=== PATIENT | female | born 1955 | race Caucasian/White ===

== ENCOUNTER 2022-05-24 10:05 | Inpatient (IN) | payer MEDICARE ==
[2022-05-24] MEDS ORDERED: IBUPROFEN IV 600 MG in SODIUM CHLORIDE 0.9% 250 ML IV STA (10:13)
[2022-05-24] MEDS ORDERED: ACETAMINOPHEN TAB 500 MG TAB PO STA (10:13)
[2022-05-24] MEDS ORDERED: cefTRIAXone IN SWFI 1,000 MG/10 ML SYRINGE IVP STA (10:16)
--- NOTE | 2022-05-24 10:22 | ED ---
General Adult HPI - General Stated complaint: SOB Time Seen by Provider: 05/24/22 10:05 Source: patient, RN notes reviewed, old records reviewed - History of Present Illness Initial comments: This is a 66-year-old female presents emergency Department complaining that she was diagnosed with the mornings been on 2 courses of antibiotics. She continues to have difficulty breathing or coughing and a fever. Patient states she was tested for Coban was negative. Patient denies any chest pain or palpitations. Patient denies any abdominal pain patient denies nausea vomiting or diarrhea. Patient denies any swelling to the legs or calf tenderness. Patient denies any lightheadedness or dizziness. - Related Data Allergies Allergy/AdvReac Type Severity Reaction Status Date / Time No Known Allergies Allergy Verified 05/24/22 10:23 Review of Systems ROS Statement: Those systems with pertinent positive or pertinent negative responses have been documented in the HPI. ROS Other: All systems not noted in ROS Statement are negative. General Exam - General Exam Comments Initial Comments: GENERAL: Patient is well-developed and well-nourished. Patient is nontoxic and well- hydrated and is in mild distress. ENT: Neck is soft and supple. No significant lymphadenopathy is noted. Oropharynx is clear. Moist mucous membranes. Neck has full range of motion without eliciting any pain. EYES: The sclera were anicteric and conjunctiva were pink and moist. Extraocular movements were intact and pupils were equal round and reactive to light. Eyelids were unremarkable. PULMONARY: Patient has crackles in the right base. CARDIOVASCULAR: There is a regular rate and rhythm without any murmurs gallops or rubs. ABDOMEN: Soft and nontender with normal bowel sounds. SKIN: Skin is clear with no lesions or rashes and otherwise unremarkable. NEUROLOGIC: Patient is alert and oriented x3. Cranial nerves II through XII are grossly intact. Motor and sensory are also intact. Normal speech, volume and content. Symmetrical smile. MUSCULOSKELETAL: Normal extremities with adequate strength and full range of motion. No lower extremity swelling or edema. No calf tenderness. LYMPHATICS: No significant lymphadenopathy is noted PSYCHIATRIC: Normal psychiatric evaluation. Course Vital Signs 05/24/22 10:21 Temperature 101.8 F H Pulse Rate 118 H Respiratory 22 Rate Blood Pressure 107/70 O2 Sat by Pulse 96 Oximetry Medical Decision Making - Medical Decision Making EKG shows sinus tachycardia at 118 bpm TN interval is 170 QRS is 76 QT interval 306 QTC is 376. Patient's EKG shows patient PAC X-ray shows left upper lobe opacification consistent with pneumonia. Patient was started on antibiotics in the emergency department I spoke with [facility] agreed to admit the patient and the patient wrote admitting orders I consult pulmonary. - Lab Data Result diagrams: 05/24/22 10:33 05/24/22 10:33 Lab Results 05/24/22 05/24/22 Range/Units 10:33 10:33 WBC 29.1 H (3.8-10.6) k/uL RBC 2.80 L (3.80-5.40) m/uL Hgb 8.2 L (11.4-16.0) gm/dL Hct 25.4 L (34.0-46.0) % MCV 90.6 (80.0-100.0) fL MCH 29.1 (25.0-35.0) pg MCHC 32.2 (31.0-37.0) g/dL RDW 14.0 (11.5-15.5) % Plt Count 512 H (150-450) k/uL MPV 7.2 Hypochromasia Slight Sodium 132 L (137-145) mmol/L Potassium 3.9 (3.5-5.1) mmol/L Chloride 105 (98-107) mmol/L Carbon Dioxide 20 L (22-30) mmol/L Anion Gap 7 mmol/L BUN 13 (7-17) mg/dL Creatinine 0.43 L (0.52-1.04) mg/dL Est GFR (CKD-EPI)AfAm >90 (>60 ml/min/1.73 sqM) Est GFR (CKD-EPI)NonAf >90 (>60 ml/min/1.73 sqM) Glucose 107 H (74-99) mg/dL Calcium 7.5 L (8.4-10.2) mg/dL Total Bilirubin 0.2 (0.2-1.3) mg/dL AST 28 (14-36) U/L ALT 35 H (4-34) U/L Alkaline Phosphatase 135 H (38-126) U/L Total Protein 4.9 L (6.3-8.2) g/dL Albumin 2.1 L (3.5-5.0) g/dL Disposition Clinical Impression: Pneumonia, Anemia Disposition: ADMITTED IP TO THIS HOSP Referrals: Nonstaff,Physician [Primary Care Provider] - 1-2 days Time of Disposition: 11:13
[2022-05-24] MEDS: SODIUM CHLORIDE 0.9% 500 ML 500 ML IV SCH ×2 (10:34→10:50)
[2022-05-24 10:51] LABS: Basophils % (A) 0 %; Eosinophils % (A) 0 %; HCT 25.4 % (34.0-46.0); HGB 8.2 gm/dL (11.4-16.0); Hypochromasia Slight; Lymphocytes # (A) 0.6 k/uL (1.0-4.8); Lymphocytes % (A) 2 %; MCH 29.1 pg (25.0-35.0); MCHC 32.2 g/dL (31.0-37.0); MCV 90.6 fL (80.0-100.0); Mean Platelet Volume 7.2; Monocytes # (A) 0.9 k/uL (0-1.0); Monocytes % (A) 3 %; Neutrophils # (A) 27.6 k/uL (1.3-7.7); Neutrophils % (A) 95 %; Platelet Count 512 k/uL (150-450); WBC 29.1 k/uL (3.8-10.6)
[2022-05-24 11:02] LABS: ALT 35 U/L (4-34); AST 28 U/L (14-36); African American GFR (CKD) >90 (>60 ml/min/1.73 sqM); Albumin 2.1 g/dL (3.5-5.0); Alkaline Phosphatase 135 U/L (38-126); Anion Gap 7 mmol/L; Blood Urea Nitrogen 13 mg/dL (7-17); Calcium 7.5 mg/dL (8.4-10.2); Carbon Dioxide 20 mmol/L (22-30); Chloride 105 mmol/L (98-107); Glucose 107 mg/dL (74-99); Non-African American GFR(CKD) >90 (>60 ml/min/1.73 sqM); Potassium 3.9 mmol/L (3.5-5.1); Sodium 132 mmol/L (137-145); Total Bilirubin 0.2 mg/dL (0.2-1.3); Total Protein 4.9 g/dL (6.3-8.2)
--- NOTE | 2022-05-24 11:05 | XR ---
EXAMINATION TYPE: XR chest 2V DATE OF EXAM: 05/24/2022 11:00 AM COMPARISON: None TECHNIQUE: XR chest 2V Frontal and lateral views of the chest. CLINICAL INDICATION:Female, 66 years old with history of Fever; FINDINGS: Lungs/Pleura: Opacity projecting over the left upper lobe. Mild COPD changes with finding the diaphra gm and increased lucency in the right lung. Pulmonary vascularity: Unremarkable. Heart/mediastinum: Cardiomediastinal silhouette is unremarkable. Musculoskeletal: No acute osseous pathology. IMPRESSION: Left upper lobe opacity could represent pneumonia given patient's history of fever. There is concern for underlying mass consider dedicated CT chest.
[2022-05-24] MEDS ORDERED: AZITHROMYCIN 500 MG in SODIUM CHLORIDE 0.9% 250 ML IVPB STA (11:14)
[2022-05-24] MEDS ORDERED: PNEUMONIA PROTOCOL UTILIZED 1 EACH MISC PO PRN (11:14)
[2022-05-24 11:20] LABS: Prothrombin Time 11.1 sec (9.0-12.0)
[2022-05-24] MEDS ORDERED: SODIUM CHLORIDE 0.9% 500 ML 500 ML IV ONE (11:22)
[2022-05-24 12:20] LABS: Toxic Granulation Present
[2022-05-24] MEDS ORDERED: RX INFO: IV CONTRAST WAS GIVEN 1 EACH MISC MISCELLANE PRN (13:22)
--- NOTE | 2022-05-24 15:07 | P.CNPUL ---
History of Present Illness Consult date: 05/24/22 Requesting physician: Suresh Mejia Reason for consult: dyspnea, cough Chief complaint: Shortness of breath, cough, fever History of present illness: 66-year-old female patient, former smoker, but does carry [id number] smoking history, who came into the emergency department on May 26, 2022, with symptoms of shortness of breath, cough, fever. Patient states she has had the symptoms since early April 2022. On 05/02/2022 she went to the urgent care where she was treated with antibiotics and steroids. She then saw her PCP in follow-up, chest x-ray was taken and she was told that she has a pneumonia, and was given another round of a biotics and steroids. However she still having difficulty breathing, and coughing. She does admit to some weight loss, denies any hemoptysis no chest pain. Chest x-ray in the ED showed left upper lobe opacification consistent with pneumonia, EKG showed sinus tachycardia. Patient tested negative for COVID-19. The rest of her lab work showed leukocytosis with white blood cell, 29.1, hemoglobin of 8.1, platelet count of 512, coagulation profile was within normal limits, sodium is 132, potassium is 3.9, chloride is 105, CO2 is 20, BUN of 13 creatinine 0.43, plasma lactic acid was 2.3. Patient was started on azithromycin and Rocephin, was given gentle IV hydration. Chest x- ray findings are concerning for underlying pulmonary mass, and dedicated CT of the chest was recommended. And we're consulted for the same. Review of Systems All systems: negative Constitutional: Reports fatigue, Reports fever, Reports malaise, Reports weakness, Denies chills Eyes: denies blurred vision, denies pain Ears, nose, mouth and throat: Denies headache, Denies sore throat Cardiovascular: Denies chest pain, Denies shortness of breath Respiratory: Reports cough with sputum, Reports dyspnea, Denies cough Gastrointestinal: Denies abdominal pain, Denies diarrhea, Denies nausea, Denies vomiting Genitourinary: Denies dysuria, Denies hematuria Musculoskeletal: Denies myalgias Integumentary: Denies pruritus, Denies rash Neurological: Denies numbness, Denies weakness Psychiatric: Denies anxiety, Denies depression Endocrine: Denies fatigue, Denies weight change Past Medical History Past Medical History: Pneumonia History of Any Multi-Drug Resistant Organisms: None Reported Past Surgical History: No Surgical Hx Reported Past Anesthesia/Blood Transfusion Reactions: No Reported Reaction Past Psychological History: No Psychological Hx Reported Smoking Status: Former smoker, Vaper Past Alcohol Use History: None Reported Past Drug Use History: None Reported - Past Family History Mother Family Medical History: Cancer Medications and Allergies Home Medications Medication Instructions Recorded Confirmed Type Albuterol Inhaler [Ventolin Hfa 2 puff INHALATION RT-Q4H PRN 05/24/22 05/24/22 History Inhaler] Docusate [Colace] 100 mg PO DAILY 05/24/22 05/24/22 History Ferrous Sulfate [Feosol] 325 mg PO DAILY 05/24/22 05/24/22 History Allergies Allergy/AdvReac Type Severity Reaction Status Date / Time No Known Allergies Allergy Verified 05/24/22 11:34 Physical Exam Vitals: Vital Signs Temp Pulse Pulse Resp BP BP Pulse Ox 05/24/22 12:38 98.3 F 99 18 94/56 98 05/24/22 11:24 100.4 F H 110 H 18 113/66 98 05/24/22 10:21 101.8 F H 118 H 22 107/70 96 Intake and Output 05/23/22 05/24/22 05/24/22 22:59 06:59 14:59 Other: Weight 49.895 kg GENERAL EXAM: Alert, very pleasant, 66-year-old thin white female, resting in bed on 2 L of oxygen pulse ox is 98% comfortable in no apparent distress. HEAD: Normocephalic/atraumatic. EYES: Normal reaction of pupils, equal size. Conjunctiva pink, sclera white. NOSE: Clear with pink turbinates. THROAT: No erythema or exudates. NECK: No masses, no JVD, no thyroid enlargement, no adenopathy. CHEST: No chest wall deformity. Symmetrical expansion. LUNGS: Equal air entry with no crackles, wheeze, rhonchi or dullness. CVS: Regular rate and rhythm, normal S1 and S2, no gallops, no murmurs, no rubs ABDOMEN: Soft, nontender. No hepatosplenomegaly, normal bowel sounds, no guarding or rigidity. EXTREMITIES: No clubbing, no edema, no cyanosis, 2+ pulses and upper and lower extremities. MUSCULOSKELETAL: Muscle strength and tone normal. SPINE: No scoliosis or deformity SKIN: No rashes CENTRAL NERVOUS SYSTEM: Alert and oriented -3. No focal deficits, tone is normal in all 4 extremities. PSYCHIATRIC: Alert and oriented -3. Appropriate affect. Intact judgment and insight. Results - Laboratory Findings CBC and BMP: 05/24/22 10:33 05/24/22 10:33 PT/INR, D-dimer PT 11.1 sec (9.0-12.0) 05/24/22 10:33 INR 1.0 (<1.2) 05/24/22 10:33 Abnormal lab findings: Abnormal Labs 05/24/22 05/24/22 05/24/22 10:33 10:33 10:33 WBC 29.1 H RBC 2.80 L Hgb 8.2 L Hct 25.4 L Plt Count 512 H Neutrophils # 27.6 H Lymphocytes # 0.6 L Sodium 132 L Carbon Dioxide 20 L Creatinine 0.43 L Glucose 107 H Plasma Lactic Acid Vamsi 2.3 H* Calcium 7.5 L ALT 35 H Alkaline Phosphatase 135 H Total Protein 4.9 L Albumin 2.1 L - Diagnostic Findings Chest x-ray: report reviewed, image reviewed Assessment and Plan Plan: Assessment: #1. Acute left upper lobe pneumonia, with failure of outpatient treatment with 2 rounds of antibiotics and steroids, possibility of underlying lung mass con sidered, CT chest with contrast is pending. #2. Leukocytosis, fever, cough shortness of breath related to the above. COVID-19 PCR was negative #3. Lactic acidosis, mild, improved with IV hydration #4. Former smoker, currently in remission, carries [id number] smoking history Plan: We'll obtain CT scan of the chest with IV contrast Continue with antibiotics Continue IV hydration, breathing treatments Possibility of left upper lobe lung mass is being considered especially knowing the patient is an ex-smoker We'll continue patient's clinical course Sputum for culture, GI DVT prophylaxis I have personally seen and examined the patient, performed the documentation and the assessment and plan as written. Number of minutes spent on the visit: [15] Time with Patient: Greater than 30
[2022-05-24] MEDS: IPRATROPIUM-ALBUTEROL 3 ML NEB INHALATION SCH ×2 (15:28→19:07)
[2022-05-24] MEDS ORDERED: ONDANSETRON 4 MG/2 ML VIAL IVP PRN (15:58)
--- NOTE | 2022-05-24 16:09 | CT ---
EXAMINATION TYPE: CT chest w con DATE OF EXAM: 05/24/2022 COMPARISON: None HISTORY: SOB, pneumonia, chest mass CT DLP: 187.8 mGycm Automated exposure control for dose reduction was used. CONTRAST: Performed with IV Contrast, patient injected with 100 mL of Isovue 300. Images obtained from the thoracic inlet to the diaphragm with the IV contrast. There is large left upper lung field mass like consolidation. This measures 12 cm in length. There is extension into the mediastinum. There is central cavitation. There are some adjacent airspace pulmon jalil infiltrates. There is some pulmonary emphysema in the lateral aspect of the right lung. The pulmonary arteries appear intact. Thoracic aorta is intact. No aneurysm. There is mild left pleur al effusion. Heart size is normal. No pericardial effusion. There is 2.2 cm left adrenal mass which h as relatively low attenuation. The thoracic spine is intact. No compression fracture. No focal bone destruction. The ribs appear int act. IMPRESSION: Large left upper lobe mass with cavitation. There is invasion into the left side of the mediastinum a nd this is suggestive of malignancy. Left pleural effusion. Pulmonary emphysema. Nonspecific left adrenal mass. Density is relatively low and more likely benign.
--- NOTE | 2022-05-24 18:37 | P.HPIM ---
History of Present Illness H&P Date: 05/24/22 Chief Complaint: Shortness of breath 66-year-old female presents emergency Department complaining that she was diagnosed with the mornings been on 2 courses of antibiotics. She continues to have difficulty breathing or coughing and a fever. Patient states she was tested for Coban was negative. Patient denies any chest pain or palpitations. Patient denies any abdominal pain patient denies nausea vomiting or diarrhea. Patient denies any swelling to the legs or calf tenderness. Patient denies any lightheadedness or dizziness. Chest x-ray in the ED showed left upper lobe opacification consistent with pneumonia, EKG showed sinus tachycardia. Patient tested negative for COVID-19. The rest of her lab work showed leukocytosis with white blood cell, 29.1, hemoglobin of 8.1, platelet count of 512, coagulation profile was within normal limits, sodium is 132, potassium is 3.9, chloride is 105, CO2 is 20, BUN of 13 creatinine 0.43, plasma lactic acid was 2.3. Patient was started on azithromycin and Rocephin, was given gentle IV hydration. Chest x-ray findings are concerning for underlying pulmonary mass, and dedicated CT of the chest was recommended. Review of Systems REVIEW OF SYSTEMS: CONSTITUTIONAL: No fever, no malaise, no fatigue. HEENT: No recent visual problems or hearing problems. Denied any sore throat. CARDIOVASCULAR: No chest pain, orthopnea, PND, no palpitations, no syncope. PULMONARY: No shortness of breath, no cough, no hemoptysis. GASTROINTESTINAL: No diarrhea, no nausea, no vomiting, no abdominal pain. NEUROLOGICAL: No headaches, no weakness, no numbness. HEMATOLOGICAL: Denies any bleeding or petechiae. GENITOURINARY: Denies any burning micturition, frequency, or urgency. MUSCULOSKELETAL/RHEUMATOLOGICAL: Denies any joint pain, swelling, or any muscle pain. ENDOCRINE: Denies any polyuria or polydipsia. The rest of the 14-point review of systems is negative. Past Medical History Past Medical History: Pneumonia History of Any Multi-Drug Resistant Organisms: None Reported Past Surgical History: No Surgical Hx Reported Past Psychological History: No Psychological Hx Reported Smoking Status: Former smoker Past Alcohol Use History: None Reported Past Drug Use History: None Reported - Past Family History Mother Family Medical History: Cancer Medications and Allergies Home Medications Medication Instructions Recorded Confirmed Type Albuterol Inhaler [Ventolin Hfa 2 puff INHALATION RT-Q4H PRN 05/24/22 05/24/22 History Inhaler] Docusate [Colace] 100 mg PO DAILY 05/24/22 05/24/22 History Ferrous Sulfate [Feosol] 325 mg PO DAILY 05/24/22 05/24/22 History Allergies Allergy/AdvReac Type Severity Reaction Status Date / Time No Known Allergies Allergy Verified 05/24/22 11:34 Physical Exam Vitals: Vital Signs Temp Pulse Resp BP Pulse Ox 05/24/22 11:24 100.4 F H 110 H 18 113/66 98 05/24/22 10:21 101.8 F H 118 H 22 107/70 96 Intake and Output 05/23/22 05/24/22 05/24/22 22:59 06:59 14:59 Other: Weight 49.895 kg PHYSICAL EXAMINATION: GENERAL: The patient is alert and oriented x3, not in any acute distress. Well developed, well nourished. HEENT: Pupils are round and equally reacting to light. EOMI. No scleral icterus. No conjunctival pallor. Normocephalic, atraumatic. No pharyngeal erythema. No thyromegaly. CARDIOVASCULAR: S1 and S2 present. No murmurs, rubs, or gallops. PULMONARY: Chest is clear to auscultation, no wheezing or crackles. ABDOMEN: Soft, nontender, nondistended, normoactive bowel sounds. No palpable organomegaly. MUSCULOSKELETAL: No joint swelling or deformity. EXTREMITIES: No cyanosis, clubbing, or pedal edema. NEUROLOGICAL: Gross neurological examination did not reveal any focal deficits. SKIN: No rashes. Results CBC & Chem 7: 05/24/22 10:33 05/24/22 10:33 Labs: Abnormal Lab Results - Last 24 Hours (Table) 05/24/22 05/24/22 05/24/22 Range/Units 10:33 10:33 10:33 WBC 29.1 H (3.8-10.6) k/uL RBC 2.80 L (3.80-5.40) m/uL Hgb 8.2 L (11.4-16.0) gm/dL Hct 25.4 L (34.0-46.0) % Plt Count 512 H (150-450) k/uL Neutrophils # 27.6 H (1.3-7.7) k/uL Lymphocytes # 0.6 L (1.0-4.8) k/uL Sodium 132 L (137-145) mmol/L Carbon Dioxide 20 L (22-30) mmol/L Creatinine 0.43 L (0.52-1.04) mg/dL Glucose 107 H (74-99) mg/dL Plasma Lactic Acid Vamsi 2.3 H* (0.7-2.0) mmol/L Calcium 7.5 L (8.4-10.2) mg/dL ALT 35 H (4-34) U/L Alkaline Phosphatase 135 H (38-126) U/L Total Protein 4.9 L (6.3-8.2) g/dL Albumin 2.1 L (3.5-5.0) g/dL Assessment and Plan Assessment: 1. Left upper lobe pneumonia; failing outpatient treatment; patient was treated with antibiotics and steroids as outpatient but continued to remain symptomatic - Patient has been placed on IV Rocephin and azithromycin; we will order blood cultures and sputum culture - Bronchodilator nebulizer treatments; symptomatic treatment of pneumonia 2. Possible left upper lobe mass; pulmonary is consulted and patient is recommended CT of the chest with contrast 3. Leukocytosis; related to acute pneumonia; we will monitor CBC, CRP and pro-c alcitonin 4. Lactic acidosis; improving with IV fluid hydration 5. Constipation; continue with Colace 100 mg daily 6. Iron deficiency anemia; iron sulfate 325 mg daily DVT prophylaxis; SCDs/subcu heparin CODE STATUS; full code
--- NOTE | 2022-05-25 08:09 | XR ---
EXAMINATION TYPE: XR chest 2V DATE OF EXAM: 05/25/2022 7:49 AM COMPARISON: CT chest and radiograph from one day prior. TECHNIQUE: XR chest 2V Frontal and lateral views of the chest. CLINICAL INDICATION:Female, 66 years old with history of pneumonia; FINDINGS: Lungs/Pleura: Left upper lobe masslike consolidation obscures the mediastinum is apparently. There is no evidence of pleural effusion, focal consolidation, or pneumothorax. Pulmonary vascularity: Unremarkable. Heart/mediastinum: Cardiomediastinal silhouette is unremarkable. Musculoskeletal: No acute osseous pathology. IMPRESSION: Unchanged exam left upper lobe mass which extends into the mediastinum, this is better appreciated on CT.
[2022-05-25] MEDS: ACETAMINOPHEN TAB 325 MG TAB PO PRN ×2 (08:40→18:11)
[2022-05-25] MEDS: AZITHROMYCIN 500 MG TAB PO SCH (08:41)
[2022-05-25] MEDS: FERROUS SULFATE 325 MG TAB PO SCH (08:41)
[2022-05-25] MEDS: DOCUSATE 100 MG CAP PO SCH (08:41)
[2022-05-25] MEDS: IPRATROPIUM-ALBUTEROL 3 ML NEB INHALATION SCH ×4 (09:12→19:51)
[2022-05-25] MEDS ORDERED: SODIUM CHLORIDE 0.9% 500 ML 500 ML IV ONE ×2 (10:23→19:28)
--- NOTE | 2022-05-25 10:25 | P.PN ---
Subjective Progress Note Date: 05/25/22 Principal diagnosis: Lung mass 66-year-old female patient, former smoker, but does carry [id number] smoking history, who came into the emergency department on May 26, 2022, with symptoms of shortness of breath, cough, fever. Patient states she has had the symptoms since early April 2022. On 05/02/2022 she went to the urgent care where she was treated with antibiotics and steroids. She then saw her PCP in follow-up, chest x-ray was taken and she was told that she has a pneumonia, and was given another round of a biotics and steroids. However she still having difficulty breathing, and coughing. She does admit to some weight loss, denies any hemoptysis no chest pain. Chest x-ray in the ED showed left upper lobe opacification consistent with pneumonia, EKG showed sinus tachycardia. Patient tested negative for COVID-19. The rest of her lab work showed leukocytosis with white blood cell, 29.1, hemoglobin of 8.1, platelet count of 512, coagulation profile was within normal limits, sodium is 132, potassium is 3.9, chloride is 105, CO2 is 20, BUN of 13 creatinine 0.43, plasma lactic acid was 2.3. Patient was started on azithromycin and Rocephin, was given gentle IV hydration. Chest x- ray findings are concerning for underlying pulmonary mass, and dedicated CT of the chest was recommended. And we're consulted for the same. On 05/25/2022 patient seen in follow-up. Computed tomography scan of the chest without contrast was completed showing large left upper lobe mass with cavitation, and there is invasion into the left side of the mediastinum suggest darline of malignancy area and left pleural effusion and pulmonary emphysema. Nonspecific left adrenal mass. Patient remains on antibiotics, breathing treatments, vital signs are stable, patient is afebrile, currently on 2 L of oxygen satting 96%. She is short of breath with exertion, and does have a dry nonproductive cough. Denies any hemoptysis. Objective - Vital Signs Vital signs: Vital Signs Temp 98.5 F 05/25/22 05:00 Pulse 102 H 05/25/22 09:23 Resp 16 05/25/22 05:00 BP 99/62 05/25/22 05:00 Pulse Ox 96 05/25/22 05:00 FiO2 Intake & Output 05/24/22 05/25/22 05/25/22 18:59 06:59 18:59 Intake Total 2920 Balance 2920 Weight 49.895 kg Intake: Intake, IV Titration 1800 Amount Azithromycin 500 mg In 500 Sodium Chloride 0.9% 250 ml @ 250 mls/hr IVPB ONCE STA Rx#:[id number] Ibuprofen IV 600 mg In 250 Sodium Chloride 0.9% 250 ml @ 500 mls/hr IV ONCE STA Rx#:[id number] Sodium Chloride 0.9% 500 500 ml 500 ml @ 1000 mls/hr IV Q35M [facility] Rx#:[id number] Sodium Chloride 0.9% 500 500 ml 500 ml @ 999 mls/hr IV .Q31M ONE Rx#:[id number] cefTRIAXone 2 gm In 50 Sodium Chloride 0.9% 50 ml @ 100 mls/hr IVPB Q24HR [facility] Rx#:[id number] Oral 1120 Other: # Voids 2 2 # Bowel Movements 2 - Exam GENERAL EXAM: Alert, very pleasant, 66-year-old thin white female, resting in bed on 2 L of oxygen pulse ox is 98% comfortable in no apparent distress. HEAD: Normocephalic/atraumatic. EYES: Normal reaction of pupils, equal size. Conjunctiva pink, sclera white. NOSE: Clear with pink turbinates. THROAT: No erythema or exudates. NECK: No masses, no JVD, no thyroid enlargement, no adenopathy. CHEST: No chest wall deformity. Symmetrical expansion. LUNGS: Equal air entry with no crackles, wheeze, rhonchi or dullness. CVS: Regular rate and rhythm, normal S1 and S2, no gallops, no murmurs, no rubs ABDOMEN: Soft, nontender. No hepatosplenomegaly, normal bowel sounds, no guarding or rigidity. EXTREMITIES: No clubbing, no edema, no cyanosis, 2+ pulses and upper and lower extremities. MUSCULOSKELETAL: Muscle strength and tone normal. SPINE: No scoliosis or deformity SKIN: No rashes CENTRAL NERVOUS SYSTEM: Alert and oriented -3. No focal deficits, tone is normal in all 4 extremities. PSYCHIATRIC: Alert and oriented -3. Appropriate affect. Intact judgment and insight. - Labs CBC & Chem 7: 05/24/22 10:33 05/24/22 10:33 Labs: Abnormal Lab Results - Last 24 Hours (Table) 08/06/22 08/06/22 08/06/22 Range/Units 10:33 10:33 10:33 WBC 29.1 H (3.8-10.6) k/uL RBC 2.80 L (3.80-5.40) m/uL Hgb 8.2 L (11.4-16.0) gm/dL Hct 25.4 L (34.0-46.0) % Plt Count 512 H (150-450) k/uL Neutrophils # 27.6 H (1.3-7.7) k/uL Lymphocytes # 0.6 L (1.0-4.8) k/uL Sodium 132 L (137-145) mmol/L Carbon Dioxide 20 L (22-30) mmol/L Creatinine 0.43 L (0.52-1.04) mg/dL Glucose 107 H (74-99) mg/dL Plasma Lactic Acid Vamsi 2.3 H* (0.7-2.0) mmol/L Calcium 7.5 L (8.4-10.2) mg/dL ALT 35 H (4-34) U/L Alkaline Phosphatase 135 H (38-126) U/L Total Protein 4.9 L (6.3-8.2) g/dL Albumin 2.1 L (3.5-5.0) g/dL 05/25/22 Range/Units 09:45 WBC (3.8-10.6) k/uL RBC (3.80-5.40) m/uL Hgb (11.4-16.0) gm/dL Hct (34.0-46.0) % Plt Count (150-450) k/uL Neutrophils # (1.3-7.7) k/uL Lymphocytes # (1.0-4.8) k/uL Sodium (137-145) mmol/L Carbon Dioxide (22-30) mmol/L Creatinine (0.52-1.04) mg/dL Glucose (74-99) mg/dL Plasma Lactic Acid Vamsi 2.6 H* (0.7-2.0) mmol/L Calcium (8.4-10.2) mg/dL ALT (4-34) U/L Alkaline Phosphatase (38-126) U/L Total Protein (6.3-8.2) g/dL Albumin (3.5-5.0) g/dL Assessment and Plan Plan: Assessment: #1. Left upper lobe lung mass with cavitation and invasion into the left side of the mediastinum suggestive of malignancy. Patient had symptoms of cough, vivian rtness of breath and fever with failure of outpatient treatment with 2 rounds of antibiotics and steroids. #2. Leukocytosis, fever, cough shortness of breath related to the above. COVID-19 PCR was negative #3. Lactic acidosis, mild, improved with IV hydration #4. Former smoker, currently in remission, carries [id number] smoking history Plan: Computed tomography scan of the chest has been reviewed with the patient Left upper lobe lung mass showing invasion into the left mediastinum We'll schedule the patient for bronchoscopy with biopsies early next week We discussed this with the patient was agreeable to proceed For now continue current medical treatment I have personally seen and examined the patient, performed the documentation and the assessment and plan as written. Number of minutes spent on the visit: [15] Time with Patient: Less than 30
[2022-05-25] MEDS: SODIUM CHLORIDE 0.9% 1,000 ML IV SCH ×2 (11:19→18:12)
[2022-05-25 13:01] LABS: Basophils % (A) 0 %; Eosinophils % (A) 0 %; HGB 8.2 gm/dL (11.4-16.0); Hypochromasia Slight; Lymphocytes % (A) 3 %; MCH 29.3 pg (25.0-35.0); MCHC 31.7 g/dL (31.0-37.0); MCV 92.5 fL (80.0-100.0); Mean Platelet Volume 7.4; Monocytes # (A) 0.5 k/uL (0-1.0); Monocytes % (A) 2 %; Neutrophils # (A) 28.3 k/uL (1.3-7.7); Neutrophils % (A) 94 %; Platelet Count 508 k/uL (150-450); RBC 2.81 m/uL (3.80-5.40); RDW 14.3 % (11.5-15.5)
[2022-05-25 13:27] LABS: C Reactive Protein 33.2 mg/dL (<1.0)
[2022-05-25 14:13] LABS: Toxic Granulation Present
[2022-05-25] MEDS: PIPERACILLIN-TAZOBACTAM 3.375 GM in SODIUM CHLORIDE 0.9% 100 ML IVPB SCH (20:08)
[2022-05-25] MEDS ORDERED: IBUPROFEN 600 MG TAB PO PRN (21:51)
[2022-05-25] MEDS: MELATONIN 3 MG TABLET PO PRN (22:12)
--- NOTE | 2022-05-25 23:44 | P.CONS ---
History of Present Illness - Reason for Consult Consult date: 05/25/22 Lung mass - History of Present Illness This is a 66-year-old female, who came into the emergency room with complains of persistent cough, shortness of breath and intermittent fevers. Symptoms had started approximately a month ago. She had had 2 courses of antibiotics as an outpatient with only transient relief, followed by recurrence and progression of symptoms leading to come to the ER. Cough was mostly dry. She had very occasional whitish to radiation expectoration, and couple of episodes of coughing up small amounts of blood. In the emergency room chest x-ray showed a large area of consolidation in the left upper lobe. There was concern for an underlying mass. Therefore chest CT was performed, showing mass with cavitation measuring up to 12 cm with possible invasion into the mediastinum. There was a lso concern pleural effusion. Consult was therefore placed further evaluation and recommendations. Patient is a former smoker. She quit in 2018, but had been using E cigarettes since. She has a [id number] smoking history. Review of Systems Constitutional: Reports fatigue, Reports weight loss (About 15 pounds since onset of symptoms) Eyes: denies blurred vision, denies pain Ears: deny: decreased hearing, ear discharge, earache, tinnitus Ears, nose, mouth and throat: Denies headache, Denies sore throat Cardiovascular: Reports dyspnea on exertion Respiratory: Reports cough, Reports dyspnea, Reports hemoptysis Gastrointestinal: Denies abdominal pain, Denies diarrhea, Denies nausea, Denies vomiting Genitourinary: Denies dysuria, Denies hematuria Menstruation: Reports postmenopausal Musculoskeletal: Denies myalgias Integumentary: Denies pruritus, Denies rash Neurological: Reports weakness Psychiatric: Denies anxiety, Denies depression Endocrine: Reports fatigue, Reports weight change Hematologic/Lymphatic: Reports as per HPI Past Medical History Past Medical History: Pneumonia History of Any Multi-Drug Resistant Organisms: None Reported Past Surgical History: No Surgical Hx Reported Past Anesthesia/Blood Transfusion Reactions: No Reported Reaction Past Psychological History: No Psychological Hx Reported Smoking Status: Former smoker Past Alcohol Use History: None Reported Past Drug Use History: None Reported - Past Family History Mother Family Medical History: Cancer Medications and Allergies Home Medications Medication Instructions Recorded Confirmed Type Albuterol Inhaler [Ventolin Hfa 2 puff INHALATION RT-Q4H PRN 05/24/22 05/24/22 History Inhaler] Docusate [Colace] 100 mg PO DAILY 05/24/22 05/24/22 History Ferrous Sulfate [Feosol] 325 mg PO DAILY 05/24/22 05/24/22 History Allergies Allergy/AdvReac Type Severity Reaction Status Date / Time No Known Allergies Allergy Verified 05/24/22 11:34 Physical Exam Vitals: Vital Signs Temp Pulse Pulse Resp BP BP Pulse Ox 05/25/22 09:23 102 H 05/25/22 09:12 102 H 05/25/22 08:00 124 H 05/25/22 05:00 98.5 F 111 H 16 99/62 96 05/24/22 20:52 97.4 F L 94 16 96/63 97 05/24/22 19:19 89 16 05/24/22 19:07 88 16 98 05/24/22 12:38 98.3 F 99 18 94/56 98 05/24/22 11:24 100.4 F H 110 H 18 113/66 98 05/24/22 10:21 101.8 F H 118 H 22 107/70 96 Intake and Output 05/24/22 05/25/22 05/25/22 22:59 06:59 14:59 Intake Total 2920 Balance 2920 Intake: Intake, IV Titration 1800 Amount Azithromycin 500 mg In 500 Sodium Chloride 0.9% 250 ml @ 250 mls/hr IVPB ONCE STA Rx#:[id number] Ibuprofen IV 600 mg In 250 Sodium Chloride 0.9% 250 ml @ 500 mls/hr IV ONCE STA Rx#:[id number] Sodium Chloride 0.9% 500 500 ml 500 ml @ 1000 mls/hr IV Q35M [facility] Rx#:[id number] Sodium Chloride 0.9% 500 500 ml 500 ml @ 999 mls/hr IV .Q31M ONE Rx#:[id number] cefTRIAXone 2 gm In 50 Sodium Chloride 0.9% 50 ml @ 100 mls/hr IVPB Q24HR [facility] Rx#:[id number] Oral 1120 Other: # Voids 2 2 # Bowel Movements 2 - Constitutional General appearance: no acute distress - EENT Eyes: EOMI, PERRLA ENT: hearing grossly normal, normal oropharynx - Neck Neck: no lymphadenopathy Thyroid: bilateral: normal size - Respiratory Respiratory: bilateral: CTA - Cardiovascular Rhythm: regular Heart sounds: normal: S1, S2 - Gastrointestinal General gastrointestinal: normal bowel sounds, soft - Integumentary Integumentary: normal - Neurologic Neurologic: CNII-XII intact - Musculoskeletal Musculoskeletal: generalized weakness, strength equal bilaterally - Psychiatric Psychiatric: A&O x's 3, appropriate affect Results CBC & Chem 7: 05/25/22 12:30 05/24/22 10:33 Labs: Abnormal Lab Results - Last 24 Hours (Table) 05/24/22 05/24/22 05/24/22 Range/Units 10:33 10:33 10:33 WBC 29.1 H (3.8-10.6) k/uL RBC 2.80 L (3.80-5.40) m/uL Hgb 8.2 L (11.4-16.0) gm/dL Hct 25.4 L (34.0-46.0) % Plt Count 512 H (150-450) k/uL Neutrophils # 27.6 H (1.3-7.7) k/uL Lymphocytes # 0.6 L (1.0-4.8) k/uL Sodium 132 L (137-145) mmol/L Carbon Dioxide 20 L (22-30) mmol/L Creatinine 0.43 L (0.52-1.04) mg/dL Glucose 107 H (74-99) mg/dL Plasma Lactic Acid Vamsi 2.3 H* (0.7-2.0) mmol/L Calcium 7.5 L (8.4-10.2) mg/dL ALT 35 H (4-34) U/L Alkaline Phosphatase 135 H (38-126) U/L Total Protein 4.9 L (6.3-8.2) g/dL Albumin 2.1 L (3.5-5.0) g/dL Comments: EKG image reviewed Chest x-ray: report reviewed CT scan - chest: report reviewed Assessment and Plan (1) Lung mass Narrative/Plan: the patient has been found to have a large left lung mass, which appears to be invading into the mediastinum possibly. Results of the imaging and implications were discussed in detail with her. She was advised that this is highly suspicious for primary lung malignancy. The patient will need a tissue d iagnosis. Pulmonary is following, and we will defer to them as to the optimal modality, whether IR guided lung biopsy, on bronchoscopy. - CT scan also mentioned possibility of left lower effusion on physical exam there doesn't appear to be significant fluid. Repeat imaging in one to 2 days. If it is increase in fluid, then she may need thoracentesis for staging purposes - Otherwise, the plan would be to do a PET scan as an outpatient. Check MRI of the brain inpatient. Current Visit: Yes Status: Acute Code(s): R91.8 - OTHER NONSPECIFIC ABNORMAL FINDING OF LUNG FIELD SNOMED Code(s): 137574576 (2) Anemia Narrative/Plan: the patient has had some minor hemoptysis, but no other evidence of bleeding. Therefore anemia of inflammation from malignancy is more likely. Check labs, including iron studies. Continue to monitor, and transfuse to keep hemoglobin greater than 7. Current Visit: Yes Status: Acute Code(s): D64.9 - ANEMIA, UNSPECIFIED SN ED Code(s): 938689826
[2022-05-26] MEDS: SODIUM CHLORIDE 0.9% 1,000 ML IV SCH ×3 (03:06→20:14)
[2022-05-26] MEDS: PIPERACILLIN-TAZOBACTAM 3.375 GM in SODIUM CHLORIDE 0.9% 100 ML IVPB SCH ×3 (03:41→20:15)
[2022-05-26] MEDS: ACETAMINOPHEN TAB 325 MG TAB PO PRN ×2 (05:51→17:46)
[2022-05-26] MEDS: AZITHROMYCIN 500 MG TAB PO SCH (07:59)
[2022-05-26] MEDS: DOCUSATE 100 MG CAP PO SCH (07:59)
[2022-05-26] MEDS: FERROUS SULFATE 325 MG TAB PO SCH (07:59)
[2022-05-26] MEDS: IPRATROPIUM-ALBUTEROL 3 ML NEB INHALATION SCH ×4 (08:23→20:42)
--- NOTE | 2022-05-26 08:47 | P.PN ---
Subjective Progress Note Date: 05/25/22 Principal diagnosis: Left upper lobe lung mass with cavitation and invasion into the left side of the mediastinum suggestive of malignancy Leukocytosis/lactic acidosis/sepsis 66-year-old female presents emergency Department complaining that she was diagn osed with the mornings been on 2 courses of antibiotics. She continues to have difficulty breathing or coughing and a fever. Patient states she was tested for Coban was negative. Patient denies any chest pain or palpitations. Patient denies any abdominal pain patient denies nausea vomiting or diarrhea. Patient denies any swelling to the legs or calf tenderness. Patient denies any lightheadedness or dizziness. Chest x-ray in the ED showed left upper lobe opacification consistent with pneumonia, EKG showed sinus tachycardia. Patient tested negative for COVID-19. The rest of her lab work showed leukocytosis with white blood cell, 29.1, hemoglobin of 8.1, platelet count of 512, coagulation profile was within normal limits, sodium is 132, potassium is 3.9, chloride is 105, CO2 is 20, BUN of 13 creatinine 0.43, plasma lactic acid was 2.3. Patient was started on azithromycin and Rocephin, was given gentle IV hydration. Chest x-ray findings are concerning for underlying pulmonary mass, and dedicated CT of the chest was recommended. CT of chest is completed and reveals left upper lobe lung mass with invasion of left mediastinum; pulmonary on board and recommending bronchoscopy with biopsy early next week Objective - Vital Signs Vital signs: Vital Signs Temp 98.5 F 05/25/22 05:00 Pulse 102 H 05/25/22 09:23 Resp 16 05/25/22 05:00 BP 99/62 05/25/22 05:00 Pulse Ox 96 05/25/22 05:00 FiO2 Intake & Output 05/24/22 05/25/22 05/25/22 18:59 06:59 18:59 Intake Total 2920 Balance 2920 Weight 49.895 kg Intake: Intake, IV Titration 1800 Amount Azithromycin 500 mg In 500 Sodium Chloride 0.9% 250 ml @ 250 mls/hr IVPB ONCE STA Rx#:[id number] Ibuprofen IV 600 mg In 250 Sodium Chloride 0.9% 250 ml @ 500 mls/hr IV ONCE STA Rx#:[id number] Sodium Chloride 0.9% 500 500 ml 500 ml @ 1000 mls/hr IV Q35M [facility] Rx#:[id number] Sodium Chloride 0.9% 500 500 ml 500 ml @ 999 mls/hr IV .Q31M ONE Rx#:[id number] cefTRIAXone 2 gm In 50 Sodium Chloride 0.9% 50 ml @ 100 mls/hr IVPB Q24HR [facility] Rx#:[id number] Oral 1120 Other: # Voids 2 2 # Bowel Movements 2 - Exam PHYSICAL EXAMINATION: GENERAL: The patient is alert and oriented x3, not in any acute distress. Well developed, well nourished. HEENT: Pupils are round and equally reacting to light. EOMI. No scleral icterus. No conjunctival pallor. Normocephalic, atraumatic. No pharyngeal erythema. No thyromegaly. CARDIOVASCULAR: S1 and S2 present. No murmurs, rubs, or gallops. PULMONARY: Chest is clear to auscultation, no wheezing or crackles. ABDOMEN: Soft, nontender, nondistended, normoactive bowel sounds. No palpable organomegaly. MUSCULOSKELETAL: No joint swelling or deformity. EXTREMITIES: No cyanosis, clubbing, or pedal edema. NEUROLOGICAL: Gross neurological examination did not reveal any focal deficits. SKIN: No rashes. - Labs CBC & Chem 7: 05/25/22 12:30 05/24/22 10:33 Labs: Abnormal Lab Results - Last 24 Hours (Table) 05/24/22 05/24/22 05/24/22 Range/Units 10:33 10:33 10:33 WBC 29.1 H (3.8-10.6) k/uL RBC 2.80 L (3.80-5.40) m/uL Hgb 8.2 L (11.4-16.0) gm/dL Hct 25.4 L (34.0-46.0) % Plt Count 512 H (150-450) k/uL Neutrophils # 27.6 H (1.3-7.7) k/uL Lymphocytes # 0.6 L (1.0-4.8) k/uL Sodium 132 L (137-145) mmol/L Carbon Dioxide 20 L (22-30) mmol/L Creatinine 0.43 L (0.52-1.04) mg/dL Glucose 107 H (74-99) mg/dL Plasma Lactic Acid Vamsi 2.3 H* (0.7-2.0) mmol/L Calcium 7.5 L (8.4-10.2) mg/dL ALT 35 H (4-34) U/L Alkaline Phosphatase 135 H (38-126) U/L Total Protein 4.9 L (6.3-8.2) g/dL Albumin 2.1 L (3.5-5.0) g/dL 05/25/22 Range/Units 09:45 WBC (3.8-10.6) k/uL RBC (3.80-5.40) m/uL Hgb (11.4-16.0) gm/dL Hct (34.0-46.0) % Plt Count (150-450) k/uL Neutrophils # (1.3-7.7) k/uL Lymphocytes # (1.0-4.8) k/uL Sodium (137-145) mmol/L Carbon Dioxide (22-30) mmol/L Creatinine (0.52-1.04) mg/dL Glucose (74-99) mg/dL Plasma Lactic Acid Vamsi 2.6 H* (0.7-2.0) mmol/L Calcium (8.4-10.2) mg/dL ALT (4-34) U/L Alkaline Phosphatase (38-126) U/L Total Protein (6.3-8.2) g/dL Albumin (3.5-5.0) g/dL Assessment and Plan Assessment: 1. Left upper lobe pneumonia; failing outpatient treatment; patient was treated with antibiotics and steroids as outpatient but continued to remain symptomatic - Patient has been placed on IV Rocephin and azithromycin; we will order blood cultures and sputum culture - Bronchodilator nebulizer treatments; symptomatic treatment of pneumonia 2. Possible left upper lobe mass; pulmonary is consulted and patient is recommended CT of the chest with contrast 3. Leukocytosis; related to acute pneumonia; we will monitor CBC, CRP and pro- calcitonin 4. Lactic acidosis; improving with IV fluid hydration 5. Constipation; continue with Colace 100 mg daily 6. Iron deficiency anemia; iron sulfate 325 mg daily DVT prophylaxis; SCDs/subcu heparin CODE STATUS; full code
[2022-05-26 08:48] LABS: HGB 7.2 g/dL (12.0-15.0); MCH 27.7 pg (27.0-32.0); MCV 92.3 fL (80.0-97.0); Mean Platelet Volume 8.8 fL (9.5-12.2); NRBC Per 100 WBC 0 /100 WBCS (0.0-0.0); Platelet Count 397 X 10*3/uL (140-440); RDW 14.5 % (11.5-14.5); WBC 30.81 X 10*3/uL (4.50-10.00)
[2022-05-26 09:24] LABS: % Iron Saturation 7.29 (12.00-45.00); C Reactive Protein 27.6 mg/dL (0.00-0.80)
[2022-05-26 09:28] LABS: Basophils # (A) 0.05 X 10*3/uL (0.00-0.10); Basophils % (A) 0.2 %; Eosinophils # (A) 0.01 X 10*3/uL (0.04-0.35); Eosinophils % (A) 0 %; Immature Grans, Automated 2.1 %; Lymphocytes # (A) 0.89 X 10*3/uL (0.90-5.00); Lymphocytes % (A) 2.9 %; Monocytes # (A) 0.92 X 10*3/uL (0.20-1.00); Neutrophils % (A) 91.8 %
--- NOTE | 2022-05-26 12:25 | XR ---
EXAMINATION TYPE: XR chest 1V portable DATE OF EXAM: 05/26/2022 COMPARISON: 05/25/2022 INDICATION: Postbiopsy TECHNIQUE: Single frontal view of the chest is obtained. FINDINGS: The heart size is normal. The pulmonary vasculature is normal. There is a large left upper lung field opacification. No pneumothorax. Follow-up can be performed. IMPRESSION: 1. Thorax post biopsy radiographically evident. Follow-up as clinically indicated.
--- NOTE | 2022-05-26 12:28 | CT ---
EXAMINATION TYPE: CT biopsy lung LT DATE OF EXAM: 05/26/2022 COMPARISON: 05/24/2022 HISTORY: Left upper lobe lung mass request for biopsy CT DLP: 679 mGycm The procedure is discussed with the patient, the risks, complications, benefits and alternatives, wer e discussed and any questions were answered. Informed consent was obtained. The patient is placed p jai on the CT table, prepped and draped in the usual sterile fashion. Utilizing a 20-gauge core biopsy needle access into the left upper lobe mass was achieved with a sing le pass obtained. Small amount of aspirate was also obtained. Pathology pending. All elements of max imal barrier and sterile technique were utilized. The patient remained stable throughout the procedu re with no immediate postprocedural complication. IMPRESSION: 1. Successful CT guided core biopsy and fine needle aspiration of a left upper lobe lung mass
--- NOTE | 2022-05-26 14:15 | P.PN ---
Subjective Progress Note Date: 05/26/22 No need for iron supplementation with storage over 1500, patient is waiting on MRI. Objective - Vital Signs Vital signs: Vital Signs Temp 98.4 F 05/26/22 12:31 Pulse 119 H 05/26/22 12:31 Resp 18 05/26/22 12:31 BP 113/81 05/26/22 12:31 Pulse Ox 97 05/26/22 12:31 FiO2 Intake & Output 05/25/22 05/26/22 05/26/22 18:59 06:59 18:59 Intake Total 1300 Balance 1300 Intake: Intake, IV Titration 1300 Amount Sodium Chloride 0.9% 1, 1300 000 ml @ 130 mls/hr IV . Q7H42M [facility] Rx#:[id number] Sodium Chloride 0.9% 500 0 ml 500 ml @ 999 mls/hr IV .Q31M [facility] Rx#:[id number] Other: Voiding Method Toilet # Voids 2 # Bowel Movements 0 - Exam - Constitutional General appearance: no acute distress - EENT Eyes: EOMI, PERRLA ENT: hearing grossly normal, normal oropharynx - Neck Neck: no lymphadenopathy Thyroid: bilateral: normal size - Respiratory Respiratory: bilateral: CTA - Cardiovascular Rhythm: regular Heart sounds: normal: S1, S2 - Gastrointestinal General gastrointestinal: normal bowel sounds, soft - Integumentary Integumentary: normal - Neurologic Neurologic: CNII-XII intact - Musculoskeletal Musculoskeletal: generalized weakness, strength equal bilaterally - Psychiatric Psychiatric: A&O x's 3, appropriate affect - Labs CBC & Chem 7: 05/26/22 05:06 05/24/22 10:33 Labs: Abnormal Lab Results - Last 24 Hours (Table) 05/25/22 05/25/22 05/25/22 Range/Units 12:30 12:30 15:12 WBC (4.50-10.00) X 10*3/uL RBC (4.10-5.20) X 10*6/uL Hgb (12.0-15.0) g/dL Hct (37.2-46.3) % MCHC (32.0-37.0) g/dL MPV (9.5-12.2) fL Immature Gran # (0.00-0.04) X 10*3/uL Neutrophils # 28.3 H (1.3-7.7) k/uL Lymphocytes # (0.90-5.00) X 10*3/uL Eosinophils # (0.04-0.35) X 10*3/uL Plasma Lactic Acid Vamsi 3.9 H* (0.7-2.0) mmol/L Iron (50-170) ug/dL TIBC (228-460) ug/dL % Saturation (12.00-45.00) Transferrin (204.0-354.0) mg/dL Ferritin (10.0-291.0) ng/mL C-Reactive Protein (0.00-0.80) mg/dL Vitamin B12 (200.0-944.0) pg/mL Procalcitonin 1.43 H (0.02-0.09) ng/mL 05/25/22 05/26/22 05/26/22 Range/Units 19:43 05:06 05:06 WBC 30.81 H (4.50-10.00) X 10*3/uL RBC 2.60 L (4.10-5.20) X 10*6/uL Hgb 7.2 L (12.0-15.0) g/dL Hct 24.0 L (37.2-46.3) % MCHC 30.0 L (32.0-37.0) g/dL MPV 8.8 L (9.5-12.2) fL Immature Gran # 0.64 H (0.00-0.04) X 10*3/uL Neutrophils # 28.30 H (1.3-7.7) k/uL Lymphocytes # 0.89 L (0.90-5.00) X 10*3/uL Eosinophils # 0.01 L (0.04-0.35) X 10*3/uL Plasma Lactic Acid Vamsi 2.7 H* (0.7-2.0) mmol/L Iron (50-170) ug/dL TIBC (228-460) ug/dL % Saturation (12.00-45.00) Transferrin (204.0-354.0) mg/dL Ferritin (10.0-291.0) ng/mL C-Reactive Protein (0.00-0.80) mg/dL Vitamin B12 (200.0-944.0) pg/mL Procalcitonin 1.41 H (0.02-0.09) ng/mL 05/26/22 Range/Units 05:06 WBC (4.50-10.00) X 10*3/uL RBC (4.10-5.20) X 10*6/uL Hgb (12.0-15.0) g/dL Hct (37.2-46.3) % MCHC (32.0-37.0) g/dL MPV (9.5-12.2) fL Immature Gran # (0.00-0.04) X 10*3/uL Neutrophils # (1.3-7.7) k/uL Lymphocytes # (0.90-5.00) X 10*3/uL Eosinophils # (0.04-0.35) X 10*3/uL Plasma Lactic Acid Vamsi (0.7-2.0) mmol/L Iron 8 L (50-170) ug/dL TIBC 108 L (228-460) ug/dL % Saturation 7.29 L (12.00-45.00) Transferrin 76.9 L (204.0-354.0) mg/dL Ferritin 1561.0 H (10.0-291.0) ng/mL C-Reactive Protein 27.60 H (0.00-0.80) mg/dL Vitamin B12 976.0 H (200.0-944.0) pg/mL Procalcitonin (0.02-0.09) ng/mL Microbiology - Last 24 Hours (Table) 05/24/22 10:30 Blood Culture - Preliminary Blood No Growth after 48 hours 05/24/22 10:33 Blood Culture - Preliminary Blood No Growth after 48 hours 05/25/22 09:45 Blood Culture - Preliminary Blood No Growth after 24 hours 05/24/22 19:40 Gram Stain - Preliminary Sputum Sputum Culture - Preliminary Assessment and Plan Plan: Comments: EKG image reviewed Chest x-ray: report reviewed CT scan - chest: report reviewed Assessment and Plan (1) Lung mass Narrative/Plan: the patient has been found to have a large left lung mass, which appears to be invading into the mediastinum possibly. Results of the imaging and implications were discussed in detail with her. She was advised that this is highly suspicious for primary lung malignancy. The patient will need a tissue diagnosis. Pulmonary is following, and we will defer to them as to the optimal modality, whether IR guided lung biopsy, on bronchoscopy. - CT scan also mentioned possibility of left lower effusion on physical exam there doesn't appear to be significant fluid. Repeat imaging in one to 2 days. If it is increase in fluid, then she may need thoracentesis for staging purposes - Otherwise, the plan would be to do a PET scan as an outpatient. Check MRI of the brain inpatient. Current Visit: Yes Status: Acute Code(s): R91.8 - OTHER NONSPECIFIC ABNORMAL FINDING OF LUNG FIELD SNOMED Code(s): 856839693 (2) Anemia Narrative/Plan: tLikely from anemia of malignancy and inflammation No iron needed Check labs, Continue to monitor, and transfuse to keep hemoglobin greater than 7. Current Visit: Yes Status: Acute Code(s): D64.9 - ANEMIA, UNSPECIFIED SNOMED Code(s): 301766713 Await MRI brain for further recs
[2022-05-26 14:39] VITALS: BMI 17.2
--- NOTE | 2022-05-26 15:14 | P.PN ---
Subjective Progress Note Date: 05/26/22 Principal diagnosis: Left upper lobe lung mass with cavitation and invasion into the left side of the mediastinum suggestive of malignancy Leukocytosis/lactic acidosis/sepsis 66-year-old female presents emergency Department complaining that she was diagn osed with the mornings been on 2 courses of antibiotics. She continues to have difficulty breathing or coughing and a fever. Patient states she was tested for Coban was negative. Patient denies any chest pain or palpitations. Patient denies any abdominal pain patient denies nausea vomiting or diarrhea. Patient denies any swelling to the legs or calf tenderness. Patient denies any lightheadedness or dizziness. Chest x-ray in the ED showed left upper lobe opacification consistent with pneumonia, EKG showed sinus tachycardia. Patient tested negative for COVID-19. The rest of her lab work showed leukocytosis with white blood cell, 29.1, hemoglobin of 8.1, platelet count of 512, coagulation profile was within normal limits, sodium is 132, potassium is 3.9, chloride is 105, CO2 is 20, BUN of 13 creatinine 0.43, plasma lactic acid was 2.3. Patient was started on azithromycin and Rocephin, was given gentle IV hydration. Chest x-ray findings are concerning for underlying pulmonary mass, and dedicated CT of the chest was recommended. CT of chest is completed and reveals left upper lobe lung mass with invasion of left mediastinum; pulmonary on board and recommending bronchoscopy with biopsy early next week 05/26/2022 Patient is seen and evaluated and discussed with nursing staff; no specific complaints are reported Patient has been found to have a large left lung mass invading into mediastinum; pulmonary service on board and recommending bronchoscopy versus IR guided lung biopsy CT of the chest completed reveals left sided pleural effusion which doesn't seem to be significant if no further thoracentesis; plan is to repeat CT in 1-2 days with plans for thoracentesis for staging purposes if fluid has increased in size MRI of the brain is ordered and pending; patient will need PET scan as an outpatient for further workup and treatment plan Objective - Vital Signs Vital signs: Vital Signs Temp 97.7 F 05/26/22 04:04 Pulse 100 05/26/22 08:32 Resp 14 05/26/22 04:04 BP 100/63 05/26/22 04:04 Pulse Ox 100 05/26/22 04:04 FiO2 Intake & Output 05/25/22 05/26/22 05/26/22 18:59 06:59 18:59 Intake Total 1300 Balance 1300 Intake: Intake, IV Titration 1300 Amount Sodium Chloride 0.9% 1, 1300 000 ml @ 130 mls/hr IV . Q7H42M [facility] Rx#:[id number] Sodium Chloride 0.9% 500 0 ml 500 ml @ 999 mls/hr IV .Q31M [facility] Rx#:[id number] Other: # Voids 2 # Bowel Movements 0 - Exam PHYSICAL EXAMINATION: GENERAL: The patient is alert and oriented x3, not in any acute distress. Well developed, well nourished. HEENT: Pupils are round and equally reacting to light. EOMI. No scleral icterus. No conjunctival pallor. Normocephalic, atraumatic. No pharyngeal erythema. No thyromegaly. CARDIOVASCULAR: S1 and S2 present. No murmurs, rubs, or gallops. PULMONARY: Chest is clear to auscultation, no wheezing or crackles. ABDOMEN: Soft, nontender, nondistended, normoactive bowel sounds. No palpable organomegaly. MUSCULOSKELETAL: No joint swelling or deformity. EXTREMITIES: No cyanosis, clubbing, or pedal edema. NEUROLOGICAL: Gross neurological examination did not reveal any focal deficits. SKIN: No rashes. - Labs CBC & Chem 7: 05/26/22 05:06 05/24/22 10:33 Labs: Abnormal Lab Results - Last 24 Hours (Table) 05/25/22 05/25/22 05/25/22 Range/Units 09:45 12:30 12:30 WBC 30.0 H (3.8-10.6) k/uL RBC 2.81 L (3.80-5.40) m/uL Hgb 8.2 L (11.4-16.0) gm/dL Hct 26.0 L (34.0-46.0) % MCHC (32.0-37.0) g/dL Plt Count 508 H (150-450) k/uL MPV (9.5-12.2) fL Neutrophils # 28.3 H (1.3-7.7) k/uL Plasma Lactic Acid Vamsi 2.6 H* (0.7-2.0) mmol/L C-Reactive Protein 33.2 H (<1.0) mg/dL Procalcitonin (0.02-0.09) ng/mL 05/25/22 05/25/22 05/25/22 Range/Units 12:30 12:30 15:12 WBC (3.8-10.6) k/uL RBC (3.80-5.40) m/uL Hgb (11.4-16.0) gm/dL Hct (34.0-46.0) % MCHC (32.0-37.0) g/dL Plt Count (150-450) k/uL MPV (9.5-12.2) fL Neutrophils # (1.3-7.7) k/uL Plasma Lactic Acid Vamsi 2.5 H* 3.9 H* (0.7-2.0) mmol/L C-Reactive Protein (<1.0) mg/dL Procalcitonin 1.43 H (0.02-0.09) ng/mL 05/25/22 05/26/22 Range/Units 19:43 05:06 WBC 30.81 H (3.8-10.6) k/uL RBC 2.60 L (3.80-5.40) m/uL Hgb 7.2 L (11.4-16.0) gm/dL Hct 24.0 L (34.0-46.0) % MCHC 30.0 L (32.0-37.0) g/dL Plt Count (150-450) k/uL MPV 8.8 L (9.5-12.2) fL Neutrophils # (1.3-7.7) k/uL Plasma Lactic Acid Vamsi 2.7 H* (0.7-2.0) mmol/L C-Reactive Protein (<1.0) mg/dL Procalcitonin (0.02-0.09) ng/mL Microbiology - Last 24 Hours (Table) 05/24/22 19:40 Gram Stain - Preliminary Sputum Sputum Culture - Preliminary 05/24/22 10:33 Blood Culture - Preliminary Blood No Growth after 24 hours 05/24/22 10:30 Blood Culture - Preliminary Blood No Growth after 24 hours Assessment and Plan Assessment: 1. Left upper lobe pneumonia; failing outpatient treatment; patient was treated with antibiotics and steroids as outpatient but continued to remain symptomatic - Patient has been placed on IV Rocephin and azithromycin; we will order blood cultures and sputum culture - Bronchodilator nebulizer treatments; symptomatic treatment of pneumonia 2. Possible left upper lobe mass; pulmonary is consulted and patient is recommended CT of the chest with contrast 3. Leukocytosis; related to acute pneumonia; we will monitor CBC, CRP and pro- calcitonin 4. Lactic acidosis; improving with IV fluid hydration 5. Constipation; continue with Colace 100 mg daily 6. Iron deficiency anemia; iron sulfate 325 mg daily DVT prophylaxis; SCDs/subcu heparin CODE STATUS; full code
--- NOTE | 2022-05-26 15:51 | P.PN ---
Subjective Progress Note Date: 05/26/22 This is a 66-year-old female, who came into the emergency room with complains of persistent cough, shortness of breath and intermittent fevers. Symptoms had started approximately a month ago. She had had 2 courses of antibiotics as an outpatient with only transient relief, followed by recurrence and progression of symptoms leading to come to the ER. Cough was mostly dry. She had very occasional whitish to radiation expectoration, and couple of episodes of coughing up small amounts of blood. In the emergency room chest x-ray showed a large area of consolidation in the left upper lobe. There was concern for an underlying mass. Therefore chest CT was performed, showing mass with cavitation measuring up to 12 cm with possible invasion into the mediastinum. There was also concern pleural effusion. Consult was therefore placed further evaluation and recommendations. Patient is a former smoker. She quit in 2018, but had been using E cigarettes since. She has a [id number] smoking history. On 05/26/2022, I met this patient and I discussed with her the CAT scan findings. I think there is a very high suspicion that the patient has underlying lung cancer. I discussed the case with interventional radiology and a set up this patient for a fine-needle aspirate. She may potentially have a postobstructive pneumonia as the patient's white cell count is elevated at 30.8. Hemoglobin is at 7.2. She does have a component of iron deficiency anemia. Her lactic acid level is also improvement started on 1.5 Objective - Vital Signs Vital signs: Vital Signs Temp 97.7 F 05/26/22 04:04 Pulse 100 05/26/22 08:32 Resp 14 05/26/22 04:04 BP 100/63 05/26/22 04:04 Pulse Ox 100 05/26/22 04:04 FiO2 Intake & Output 05/25/22 05/26/22 05/26/22 18:59 06:59 18:59 Intake Total 1300 Balance 1300 Intake: Intake, IV Titration 1300 Amount Sodium Chloride 0.9% 1, 1300 000 ml @ 130 mls/hr IV . Q7H42M [facility] Rx#:[id number] Sodium Chloride 0.9% 500 0 ml 500 ml @ 999 mls/hr IV .Q31M [facility] Rx#:[id number] Other: # Voids 2 # Bowel Movements 0 - Exam GENERAL EXAM: Alert, very pleasant, 66-year-old thin white female, resting in bed on 2 L of oxygen pulse ox is 98% comfortable in no apparent distress. HEAD: Normocephalic/atraumatic. EYES: Normal reaction of pupils, equal size. Conjunctiva pink, sclera white. NOSE: Clear with pink turbinates. THROAT: No erythema or exudates. NECK: No masses, no JVD, no thyroid enlargement, no adenopathy. CHEST: No chest wall deformity. Symmetrical expansion. LUNGS: Equal air entry with no crackles, wheeze, rhonchi or dullness. CVS: Regular rate and rhythm, normal S1 and S2, no gallops, no murmurs, no rubs ABDOMEN: Soft, nontender. No hepatosplenomegaly, normal bowel sounds, no guarding or rigidity. EXTREMITIES: No clubbing, no edema, no cyanosis, 2+ pulses and upper and lower extremities. MUSCULOSKELETAL: Muscle strength and tone normal. SPINE: No scoliosis or deformity SKIN: No rashes CENTRAL NERVOUS SYSTEM: Alert and oriented -3. No focal deficits, tone is normal in all 4 extremities. PSYCHIATRIC: Alert and oriented -3. Appropriate affect. Intact judgment and insight. - Labs CBC & Chem 7: 05/26/22 05:06 05/24/22 10:33 Labs: Abnormal Lab Results - Last 24 Hours (Table) 05/25/22 05/25/22 05/25/22 Range/Units 09:45 12:30 12:30 WBC 30.0 H (3.8-10.6) k/uL RBC 2.81 L (3.80-5.40) m/uL Hgb 8.2 L (11.4-16.0) gm/dL Hct 26.0 L (34.0-46.0) % MCHC (32.0-37.0) g/dL Plt Count 508 H (150-450) k/uL MPV (9.5-12.2) fL Immature Gran # (0.00-0.04) X 10*3/uL Neutrophils # 28.3 H (1.3-7.7) k/uL Lymphocytes # (0.90-5.00) X 10*3/uL Eosinophils # (0.04-0.35) X 10*3/uL Plasma Lactic Acid Vamsi 2.6 H* (0.7-2.0) mmol/L Iron (50-170) ug/dL TIBC (228-460) ug/dL % Saturation (12.00-45.00) Transferrin (204.0-354.0) mg/dL Ferritin (10.0-291.0) ng/mL C-Reactive Protein 33.2 H (<1.0) mg/dL Vitamin B12 (200.0-944.0) pg/mL Procalcitonin (0.02-0.09) ng/mL 05/25/22 05/25/22 05/25/22 Range/Units 12:30 12:30 15:12 WBC (3.8-10.6) k/uL RBC (3.80-5.40) m/uL Hgb (11.4-16.0) gm/dL Hct (34.0-46.0) % MCHC (32.0-37.0) g/dL Plt Count (150-450) k/uL MPV (9.5-12.2) fL Immature Gran # (0.00-0.04) X 10*3/uL Neutrophils # (1.3-7.7) k/uL Lymphocytes # (0.90-5.00) X 10*3/uL Eosinophils # (0.04-0.35) X 10*3/uL Plasma Lactic Acid Vamsi 2.5 H* 3.9 H* (0.7-2.0) mmol/L Iron (50-170) ug/dL TIBC (228-460) ug/dL % Saturation (12.00-45.00) Transferrin (204.0-354.0) mg/dL Ferritin (10.0-291.0) ng/mL C-Reactive Protein (<1.0) mg/dL Vitamin B12 (200.0-944.0) pg/mL Procalcitonin 1.43 H (0.02-0.09) ng/mL 05/25/22 05/26/22 05/26/22 Range/Units 19:43 05:06 05:06 WBC 30.81 H (3.8-10.6) k/uL RBC 2.60 L (3.80-5.40) m/uL Hgb 7.2 L (11.4-16.0) gm/dL Hct 24.0 L (34.0-46.0) % MCHC 30.0 L (32.0-37.0) g/dL Plt Count (150-450) k/uL MPV 8.8 L (9.5-12.2) fL Immature Gran # 0.64 H (0.00-0.04) X 10*3/uL Neutrophils # 28.30 H (1.3-7.7) k/uL Lymphocytes # 0.89 L (0.90-5.00) X 10*3/uL Eosinophils # 0.01 L (0.04-0.35) X 10*3/uL Plasma Lactic Acid Vamsi 2.7 H* (0.7-2.0) mmol/L Iron (50-170) ug/dL TIBC (228-460) ug/dL % Saturation (12.00-45.00) Transferrin (204.0-354.0) mg/dL Ferritin (10.0-291.0) ng/mL C-Reactive Protein (<1.0) mg/dL Vitamin B12 (200.0-944.0) pg/mL Procalcitonin 1.41 H (0.02-0.09) ng/mL 05/26/22 Range/Units 05:06 WBC (3.8-10.6) k/uL RBC (3.80-5.40) m/uL Hgb (11.4-16.0) gm/dL Hct (34.0-46.0) % MCHC (32.0-37.0) g/dL Plt Count (150-450) k/uL MPV (9.5-12.2) fL Immature Gran # (0.00-0.04) X 10*3/uL Neutrophils # (1.3-7.7) k/uL Lymphocytes # (0.90-5.00) X 10*3/uL Eosinophils # (0.04-0.35) X 10*3/uL Plasma Lactic Acid Vamsi (0.7-2.0) mmol/L Iron 8 L (50-170) ug/dL TIBC 108 L (228-460) ug/dL % Saturation 7.29 L (12.00-45.00) Transferrin 76.9 L (204.0-354.0) mg/dL Ferritin 1561.0 H (10.0-291.0) ng/mL C-Reactive Protein 27.60 H (<1.0) mg/dL Vitamin B12 976.0 H (200.0-944.0) pg/mL Procalcitonin (0.02-0.09) ng/mL Microbiology - Last 24 Hours (Table) 05/24/22 19:40 Gram Stain - Preliminary Sputum Sputum Culture - Preliminary 05/24/22 10:33 Blood Culture - Preliminary Blood No Growth after 24 hours 05/24/22 10:30 Blood Culture - Preliminary Blood No Growth after 24 hours Assessment and Plan Plan: Left upper lobe mass/consolidation. The area measures approximately 12 cm in size. It is extending into the mediastinum on the left and includes some central cavitation. There is also some adjacent airspace disease. The findings are highly suspicious for malignancy. COPD Small left-sided pleural effusion Nonspecific left adrenal mass, likely benign. Suspect // left upper lobe pneumonia, with failure of outpatient treatment with 2 rounds of antibiotics and steroids, possibility of underlying lung mass considered, CT chest with contrast is pending. Leukocytosis, fever, cough shortness of breath related to the above. COVID-19 PCR was negative Lactic acidosis, mild, improved with IV hydration Former smoker, currently in remission, carries [id number] smoking history+ Iron deficiency anemia Plan IR to proceed with a fine-needle aspirate of the left upper lobe mass, the mass is very accessible for biopsy/percutaneous biopsy Continue IV Zosyn High likelihood for malignancy. We'll continue to follow up this patient on the medical/oncology floor MRI of the brain is also in progress
[2022-05-26] MEDS: METOPROLOL TARTRATE 25 MG TAB PO SCH (20:15)
[2022-05-26] MEDS: MELATONIN 3 MG TABLET PO PRN (20:15)
--- NOTE | 2022-05-26 23:31 | P.CONS ---
History of Present Illness - Reason for Consult Consult date: 05/26/22 Fever and elevated lactic acid Requesting physician: Dinorah Rome - Chief Complaint Fever and shortness of breath x few days - History of Present Illness Patient is a 66-year-old female presenting to the hospital 2 days ago for evaluation of increasing shortness of breath and cough and fever in this patient symptom has been going on for few days before presentation to the hospital patient apparently did have a negative COVID test in the outpatient setting patient has been complaining of cough which has been moderate intensity with occasional sputum production also complaining of right-sided chest pain more of a sharp worse with taking deep breath intensity 6-7 out of 10 on presentation to the hospital patient did have a fever of 101.8 F patient was ta chycardic and did have a white count of 29-30,000 patient did have elevated lactic acid kidney function has been normal Pro-Jalil's was elevated patient did have a chest x-ray left upper lobe opacity could represent pneumonia subsequently did have a CT of the chest large left upper lobe mass with cavi tation with invasion into the left side of the mediastinum suggestive of malignancy patient is scheduled for a IR biopsy of this lesion and cultures patient is empirically being treated with Zosyn which was started last night infectious he was consulted for further management of antibiotic therapy Review of Systems Positive point has been mentioned in the HPI rest of the systems are negative Past Medical History Past Medical History: Pneumonia History of Any Multi-Drug Resistant Organisms: None Reported Past Surgical History: No Surgical Hx Reported Past Anesthesia/Blood Transfusion Reactions: No Reported Reaction Past Psychological History: No Psychological Hx Reported Smoking Status: Former smoker Past Alcohol Use History: None Reported Past Drug Use History: None Reported - Past Family History Mother Family Medical History: Cancer Medications and Allergies Home Medications Medication Instructions Recorded Confirmed Type Albuterol Inhaler [Ventolin Hfa 2 puff INHALATION RT-Q4H PRN 05/24/22 05/24/22 History Inhaler] Docusate [Colace] 100 mg PO DAILY 05/24/22 05/24/22 History Ferrous Sulfate [Feosol] 325 mg PO DAILY 05/24/22 05/24/22 History Allergies Allergy/AdvReac Type Severity Reaction Status Date / Time No Known Allergies Allergy Verified 05/24/22 11:34 Physical Exam Vitals: Vital Signs Temp Pulse Pulse Resp BP BP Pulse Ox 05/26/22 08:32 100 05/26/22 08:25 99 05/26/22 04:04 97.7 F 91 14 100/63 100 05/25/22 20:09 119 H 05/25/22 20:00 16 05/25/22 19:51 115 H 95 05/25/22 19:28 99.0 F 116 H 16 96/56 96 05/25/22 17:03 100.2 F H 125 H 16 96/57 94 L 05/25/22 15:47 100 05/25/22 15:32 98 05/25/22 12:08 104 H 05/25/22 11:58 104 H 05/25/22 11:40 97.9 F 103 H 16 87/51 92 L 05/25/22 11:22 98.5 F 105 H 18 94/55 96 05/25/22 11:14 96 05/25/22 10:44 98.5 F Intake and Output 05/25/22 05/26/22 05/26/22 22:59 06:59 14:59 Intake Total 1300 Balance 1300 Intake: Intake, IV Titration 1300 Amount Sodium Chloride 0.9% 1, 1300 000 ml @ 130 mls/hr IV . Q7H42M [facility] Rx#:[id number] Sodium Chloride 0.9% 500 0 ml 500 ml @ 999 mls/hr IV .Q31M [facility] Rx#:[id number] Other: # Voids 1 2 # Bowel Movements 0 GENERAL DESCRIPTION: Elderly female lying in bed, no distress. No tachypnea or accessory muscle of respiration use. HEENT: Shows Pallor , no scleral icterus. Oral mucous membrane is dry. No pharyngeal erythema or thrush NECK: Trachea central, no thyromegaly. LUNGS: Unlabored breathing. Decreased intensity of breath sounds. No wheeze or crackle. HEART: S1, S2, regular rate and rhythm. No loud murmur ABDOMEN: Soft, no tenderness , guarding or rigidity, no organomegaly EXTREMITIES: No edema of feet. SKIN: No rash, no masses palpable. NEUROLOGICAL: The patient is awake, alert, oriented x3, mood and affect normal. Results CBC & Chem 7: 05/27/22 06:45 05/27/22 06:45 Labs: Abnormal Lab Results - Last 24 Hours (Table) 08/05/0905/25/22 05/25/22 Range/Units 12:30 12:30 12:30 WBC 30.0 H (3.8-10.6) k/uL RBC 2.81 L (3.80-5.40) m/uL Hgb 8.2 L (11.4-16.0) gm/dL Hct 26.0 L (34.0-46.0) % MCHC (32.0-37.0) g/dL Plt Count 508 H (150-450) k/uL MPV (9.5-12.2) fL Immature Gran # (0.00-0.04) X 10*3/uL Neutrophils # 28.3 H (1.3-7.7) k/uL Lymphocytes # (0.90-5.00) X 10*3/uL Eosinophils # (0.04-0.35) X 10*3/uL Plasma Lactic Acid Vamsi (0.7-2.0) mmol/L Iron (50-170) ug/dL TIBC (228-460) ug/dL % Saturation (12.00-45.00) Transferrin (204.0-354.0) mg/dL Ferritin (10.0-291.0) ng/mL C-Reactive Protein 33.2 H (<1.0) mg/dL Vitamin B12 (200.0-944.0) pg/mL Procalcitonin 1.43 H (0.02-0.09) ng/mL 05/25/22 05/25/22 05/25/22 Range/Units 12:30 15:12 19:43 WBC (3.8-10.6) k/uL RBC (3.80-5.40) m/uL Hgb (11.4-16.0) gm/dL Hct (34.0-46.0) % MCHC (32.0-37.0) g/dL Plt Count (150-450) k/uL MPV (9.5-12.2) fL Immature Gran # (0.00-0.04) X 10*3/uL Neutrophils # (1.3-7.7) k/uL Lymphocytes # (0.90-5.00) X 10*3/uL Eosinophils # (0.04-0.35) X 10*3/uL Plasma Lactic Acid Vamsi 2.5 H* 3.9 H* 2.7 H* (0.7-2.0) mmol/L Iron (50-170) ug/dL TIBC (228-460) ug/dL % Saturation (12.00-45.00) Transferrin (204.0-354.0) mg/dL Ferritin (10.0-291.0) ng/mL C-Reactive Protein (<1.0) mg/dL Vitamin B12 (200.0-944.0) pg/mL Procalcitonin (0.02-0.09) ng/mL 05/26/22 05/26/22 05/26/22 Range/Units 05:06 05:06 05:06 WBC 30.81 H (3.8-10.6) k/uL RBC 2.60 L (3.80-5.40) m/uL Hgb 7.2 L (11.4-16.0) gm/dL Hct 24.0 L (34.0-46.0) % MCHC 30.0 L (32.0-37.0) g/dL Plt Count (150-450) k/uL MPV 8.8 L (9.5-12.2) fL Immature Gran # 0.64 H (0.00-0.04) X 10*3/uL Neutrophils # 28.30 H (1.3-7.7) k/uL Lymphocytes # 0.89 L (0.90-5.00) X 10*3/uL Eosinophils # 0.01 L (0.04-0.35) X 10*3/uL Plasma Lactic Acid Vamsi (0.7-2.0) mmol/L Iron 8 L (50-170) ug/dL TIBC 108 L (228-460) ug/dL % Saturation 7.29 L (12.00-45.00) Transferrin 76.9 L (204.0-354.0) mg/dL Ferritin 1561.0 H (10.0-291.0) ng/mL C-Reactive Protein 27.60 H (<1.0) mg/dL Vitamin B12 976.0 H (200.0-944.0) pg/mL Procalcitonin 1.41 H (0.02-0.09) ng/mL Microbiology - Last 24 Hours (Table) 05/24/22 19:40 Gram Stain - Preliminary Sputum Sputum Culture - Preliminary 05/24/22 10:33 Blood Culture - Preliminary Blood No Growth after 24 hours 05/24/22 10:30 Blood Culture - Preliminary Blood No Growth after 24 hours Assessment and Plan Plan: 1patient presented to hospital with sepsis and respiratory fever elevated white count elevated lactic acid with evidence of left sided lung mass and cavitation with a question of possible malignancy versus pneumonia with cavitation and possible related to community-acquired versus gram-negative pathogen. 2patient to continue with the Zosyn 3.375 g every 8 hours. 3await IR biopsy of the area fluid should also be sent for culture both bacterial fungal and AFB. We will follow on clinical condition and cultures to further adjust medication if needed Thank you for this consultation will follow this patient along with you Time with Patient: Greater than 30
[2022-05-27] MEDS: SODIUM CHLORIDE 0.9% 1,000 ML IV SCH ×3 (03:37→17:06)
[2022-05-27] MEDS: PIPERACILLIN-TAZOBACTAM 3.375 GM in SODIUM CHLORIDE 0.9% 100 ML IVPB SCH ×3 (03:37→19:29)
[2022-05-27] MEDS: IPRATROPIUM-ALBUTEROL 3 ML NEB INHALATION PRN ×2 (05:03→21:25)
--- NOTE | 2022-05-27 05:21 | MR ---
EXAMINATION TYPE: MR brain wo/w con DATE OF EXAM: 05/26/2022 COMPARISON: None HISTORY: Lung cancer. CONTRAST: Standard multiplanar, multisequence MRI departmental protocol images were obtained without contrast a nd with 5 mL intravenous Gadavist gadolinium contrast. There is cerebral cortical atrophy. There is some enlargement of the ventricles. Diffusion images vivian w no sign of an acute infarct. There is no mass effect or midline shift. No evidence of intracranial hemorrhage. There is diffuse coalescent abnormal increased signal in the periventricular white matter . This measures up to 1 cm in thickness. There are also multiple foci up to almost 1 cm of increased signal at the rg-white matter junction posterior parietal hemispheres. The cerebellum is intact. Br ainstem is intact. There is thinning of the corpus callosum. Sella turcica is intact. No evidence of orbital mass. There is a 15 mm rounded midline mixed signal mass at the anterior third ventricle. Thi s shows a central 8mm rounded area of increased signal on the T1 images without definite enhancement. This is probably proteinaceous fluid. Contrast images show no pathologic enhancement. There is normal enhancement of the venous sinuses. 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 Extensive white matter signal changes consistent with microvascular ischemia or demyelinating disease . Hydrocephalus. No evidence of metastatic disease.
[2022-05-27] MEDS: IPRATROPIUM-ALBUTEROL 3 ML NEB INHALATION SCH ×4 (07:49→20:56)
[2022-05-27] MEDS: METOPROLOL TARTRATE 25 MG TAB PO SCH ×2 (08:28→20:51)
[2022-05-27] MEDS: FERROUS SULFATE 325 MG TAB PO SCH (08:28)
[2022-05-27] MEDS: DOCUSATE 100 MG CAP PO SCH (08:28)
[2022-05-27 09:25] LABS: African American GFR (CKD) >90 (>60 ml/min/1.73 sqM); Anion Gap 10 mmol/L; Blood Urea Nitrogen 6 mg/dL (7-17); Carbon Dioxide 19 mmol/L (22-30); Chloride 105 mmol/L (98-107); Glucose 67 mg/dL (74-99); Non-African American GFR(CKD) >90 (>60 ml/min/1.73 sqM); Potassium 2.9 mmol/L (3.5-5.1); Sodium 134 mmol/L (137-145)
[2022-05-27] MEDS ORDERED: POTASSIUM CHLORIDE ER 20 MEQ TAB.ER PO STA ×3 (09:56→16:45)
[2022-05-27 10:42] LABS: Basophils # (A) 0.06 X 10*3/uL (0.00-0.10); Basophils % (A) 0.2 %; Eosinophils # (A) 0.01 X 10*3/uL (0.04-0.35); Eosinophils % (A) 0 %; HCT 23.3 % (37.2-46.3); HGB 7.4 g/dL (12.0-15.0); Immature Grans, Automated 2.3 %; Lymphocytes # (A) 0.72 X 10*3/uL (0.90-5.00); Lymphocytes % (A) 2.1 %; MCH 28.9 pg (27.0-32.0); MCHC 31.8 g/dL (32.0-37.0); Mean Platelet Volume 9.1 fL (9.5-12.2); Monocytes # (A) 0.89 X 10*3/uL (0.20-1.00); Monocytes % (A) 2.6 %; NRBC Per 100 WBC 0 /100 WBCS (0.0-0.0); Neutrophils # (A) 32.12 X 10*3/uL (1.80-7.70); Neutrophils % (A) 92.8 %; Platelet Count 425 X 10*3/uL (140-440); RBC 2.56 X 10*6/uL (4.10-5.20); RDW 14.7 % (11.5-14.5); WBC 34.58 X 10*3/uL (4.50-10.00)
--- NOTE | 2022-05-27 12:06 | P.PN ---
Subjective Progress Note Date: 05/27/22 Principal diagnosis: Fever/pneumonia Patient is a 66-year-old female presenting to the hospital with increasing shortness of breath and cough and fever, patient did have a CT of the chest today shows large left upper lobe mass with cavitation in this patient who is status post IR biopsy as well as cultures completed on 05/26/2022. On today's evaluation of his 05/27/2022, the patient is afebrile, the patient is breathing slightly comfortably, the patient had left-sided chest pain has slightly decreased intensity, the patient continue to have a cough not bringing up any sputum. Denies any nausea no vomiting no abdominal pain no diarrhea Objective - Vital Signs Vital signs: Vital Signs Temp 99.3 F 05/27/22 04:38 Pulse 113 H 05/27/22 11:43 Resp 18 05/27/22 04:38 BP 112/67 05/27/22 04:38 Pulse Ox 96 05/27/22 07:50 FiO2 Intake & Output 05/26/22 05/27/22 05/27/22 18:59 06:59 18:59 Intake Total 1560 540 Balance 1560 540 Weight 49.895 kg Intake: Intake, IV Titration 1560 Amount Sodium Chloride 0.9% 1, 1560 000 ml @ 130 mls/hr IV . Q7H42M [facility] Rx#:[id number] Oral 540 Other: Voiding Method Toilet Bedside Commode Bedside Commode # Voids 1 1 # Bowel Movements 1 - Exam GENERAL DESCRIPTION: An elderly female lying in bed in no distress RESPIRATORY SYSTEM: Unlabored breathing , decreased breath sounds at bases HEART: S1 S2 regular rate and rhythm , ABDOMEN: Soft , no tenderness EXTREMITIES: No edema feet - Labs CBC & Chem 7: 05/27/22 06:45 05/27/22 06:45 Labs: Abnormal Lab Results - Last 24 Hours (Table) 05/27/22 05/27/22 Range/Units 06:45 06:45 WBC 34.58 H (4.50-10.00) X 10*3/uL RBC 2.56 L (4.10-5.20) X 10*6/uL Hgb 7.4 L (12.0-15.0) g/dL Hct 23.3 L (37.2-46.3) % MCHC 31.8 L (32.0-37.0) g/dL RDW 14.7 H (11.5-14.5) % MPV 9.1 L (9.5-12.2) fL Immature Gran # 0.78 H (0.00-0.04) X 10*3/uL Neutrophils # 32.12 H (1.80-7.70) X 10*3/uL Lymphocytes # 0.72 L (0.90-5.00) X 10*3/uL Eosinophils # 0.01 L (0.04-0.35) X 10*3/uL Sodium 134 L (137-145) mmol/L Potassium 2.9 L (3.5-5.1) mmol/L Carbon Dioxide 19 L (22-30) mmol/L BUN 6 L (7-17) mg/dL Creatinine 0.45 L (0.52-1.04) mg/dL Glucose 67 L (74-99) mg/dL Calcium 7.0 L (8.4-10.2) mg/dL Microbiology - Last 24 Hours (Table) 05/25/22 09:45 Blood Culture - Preliminary Blood No Growth after 48 hours 05/24/22 19:40 Gram Stain - Final Sputum Sputum Culture - Final 05/26/22 11:10 Gram Stain - Preliminary Aspirate Tissue Culture - Preliminary 05/26/22 11:10 Fungal Culture - Preliminary Aspirate 05/26/22 11:10 Anaerobic Culture - Preliminary Aspirate 05/24/22 10:30 Blood Culture - Preliminary Blood No Growth after 48 hours 05/24/22 10:33 Blood Culture - Preliminary Blood No Growth after 48 hours Assessment and Plan Plan: 1patient presented to hospital with sepsis and respiratory fever elevated white count elevated lactic acid with evidence of left sided lung mass and cavitation with a question of possible malignancy versus pneumonia with cavitation and possible related to community-acquired versus gram-negative pathogen. 2patient is status post IR biopsy of the area fluid should has been sent for culture both bacterial fungal and AFB which are currently pending. 3-patient to continue with the Zosyn 3.375 g every 8 hours. Time with Patient: Less than 30
--- NOTE | 2022-05-27 12:09 | P.CONS ---
History of Present Illness - Reason for Consult Consult date: 05/27/22 dyspnea, new lung cancer Requesting physician: Nikko Sevilla - Chief Complaint dyspnea, fever - History of Present Illness The patient is a 66-year-old female with a history of a recently diagnosed large left upper lung mass with invasion into the mediastinum with likely mediastinal adenopathy. This is suspicious for a new primary lung cancer, however biopsy is pending at this time. The patient's oncologic history began in mid April, when she developed difficulty with cough and shortness of breath. She was seen at an urgent care, and was treated initially with antibiotics. She states that her symptoms did not completely resolved. She was later seen by her primary care physician (a new primary, does not appear the patient had routinely followed with primary care). They had recommended the patient undergo a CT for further evaluation. However, prior to undergoing this exam, the patient was hospitalized secondary to worsening symptoms. She presented to the emergency room on May 24 with cough, fever and increased dyspnea. CT scan of the chest performed the same day revealed a large left upper lung masslike consolidation measuring up to 12 cm with extension into the mediastinum. There was a small ipsilateral effusion. There was a 2 cm left adrenal lesion, but felt likely benign based on low attenuation. On May [address] patient underwent a CT-guided biopsy of the left upper lung mass. MRI of the brain from May 27 was unremarkable. At this time, the patient reports she had difficulty sleeping last night as she had woken up with dyspnea and required a breathing treatment. She is currently on 3 L of oxygen, and states she continues to be dyspneic with activity. She feels her cough has somewhat improved, and she denies chest pain. She unfortunately has lost 10-12 pounds in the past couple of months secondary to poor appetite. She has been trying to supplement her decreased food intake with boost. Review of Systems Constitutional: Reports fever, Reports weight loss Eyes: denies blurred vision Ears: deny: decreased hearing Cardiovascular: Reports dyspnea on exertion, Denies chest pain Respiratory: Reports cough, Reports cough with sputum, Reports dyspnea Gastrointestinal: Denies abdominal pain Genitourinary: Denies dysuria, Denies flank pain Integumentary: Denies rash Neurological: Denies aphasia, Denies ataxia, Denies confusion Psychiatric: Denies anxiety, Denies confusion Past Medical History Past Medical History: Pneumonia History of Any Multi-Drug Resistant Organisms: None Reported Past Surgical History: No Surgical Hx Reported Past Anesthesia/Blood Transfusion Reactions: No Reported Reaction Past Psychological History: No Psychological Hx Reported Smoking Status: Former smoker Past Alcohol Use History: None Reported Past Drug Use History: None Reported - Past Family History Mother Family Medical History: Cancer Medications and Allergies Home Medications Medication Instructions Recorded Confirmed Type Albuterol Inhaler [Ventolin Hfa 2 puff INHALATION RT-Q4H PRN 05/24/22 05/24/22 History Inhaler] Docusate [Colace] 100 mg PO DAILY 05/24/22 05/24/22 History Ferrous Sulfate [Feosol] 325 mg PO DAILY 05/24/22 05/24/22 History Allergies Allergy/AdvReac Type Severity Reaction Status Date / Time No Known Allergies Allergy Verified 05/24/22 11:34 Physical Exam Vitals: Vital Signs Temp Pulse Pulse Resp BP BP Pulse Ox 05/27/22 11:43 113 H 05/27/22 11:33 110 H 05/27/22 08:06 111 H 05/27/22 07:50 116 H 96 05/27/22 05:15 112 H 05/27/22 05:03 116 H 05/27/22 04:38 99.3 F 119 H 18 112/67 94 L 05/26/22 21:00 98.4 F 113 H 16 91/55 95 05/26/22 20:54 90 05/26/22 20:43 92 05/26/22 16:47 96 05/26/22 16:36 98 05/26/22 15:40 119 H 118/65 05/26/22 14:58 119/67 05/26/22 13:28 118 H 114/68 93 L 05/26/22 12:58 120 H 111/62 05/26/22 12:43 118 H 111/62 05/26/22 12:31 98.4 F 119 H 18 113/81 97 05/26/22 12:10 116 H 18 97 05/26/22 12:04 118 H 16 130/73 98 05/26/22 11:55 119 H 18 124/69 99 Intake and Output 05/26/22 05/27/22 05/27/22 22:59 06:59 14:59 Intake Total 1560 540 Balance 1560 540 Intake: Intake, IV Titration 1560 Amount Sodium Chloride 0.9% 1, 1560 000 ml @ 130 mls/hr IV . Q7H42M [facility] Rx#:[id number] Oral 540 Other: Voiding Method Bedside Commode Bedside Commode # Voids 1 1 # Bowel Movements 1 - Constitutional General appearance: no acute distress - EENT Eyes: EOMI, PERRLA ENT: hearing grossly normal - Neck Neck: no lymphadenopathy - Respiratory Respiratory: right: CTA, left: diminished - Cardiovascular Rhythm: regular - Gastrointestinal General gastrointestinal: no distended, no tenderness - Integumentary Integumentary: no calor, no cellulitis - Neurologic Neurologic: CNII-XII intact - Musculoskeletal Musculoskeletal: strength equal bilaterally - Psychiatric Psychiatric: A&O x's 3, appropriate affect, intact judgment & insight Results CBC & Chem 7: 05/27/22 06:45 05/27/22 06:45 Labs: Abnormal Lab Results - Last 24 Hours (Table) 05/27/22 05/27/22 Range/Units 06:45 06:45 WBC 34.58 H (4.50-10.00) X 10*3/uL RBC 2.56 L (4.10-5.20) X 10*6/uL Hgb 7.4 L (12.0-15.0) g/dL Hct 23.3 L (37.2-46.3) % MCHC 31.8 L (32.0-37.0) g/dL RDW 14.7 H (11.5-14.5) % MPV 9.1 L (9.5-12.2) fL Immature Gran # 0.78 H (0.00-0.04) X 10*3/uL Neutrophils # 32.12 H (1.80-7.70) X 10*3/uL Lymphocytes # 0.72 L (0.90-5.00) X 10*3/uL Eosinophils # 0.01 L (0.04-0.35) X 10*3/uL Sodium 134 L (137-145) mmol/L Potassium 2.9 L (3.5-5.1) mmol/L Carbon Dioxide 19 L (22-30) mmol/L BUN 6 L (7-17) mg/dL Creatinine 0.45 L (0.52-1.04) mg/dL Glucose 67 L (74-99) mg/dL Calcium 7.0 L (8.4-10.2) mg/dL Microbiology - Last 24 Hours (Table) 05/24/22 19:40 Gram Stain - Final Sputum Sputum Culture - Final 05/26/22 11:10 Gram Stain - Preliminary Aspirate Tissue Culture - Preliminary 05/26/22 11:10 Fungal Culture - Preliminary Aspirate 05/26/22 11:10 Anaerobic Culture - Preliminary Aspirate 05/24/22 10:30 Blood Culture - Preliminary Blood No Growth after 48 hours 05/24/22 10:33 Blood Culture - Preliminary Blood No Growth after 48 hours 05/25/22 09:45 Blood Culture - Preliminary Blood No Growth after [address] scan - chest: report reviewed, image reviewed MRI - head: report reviewed, image reviewed Assessment and Plan Assessment: The patient is a 66-year-old female with a history of a recently diagnosed large left upper lung mass with invasion into the mediastinum with likely mediastinal adenopathy. This is suspicious for a new primary lung cancer, however biopsy is pending at this time. Plan: 1. Left upper lung mass - Biopsy performed 05/26/22, results pending. Highly suspicious for underlying malignancy. Will need outpatient PET-CT to complete work up. No need for emergent RT at this time. Will await path results before formalizing treatment plan. 2. Pneumonia: Concern for post-obstructive process. Cont Abx, supportive measures. 3. Anemia: Possibly related to chronic disease from cancer. Has only had m inimal hemoptysis. Time with Patient: Greater than 30
[2022-05-27] MEDS: ACETAMINOPHEN TAB 325 MG TAB PO PRN (12:52)
--- NOTE | 2022-05-27 12:56 | P.PN ---
Subjective Progress Note Date: 05/27/22 Principal diagnosis: Lung mass 66-year-old female patient, former smoker, but does carry [id number] smoking history, who came into the emergency department on May 26, 2022, with symptoms of shortness of breath, cough, fever. Patient states she has had the symptoms since early April 2022. On 05/02/2022 she went to the urgent care where she was treated with antibiotics and steroids. She then saw her PCP in follow-up, chest x-ray was taken and she was told that she has a pneumonia, and was given another round of a biotics and steroids. However she still having difficulty breathing, and coughing. She does admit to some weight loss, denies any hemoptysis no chest pain. Chest x-ray in the ED showed left upper lobe opacification consistent with pneumonia, EKG showed sinus tachycardia. Patient tested negative for COVID-19. The rest of her lab work showed leukocytosis with white blood cell, 29.1, hemoglobin of 8.1, platelet count of 512, coagulation profile was within normal limits, sodium is 132, potassium is 3.9, chloride is 105, CO2 is 20, BUN of 13 creatinine 0.43, plasma lactic acid was 2.3. Patient was started on azithromycin and Rocephin, was given gentle IV hydration. Chest x- ray findings are concerning for underlying pulmonary mass, and dedicated CT of the chest was recommended. And we're consulted for the same. On 05/25/2022 patient seen in follow-up. Computed tomography scan of the chest without contrast was completed showing large left upper lobe mass with cavitation, and there is invasion into the left side of the mediastinum suggest darline of malignancy area and left pleural effusion and pulmonary emphysema. Nonspecific left adrenal mass. Patient remains on antibiotics, breathing treatments, vital signs are stable, patient is afebrile, currently on 2 L of oxygen satting 96%. She is short of breath with exertion, and does have a dry nonproductive cough. Denies any hemoptysis. On 05/27/2022 patient seen in follow-up. Patient underwent successful CT-guided core biopsy and fine needle aspiration of the left upper lobe lung mass yesterday by interventional radiology. Biopsy results are still pending. Clinically patient states she is feeling better, she was able to get a shower today, still a bit short of breath with exertion but tolerates activity well, room air pulse ox 93%, she had a low-grade fever this afternoon with a temp of 100.1F, she remains on antibiotics in the form of Zosyn. No complains of chest discomfort, no hemoptysis. Today's labs have been noted, white blood cell count is up to 34.5 on today's labs, hemoglobin is 7.4. Sodium is 134, potassium is 2.9, BUN is 6, creatinine 0.45. CRP is improved and is down to 27.6, pro calcitonin is elevated at 1.41. Objective - Vital Signs Vital signs: Vital Signs Temp 100.1 F H 05/27/22 12:15 Pulse 107 H 05/27/22 12:15 Resp 18 05/27/22 12:15 BP 101/64 05/27/22 12:15 Pulse Ox 93 L 05/27/22 12:15 FiO2 Intake & Output 05/26/22 05/27/22 05/27/22 18:59 06:59 18:59 Intake Total 1560 540 Balance 1560 540 Weight 49.895 kg Intake: Intake, IV Titration 1560 Amount Sodium Chloride 0.9% 1, 1560 000 ml @ 130 mls/hr IV . Q7H42M [facility] Rx#:[id number] Oral 540 Other: Voiding Method Toilet Bedside Commode Bedside Commode # Voids 1 1 # Bowel Movements 1 - Exam GENERAL EXAM: Alert, very pleasant, 66-year-old thin white female, resting in bed on room air with a pulse ox of 93% comfortable in no apparent distress. HEAD: Normocephalic/atraumatic. EYES: Normal reaction of pupils, equal size. Conjunctiva pink, sclera white. NOSE: Clear with pink turbinates. THROAT: No erythema or exudates. NECK: No masses, no JVD, no thyroid enlargement, no adenopathy. CHEST: No chest wall deformity. Symmetrical expansion. LUNGS: Equal air entry with no crackles, wheeze, rhonchi or dullness. CVS: Regular rate and rhythm, normal S1 and S2, no gallops, no murmurs, no rubs ABDOMEN: Soft, nontender. No hepatosplenomegaly, normal bowel sounds, no guarding or rigidity. EXTREMITIES: No clubbing, no edema, no cyanosis, 2+ pulses and upper and lower extremities. MUSCULOSKELETAL: Muscle strength and tone normal. SPINE: No scoliosis or deformity SKIN: No rashes CENTRAL NERVOUS SYSTEM: Alert and oriented -3. No focal deficits, tone is normal in all 4 extremities. PSYCHIATRIC: Alert and oriented -3. Appropriate affect. Intact judgment and insight. - Labs CBC & Chem 7: 05/27/22 06:45 05/27/22 06:45 Labs: Abnormal Lab Results - Last 24 Hours (Table) 05/27/22 05/27/22 Range/Units 06:45 06:45 WBC 34.58 H (4.50-10.00) X 10*3/uL RBC 2.56 L (4.10-5.20) X 10*6/uL Hgb 7.4 L (12.0-15.0) g/dL Hct 23.3 L (37.2-46.3) % MCHC 31.8 L (32.0-37.0) g/dL RDW 14.7 H (11.5-14.5) % MPV 9.1 L (9.5-12.2) fL Immature Gran # 0.78 H (0.00-0.04) X 10*3/uL Neutrophils # 32.12 H (1.80-7.70) X 10*3/uL Lymphocytes # 0.72 L (0.90-5.00) X 10*3/uL Eosinophils # 0.01 L (0.04-0.35) X 10*3/uL Sodium 134 L (137-145) mmol/L Potassium 2.9 L (3.5-5.1) mmol/L Carbon Dioxide 19 L (22-30) mmol/L BUN 6 L (7-17) mg/dL Creatinine 0.45 L (0.52-1.04) mg/dL Glucose 67 L (74-99) mg/dL Calcium 7.0 L (8.4-10.2) mg/dL Microbiology - Last 24 Hours (Table) 05/24/22 10:33 Blood Culture - Preliminary Blood No Growth after 72 hours 05/24/22 10:30 Blood Culture - Preliminary Blood No Growth after 72 hours 05/25/22 09:45 Blood Culture - Preliminary Blood No Growth after 48 hours 05/24/22 19:40 Gram Stain - Final Sputum Sputum Culture - Final 05/26/22 11:10 Gram Stain - Preliminary Aspirate Tissue Culture - Preliminary 05/26/22 11:10 Fungal Culture - Preliminary Aspirate 05/26/22 11:10 Anaerobic Culture - Preliminary Aspirate Assessment and Plan Plan: Assessment: #1. Left upper lobe lung mass with cavitation and invasion into the left side of the mediastinum suggestive of malignancy. Patient had symptoms of cough, shortness of breath and fever with failure of outpatient treatment with 2 rounds of antibiotics and steroids. Patient underwent CT-guided core biopsy and fine-needle aspiration of the left upper lobe lung mass #2. Leukocytosis, fever, cough shortness of breath related to pneumonia and sepsis. COVID-19 PCR was negative #3. Lactic acidosis, mild, improved with IV hydration #4. Former smoker, currently in remission, carries [id number] smoking history #5. Anemia Plan: Continue antibiotics, We'll wait to finalize cultures Clinically patient is feeling better Await results of the CT-guided core biopsy of the left upper lobe Increase activity as tolerated Follow-up blood work and chest x-ray tomorrow I have personally seen and examined the patient and reviewed the documentation. I performed a joint evaluation with the nurse practitioner in this evaluation was done more than 20 minutes. I fully agree with the documentation above and the plan of care. The patient completed the fine-needle biopsy without any major difficulties. Awaiting a follow-up CBC to monitor her white cell count. She does have a left upper lobe pneumonia. Awaiting final pathology from the lung biopsy. We'll continue to follow. She is currently on room air oxygen. Time with Patient: Less than 30
--- NOTE | 2022-05-27 16:53 | P.PN ---
Subjective Progress Note Date: 05/27/22 This is a 66 year old female who is admitted to hospital for left upper lobe mass with cavitation and invasion into the left side of the mediastinum suggestive of malignancy. Patient continues with leukocytosis, 34.58 today, hemoglobin stable at 7.4. Patient is status post Lung biopsy CT completed yesterday, cytology currently pending at this time. Infectious disease, oncology, radiology, and pulmonary are following the patient closely. 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 Cultures are currently showing negative. She continues on antibiotics in the form of IV zosyn. Potassium today 2.9 patient received 60 meq replacement this morning, and will receive another 40 meq of potassium this evening. Labs will be repeated in the morning. Patient continues with fevers 100.1 today, tachycardic with heart rate in the low 110s, she was started on low dose betablocker. Blood pressure 101/64, 93% room air. She has also been receiving IV fluids with normal saline at 0.9 and 130 mls per hour and we will lower to 75 mls per hour, patient does have increased peripheral edema. Review of Systems Constitutional: Denied any fatigue denied any fever. Cardio vascular: denied any chest pain, palpitations Gastrointestinal: denied any nausea, vomiting, diarrhea Pulmonary: Denied any shortness of breath, reports cough no sputum. Neurologic denied any new focal deficits All inpatient medications were reviewed and appropriate changes in these medications as dictated in the interval history and assessment and plan. PHYSICAL EXAMINATION: GENERAL: The patient is alert and oriented x3, not in any acute distress. Well developed, well nourished. HEENT: Pupils are round and equally reacting to light. EOMI. No scleral icterus. No conjunctival pallor. Normocephalic, atraumatic. No pharyngeal erythema. No thyromegaly. CARDIOVASCULAR: S1 and S2 present. No murmurs, rubs, or gallops. PULMONARY: Chest is clear to auscultation, no wheezing or crackles. ABDOMEN: Soft, nontender, nondistended, normoactive bowel sounds. No palpable organomegaly. MUSCULOSKELETAL: No joint swelling or deformity. EXTREMITIES: No cyanosis, clubbing, or pedal edema. Mild lower extremity peripheral edema NEUROLOGICAL: Gross neurological examination did not reveal any focal deficits. SKIN: No rashes. Assessment and plan Assessment Left sided lung mass with cavitation, pneumonia vs. malignancy patient is status post lung biopsy Pneumonia with sepsis, community acquired vs. post obstructive patient is continued on IV zosyn with infectious disease following Leukocytosis secondary to above Tachycardia most likely from sepsis/infection Hyponatremia, hypovolemic continues on IV fluids Hypokalemia from poor oral intake Hypomagnesemia Constipation on bowel regimen Iron deficiency anemia on oral ferrous sulfate Former smoker GI Prophylaxis DVT Prophylaxis Plan Continue on IV antibiotics, cultures pending Patient is status post biopsy with IR, cytology, cultures pending Decrease IV fluids Electrolyte replacement Continue all other supportive care Repeat labs in AM Patient is being followed by multiple consultations including oncology, radiology, pulmonary, infectious disease The impression and plan of care has been dictated by Danita Alvarez, Nurse Practitioner as directed. Dr. Kostas MD I have performed a history and physical examination and medical decision making of this patient, discussed the same with the dictator, and agree with the dictators assessment and plan as written, documented as a scribe. Based on total visit time, I have performed more than 50% of this visit. Objective - Vital Signs Vital signs: Vital Signs Temp 100.1 F H 05/27/22 12:15 Pulse 110 H 05/27/22 15:51 Resp 18 05/27/22 12:15 BP 101/64 05/27/22 12:15 Pulse Ox 93 L 05/27/22 12:15 FiO2 Intake & Output 05/26/22 05/27/22 05/27/22 18:59 06:59 18:59 Intake Total 1560 540 Balance 1560 540 Weight 49.895 kg Intake: Intake, IV Titration 1560 Amount Sodium Chloride 0.9% 1, 1560 000 ml @ 130 mls/hr IV . Q7H42M [facility] Rx#:[id number] Oral 540 Other: Voiding Method Toilet Bedside Commode Bedside Commode # Voids 1 1 # Bowel Movements 1 - Labs CBC & Chem 7: 05/27/22 06:45 05/27/22 06:45 Labs: Abnormal Lab Results - Last 24 Hours (Table) 05/26/22 05/27/22 05/27/22 Range/Units 05:06 06:45 06:45 WBC 34.58 H (4.50-10.00) X 10*3/uL RBC 2.56 L (4.10-5.20) X 10*6/uL Hgb 7.4 L (12.0-15.0) g/dL Hct 23.3 L (37.2-46.3) % MCHC 31.8 L (32.0-37.0) g/dL RDW 14.7 H (11.5-14.5) % MPV 9.1 L (9.5-12.2) fL Immature Gran # 0.78 H (0.00-0.04) X 10*3/uL Neutrophils # 32.12 H (1.80-7.70) X 10*3/uL Lymphocytes # 0.72 L (0.90-5.00) X 10*3/uL Eosinophils # 0.01 L (0.04-0.35) X 10*3/uL Sodium 134 L (137-145) mmol/L Potassium 2.9 L (3.5-5.1) mmol/L Carbon Dioxide 19 L (22-30) mmol/L BUN 6 L (7-17) mg/dL Creatinine 0.45 L (0.52-1.04) mg/dL Glucose 67 L (74-99) mg/dL Calcium 7.0 L (8.4-10.2) mg/dL RBC Folate 1,260 H (280 - 791) ng/mL Microbiology - Last 24 Hours (Table) 05/24/22 10:33 Blood Culture - Preliminary Blood No Growth after 72 hours 05/24/22 10:30 Blood Culture - Preliminary Blood No Growth after 72 hours 05/25/22 09:45 Blood Culture - Preliminary Blood No Growth after 48 hours 05/24/22 19:40 Gram Stain - Final Sputum Sputum Culture - Final 05/26/22 11:10 Gram Stain - Preliminary Aspirate Tissue Culture - Preliminary 05/26/22 11:10 Fungal Culture - Preliminary Aspirate 05/26/22 11:10 Anaerobic Culture - Preliminary Aspirate Assessment and Plan Time with Patient: Less than 30
[2022-05-27] MEDS: MAGNESIUM SULFATE-D5W PMX 1 GM in DEXTROSE/WATER 1 100ML.BAG IVPB SCH ×2 (17:04→18:08)
--- NOTE | 2022-05-27 18:21 | P.PN ---
Subjective Progress Note Date: 05/27/22 Principal diagnosis: lung mass In f/u today pt is doing ok, no need for O2, she can ambulate, she did have lung biopsy Objective - Vital Signs Vital signs: Vital Signs Temp 100.1 F H 05/27/22 12:15 Pulse 110 H 05/27/22 15:51 Resp 18 05/27/22 12:15 BP 101/64 05/27/22 12:15 Pulse Ox 93 L 05/27/22 12:15 FiO2 Intake & Output 05/26/22 05/27/22 05/27/22 18:59 06:59 18:59 Intake Total 1560 540 900 Balance 1560 540 900 Weight 49.895 kg Intake: Intake, IV Titration 1560 900 Amount Sodium Chloride 0.9% 1, 1560 900 000 ml @ 75 mls/hr IV . [id number] [facility] Rx#:[id number] Oral 540 Other: Voiding Method Toilet Bedside Commode Bedside Commode # Voids 1 1 # Bowel Movements 1 - Constitutional General appearance: Present: cooperative, no acute distress, thin - EENT Eyes: Present: anicteric sclerae, EOMI ENT: Present: hearing grossly normal - Respiratory Details: RUL diminished breath sounds, Rt lung rhonchi, lt lung rhonchi but more air movement compared to the right. Tachypnea, shallow breaths - Cardiovascular Rhythm: regular Heart sounds: normal: S1, S2 Abnormal Heart Sounds: Absent: systolic murmur, diastolic murmur, rub, S3 Gallop, S4 Gallop, click, other - Gastrointestinal General gastrointestinal: Present: normal bowel sounds, soft - Integumentary Integumentary: Present: normal - Neurologic Neurologic: Present: CNII-XII intact - Musculoskeletal Musculoskeletal: Present: strength equal bilaterally - Psychiatric Psychiatric: Present: A&O x's 3, appropriate affect, intact judgment & insight - Labs CBC & Chem 7: 05/27/22 06:45 05/27/22 06:45 Labs: Abnormal Lab Results - Last 24 Hours (Table) 05/26/22 05/27/22 05/27/22 Range/Units 05:06 06:45 06:45 WBC 34.58 H (4.50-10.00) X 10*3/uL RBC 2.56 L (4.10-5.20) X 10*6/uL Hgb 7.4 L (12.0-15.0) g/dL Hct 23.3 L (37.2-46.3) % MCHC 31.8 L (32.0-37.0) g/dL RDW 14.7 H (11.5-14.5) % MPV 9.1 L (9.5-12.2) fL Immature Gran # 0.78 H (0.00-0.04) X 10*3/uL Neutrophils # 32.12 H (1.80-7.70) X 10*3/uL Lymphocytes # 0.72 L (0.90-5.00) X 10*3/uL Eosinophils # 0.01 L (0.04-0.35) X 10*3/uL Sodium 134 L (137-145) mmol/L Potassium 2.9 L (3.5-5.1) mmol/L Carbon Dioxide 19 L (22-30) mmol/L BUN 6 L (7-17) mg/dL Creatinine 0.45 L (0.52-1.04) mg/dL Glucose 67 L (74-99) mg/dL Calcium 7.0 L (8.4-10.2) mg/dL RBC Folate 1,260 H (280 - 791) ng/mL Microbiology - Last 24 Hours (Table) 05/24/22 10:33 Blood Culture - Preliminary Blood No Growth after 72 hours 05/24/22 10:30 Blood Culture - Preliminary Blood No Growth after 72 hours 05/25/22 09:45 Blood Culture - Preliminary Blood No Growth after 48 hours 05/24/22 19:40 Gram Stain - Final Sputum Sputum Culture - Final 05/26/22 11:10 Gram Stain - Preliminary Aspirate Tissue Culture - Preliminary 05/26/22 11:10 Fungal Culture - Preliminary Aspirate 05/26/22 11:10 Anaerobic Culture - Preliminary Aspirate - Imaging and Cardiology MRI - head: report reviewed Assessment and Plan (1) Lung mass Current Visit: Yes Status: Acute Code(s): R91.8 - OTHER NONSPECIFIC ABNORMAL FINDING OF LUNG FIELD SNOMED Code(s): 754573216 Plan: reviewed MRI brain-no evidence of disease Pending biopsy results. Pt can f/u outpt for results. Staging PET will be planned for outpt Anemia of inflammation. Hgb will cont to be monitored outpt, transfusions PRN
[2022-05-27] MEDS: MELATONIN 3 MG TABLET PO PRN (20:54)
[2022-05-27] MEDS ORDERED: FUROSEMIDE 10 MG/ML 4 ML VIAL IV STA (21:23)
[2022-05-28] MEDS: PIPERACILLIN-TAZOBACTAM 3.375 GM in SODIUM CHLORIDE 0.9% 100 ML IVPB SCH ×3 (03:40→20:26)
[2022-05-28 07:34] LABS: Methylmalonic Acid 0.35 umol/L (<0.40)
[2022-05-28] MEDS: IPRATROPIUM-ALBUTEROL 3 ML NEB INHALATION SCH ×4 (07:59→20:17)
[2022-05-28] MEDS: NYSTATIN 100,000 UNIT/ML SUSP 500,000 UNIT/5 ML CUP PO SCH ×4 (08:45→21:05)
[2022-05-28] MEDS: DOCUSATE 100 MG CAP PO SCH (08:45)
[2022-05-28] MEDS: METOPROLOL TARTRATE 25 MG TAB PO SCH ×2 (08:45→20:26)
[2022-05-28] MEDS: FERROUS SULFATE 325 MG TAB PO SCH (08:46)
[2022-05-28 10:42] LABS: Basophils # (A) 0.07 X 10*3/uL (0.00-0.10); Basophils % (A) 0.2 %; Eosinophils # (A) 0.06 X 10*3/uL (0.04-0.35); Eosinophils % (A) 0.2 %; HCT 23.5 % (37.2-46.3); HGB 7.3 g/dL (12.0-15.0); Immature Grans, Automated 3.9 %; Lymphocytes # (A) 1.02 X 10*3/uL (0.90-5.00); Lymphocytes % (A) 2.6 %; MCH 28.1 pg (27.0-32.0); MCHC 31.1 g/dL (32.0-37.0); MCV 90.4 fL (80.0-97.0); Monocytes # (A) 0.99 X 10*3/uL (0.20-1.00); Monocytes % (A) 2.5 %; NRBC Per 100 WBC 0 /100 WBCS (0.0-0.0); Neutrophils # (A) 35.26 X 10*3/uL (1.80-7.70); Neutrophils % (A) 90.6 %; Platelet Count 418 X 10*3/uL (140-440); RDW 14.6 % (11.5-14.5)
--- NOTE | 2022-05-28 12:19 | P.PN ---
Subjective Progress Note Date: 05/28/22 Principal diagnosis: Lung mass 66-year-old female patient, former smoker, but does carry [id number] smoking history, who came into the emergency department on May 26, 2022, with symptoms of shortness of breath, cough, fever. Patient states she has had the symptoms since early April 2022. On 05/02/2022 she went to the urgent care where she was treated with antibiotics and steroids. She then saw her PCP in follow-up, chest x-ray was taken and she was told that she has a pneumonia, and was given another round of a biotics and steroids. However she still having difficulty breathing, and coughing. She does admit to some weight loss, denies any hemoptysis no chest pain. Chest x-ray in the ED showed left upper lobe opacification consistent with pneumonia, EKG showed sinus tachycardia. Patient tested negative for COVID-19. The rest of her lab work showed leukocytosis with white blood cell, 29.1, hemoglobin of 8.1, platelet count of 512, coagulation profile was within normal limits, sodium is 132, potassium is 3.9, chloride is 105, CO2 is 20, BUN of 13 creatinine 0.43, plasma lactic acid was 2.3. Patient was started on azithromycin and Rocephin, was given gentle IV hydration. Chest x- ray findings are concerning for underlying pulmonary mass, and dedicated CT of the chest was recommended. And we're consulted for the same. On 05/25/2022 patient seen in follow-up. Computed tomography scan of the chest without contrast was completed showing large left upper lobe mass with cavitation, and there is invasion into the left side of the mediastinum suggest darline of malignancy area and left pleural effusion and pulmonary emphysema. Nonspecific left adrenal mass. Patient remains on antibiotics, breathing treatments, vital signs are stable, patient is afebrile, currently on 2 L of oxygen satting 96%. She is short of breath with exertion, and does have a dry nonproductive cough. Denies any hemoptysis. On 05/27/2022 patient seen in follow-up. Patient underwent successful CT-guided core biopsy and fine needle aspiration of the left upper lobe lung mass yesterday by interventional radiology. Biopsy results are still pending. Clinically patient states she is feeling better, she was able to get a shower today, still a bit short of breath with exertion but tolerates activity well, room air pulse ox 93%, she had a low-grade fever this afternoon with a temp of 100.1F, she remains on antibiotics in the form of Zosyn. No complains of chest discomfort, no hemoptysis. Today's labs have been noted, white blood cell count is up to 34.5 on today's labs, hemoglobin is 7.4. Sodium is 134, potassium is 2.9, BUN is 6, creatinine 0.45. CRP is improved and is down to 27.6, pro calcitonin is elevated at 1.41. On 05/28/2022 patient seen in follow-up. Patient is awake and alert, she is mildly dyspneic at rest, low-grade fever today with a temp of 99.9F, slightly tachycardic, and slightly more congested on today's exam. Last night patient had an episode of increased shortness of breath, she was given IV Lasix 40 mg, breathing treatments. She remains on Zosyn. Her pleural fluid aspirate cultures have shown no organisms thus far. Objective - Vital Signs Vital signs: Vital Signs Temp 99.9 F H 05/28/22 11:16 Pulse 109 H 05/28/22 12:06 Resp 17 05/28/22 11:16 BP 104/64 05/28/22 11:16 Pulse Ox 96 05/28/22 11:16 FiO2 Intake & Output 05/27/22 05/28/22 05/28/22 18:59 06:59 18:59 Intake Total 900 240 Balance 900 240 Intake: Intake, IV Titration 900 Amount Sodium Chloride 0.9% 1, 900 000 ml @ 75 mls/hr IV . [id number] [facility] Rx#:[id number] Oral 240 Other: Voiding Method Bedside Commode Bedside Commode Bedside Commode # Voids 1 # Bowel Movements 1 - Exam GENERAL EXAM: Alert, very pleasant, 66-year-old thin white female, resting in bed on room air with a pulse ox of 93% comfortable in no apparent distress. HEAD: Normocephalic/atraumatic. EYES: Normal reaction of pupils, equal size. Conjunctiva pink, sclera white. NOSE: Clear with pink turbinates. THROAT: No erythema or exudates. NECK: No masses, no JVD, no thyroid enlargement, no adenopathy. CHEST: No chest wall deformity. Symmetrical expansion. LUNGS: Equal air entry with no crackles, wheeze, rhonchi or dullness. CVS: Regular rate and rhythm, normal S1 and S2, no gallops, no murmurs, no rubs ABDOMEN: Soft, nontender. No hepatosplenomegaly, normal bowel sounds, no gu arding or rigidity. EXTREMITIES: No clubbing, no edema, no cyanosis, 2+ pulses and upper and lower e xtremities. MUSCULOSKELETAL: Muscle strength and tone normal. SPINE: No scoliosis or deformity SKIN: No rashes CENTRAL NERVOUS SYSTEM: Alert and oriented -3. No focal deficits, tone is normal in all 4 extremities. PSYCHIATRIC: Alert and oriented -3. Appropriate affect. Intact judgment and insight. - Labs CBC & Chem 7: 05/28/22 06:25 05/28/22 13:52 Labs: Abnormal Lab Results - Last 24 Hours (Table) 05/26/22 05/28/22 Range/Units 05:06 06:25 WBC 38.90 H (4.50-10.00) X 10*3/uL RBC 2.60 L (4.10-5.20) X 10*6/uL Hgb 7.3 L (12.0-15.0) g/dL Hct 23.5 L (37.2-46.3) % MCHC 31.1 L (32.0-37.0) g/dL RDW 14.6 H (11.5-14.5) % MPV 9.0 L (9.5-12.2) fL Immature Gran # 1.50 H (0.00-0.04) X 10*3/uL Neutrophils # 35.26 H (1.80-7.70) X 10*3/uL RBC Folate 1,260 H (280 - 791) ng/mL Microbiology - Last 24 Hours (Table) 05/25/22 09:45 Blood Culture - Preliminary Blood No Growth after 72 hours 05/26/22 11:10 Gram Stain - Preliminary Aspirate Tissue Culture - Preliminary 05/26/22 11:10 Acid Fast Bacilli Culture - Preliminary Aspirate 05/24/22 10:33 Blood Culture - Preliminary Blood No Growth after 72 hours 05/24/22 10:30 Blood Culture - Preliminary Blood No Growth after 72 hours 05/24/22 19:40 Gram Stain - Final Sputum Sputum Culture - Final Assessment and Plan Plan: Assessment: #1. Left upper lobe lung mass with cavitation and invasion into the left side of the mediastinum suggestive of malignancy. Patient had symptoms of cough, shortness of breath and fever with failure of outpatient treatment with 2 rounds of antibiotics and steroids. Patient underwent CT-guided core biopsy and fine- needle aspiration of the left upper lobe lung mass #2. Leukocytosis, fever, cough shortness of breath related to pneumonia and sepsis. COVID-19 PCR was negative #3. Lactic acidosis, mild, improved with IV hydration #4. Former smoker, currently in remission, carries [id number] smoking history #5. Anemia Plan: Continue antibiotics We'll obtain stat chest x-ray Continue breathing treatments So far cultures remain negative We'll send a follow-up pro-calcitonin level We'll hold discharge I have personally seen and examined the patient and reviewed the documentation. I performed a joint evaluation with the nurse practitioner in this evaluation was done more than 20 minutes. I fully agree with the documentation above and the plan of care.. The patient is having some increased shortness of breath. Repeat a chest x-ray. There is ongoing concern for pneumonia. Was instructed pneumonia in the left upper lobe. Awaiting final pathology from the needle biopsy. Keep IV Zosyn. Repeat Pronestyl level. We'll continue to follow. Time with Patient: Less than 30
--- NOTE | 2022-05-28 12:19 | XR ---
EXAMINATION TYPE: XR chest 1V portable DATE OF EXAM: 05/28/2022 COMPARISON: 05/26/2022 INDICATION: Respiratory distress, cough short of breath TECHNIQUE: Single frontal view of the chest is obtained. FINDINGS: The heart size is normal. The pulmonary vasculature is normal. There is a large mass left upper lung field. IMPRESSION: 1. Stable opacification left upper lung field suspicious for large mass.
[2022-05-28 13:18] LABS: African American GFR (CKD) 122.5 (60.0-200.0); Anion Gap 13.9 mmol/L (10.00-18.00); BUN/Creat Ratio 24.94 Ratio (12.00-20.00); Blood Urea Nitrogen 10.6 mg/dL (9.0-27.0); Calcium 7.5 mg/dL (8.7-10.3); Carbon Dioxide 20.3 mmol/L (20.0-27.5); Non-African American GFR(CKD) 105.7 (60.0-200.0); Potassium 3.4 mmol/L (3.5-5.5)
[2022-05-28] MEDS ORDERED: POTASSIUM CHLORIDE ER 20 MEQ TAB.ER PO STA ×2 (13:25)
--- NOTE | 2022-05-28 13:35 | P.PN ---
Subjective Progress Note Date: 05/28/22 This is a 66 year old female who is admitted to hospital for left upper lobe mass with cavitation and invasion into the left side of the mediastinum suggestive of malignancy. Patient continues with leukocytosis, 34.58 today, hemoglobin stable at 7.4. Patient is status post Lung biopsy CT completed yesterday, cytology currently pending at this time. Infectious disease, oncology, radiology, and pulmonary are following the patient closely. 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 Cultures are currently showing negative. She continues on antibiotics in the form of IV zosyn. Potassium today 2.9 patient received 60 meq replacement this morning, and will receive another 40 meq of potassium this evening. Labs will be repeated in the morning. Patient continues with fevers 100.1 today, tachycardic with heart rate in the low 110s, she was started on low dose betablocker. Blood pressure 101/64, 93% room air. She has also been receiving IV fluids with normal saline at 0.9 and 130 mls per hour and we will lower to 75 mls per hour, patient does have increased peripheral edema. 05/28/2022 Patient evaluated today sitting in bed. She is dypsneic at rest currently on 2L nasal cannula she has oxygen saturation of 96%. Continues with fever T-Max 100.1 in the last 24 hours, fever of 99.9 today. She is also tachycardic in the 110s, continues on low dose betablocker although suspect tachycardia is from infection. IV fluids were decreased to 75 yesterday, patient had an episode last night of respiratory distress and received a dose of IV lasix 40 mg once, fluids are discontinued. Repeat chest xray today shows stable opacification left upper lung field suspicious for large mass. She is post lung biopsy and remains on IV zosyn. Pulmonary is following the patient closely. Review of Systems Constitutional: Denied any fatigue denied any fever. Cardio vascular: denied any chest pain, palpitations Gastrointestinal: denied any nausea, vomiting, diarrhea Pulmonary: Reports mild shortness of breath, congested cough. Neurologic denied any new focal deficits All inpatient medications were reviewed and appropriate changes in these medications as dictated in the interval history and assessment and plan. PHYSICAL EXAMINATION: GENERAL: The patient is alert and oriented x3, dyspneic. Well developed, well nourished. HEENT: Pupils are round and equally reacting to light. EOMI. No scleral icterus. No conjunctival pallor. Normocephalic, atraumatic. No pharyngeal erythema. No thyromegaly. CARDIOVASCULAR: S1 and S2 present. No murmurs, rubs, or gallops. tachycardic. PULMONARY: scattered coarse rhonchi ABDOMEN: Soft, nontender, nondistended, normoactive bowel sounds. No palpable organomegaly. MUSCULOSKELETAL: No joint swelling or deformity. EXTREMITIES: No cyanosis, clubbing, or pedal edema. Mild lower extremity peripheral edema NEUROLOGICAL: Gross neurological examination did not reveal any focal deficits. SKIN: No rashes. Assessment and plan Assessment Left sided lung mass with cavitation, patient is status post lung biopsy Pneumonia with sepsis, community acquired vs. post obstructive patient is continued on IV zosyn with infectious disease following Leukocytosis secondary to above Tachycardia most likely from sepsis/infection Hyponatremia, hypovolemic continues on IV fluids Hypokalemia from poor oral intake, diuresis, improving Hypomagnesemia, resolved Constipation on bowel regimen Iron deficiency anemia on oral ferrous sulfate Former smoker GI Prophylaxis DVT Prophylaxis Plan Continue on IV antibiotics, cultures pending Patient is status post biopsy with IR, cytology, cultures pending IV fluids discontinued Electrolyte replacement Continue all other supportive care Repeat labs in AM Patient is being followed by multiple consultations including oncology, radiology, pulmonary, infectious disease Follow up chest xray, procalcitonin level pending The impression and plan of care has been dictated by Danita Alvarez, Nurse Practitioner as directed. Dr. Kostas MD I have performed a history and physical examination and medical decision making of this patient, discussed the same with the dictator, and agree with the dictators assessment and plan as written, documented as a scribe. Based on total visit time, I have performed more than 50% of this visit. Objective - Vital Signs Vital signs: Vital Signs Temp 99.9 F H 05/28/22 11:16 Pulse 113 H 05/28/22 12:17 Resp 17 05/28/22 11:16 BP 104/64 05/28/22 11:16 Pulse Ox 96 05/28/22 11:16 FiO2 Intake & Output 05/27/22 05/28/22 05/28/22 18:59 06:59 18:59 Intake Total 900 240 Balance 900 240 Intake: Intake, IV Titration 900 Amount Sodium Chloride 0.9% 1, 900 000 ml @ 75 mls/hr IV . [id number] [facility] Rx#:[id number] Oral 240 Other: Voiding Method Bedside Commode Bedside Commode Bedside Commode # Voids 1 # Bowel Movements 1 - Labs CBC & Chem 7: 05/28/22 06:25 05/28/22 06:25 Labs: Abnormal Lab Results - Last 24 Hours (Table) 05/26/22 05/28/22 05/28/22 Range/Units 05:06 06:25 06:25 WBC 38.90 H (4.50-10.00) X 10*3/uL RBC 2.60 L (4.10-5.20) X 10*6/uL Hgb 7.3 L (12.0-15.0) g/dL Hct 23.5 L (37.2-46.3) % MCHC 31.1 L (32.0-37.0) g/dL RDW 14.6 H (11.5-14.5) % MPV 9.0 L (9.5-12.2) fL Immature Gran # 1.50 H (0.00-0.04) X 10*3/uL Neutrophils # 35.26 H (1.80-7.70) X 10*3/uL Sodium 134 L (135-145) mmol/L Potassium 3.4 L (3.5-5.5) mmol/L Creatinine 0.4 L (0.6-1.5) mg/dL BUN/Creatinine Ratio 24.94 H (12.00-20.00) Ratio Calcium 7.5 L (8.7-10.3) mg/dL RBC Folate 1,260 H (280 - 791) ng/mL Microbiology - Last 24 Hours (Table) 05/24/22 10:33 Blood Culture - Preliminary Blood No Growth after 96 hours 05/24/22 10:30 Blood Culture - Preliminary Blood No Growth after 96 hours 05/25/22 09:45 Blood Culture - Preliminary Blood No Growth after 72 hours 05/26/22 11:10 Gram Stain - Preliminary Aspirate Tissue Culture - Preliminary 05/26/22 11:10 Acid Fast Bacilli Culture - Preliminary Aspirate 05/24/22 19:40 Gram Stain - Final Sputum Sputum Culture - Final Assessment and Plan Time with Patient: Less than 30
[2022-05-28 14:30] LABS: ALT 20 U/L (4-34); AST 31 U/L (14-36); African American GFR (CKD) >90 (>60 ml/min/1.73 sqM); Albumin 2.1 g/dL (3.5-5.0); Albumin/Globulin Ratio 0.8; Alkaline Phosphatase 148 U/L (38-126); Anion Gap 12 mmol/L; Blood Urea Nitrogen 14 mg/dL (7-17); Calcium 7.6 mg/dL (8.4-10.2); Carbon Dioxide 22 mmol/L (22-30); Chloride 98 mmol/L (98-107); Globulin 2.7 g/dL; Glucose 163 mg/dL (74-99); Non-African American GFR(CKD) >90 (>60 ml/min/1.73 sqM); Potassium 3.3 mmol/L (3.5-5.1); Sodium 132 mmol/L (137-145); Total Bilirubin 0.2 mg/dL (0.2-1.3); Total Protein 4.8 g/dL (6.3-8.2)
--- NOTE | 2022-05-28 16:08 | P.PN ---
Subjective Progress Note Date: 05/28/22 Principal diagnosis: left upper lung cancer Patient had dyspnea last night, seemingly improved after lasix (said she urinated a LOT). States she is more comfortable today. Still has some persistent cough. No chest pain. She was able to ambulate a bit around the room and spent most of the day sitting up. Objective - Vital Signs Vital signs: Vital Signs Temp 99.9 F H 05/28/22 11:16 Pulse 100 05/28/22 15:55 Resp 17 05/28/22 11:16 BP 104/64 05/28/22 11:16 Pulse Ox 96 05/28/22 11:16 FiO2 Intake & Output 05/27/22 05/28/22 05/28/22 18:59 06:59 18:59 Intake Total 900 240 Balance 900 240 Intake: Intake, IV Titration 900 Amount Sodium Chloride 0.9% 1, 900 000 ml @ 75 mls/hr IV . [id number] [facility] Rx#:[id number] Oral 240 Other: Voiding Method Bedside Commode Bedside Commode Bedside Commode # Voids 1 # Bowel Movements 1 - Constitutional General appearance: Present: no acute distress - EENT Eyes: Present: EOMI, PERRLA ENT: Present: hearing grossly normal - Neck Neck: Absent: lymphadenopathy - Respiratory Respiratory: right: CTA, left: diminished - Cardiovascular Rhythm: regular - Gastrointestinal General gastrointestinal: Absent: distended, tenderness - Integumentary Integumentary: Absent: calor, cellulitis - Neurologic Neurologic: Present: CNII-XII intact - Psychiatric Psychiatric: Present: A&O x's 3, appropriate affect - Labs CBC & Chem 7: 05/28/22 06:25 05/28/22 13:52 Labs: Abnormal Lab Results - Last 24 Hours (Table) 05/28/22 05/28/22 05/28/22 Range/Units 06:25 06:25 13:52 WBC 38.90 H (4.50-10.00) X 10*3/uL RBC 2.60 L (4.10-5.20) X 10*6/uL Hgb 7.3 L (12.0-15.0) g/dL Hct 23.5 L (37.2-46.3) % MCHC 31.1 L (32.0-37.0) g/dL RDW 14.6 H (11.5-14.5) % MPV 9.0 L (9.5-12.2) fL Immature Gran # 1.50 H (0.00-0.04) X 10*3/uL Neutrophils # 35.26 H (1.80-7.70) X 10*3/uL Sodium 134 L 132 L (135-145) mmol/L Potassium 3.4 L 3.3 L (3.5-5.5) mmol/L Creatinine 0.4 L 0.46 L (0.6-1.5) mg/dL BUN/Creatinine Ratio 24.94 H (12.00-20.00) Ratio Glucose 163 H (74-99) mg/dL Calcium 7.5 L 7.6 L (8.7-10.3) mg/dL Alkaline Phosphatase 148 H (38-126) U/L Total Protein 4.8 L (6.3-8.2) g/dL Albumin 2.1 L (3.5-5.0) g/dL Microbiology - Last 24 Hours (Table) 05/24/22 10:33 Blood Culture - Preliminary Blood No Growth after 96 hours 05/24/22 10:30 Blood Culture - Preliminary Blood No Growth after 96 hours 05/25/22 09:45 Blood Culture - Preliminary Blood No Growth after 72 hours 05/26/22 11:10 Gram Stain - Preliminary Aspirate Tissue Culture - Preliminary 05/26/22 11:10 Acid Fast Bacilli Culture - Preliminary Aspirate Assessment and Plan Assessment: The patient is a 66-year-old female with a history of a newly diagnosed left upper lung cancer. This is consistent with clinical stage IIIB (cT4, cN2, M0) disease at least, with full workup pending discharge. 1. Lung cancer: Preliminary report from pathology shows likely non-small cell lung cancer (favor adencarcinoma), but will await final immunostains tomorrow. Still planning for outpatient PET CT. The patient does still appear to have some dyspnea at rest, although she states she is more comfortable following diuresis. Would consider possibly initiating radiotherapy in the near future as this may have some palliative benefit as well which could be switched to a definitive course pending PET results. 2. Possible infection: Patient has continued to have low-grade fevers; cannot rule out postobstructive process. Time with Patient: Less than 30
[2022-05-28] MEDS: methylPREDNISolone SOD SUCCI 40 MG/ML 1 ML VIAL IV SCH ×2 (16:28→23:29)
[2022-05-28 16:55] LABS: Albumin 2.1 g/dL (3.8-4.9); Albumin/Globulin Ratio 0.78 (1.60-3.17); Globulin 2.7 g/dL (1.6-3.3); Total Bilirubin 0.3 mg/dL (0.30-1.20); Total Protein 4.8 g/dL (6.2-8.2)
[2022-05-28] MEDS: MELATONIN 3 MG TABLET PO PRN (21:05)
--- NOTE | 2022-05-28 21:51 | P.PN ---
Subjective Progress Note Date: 05/28/22 Status Post Biopsy, await results. Will plan for PET scan and follow up in office Objective - Vital Signs Vital signs: Vital Signs Temp 99.9 F H 05/28/22 11:16 Pulse 113 H 05/28/22 12:17 Resp 17 05/28/22 11:16 BP 104/64 05/28/22 11:16 Pulse Ox 96 05/28/22 11:16 FiO2 Intake & Output 05/27/22 05/28/22 05/28/22 18:59 06:59 18:59 Intake Total 900 240 Balance 900 240 Intake: Intake, IV Titration 900 Amount Sodium Chloride 0.9% 1, 900 000 ml @ 75 mls/hr IV . [id number] [facility] Rx#:[id number] Oral 240 Other: Voiding Method Bedside Commode Bedside Commode Bedside Commode # Voids 1 # Bowel Movements 1 - Exam - Constitutional General appearance: no acute distress - EENT Eyes: EOMI, PERRLA ENT: hearing grossly normal, normal oropharynx - Neck Neck: no lymphadenopathy Thyroid: bilateral: normal size - Respiratory Respiratory: bilateral: CTA - Cardiovascular Rhythm: regular Heart sounds: normal: S1, S2 - Gastrointestinal General gastrointestinal: normal bowel sounds, soft - Integumentary Integumentary: normal - Neurologic Neurologic: CNII-XII intact - Musculoskeletal Musculoskeletal: generalized weakness, strength equal bilaterally - Psychiatric Psychiatric: A&O x's 3, appropriate affect - Labs CBC & Chem 7: 05/28/22 06:25 05/27/22 06:45 Labs: Abnormal Lab Results - Last 24 Hours (Table) 05/26/22 05/28/22 Range/Units 05:06 06:25 WBC 38.90 H (4.50-10.00) X 10*3/uL RBC 2.60 L (4.10-5.20) X 10*6/uL Hgb 7.3 L (12.0-15.0) g/dL Hct 23.5 L (37.2-46.3) % MCHC 31.1 L (32.0-37.0) g/dL RDW 14.6 H (11.5-14.5) % MPV 9.0 L (9.5-12.2) fL Immature Gran # 1.50 H (0.00-0.04) X 10*3/uL Neutrophils # 35.26 H (1.80-7.70) X 10*3/uL RBC Folate 1,260 H (280 - 791) ng/mL Microbiology - Last 24 Hours (Table) 05/24/22 10:33 Blood Culture - Preliminary Blood No Growth after 96 hours 05/24/22 10:30 Blood Culture - Preliminary Blood No Growth after 96 hours 05/25/22 09:45 Blood Culture - Preliminary Blood No Growth after 72 hours 05/26/22 11:10 Gram Stain - Preliminary Aspirate Tissue Culture - Preliminary 05/26/22 11:10 Acid Fast Bacilli Culture - Preliminary Aspirate 05/24/22 19:40 Gram Stain - Final Sputum Sputum Culture - Final Assessment and Plan (1) Hypokalemia Narrative/Plan: 2.9 yesterdy, recheck today with Mag Current Visit: Yes Status: Acute Code(s): E87.6 - HYPOKALEMIA SNOMED Code(s): 99941755 Plan: Comments: EKG image reviewed Chest x-ray: report reviewed CT scan - chest: report reviewed Assessment and Plan (1) Lung mass Narrative/Plan: the patient has been found to have a large left lung mass, which appears to be invading into the mediastinum possibly. Results of the imaging and implications were discussed in detail with her. She was advised that this is highly suspicious for primary lung malignancy. - She is status post biopsy to confirm tissue diagnosis. - CT scan also mentioned possibility of left lower effusion on physical exam there doesn't appear to be significant fluid. Repeat imaging in one to 2 days. If it is increase in fluid, then she may need thoracentesis for staging purposes - Otherwise, the plan would be to do a PET scan as an outpatient. Current Visit: Yes Status: Acute Code(s): R91.8 - OTHER NONSPECIFIC ABNORMAL FINDING OF LUNG FIELD SNOMED Code(s): 313400919 (2) Anemia Narrative/Plan: Likely from anemia of malignancy and inflammation No iron needed Check labs, Continue to monitor, and transfuse to keep hemoglobin greater than 7. Current Visit: Yes Status: Acute Code(s): D64.9 - ANEMIA, UNSPECIFIED SNOMED Code(s): 425068418 Will plan for outppatient PET, Further testing on tissue from biopsy, follow-up visit and at that time treatment recommendations
[2022-05-29] MEDS: PIPERACILLIN-TAZOBACTAM 3.375 GM in SODIUM CHLORIDE 0.9% 100 ML IVPB SCH ×3 (03:36→19:46)
[2022-05-29] MEDS: METOPROLOL TARTRATE 25 MG TAB PO SCH ×2 (07:57→19:46)
[2022-05-29] MEDS: FERROUS SULFATE 325 MG TAB PO SCH (07:57)
[2022-05-29] MEDS: methylPREDNISolone SOD SUCCI 40 MG/ML 1 ML VIAL IV SCH ×3 (07:57→23:53)
[2022-05-29] MEDS: DOCUSATE 100 MG CAP PO SCH (07:57)
[2022-05-29] MEDS: NYSTATIN 100,000 UNIT/ML SUSP 500,000 UNIT/5 ML CUP PO SCH ×4 (07:58→21:32)
[2022-05-29] MEDS: IPRATROPIUM-ALBUTEROL 3 ML NEB INHALATION SCH ×4 (08:51→19:59)
[2022-05-29 08:58] LABS: Basophils % (A) 0.2 %; Eosinophils # (A) 0.08 X 10*3/uL (0.04-0.35); Eosinophils % (A) 0.2 %; HCT 22.8 % (37.2-46.3); HGB 7.2 g/dL (12.0-15.0); Immature Grans, Automated 3.2 %; Lymphocytes # (A) 0.78 X 10*3/uL (0.90-5.00); Lymphocytes % (A) 1.7 %; MCH 28.1 pg (27.0-32.0); MCHC 31.6 g/dL (32.0-37.0); MCV 89.1 fL (80.0-97.0); Mean Platelet Volume 8.9 fL (9.5-12.2); Monocytes # (A) 0.53 X 10*3/uL (0.20-1.00); Monocytes % (A) 1.2 %; NRBC Per 100 WBC 0 /100 WBCS (0.0-0.0); Neutrophils # (A) 42.58 X 10*3/uL (1.80-7.70); Neutrophils % (A) 93.5 %; Platelet Count 393 X 10*3/uL (140-440); RBC 2.56 X 10*6/uL (4.10-5.20); RDW 14.6 % (11.5-14.5); WBC 45.55 X 10*3/uL (4.50-10.00)
[2022-05-29 09:21] LABS: Magnesium 2.1 mg/dL (1.5-2.4)
[2022-05-29 09:45] LABS: African American GFR (CKD) 124.9 (60.0-200.0); Albumin 2.1 g/dL (3.8-4.9); Albumin/Globulin Ratio 0.78 (1.60-3.17); Anion Gap 10.5 mmol/L (10.00-18.00); Blood Urea Nitrogen 14.4 mg/dL (9.0-27.0); Calcium 7.8 mg/dL (8.7-10.3); Carbon Dioxide 24.5 mmol/L (20.0-27.5); Globulin 2.7 g/dL (1.6-3.3); Non-African American GFR(CKD) 107.8 (60.0-200.0); Potassium 3.8 mmol/L (3.5-5.5); Total Bilirubin 0.3 mg/dL (0.30-1.20); Total Protein 4.8 g/dL (6.2-8.2)
--- NOTE | 2022-05-29 15:24 | P.PN ---
Subjective Progress Note Date: 05/29/22 Principal diagnosis: Lung mass 66-year-old female patient, former smoker, but does carry [id number] smoking history, who came into the emergency department on May 26, 2022, with symptoms of shortness of breath, cough, fever. Patient states she has had the symptoms since early April 2022. On 05/02/2022 she went to the urgent care where she was treated with antibiotics and steroids. She then saw her PCP in follow-up, chest x-ray was taken and she was told that she has a pneumonia, and was given another round of a biotics and steroids. However she still having difficulty breathing, and coughing. She does admit to some weight loss, denies any hemoptysis no chest pain. Chest x-ray in the ED showed left upper lobe opacification consistent with pneumonia, EKG showed sinus tachycardia. Patient tested negative for COVID-19. The rest of her lab work showed leukocytosis with white blood cell, 29.1, hemoglobin of 8.1, platelet count of 512, coagulation profile was within normal limits, sodium is 132, potassium is 3.9, chloride is 105, CO2 is 20, BUN of 13 creatinine 0.43, plasma lactic acid was 2.3. Patient was started on azithromycin and Rocephin, was given gentle IV hydration. Chest x- ray findings are concerning for underlying pulmonary mass, and dedicated CT of the chest was recommended. And we're consulted for the same. On 05/25/2022 patient seen in follow-up. Computed tomography scan of the chest without contrast was completed showing large left upper lobe mass with cavitation, and there is invasion into the left side of the mediastinum suggest darline of malignancy area and left pleural effusion and pulmonary emphysema. Nonspecific left adrenal mass. Patient remains on antibiotics, breathing treatments, vital signs are stable, patient is afebrile, currently on 2 L of oxygen satting 96%. She is short of breath with exertion, and does have a dry nonproductive cough. Denies any hemoptysis. On 05/27/2022 patient seen in follow-up. Patient underwent successful CT-guided core biopsy and fine needle aspiration of the left upper lobe lung mass yesterday by interventional radiology. Biopsy results are still pending. Clinically patient states she is feeling better, she was able to get a shower today, still a bit short of breath with exertion but tolerates activity well, room air pulse ox 93%, she had a low-grade fever this afternoon with a temp of 100.1F, she remains on antibiotics in the form of Zosyn. No complains of chest discomfort, no hemoptysis. Today's labs have been noted, white blood cell count is up to 34.5 on today's labs, hemoglobin is 7.4. Sodium is 134, potassium is 2.9, BUN is 6, creatinine 0.45. CRP is improved and is down to 27.6, pro calcitonin is elevated at 1.41. On 05/28/2022 patient seen in follow-up. Patient is awake and alert, she is mildly dyspneic at rest, low-grade fever today with a temp of 99.9F, slightly tachycardic, and slightly more congested on today's exam. Last night patient had an episode of increased shortness of breath, she was given IV Lasix 40 mg, breathing treatments. She remains on Zosyn. Her pleural fluid aspirate cultures have shown no organisms thus far. on 05/29/2022 patient is seen in follow-up on medical oncology floor. She is sitting up in the chair, she states her breathing is improved, she continues on Zosyn for empiric antibiotic coverage, IV Solu-Medrol. so far all her cultures remain negative, rheumatoid pulse ox is 94%. however today's labs show further increase in her leukocytosis, possibly partially due to IV steroids, white blood cell count is up to 45.5, and pro-calcitonin level was increased and is up to 2.12 on yesterday's labs. The patient states she is feeling better, remains on Zosyn. Objective - Vital Signs Vital signs: Vital Signs Temp 97.9 F 05/29/22 12:15 Pulse 106 H 05/29/22 12:54 Resp 17 05/29/22 12:15 BP 98/61 05/29/22 12:15 Pulse Ox 94 L 05/29/22 12:15 FiO2 Intake & Output 05/28/22 05/29/22 05/29/22 18:59 06:59 18:59 Intake Total 400 600 Balance 400 600 Intake: Intake, IV Titration 100 Amount Piperacillin-Tazobactam 3 100 .375 gm In Sodium Chloride 0.9% 100 ml @ 25 mls/hr IVPB Q8H [facility] Rx#: [id number] Oral 400 500 Other: Voiding Method Bedside Commode Bedside Commode # Voids 4 2 1 # Bowel Movements 2 1 - Exam GENERAL EXAM: Alert, very pleasant, 66-year-old thin white female, resting in b ed on room air with a pulse ox of 93% comfortable in no apparent distress. HEAD: Normocephalic/atraumatic. EYES: Normal reaction of pupils, equal size. Conjunctiva pink, sclera white. NOSE: Clear with pink turbinates. THROAT: No erythema or exudates. NECK: No masses, no JVD, no thyroid enlargement, no adenopathy. CHEST: No chest wall deformity. Symmetrical expansion. LUNGS: Equal air entry with no crackles, wheeze, rhonchi or dullness. CVS: Regular rate and rhythm, normal S1 and S2, no gallops, no murmurs, no rubs ABDOMEN: Soft, nontender. No hepatosplenomegaly, normal bowel sounds, no gua rding or rigidity. EXTREMITIES: No clubbing, no edema, no cyanosis, 2+ pulses and upper and lower extremities. MUSCULOSKELETAL: Muscle strength and tone normal. SPINE: No scoliosis or deformity SKIN: No rashes CENTRAL NERVOUS SYSTEM: Alert and oriented -3. No focal deficits, tone is normal in all 4 extremities. PSYCHIATRIC: Alert and oriented -3. Appropriate affect. Intact judgment and insight. - Labs CBC & Chem 7: 05/29/22 05:55 05/29/22 05:55 Labs: Abnormal Lab Results - Last 24 Hours (Table) 05/28/22 05/28/22 05/28/22 Range/Units 06:25 06:25 13:52 WBC (4.50-10.00) X 10*3/uL RBC (4.10-5.20) X 10*6/uL Hgb (12.0-15.0) g/dL Hct (37.2-46.3) % MCHC (32.0-37.0) g/dL RDW (11.5-14.5) % MPV (9.5-12.2) fL Immature Gran # (0.00-0.04) X 10*3/uL Neutrophils # (1.80-7.70) X 10*3/uL Lymphocytes # (0.90-5.00) X 10*3/uL Sodium 132 L (137-145) mmol/L Potassium 3.3 L (3.5-5.1) mmol/L Creatinine 0.46 L (0.52-1.04) mg/dL BUN/Creatinine Ratio (12.00-20.00) Ratio Glucose 163 H (74-99) mg/dL Calcium 7.6 L (8.4-10.2) mg/dL Alkaline Phosphatase 127 H 148 H (41-126) U/L Total Protein 4.8 L 4.8 L (6.2-8.2) g/dL Albumin 2.1 L 2.1 L (3.8-4.9) g/dL Albumin/Globulin Ratio 0.78 L (1.60-3.17) g/dL Procalcitonin 2.12 H (0.02-0.09) ng/mL 05/29/22 05/29/22 Range/Units 05:55 05:55 WBC 45.55 H (4.50-10.00) X 10*3/uL RBC 2.56 L (4.10-5.20) X 10*6/uL Hgb 7.2 L (12.0-15.0) g/dL Hct 22.8 L (37.2-46.3) % MCHC 31.6 L (32.0-37.0) g/dL RDW 14.6 H (11.5-14.5) % MPV 8.9 L (9.5-12.2) fL Immature Gran # 1.48 H (0.00-0.04) X 10*3/uL Neutrophils # 42.58 H (1.80-7.70) X 10*3/uL Lymphocytes # 0.78 L (0.90-5.00) X 10*3/uL Sodium (137-145) mmol/L Potassium (3.5-5.1) mmol/L Creatinine 0.4 L (0.52-1.04) mg/dL BUN/Creatinine Ratio 36.00 H (12.00-20.00) Ratio Glucose 147 H (74-99) mg/dL Calcium 7.8 L (8.4-10.2) mg/dL Alkaline Phosphatase (41-126) U/L Total Protein 4.8 L (6.2-8.2) g/dL Albumin 2.1 L (3.8-4.9) g/dL Albumin/Globulin Ratio 0.78 L (1.60-3.17) g/dL Procalcitonin (0.02-0.09) ng/mL Microbiology - Last 24 Hours (Table) 05/24/22 10:33 Blood Culture - Preliminary Blood No Growth after 120 hours 05/24/22 10:30 Blood Culture - Preliminary Blood No Growth after 120 hours 05/25/22 09:45 Blood Culture - Preliminary Blood No Growth after 96 hours 05/26/22 11:10 Acid Fast Bacilli Smear - Final Aspirate Acid Fast Bacilli Culture - Preliminary 05/26/22 11:10 Anaerobic Culture - Preliminary Aspirate 05/26/22 11:10 Gram Stain - Preliminary Aspirate Tissue Culture - Preliminary Assessment and Plan Plan: Assessment: #1. Left upper lobe lung mass with cavitation and invasion into the left side of the mediastinum suggestive of malignancy. Patient had symptoms of cough, shortness of breath and fever with failure of outpatient treatment with 2 rounds of antibiotics and steroids. Patient underwent CT-guided core biopsy and fine-needle aspiration of the left upper lobe lung mass, biopsy is still pending #2. Leukocytosis, fever, cough shortness of breath related to pneumonia and sepsis. COVID-19 PCR was negative #3. Lactic acidosis, mild, improved with IV hydration #4. Former smoker, currently in remission, carries [id number] smoking history #5. Anemia Plan: Continue antibiotics yesterday's chest x-ray was obtained showing extensive left upper lobe opacification Procalcitonin level has increased and so has her white blood cell count We discussed possibility of bronchoscopy with BAL on 05/30/2022 patient is agreeable to proceed, nothing by mouth after midnight I have personally seen and examined the patient, performed the documentation and the assessment and plan as written. Number of minutes spent on the visit: [15] I have personally seen and examined the patient and reviewed the documentation. I performed a joint evaluation with the nurse practitioner in this evaluation was done more than 20 minutes. I fully agree with the documentation above and the plan of care. Clinically stable. The white cell count is elevated and focused on his elevated and the patient has a dense consolidation/mass in the left upper lobe. We'll repeat the labs tomorrow. The white cell count and pro Calcitonin are elevated, we'll consider bronchoscopy. Keep the patient. The midnight for possible bronchoscopy in a.m. Time with Patient: Less than 30
--- NOTE | 2022-05-29 18:43 | P.PN ---
Subjective This is a 66 year old female who is admitted to hospital for left upper lobe mass with cavitation and invasion into the left side of the mediastinum suggestive of malignancy. Patient continues with leukocytosis, 34.58 today, hemoglobin stable at 7.4. Patient is status post Lung biopsy CT completed yesterday, cytology currently pending at this time. Infectious disease, oncology, radiology, and pulmonary are following the patient closely. 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 Cultures are currently showing negative. She continues on antibiotics in the form of IV zosyn. Potassium today 2.9 patient received 60 meq replacement this morning, and will receive another 40 meq of potassium this evening. Labs will be repeated in the morning. Patient continues with fevers 100.1 today, tachycardic with heart rate in the low 110s, she was started on low dose betablocker. Blood pressure 101/64, 93% room air. She has also been receiving IV fluids with normal saline at 0.9 and 130 mls per hour and we will lower to 75 mls per hour, patient does have increased peripheral edema. 05/28/2022 Patient evaluated today sitting in bed. She is dypsneic at rest currently on 2L nasal cannula she has oxygen saturation of 96%. Continues with fever T-Max 100.1 in the last 24 hours, fever of 99.9 today. She is also tachycardic in the 110s, continues on low dose betablocker although suspect tachycardia is from infection. IV fluids were decreased to 75 yesterday, patient had an episode last night of respiratory distress and received a dose of IV lasix 40 mg once, fluids are discontinued. Repeat chest xray today shows stable opacification left upper lung field suspicious for large mass. She is post lung biopsy and remains on IV zosyn. Pulmonary is following the patient closely. Subjective: Resuming the care of the patient today 05/29/2022 This is a pleasant 66 years old female who presents with a large left upper lobe lung mass status post biopsy on 05/26, masses are suspicious for cancer given its mediastinal irrigation of the left side. Also patient is followed by oncology and redo oncologist. There is evidence of postobstructive pneumonia poorly responsive to Zosyn which is broad-spectrum antibiotic. Pulmonary team on the case and the plan for bronchoscopy and bronchoalveolar lavage tomorrow and looks like patient is agreeable to this plan. Also she is on Solu-Medrol 40 mg. Other than that she had a fever of 101.8 on admission and today is the first day she is afebrile for the last 24 hours. However leukocytosis went up 45,004Custar and went up to 2.1, was 1.4. \\ Objective - Vital Signs Vital signs: Vital Signs Temp 97.4 F L 05/29/22 05:07 Pulse 100 05/29/22 09:04 Resp 16 05/29/22 05:07 BP 101/64 05/29/22 05:07 Pulse Ox 92 L 05/29/22 11:03 FiO2 Intake & Output 05/28/22 05/29/22 05/29/22 18:59 06:59 18:59 Intake Total 400 600 Balance 400 600 Intake: Intake, IV Titration 100 Amount Piperacillin-Tazobactam 3 100 .375 gm In Sodium Chloride 0.9% 100 ml @ 25 mls/hr IVPB Q8H [facility] Rx#: [id number] Oral 400 500 Other: Voiding Method Bedside Commode Bedside Commode # Voids 4 2 1 # Bowel Movements 2 1 - Exam GENERAL: The patient is alert and oriented x3, not in any acute distress. Well developed, well nourished. HEENT: Pupils are round and equally reacting to light. EOMI. No scleral icterus. No conjunctival pallor. Normocephalic, atraumatic. No pharyngeal erythema. No thyromegaly. CARDIOVASCULAR: S1 and S2 present. No murmurs, rubs, or gallops. -PULMONARY: Chest is clear to auscultation, no wheezing or crackles. Decreased breath sounds on the left side, very mild tachypnea ABDOMEN: Soft, nontender, nondistended, normoactive bowel sounds. No palpable organomegaly. MUSCULOSKELETAL: No joint swelling or deformity. EXTREMITIES: No cyanosis, clubbing, or pedal edema. NEUROLOGICAL: Gross neurological examination did not reveal any focal deficits. SKIN: No rashes. no petechiae. Gait is normal - Labs CBC & Chem 7: 05/29/22 05:55 05/29/22 05:55 Labs: Abnormal Lab Results - Last 24 Hours (Table) 05/28/22 05/28/22 05/28/22 Range/Units 06:25 06:25 13:52 WBC (4.50-10.00) X 10*3/uL RBC (4.10-5.20) X 10*6/uL Hgb (12.0-15.0) g/dL Hct (37.2-46.3) % MCHC (32.0-37.0) g/dL RDW (11.5-14.5) % MPV (9.5-12.2) fL Immature Gran # (0.00-0.04) X 10*3/uL Neutrophils # (1.80-7.70) X 10*3/uL Lymphocytes # (0.90-5.00) X 10*3/uL Sodium 134 L 132 L (135-145) mmol/L Potassium 3.4 L 3.3 L (3.5-5.5) mmol/L Creatinine 0.4 L 0.46 L (0.6-1.5) mg/dL BUN/Creatinine Ratio 24.94 H (12.00-20.00) Ratio Glucose 163 H (74-99) mg/dL Calcium 7.5 L 7.6 L (8.7-10.3) mg/dL Alkaline Phosphatase 127 H 148 H (41-126) U/L Total Protein 4.8 L 4.8 L (6.2-8.2) g/dL Albumin 2.1 L 2.1 L (3.8-4.9) g/dL Albumin/Globulin Ratio 0.78 L (1.60-3.17) g/dL Procalcitonin 2.12 H (0.02-0.09) ng/mL 05/29/22 05/29/22 Range/Units 05:55 05:55 WBC 45.55 H (4.50-10.00) X 10*3/uL RBC 2.56 L (4.10-5.20) X 10*6/uL Hgb 7.2 L (12.0-15.0) g/dL Hct 22.8 L (37.2-46.3) % MCHC 31.6 L (32.0-37.0) g/dL RDW 14.6 H (11.5-14.5) % MPV 8.9 L (9.5-12.2) fL Immature Gran # 1.48 H (0.00-0.04) X 10*3/uL Neutrophils # 42.58 H (1.80-7.70) X 10*3/uL Lymphocytes # 0.78 L (0.90-5.00) X 10*3/uL Sodium (135-145) mmol/L Potassium (3.5-5.5) mmol/L Creatinine 0.4 L (0.6-1.5) mg/dL BUN/Creatinine Ratio 36.00 H (12.00-20.00) Ratio Glucose 147 H (74-99) mg/dL Calcium 7.8 L (8.7-10.3) mg/dL Alkaline Phosphatase (41-126) U/L Total Protein 4.8 L (6.2-8.2) g/dL Albumin 2.1 L (3.8-4.9) g/dL Albumin/Globulin Ratio 0.78 L (1.60-3.17) g/dL Procalcitonin (0.02-0.09) ng/mL Microbiology - Last 24 Hours (Table) 05/26/22 11:10 Acid Fast Bacilli Smear - Final Aspirate Acid Fast Bacilli Culture - Preliminary 05/26/22 11:10 Anaerobic Culture - Preliminary Aspirate 05/26/22 11:10 Gram Stain - Preliminary Aspirate Tissue Culture - Preliminary 05/24/22 10:33 Blood Culture - Preliminary Blood No Growth after 96 hours 05/24/22 10:30 Blood Culture - Preliminary Blood No Growth after 96 hours 05/25/22 09:45 Blood Culture - Preliminary Blood No Growth after 72 hours Assessment and Plan Assessment: Left sided lung mass with cavitation, patient is status post lung biopsy Postobstructive Pneumonia Tachycardia most likely from sepsis/infection Hyponatremia, hypovolemic Constipation on bowel regimen Anemia of chronic disease Former smoker Plan: This is a pleasant 66 years old female who presents with large left upper lobe lung mass and pneumonia Continue on IV Zosyn, cultures pending . Plan for bronchoscopy and BAL a.m. Follow-up lung biopsy results Continue with Zosyn and Solu-Medrol 40 mg Pulmonary, oncology, radial oncology and infectious disease teams on the case Labs and medication were reviewed.. Continue same treatment. Continue with symptomatic treatment. Resume home medication. Monitor lytes and vitals. DVT and GI prophylaxis. Further recommendations as per clinical course of the patient PT/OT: Home health care, ordered Prognosis is guarded
[2022-05-29] MEDS: FAMOTIDINE 20 MG/2 ML VIAL IV SCH (19:46)
[2022-05-29] MEDS: MELATONIN 3 MG TABLET PO PRN (21:31)
[2022-05-29] MEDS: ACETAMINOPHEN TAB 325 MG TAB PO PRN (22:32)
[2022-05-30] MEDS: PIPERACILLIN-TAZOBACTAM 3.375 GM in SODIUM CHLORIDE 0.9% 100 ML IVPB SCH ×3 (03:14→20:15)
--- NOTE | 2022-05-30 08:02 | P.PN ---
Subjective Progress Note Date: 05/28/22 Principal diagnosis: Fever/pneumonia Patient is a 66-year-old female presenting to the hospital with increasing shortness of breath and cough and fever, patient did have a CT of the chest today shows large left upper lobe mass with cavitation in this patient who is status post IR biopsy as well as cultures completed on 05/26/2022. On today's evaluation of his 05/28/2022, the patient did have a low-grade fever of 99.4F, the patient is breathing slightly comfortably on a nasal cannula oxygen, the patient had left-sided chest pain has slightly decreased intensity, the patient cough is decreased intensity with occasional sputum production. Denies any nausea no vomiting no abdominal pain no diarrhea Objective - Vital Signs Vital signs: Vital Signs Temp 99.9 F H 05/28/22 11:16 Pulse 113 H 05/28/22 12:17 Resp 17 05/28/22 11:16 BP 104/64 05/28/22 11:16 Pulse Ox 96 05/28/22 11:16 FiO2 Intake & Output 05/27/22 05/28/22 05/28/22 18:59 06:59 18:59 Intake Total 900 240 Balance 900 240 Intake: Intake, IV Titration 900 Amount Sodium Chloride 0.9% 1, 900 000 ml @ 75 mls/hr IV . [id number] [facility] Rx#:[id number] Oral 240 Other: Voiding Method Bedside Commode Bedside Commode Bedside Commode # Voids 1 # Bowel Movements 1 - Exam GENERAL DESCRIPTION: An elderly female lying in bed in no distress RESPIRATORY SYSTEM: Unlabored breathing , decreased breath sounds at bases HEART: S1 S2 regular rate and rhythm , ABDOMEN: Soft , no tenderness EXTREMITIES: No edema feet - Labs CBC & Chem 7: 05/29/22 05:55 05/29/22 05:55 Labs: Abnormal Lab Results - Last 24 Hours (Table) 05/26/22 05/28/22 05/28/22 Range/Units 05:06 06:25 06:25 WBC 38.90 H (4.50-10.00) X 10*3/uL RBC 2.60 L (4.10-5.20) X 10*6/uL Hgb 7.3 L (12.0-15.0) g/dL Hct 23.5 L (37.2-46.3) % MCHC 31.1 L (32.0-37.0) g/dL RDW 14.6 H (11.5-14.5) % MPV 9.0 L (9.5-12.2) fL Immature Gran # 1.50 H (0.00-0.04) X 10*3/uL Neutrophils # 35.26 H (1.80-7.70) X 10*3/uL Sodium 134 L (135-145) mmol/L Potassium 3.4 L (3.5-5.5) mmol/L Creatinine 0.4 L (0.6-1.5) mg/dL BUN/Creatinine Ratio 24.94 H (12.00-20.00) Ratio Calcium 7.5 L (8.7-10.3) mg/dL RBC Folate 1,260 H (280 - 791) ng/mL Microbiology - Last 24 Hours (Table) 05/24/22 10:33 Blood Culture - Preliminary Blood No Growth after 96 hours 05/24/22 10:30 Blood Culture - Preliminary Blood No Growth after 96 hours 05/25/22 09:45 Blood Culture - Preliminary Blood No Growth after 72 hours 05/26/22 11:10 Gram Stain - Preliminary Aspirate Tissue Culture - Preliminary 05/26/22 11:10 Acid Fast Bacilli Culture - Preliminary Aspirate 05/24/22 19:40 Gram Stain - Final Sputum Sputum Culture - Final Assessment and Plan (1) Pneumonia Current Visit: Yes Status: Acute Code(s): J18.9 - PNEUMONIA, UNSPECIFIED ORGANISM SNOMED Code(s): 036735570 Plan: 1patient presented to hospital with sepsis and respiratory fever elevated white count elevated lactic acid with evidence of left sided lung mass and cavitation with a question of possible malignancy versus pneumonia with cavitation and possible related to community-acquired versus gram-negative pathogen. 2patient is status post IR biopsy of the area fluid should has been sent for culture both bacterial fungal and AFB which are currently pending. 3-patient has shown some clinical improvement and will continue with the Zosyn 3.375 g every 8 hours. Time with Patient: Less than 30
--- NOTE | 2022-05-30 08:03 | P.PN ---
Subjective Progress Note Date: 05/29/22 Principal diagnosis: Fever/pneumonia Patient is a 66-year-old female presenting to the hospital with increasing shortness of breath and cough and fever, patient did have a CT of the chest today shows large left upper lobe mass with cavitation in this patient who is status post IR biopsy as well as cultures completed on 05/26/2022. On today's evaluation of his 05/29/2022, the patient is afebrile today, the patient is breathing slightly comfortably on 2 L nasal cannula oxygen, the patient had left-sided chest pain has slightly decreased intensity, the patient cough is decreased intensity with less sputum production. The patient denies any nausea no vomiting no abdominal pain no diarrhea Objective - Vital Signs Vital signs: Vital Signs Temp 97.9 F 05/29/22 12:15 Pulse 106 H 05/29/22 12:54 Resp 17 05/29/22 12:15 BP 98/61 05/29/22 12:15 Pulse Ox 94 L 05/29/22 12:15 FiO2 Intake & Output 05/28/22 05/29/22 05/29/22 18:59 06:59 18:59 Intake Total 400 600 Balance 400 600 Intake: Intake, IV Titration 100 Amount Piperacillin-Tazobactam 3 100 .375 gm In Sodium Chloride 0.9% 100 ml @ 25 mls/hr IVPB Q8H [facility] Rx#: [id number] Oral 400 500 Other: Voiding Method Bedside Commode Bedside Commode # Voids 4 2 1 # Bowel Movements 2 1 - Exam GENERAL DESCRIPTION: An elderly female lying in bed in no distress RESPIRATORY SYSTEM: Unlabored breathing , decreased breath sounds at bases HEART: S1 S2 regular rate and rhythm , ABDOMEN: Soft , no tenderness EXTREMITIES: No edema feet - Labs CBC & Chem 7: 05/29/22 05:55 05/29/22 05:55 Labs: Abnormal Lab Results - Last 24 Hours (Table) 05/28/22 05/28/22 05/28/22 Range/Units 06:25 06:25 13:52 WBC (4.50-10.00) X 10*3/uL RBC (4.10-5.20) X 10*6/uL Hgb (12.0-15.0) g/dL Hct (37.2-46.3) % MCHC (32.0-37.0) g/dL RDW (11.5-14.5) % MPV (9.5-12.2) fL Immature Gran # (0.00-0.04) X 10*3/uL Neutrophils # (1.80-7.70) X 10*3/uL Lymphocytes # (0.90-5.00) X 10*3/uL Sodium 132 L (137-145) mmol/L Potassium 3.3 L (3.5-5.1) mmol/L Creatinine 0.46 L (0.52-1.04) mg/dL BUN/Creatinine Ratio (12.00-20.00) Ratio Glucose 163 H (74-99) mg/dL Calcium 7.6 L (8.4-10.2) mg/dL Alkaline Phosphatase 127 H 148 H (41-126) U/L Total Protein 4.8 L 4.8 L (6.2-8.2) g/dL Albumin 2.1 L 2.1 L (3.8-4.9) g/dL Albumin/Globulin Ratio 0.78 L (1.60-3.17) g/dL Procalcitonin 2.12 H (0.02-0.09) ng/mL 05/29/22 05/29/22 Range/Units 05:55 05:55 WBC 45.55 H (4.50-10.00) X 10*3/uL RBC 2.56 L (4.10-5.20) X 10*6/uL Hgb 7.2 L (12.0-15.0) g/dL Hct 22.8 L (37.2-46.3) % MCHC 31.6 L (32.0-37.0) g/dL RDW 14.6 H (11.5-14.5) % MPV 8.9 L (9.5-12.2) fL Immature Gran # 1.48 H (0.00-0.04) X 10*3/uL Neutrophils # 42.58 H (1.80-7.70) X 10*3/uL Lymphocytes # 0.78 L (0.90-5.00) X 10*3/uL Sodium (137-145) mmol/L Potassium (3.5-5.1) mmol/L Creatinine 0.4 L (0.52-1.04) mg/dL BUN/Creatinine Ratio 36.00 H (12.00-20.00) Ratio Glucose 147 H (74-99) mg/dL Calcium 7.8 L (8.4-10.2) mg/dL Alkaline Phosphatase (41-126) U/L Total Protein 4.8 L (6.2-8.2) g/dL Albumin 2.1 L (3.8-4.9) g/dL Albumin/Globulin Ratio 0.78 L (1.60-3.17) g/dL Procalcitonin (0.02-0.09) ng/mL Microbiology - Last 24 Hours (Table) 05/24/22 10:33 Blood Culture - Preliminary Blood No Growth after 120 hours 05/24/22 10:30 Blood Culture - Preliminary Blood No Growth after 120 hours 05/25/22 09:45 Blood Culture - Preliminary Blood No Growth after 96 hours 05/26/22 11:10 Acid Fast Bacilli Smear - Final Aspirate Acid Fast Bacilli Culture - Preliminary 05/26/22 11:10 Anaerobic Culture - Preliminary Aspirate 05/26/22 11:10 Gram Stain - Preliminary Aspirate Tissue Culture - Preliminary Assessment and Plan (1) Pneumonia Current Visit: Yes Status: Acute Code(s): J18.9 - PNEUMONIA, UNSPECIFIED ORGANISM SNOMED Code(s): 408288786 Plan: 1patient presented to hospital with sepsis and respiratory fever elevated white count elevated lactic acid with evidence of left sided lung mass and cavitation with a question of possible malignancy versus pneumonia with cavitation and possible related to community-acquired versus gram-negative pathogen. 2patient is status post IR biopsy of the area fluid should has been sent for culture both bacterial fungal and AFB which are not finalized yet. 3-patient slowly clinical improvement and will continue with the Zosyn 3.375 g every 8 hours while waiting for the cultures to finalize. Time with Patient: Less than 30
[2022-05-30] MEDS: IPRATROPIUM-ALBUTEROL 3 ML NEB INHALATION SCH ×4 (08:05→20:13)
[2022-05-30] MEDS: methylPREDNISolone SOD SUCCI 40 MG/ML 1 ML VIAL IV SCH ×2 (08:20→16:59)
[2022-05-30] MEDS: METOPROLOL TARTRATE 25 MG TAB PO SCH ×2 (08:20→20:18)
[2022-05-30] MEDS: NYSTATIN 100,000 UNIT/ML SUSP 500,000 UNIT/5 ML CUP PO SCH ×4 (08:20→20:20)
[2022-05-30] MEDS: FERROUS SULFATE 325 MG TAB PO SCH (08:20)
[2022-05-30] MEDS: FAMOTIDINE 20 MG/2 ML VIAL IV SCH (08:20)
[2022-05-30] MEDS: DOCUSATE 100 MG CAP PO SCH (08:20)
[2022-05-30] MEDS: ALPRAZolam 0.25 MG TAB PO PRN ×2 (13:02→21:04)
--- NOTE | 2022-05-30 14:10 | P.PN ---
Subjective Progress Note Date: 05/30/22 66-year-old female patient, former smoker, but does carry [id number] smoking history, who came into the emergency department on May 26, 2022, with symptoms of shortness of breath, cough, fever. Patient states she has had the symptoms since early April 2022. On 05/02/2022 she went to the urgent care where she was treated with antibiotics and steroids. She then saw her PCP in follow-up, chest x-ray was taken and she was told that she has a pneumonia, and was given another round of a biotics and steroids. However she still having difficulty breathing, and coughing. She does admit to some weight loss, denies any hemoptysis no chest pain. Chest x-ray in the ED showed left upper lobe opacification consistent with pneumonia, EKG showed sinus tachycardia. Patient tested negative for COVID-19. The rest of her lab work showed leukocytosis with white blood cell, 29.1, hemoglobin of 8.1, platelet count of 512, coagulation profile was within normal limits, sodium is 132, potassium is 3.9, chloride is 105, CO2 is 20, BUN of 13 creatinine 0.43, plasma lactic acid was 2.3. Patient was started on azithromycin and Rocephin, was given gentle IV hydration. Chest x- ray findings are concerning for underlying pulmonary mass, and dedicated CT of the chest was recommended. And we're consulted for the same. On 05/25/2022 patient seen in follow-up. Computed tomography scan of the chest without contrast was completed showing large left upper lobe mass with cavitation, and there is invasion into the left side of the mediastinum suggestive of malignancy area and left pleural effusion and pulmonary emphysema. Nonspecific left adrenal mass. Patient remains on antibiotics, breathing treatments, vital signs are stable, patient is afebrile, currently on 2 L of oxygen satting 96%. She is short of breath with exertion, and does have a dry nonproductive cough. Denies any hemoptysis. On 05/27/2022 patient seen in follow-up. Patient underwent successful CT-guided core biopsy and fine needle aspiration of the left upper lobe lung mass yesterday by interventional radiology. Biopsy results are still pending. Clinically patient states she is feeling better, she was able to get a shower t ambrose, still a bit short of breath with exertion but tolerates activity well, room air pulse ox 93%, she had a low-grade fever this afternoon with a temp of 100.1F, she remains on antibiotics in the form of Zosyn. No complains of chest discomfort, no hemoptysis. Today's labs have been noted, white blood cell count is up to 34.5 on today's labs, hemoglobin is 7.4. Sodium is 134, potassium is 2.9, BUN is 6, creatinine 0.45. CRP is improved and is down to 27.6, pro calcitonin is elevated at 1.41. On 05/28/2022 patient seen in follow-up. Patient is awake and alert, she is mildly dyspneic at rest, low-grade fever today with a temp of 99.9F, slightly tachycardic, and slightly more congested on today's exam. Last night patient had an episode of increased shortness of breath, she was given IV Lasix 40 mg, breathing treatments. She remains on Zosyn. Her pleural fluid aspirate cultures have shown no organisms thus far. on 05/29/2022 patient is seen in follow-up on medical oncology floor. She is sitting up in the chair, she states her breathing is improved, she continues on Zosyn for empiric antibiotic coverage, IV Solu-Medrol. so far all her cultures remain negative, rheumatoid pulse ox is 94%. however today's labs show further increase in her leukocytosis, possibly partially due to IV steroids, white blood cell count is up to 45.5, and pro-calcitonin level was increased and is up to 2.12 on yesterday's labs. The patient states she is feeling better, remains on Zosyn. The patient is seen today 05/30/2000 follow-up on the regular medical floor. She is sitting up in bed. Awake and alert in no acute distress. She is breathing a bit easier today compared to yesterday. No worsening cough or congestion. Maintaining O2 saturations in the 90s on room air. No new labs today. She remains on DuoNeb inhalations, IV Solu-Medrol, antibiotics in the form of Zosyn. Objective - Vital Signs Vital signs: Vital Signs Temp 98.5 F 05/30/22 12:00 Pulse 119 H 05/30/22 12:00 Resp 16 05/30/22 12:00 BP 116/71 05/30/22 12:00 Pulse Ox 94 L 05/30/22 12:00 FiO2 Intake & Output 05/29/22 05/30/22 05/30/22 18:59 06:59 18:59 Weight 49.895 kg Other: Voiding Method Bedside Commode # Voids 2 2 # Bowel Movements 1 - Exam GENERAL EXAM: Alert, active,66-year-old female, on room air,comfortable in no apparent distress. HEAD: Normocephalic. EYES: Normal reaction of pupils, equal size. NOSE: Clear with pink turbinates. THROAT: No erythema or exudates. NECK: No masses, no JVD. CHEST: No chest wall deformity. LUNGS: Equal air entry with few scattered rhonchi. CVS: S1 and S2 normal with no audible murmur, regular rhythm. ABDOMEN: No hepatosplenomegaly, normal bowel sounds, no guarding or rigidity. SPINE: No scoliosis or deformity SKIN: No rashes CENTRAL NERVOUS SYSTEM: No focal deficits, tone is normal in all 4 extremities. EXTREMITIES: There is no peripheral edema. No clubbing, no cyanosis. Peripheral pulses are intact. - Labs CBC & Chem 7: 05/29/22 05:55 05/29/22 05:55 Labs: Microbiology - Last 24 Hours (Table) 05/24/22 10:33 Blood Culture - Final Blood No Growth after 144 hours 05/24/22 10:30 Blood Culture - Final Blood No Growth after 144 hours 05/25/22 09:45 Blood Culture - Preliminary Blood No Growth after 120 hours 05/26/22 11:10 Gram Stain - Preliminary Aspirate Tissue Culture - Preliminary Assessment and Plan Assessment: Left upper lobe lung mass with cavitation and invasion into the left side of the mediastinum suggestive of malignancy. Patient had symptoms of cough, shortness of breath and fever with failure of outpatient treatment with 2 rounds of antibiotics and steroids. Patient underwent CT-guided core biopsy and fine- needle aspiration of the left upper lobe lung mass, biopsy is positive for pulmonary adenocarcinoma Leukocytosis, fever, cough shortness of breath related to pneumonia and sepsis. COVID-19 PCR was negative Lactic acidosis, mild, improved with IV hydration Former smoker, currently in remission, carries [id number] smoking history Anemia Plan: The patient was seen and evaluated Currently stable and on room air No plans for bronchoscopy at this time Continue Zosyn, IV Solu-Medrol, bronchodilators Follow-up CBC, pro-calcitonin in a.m. Medical oncology, radiation oncology following Plan is for outpatient PET scan We will continue to follow I have personally seen and examined the patient, performed the documentation and the assessment and plan as written. Number of minutes spent on the visit: 10. I have personally seen and examined the patient and reviewed the documentation. I performed a joint evaluation with the nurse practitioner in this evaluation was done more than 20 minutes. I fully agree with the documentation above and the plan of care.. No plans for bronchoscopy today. Monitor white count. Monitor the vocal calcitonin level. Clinically stable. 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
--- NOTE | 2022-05-30 15:30 | P.PN ---
Subjective Progress Note Date: 05/30/22 Pathology positive for adenocarcinoma, NGS will be sent through office for further actionable mutations. An outpatient PET scan will be performed as outpatient for full staging. Objective - Vital Signs Vital signs: Vital Signs Temp 98.5 F 05/30/22 12:00 Pulse 119 H 05/30/22 12:00 Resp 16 05/30/22 12:00 BP 116/71 05/30/22 12:00 Pulse Ox 94 L 05/30/22 12:00 FiO2 Intake & Output 05/29/22 05/30/22 05/30/22 18:59 06:59 18:59 Weight 49.895 kg Other: Voiding Method Bedside Commode # Voids 2 2 # Bowel Movements 1 - Exam - Constitutional General appearance: no acute distress - EENT Eyes: EOMI, PERRLA ENT: hearing grossly normal, normal oropharynx - Neck Neck: no lymphadenopathy Thyroid: bilateral: normal size - Respiratory Respiratory: bilateral: CTA - Cardiovascular Rhythm: regular Heart sounds: normal: S1, S2 - Gastrointestinal General gastrointestinal: normal bowel sounds, soft - Integumentary Integumentary: normal - Neurologic Neurologic: CNII-XII intact - Musculoskeletal Musculoskeletal: generalized weakness, strength equal bilaterally - Psychiatric Psychiatric: A&O x's 3, appropriate affect - Labs CBC & Chem 7: 05/29/22 05:55 05/29/22 05:55 Labs: Microbiology - Last 24 Hours (Table) 05/24/22 10:33 Blood Culture - Final Blood No Growth after 144 hours 05/24/22 10:30 Blood Culture - Final Blood No Growth after 144 hours 05/25/22 09:45 Blood Culture - Preliminary Blood No Growth after 120 hours 05/26/22 11:10 Gram Stain - Preliminary Aspirate Tissue Culture - Preliminary Assessment and Plan (1) Hypokalemia Narrative/Plan: monitored per primary team. Current Visit: Yes Status: Acute Code(s): E87.6 - HYPOKALEMIA SNOMED Code(s): 97493062 (2) Anemia Narrative/Plan: Likely lood loss anemia, however unable to use iron studies ferritin >1200 Transfuse less than 7 Monitor for bleeding Current Visit: Yes Status: Acute Code(s): D64.9 - ANEMIA, UNSPECIFIED SN OMED Code(s): 323682597 (3) Lung mass Narrative/Plan: Pathology positive for adenocarcinoma, NGS will be sent through office for further actionable mutations. An outpatient PET scan will be performed as outpatient for full staging. MRI brain negative Current Visit: Yes Status: Acute Code(s): R91.8 - OTHER NONSPECIFIC ABNORMAL FINDING OF LUNG FIELD SNOMED Code(s): 883866907 (4) Pneumonia Narrative/Plan: Continues on antibiotics Current Visit: Yes Status: Acute Code(s): J18.9 - PNEUMONIA, UNSPECIFIED ORGANISM SNOMED Code(s): 688226310 Plan: Pathology positive for adenocarcinoma, NGS will be sent through office for further actionable mutations. An outpatient PET scan will be performed as outpatient for full staging. Discussed with patient Discussed with primary team and ok for VTE prophylaxis Dr douglas discussed that after staging and while awaiting NGS concurrent chemo and radiation maybe indicated for pallaitive reasons Dr. Suh: I have completed the full history and physical and developed the above impression and plan, agree with dictation, dictated as a ascribe.
--- NOTE | 2022-05-30 16:32 | P.PN ---
Subjective Progress Note Date: 05/30/22 Principal diagnosis: Fever/pneumonia Patient is a 66-year-old female presenting to the hospital with increasing shortness of breath and cough and fever, patient did have a CT of the chest today shows large left upper lobe mass with cavitation in this patient who is status post IR biopsy as well as cultures completed on 05/26/2022. On today's evaluation of his 05/30/2022, the patient remains to be afebrile, the patient is slightly upset regarding cancellation of her tests, the patient is breathing slightly comfortably on 2 L nasal cannula oxygen, the patient had le ft-sided chest pain has slightly decreased intensity, the patient cough is decreased intensity with less sputum production. The patient denies any nausea no vomiting no abdominal pain no diarrhea Objective - Vital Signs Vital signs: Vital Signs Temp 98.5 F 05/30/22 12:00 Pulse 119 H 05/30/22 12:00 Resp 16 05/30/22 12:00 BP 116/71 05/30/22 12:00 Pulse Ox 94 L 05/30/22 12:00 FiO2 Intake & Output 05/29/22 05/30/22 05/30/22 18:59 06:59 18:59 Weight 49.895 kg Other: Voiding Method Bedside Commode # Voids 2 2 # Bowel Movements 1 - Exam GENERAL DESCRIPTION: An elderly female lying in bed in no distress RESPIRATORY SYSTEM: Unlabored breathing , decreased breath sounds at bases HEART: S1 S2 regular rate and rhythm , ABDOMEN: Soft , no tenderness EXTREMITIES: No edema feet - Labs CBC & Chem 7: 05/29/22 05:55 05/29/22 05:55 Labs: Microbiology - Last 24 Hours (Table) 05/24/22 10:33 Blood Culture - Final Blood No Growth after 144 hours 05/24/22 10:30 Blood Culture - Final Blood No Growth after 144 hours 05/25/22 09:45 Blood Culture - Preliminary Blood No Growth after 120 hours 05/26/22 11:10 Gram Stain - Preliminary Aspirate Tissue Culture - Preliminary Assessment and Plan (1) Pneumonia Current Visit: Yes Status: Acute Code(s): J18.9 - PNEUMONIA, UNSPECIFIED ORGANISM SNOMED Code(s): 633260254 Plan: 1patient presented to hospital with sepsis and respiratory fever elevated white count elevated lactic acid with evidence of left sided lung mass and cavitation with a question of possible malignancy versus pneumonia with cavitation and possible related to community-acquired versus gram-negative pathogen. 2patient is status post IR biopsy of the area fluid should has been sent for culture both bacterial fungal and AFB which are currently pending 3-patient has shown some clinical improvement and currently being treated with the Zosyn 3.375 g every 8 hours while waiting for the cultures to finalize. Time with Patient: Less than 30
--- NOTE | 2022-05-30 19:57 | P.PN ---
Subjective This is a 66 year old female who is admitted to hospital for left upper lobe mass with cavitation and invasion into the left side of the mediastinum suggestive of malignancy. Patient continues with leukocytosis, 34.58 today, hemoglobin stable at 7.4. Patient is status post Lung biopsy CT completed yesterday, cytology currently pending at this time. Infectious disease, oncology, radiology, and pulmonary are following the patient closely. 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 Cultures are currently showing negative. She continues on antibiotics in the form of IV zosyn. Potassium today 2.9 patient received 60 meq replacement this morning, and will receive another 40 meq of potassium this evening. Labs will be repeated in the morning. Patient continues with fevers 100.1 today, tachycardic with heart rate in the low 110s, she was started on low dose betablocker. Blood pressure 101/64, 93% room air. She has also been receiving IV fluids with normal saline at 0.9 and 130 mls per hour and we will lower to 75 mls per hour, patient does have increased peripheral edema. 05/28/2022 Patient evaluated today sitting in bed. She is dypsneic at rest currently on 2L nasal cannula she has oxygen saturation of 96%. Continues with fever T-Max 100.1 in the last 24 hours, fever of 99.9 today. She is also tachycardic in the 110s, continues on low dose betablocker although suspect tachycardia is from infection. IV fluids were decreased to 75 yesterday, patient had an episode last night of respiratory distress and received a dose of IV lasix 40 mg once, fluids are discontinued. Repeat chest xray today shows stable opacification left upper lung field suspicious for large mass. She is post lung biopsy and remains on IV zosyn. Pulmonary is following the patient closely. Subjective: Resuming the care of the patient today 05/29/2022 This is a pleasant 66 years old female who presents with a large left upper lobe lung mass status post biopsy on 05/26, masses are suspicious for cancer given its mediastinal irrigation of the left side. Also patient is followed by oncology and redo oncologist. There is evidence of postobstructive pneumonia poorly responsive to Zosyn which is broad-spectrum antibiotic. Pulmonary team on the case and the plan for bronchoscopy and bronchoalveolar lavage tomorrow and looks like patient is agreeable to this plan. Also she is on Solu-Medrol 40 mg. Other than that she had a fever of 101.8 on admission and today is the first day she is afebrile for the last 24 hours. However leukocytosis went up 45,004Custar and went up to 2.1, was 1.4. 05/30/2022 Patient: Padilla he came back positive for adenocarcinoma, non-small cell pulmonary cancer, and hematology/oncology team on the case and the plan for further testing for her biopsy specimen which is pending now. Also patient still has significant sepsis with fever, tachycardia and borderline blood pressure. She was on Zosyn on Solu-Medrol 40 mg. Pulmonary team for plan for bronchoscopy today but was canceled, patient already ate WBC 45.5, hemoglobin 7.2. Sodium 136, potassium 3.8. No fever today but heart rate 115 and blood pressure 99/64 \\ Objective - Vital Signs Vital signs: Vital Signs Temp 98.5 F 05/30/22 12:00 Pulse 119 H 05/30/22 12:00 Resp 16 05/30/22 12:00 BP 116/71 05/30/22 12:00 Pulse Ox 94 L 05/30/22 12:00 FiO2 Intake & Output 05/29/22 05/30/22 05/30/22 18:59 06:59 18:59 Weight 49.895 kg Other: Voiding Method Bedside Commode # Voids 2 2 # Bowel Movements 1 - Exam GENERAL: The patient is alert and oriented x3, not in any acute distress. Well developed, well nourished. HEENT: Pupils are round and equally reacting to light. EOMI. No scleral icterus. No conjunctival pallor. Normocephalic, atraumatic. No pharyngeal erythema. No thyromegaly. CARDIOVASCULAR: S1 and S2 present. No murmurs, rubs, or gallops. -PULMONARY: Chest is clear to auscultation, no wheezing or crackles. Decreased breath sounds on the left side, very mild tachypnea ABDOMEN: Soft, nontender, nondistended, normoactive bowel sounds. No palpable organomegaly. MUSCULOSKELETAL: No joint swelling or deformity. EXTREMITIES: No cyanosis, clubbing, or pedal edema. NEUROLOGICAL: Gross neurological examination did not reveal any focal deficits. SKIN: No rashes. no petechiae. Gait is normal - Labs CBC & Chem 7: 05/29/22 05:55 05/29/22 05:55 Labs: Microbiology - Last 24 Hours (Table) 05/24/22 10:33 Blood Culture - Final Blood No Growth after 144 hours 05/24/22 10:30 Blood Culture - Final Blood No Growth after 144 hours 05/25/22 09:45 Blood Culture - Preliminary Blood No Growth after 120 hours 05/26/22 11:10 Gram Stain - Preliminary Aspirate Tissue Culture - Preliminary Assessment and Plan Assessment: Left sided lung mass with cavitation, lung biopsy: non-small cell pulmonary cancer, Postobstructive Pneumonia Tachycardia most likely from sepsis/infection Hyponatremia, hypovolemic Constipation on bowel regimen Anemia of chronic disease Former smoker Plan: This is a pleasant 66 years old female who presents with large left upper lobe lung mass and pneumonia Continue on IV Zosyn, cultures pending . Hold bronchoscopy per pulmonary team Further studies per oncology team Continue with Solu-Medrol 40 mg Pulmonary, oncology, radial oncology and infectious disease teams on the case Labs and medication were reviewed.. Continue same treatment. Continue with symptomatic treatment. Resume home medication. Monitor lytes and vitals. DVT and GI prophylaxis. Further recommendations as per clinical course of the patient PT/OT: Home health care, ordered Prognosis is guarded
[2022-05-30] MEDS: FAMOTIDINE 20 MG TAB PO SCH (20:19)
[2022-05-30] MEDS: HEPARIN SODIUM,PORCINE/PF 5,000 UNIT/0.5 ML SYRINGE SQ SCH (20:20)
[2022-05-31] MEDS: methylPREDNISolone SOD SUCCI 40 MG/ML 1 ML VIAL IV SCH ×3 (00:31→16:20)
[2022-05-31] MEDS: PIPERACILLIN-TAZOBACTAM 3.375 GM in SODIUM CHLORIDE 0.9% 100 ML IVPB SCH ×3 (03:44→20:28)
[2022-05-31] MEDS: IPRATROPIUM-ALBUTEROL 3 ML NEB INHALATION SCH ×4 (07:49→19:08)
[2022-05-31] MEDS: DOCUSATE 100 MG CAP PO SCH (09:17)
[2022-05-31] MEDS: METOPROLOL TARTRATE 25 MG TAB PO SCH ×2 (09:17→20:28)
[2022-05-31] MEDS: FERROUS SULFATE 325 MG TAB PO SCH (09:17)
[2022-05-31] MEDS: NYSTATIN 100,000 UNIT/ML SUSP 500,000 UNIT/5 ML CUP PO SCH ×4 (09:17→20:29)
[2022-05-31] MEDS: FAMOTIDINE 20 MG TAB PO SCH ×2 (09:17→20:28)
[2022-05-31] MEDS: HEPARIN SODIUM,PORCINE/PF 5,000 UNIT/0.5 ML SYRINGE SQ SCH ×2 (09:18→20:28)
[2022-05-31 11:39] LABS: Magnesium 2.3 mg/dL (1.5-2.4)
[2022-05-31 12:02] LABS: African American GFR (CKD) 116.1 (60.0-200.0); Albumin 2.3 g/dL (3.8-4.9); Albumin/Globulin Ratio 0.79 (1.60-3.17); Anion Gap 15.7 mmol/L (10.00-18.00); BUN/Creat Ratio 34.6 Ratio (12.00-20.00); Blood Urea Nitrogen 17.3 mg/dL (9.0-27.0); Calcium 8.1 mg/dL (8.7-10.3); Carbon Dioxide 22.3 mmol/L (20.0-27.5); Globulin 2.9 g/dL (1.6-3.3); Non-African American GFR(CKD) 100.1 (60.0-200.0); Potassium 4.4 mmol/L (3.5-5.5); Total Bilirubin 0.2 mg/dL (0.30-1.20); Total Protein 5.2 g/dL (6.2-8.2)
--- NOTE | 2022-05-31 12:12 | P.PN ---
Subjective Progress Note Date: 05/31/22 66-year-old female patient, former smoker, but does carry [id number] smoking history, who came into the emergency department on May 26, 2022, with symptoms of shortness of breath, cough, fever. Patient states she has had the symptoms since early April 2022. On 05/02/2022 she went to the urgent care where she was treated with antibiotics and steroids. She then saw her PCP in follow-up, chest x-ray was taken and she was told that she has a pneumonia, and was given another round of a biotics and steroids. However she still having difficulty breathing, and coughing. She does admit to some weight loss, denies any hemoptysis no chest pain. Chest x-ray in the ED showed left upper lobe opacification consistent with pneumonia, EKG showed sinus tachycardia. Patient tested negative for COVID-19. The rest of her lab work showed leukocytosis with white blood cell, 29.1, hemoglobin of 8.1, platelet count of 512, coagulation profile was within normal limits, sodium is 132, potassium is 3.9, chloride is 105, CO2 is 20, BUN of 13 creatinine 0.43, plasma lactic acid was 2.3. Patient was started on azithromycin and Rocephin, was given gentle IV hydration. Chest x- ray findings are concerning for underlying pulmonary mass, and dedicated CT of the chest was recommended. And we're consulted for the same. On 05/25/2022 patient seen in follow-up. Computed tomography scan of the chest without contrast was completed showing large left upper lobe mass with cavitation, and there is invasion into the left side of the mediastinum suggestive of malignancy area and left pleural effusion and pulmonary emphysema. Nonspecific left adrenal mass. Patient remains on antibiotics, breathing treatments, vital signs are stable, patient is afebrile, currently on 2 L of oxygen satting 96%. She is short of breath with exertion, and does have a dry nonproductive cough. Denies any hemoptysis. On 05/27/2022 patient seen in follow-up. Patient underwent successful CT-guided core biopsy and fine needle aspiration of the left upper lobe lung mass yesterday by interventional radiology. Biopsy results are still pending. Clinically patient states she is feeling better, she was able to get a shower t ambrose, still a bit short of breath with exertion but tolerates activity well, room air pulse ox 93%, she had a low-grade fever this afternoon with a temp of 100.1F, she remains on antibiotics in the form of Zosyn. No complains of chest discomfort, no hemoptysis. Today's labs have been noted, white blood cell count is up to 34.5 on today's labs, hemoglobin is 7.4. Sodium is 134, potassium is 2.9, BUN is 6, creatinine 0.45. CRP is improved and is down to 27.6, pro calcitonin is elevated at 1.41. On 05/28/2022 patient seen in follow-up. Patient is awake and alert, she is mildly dyspneic at rest, low-grade fever today with a temp of 99.9F, slightly tachycardic, and slightly more congested on today's exam. Last night patient had an episode of increased shortness of breath, she was given IV Lasix 40 mg, breathing treatments. She remains on Zosyn. Her pleural fluid aspirate cultures have shown no organisms thus far. on 05/29/2022 patient is seen in follow-up on medical oncology floor. She is sitting up in the chair, she states her breathing is improved, she continues on Zosyn for empiric antibiotic coverage, IV Solu-Medrol. so far all her cultures remain negative, rheumatoid pulse ox is 94%. however today's labs show further increase in her leukocytosis, possibly partially due to IV steroids, white blood cell count is up to 45.5, and pro-calcitonin level was increased and is up to 2.12 on yesterday's labs. The patient states she is feeling better, remains on Zosyn. The patient is seen today 05/30/2000 follow-up on the regular medical floor. She is sitting up in bed. Awake and alert in no acute distress. She is breathing a bit easier today compared to yesterday. No worsening cough or congestion. Maintaining O2 saturations in the 90s on room air. No new labs today. She remains on DuoNeb inhalations, IV Solu-Medrol, antibiotics in the form of Zosyn. Patient is seen on 05/31/2022 recurrent condition is stable. Awaiting the follow-up white cell count. No fever. No chills. He remains on Zosyn and Solu-Medrol. The patient is also on DuoNeb nebulized treatments around the clock. Objective - Vital Signs Vital signs: Vital Signs Temp 99.1 F 05/31/22 11:50 Pulse 110 H 05/31/22 11:50 Resp 16 05/31/22 11:50 BP 107/68 05/31/22 11:50 Pulse Ox 94 L 05/31/22 11:50 FiO2 Intake & Output 05/30/22 05/31/22 05/31/22 18:59 06:59 18:59 Intake Total 700 Output Total 700 Balance 0 Intake: Intake, IV Titration 200 Amount Piperacillin-Tazobactam 3 200 .375 gm In Sodium Chloride 0.9% 100 ml @ 25 mls/hr IVPB Q8H [facility] Rx#: [id number] Oral 500 Output: Urine 700 Other: Voiding Method Bedside Commode Toilet Bedside Commode # Voids 1 2 # Bowel Movements 1 1 - Exam GENERAL EXAM: Alert, active,66-year-old female, on room air,comfortable in no apparent distress. HEAD: Normocephalic. EYES: Normal reaction of pupils, equal size. NOSE: Clear with pink turbinates. THROAT: No erythema or exudates. NECK: No masses, no JVD. CHEST: No chest wall deformity. LUNGS: Equal air entry with few scattered rhonchi. CVS: S1 and S2 normal with no audible murmur, regular rhythm. ABDOMEN: No hepatosplenomegaly, normal bowel sounds, no guarding or rigidity. SPINE: No scoliosis or deformity SKIN: No rashes CENTRAL NERVOUS SYSTEM: No focal deficits, tone is normal in all 4 extremities. EXTREMITIES: There is no peripheral edema. No clubbing, no cyanosis. Peripheral pulses are intact. - Labs CBC & Chem 7: 05/29/22 05:55 05/31/22 06:04 Labs: Abnormal Lab Results - Last 24 Hours (Table) 05/31/22 Range/Units 06:04 Creatinine 0.5 L (0.6-1.5) mg/dL BUN/Creatinine Ratio 34.60 H (12.00-20.00) Ratio Calcium 8.1 L (8.7-10.3) mg/dL Total Bilirubin 0.20 L (0.30-1.20) mg/dL Alkaline Phosphatase 143 H (41-126) U/L Total Protein 5.2 L (6.2-8.2) g/dL Albumin 2.3 L (3.8-4.9) g/dL Albumin/Globulin Ratio 0.79 L (1.60-3.17) g/dL Microbiology - Last 24 Hours (Table) 05/25/22 09:45 Blood Culture - Final Blood No Growth after 144 hours 05/26/22 11:10 Anaerobic Culture - Final Aspirate 05/26/22 11:10 Gram Stain - Final Aspirate Tissue Culture - Final 05/24/22 10:33 Blood Culture - Final Blood No Growth after 144 hours 05/24/22 10:30 Blood Culture - Final Blood No Growth after 144 hours Assessment and Plan Plan: Assessment: #1. Non-small cell lung cancer/pulmonary adenocarcinoma and the patient has a left upper lobe mass with postobstructive pneumonia #2. Leukocytosis secondary to pneumonia., Pro calcitonin level was elevated #3. Lactic acidosis, mild, improved with IV hydration #4. Former smoker, currently in remission, carries [id number] smoking history #5. Anemia Plan: Awaiting follow white cell count Awaiting follow-up pro calcitonin level Stopped IV Solu-Medrol and put the patient prednisone burst taper Monitor the white cell count We'll continue to follow
[2022-05-31 14:38] LABS: Basophils # (M) 0 X 10*3/uL (0.00-0.10); Eosinophils # (M) 0 X 10*3/uL (0.04-0.35); HCT 23.4 % (37.2-46.3); Lymphocytes # (M) 0.51 X 10*3/uL (0.90-5.00); MCH 28.3 pg (27.0-32.0); MCHC 29.9 g/dL (32.0-37.0); MCV 94.7 fL (80.0-97.0); Mean Platelet Volume 9.3 fL (9.5-12.2); Monocytes # (M) 0 X 10*3/uL (0.20-1.00); NRBC Per 100 WBC 0 /100 WBCS (0.0-0.0); Neutrophils # (M) 50.17 X 10*3/uL (2.00-8.90); Neutrophils % (M) 99 %; Platelet Count 402 X 10*3/uL (140-440); RBC 2.47 X 10*6/uL (4.10-5.20); RBC Morphology NORMAL; RDW 15.2 % (11.5-14.5); WBC 50.68 X 10*3/uL (4.50-10.00)
--- NOTE | 2022-05-31 20:05 | P.PN ---
Subjective This is a 66 year old female who is admitted to hospital for left upper lobe mass with cavitation and invasion into the left side of the mediastinum suggestive of malignancy. Patient continues with leukocytosis, 34.58 today, hemoglobin stable at 7.4. Patient is status post Lung biopsy CT completed yesterday, cytology currently pending at this time. Infectious disease, oncology, radiology, and pulmonary are following the patient closely. 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 Cultures are currently showing negative. She continues on antibiotics in the form of IV zosyn. Potassium today 2.9 patient received 60 meq replacement this morning, and will receive another 40 meq of potassium this evening. Labs will be repeated in the morning. Patient continues with fevers 100.1 today, tachycardic with heart rate in the low 110s, she was started on low dose betablocker. Blood pressure 101/64, 93% room air. She has also been receiving IV fluids with normal saline at 0.9 and 130 mls per hour and we will lower to 75 mls per hour, patient does have increased peripheral edema. 05/28/2022 Patient evaluated today sitting in bed. She is dypsneic at rest currently on 2L nasal cannula she has oxygen saturation of 96%. Continues with fever T-Max 100.1 in the last 24 hours, fever of 99.9 today. She is also tachycardic in the 110s, continues on low dose betablocker although suspect tachycardia is from infection. IV fluids were decreased to 75 yesterday, patient had an episode last night of respiratory distress and received a dose of IV lasix 40 mg once, fluids are discontinued. Repeat chest xray today shows stable opacification left upper lung field suspicious for large mass. She is post lung biopsy and remains on IV zosyn. Pulmonary is following the patient closely. Subjective: Resuming the care of the patient today 05/29/2022 This is a pleasant 66 years old female who presents with a large left upper lobe lung mass status post biopsy on 05/26, masses are suspicious for cancer given its mediastinal irrigation of the left side. Also patient is followed by oncology and redo oncologist. There is evidence of postobstructive pneumonia poorly responsive to Zosyn which is broad-spectrum antibiotic. Pulmonary team on the case and the plan for bronchoscopy and bronchoalveolar lavage tomorrow and looks like patient is agreeable to this plan. Also she is on Solu-Medrol 40 mg. Other than that she had a fever of 101.8 on admission and today is the first day she is afebrile for the last 24 hours. However leukocytosis went up 45,004Custar and went up to 2.1, was 1.4. 05/30/2022 Patient: Padilla he came back positive for adenocarcinoma, non-small cell pulmonary cancer, and hematology/oncology team on the case and the plan for further testing for her biopsy specimen which is pending now. Also patient still has significant sepsis with fever, tachycardia and borderline blood pressure. She was on Zosyn on Solu-Medrol 40 mg. Pulmonary team for plan for bronchoscopy today but was canceled, patient already ate WBC 45.5, hemoglobin 7.2. Sodium 136, potassium 3.8. No fever today but heart rate 115 and blood pressure 99/64 05/31/2022 Patient mildly tachypneic at rest with mild respiratory distress however she has good saturation on room air. She is aware of her diagnosis of adenocarcinoma of the lung. She is mildly tachycardic but blood pressure is more stable 117/72. She is afebrile today. White cell count jumped to 50,000 today. Change IV Solu-Medrol to prednisone per office communication professor Continue with Zosyn Discussed with staff to check orthostatic vitals \\ Objective - Vital Signs Vital signs: Vital Signs Temp 98.6 F 05/31/22 04:59 Pulse 118 H 05/31/22 11:30 Resp 18 05/31/22 04:59 BP 121/73 05/31/22 04:59 Pulse Ox 96 05/31/22 07:49 FiO2 Intake & Output 05/30/22 05/31/22 05/31/22 18:59 06:59 18:59 Intake Total 700 Output Total 700 Balance 0 Intake: Intake, IV Titration 200 Amount Piperacillin-Tazobactam 3 200 .375 gm In Sodium Chloride 0.9% 100 ml @ 25 mls/hr IVPB Q8H [facility] Rx#: [id number] Oral 500 Output: Urine 700 Other: Voiding Method Bedside Commode Toilet Bedside Commode # Voids 1 2 # Bowel Movements 1 1 - Exam GENERAL: The patient is alert and oriented x3, not in any acute distress. Well developed, well nourished. HEENT: Pupils are round and equally reacting to light. EOMI. No scleral icterus. No conjunctival pallor. Normocephalic, atraumatic. No pharyngeal erythema. No t hyromegaly. CARDIOVASCULAR: S1 and S2 present. No murmurs, rubs, or gallops. -PULMONARY: Chest is clear to auscultation, no wheezing or crackles. Decreased breath sounds on the left side, very mild tachypnea ABDOMEN: Soft, nontender, nondistended, normoactive bowel sounds. No palpable organomegaly. MUSCULOSKELETAL: No joint swelling or deformity. EXTREMITIES: No cyanosis, clubbing, or pedal edema. NEUROLOGICAL: Gross neurological examination did not reveal any focal deficits. SKIN: No rashes. no petechiae. Gait is normal - Labs CBC & Chem 7: 05/31/22 06:04 05/31/22 06:04 Labs: Microbiology - Last 24 Hours (Table) 05/26/22 11:10 Anaerobic Culture - Final Aspirate 05/26/22 11:10 Gram Stain - Final Aspirate Tissue Culture - Final 05/24/22 10:33 Blood Culture - Final Blood No Growth after 144 hours 05/24/22 10:30 Blood Culture - Final Blood No Growth after 144 hours 05/25/22 09:45 Blood Culture - Preliminary Blood No Growth after 120 hours Assessment and Plan Assessment: Left sided lung mass with cavitation, lung biopsy: non-small cell pulmonary cancer, Postobstructive Pneumonia Tachycardia most likely from sepsis/infection Hyponatremia, hypovolemic Constipation on bowel regimen Anemia of chronic disease Former smoker Plan: This is a pleasant 66 years old female who presents with large left upper lobe lung mass and pneumonia Continue on IV Zosyn, cultures pending . Hold bronchoscopy per pulmonary team Further studies per oncology team Change Solu-Medrol 40 mg to prednisone taper Pulmonary, oncology, radial oncology and infectious disease teams on the case Labs and medication were reviewed.. Continue same treatment. Continue with symptomatic treatment. Resume home medication. Monitor lytes and vitals. DVT and GI prophylaxis. Further recommendations as per clinical course of the patient PT/OT: Home health care, ordered Prognosis is guarded
[2022-05-31] MEDS: ALPRAZolam 0.25 MG TAB PO PRN (20:42)
[2022-06-01] MEDS: PIPERACILLIN-TAZOBACTAM 3.375 GM in SODIUM CHLORIDE 0.9% 100 ML IVPB SCH ×3 (05:22→19:45)
[2022-06-01 05:58] LABS: HCT 24.4 % (34.0-46.0); HGB 7.4 gm/dL (11.4-16.0); Hypochromasia Moderate; MCH 27.6 pg (25.0-35.0); MCHC 30.4 g/dL (31.0-37.0); MCV 90.9 fL (80.0-100.0); Mean Platelet Volume 7.1; Platelet Count 491 k/uL (150-450); RBC 2.69 m/uL (3.80-5.40); RDW 15.2 % (11.5-15.5); WBC 43.4 k/uL (3.8-10.6)
[2022-06-01 06:26] LABS: Lymphocytes # (M) 1.74 k/uL (1.0-4.8); Monocytes # (M) 0.43 k/uL (0-1.0); Neutrophils # (M) 41.23 k/uL (1.3-7.7); Neutrophils % (M) 95 %; Nucleated Red Blood Cells 0 /100 WBC (0-0); Polychromasia Present; Total Cells Counted 100
[2022-06-01 06:27] LABS: Poikilocytosis (M) Present
[2022-06-01] MEDS: DOCUSATE 100 MG CAP PO SCH (08:20)
[2022-06-01] MEDS: METOPROLOL TARTRATE 25 MG TAB PO SCH ×2 (08:20→19:45)
[2022-06-01] MEDS: FAMOTIDINE 20 MG TAB PO SCH ×2 (08:20→19:45)
[2022-06-01] MEDS: HEPARIN SODIUM,PORCINE/PF 5,000 UNIT/0.5 ML SYRINGE SQ SCH ×2 (08:20→19:44)
[2022-06-01] MEDS: FERROUS SULFATE 325 MG TAB PO SCH (08:20)
[2022-06-01] MEDS: predniSONE 20 MG TAB PO SCH (08:20)
[2022-06-01] MEDS: NYSTATIN 100,000 UNIT/ML SUSP 500,000 UNIT/5 ML CUP PO SCH ×4 (08:21→21:18)
[2022-06-01] MEDS: IPRATROPIUM-ALBUTEROL 3 ML NEB INHALATION SCH ×4 (09:06→20:00)
--- NOTE | 2022-06-01 10:44 | P.PN ---
Subjective Progress Note Date: 05/31/22 Principal diagnosis: Fever/pneumonia Patient is a 66-year-old female presenting to the hospital with increasing shortness of breath and cough and fever, patient did have a CT of the chest today shows large left upper lobe mass with cavitation in this patient who is status post IR biopsy as well as cultures completed on 05/26/2022. On today's evaluation of his 05/31/2022, the patient denies any fever or any chills, the patient is breathing slightly comfortably on 2 L nasal cannula oxygen, the patient had left-sided chest pain has slightly decreased intensity, the patient cough is decreased intensity with less sputum production. The patient denies any nausea no vomiting no abdominal pain no diarrhea Objective - Vital Signs Vital signs: Vital Signs Temp 99.1 F 05/31/22 11:50 Pulse 121 H 05/31/22 15:43 Resp 16 05/31/22 11:50 BP 107/68 05/31/22 11:50 Pulse Ox 95 05/31/22 15:32 FiO2 Intake & Output 05/30/22 05/31/22 05/31/22 18:59 06:59 18:59 Intake Total 700 Output Total 700 Balance 0 Intake: Intake, IV Titration 200 Amount Piperacillin-Tazobactam 3 200 .375 gm In Sodium Chloride 0.9% 100 ml @ 25 mls/hr IVPB Q8H [facility] Rx#: [id number] Oral 500 Output: Urine 700 Other: Voiding Method Bedside Commode Toilet Bedside Commode # Voids 1 2 1 # Bowel Movements 1 1 1 - Exam GENERAL DESCRIPTION: An elderly female lying in bed in no distress RESPIRATORY SYSTEM: Unlabored breathing , decreased breath sounds at bases HEART: S1 S2 regular rate and rhythm , ABDOMEN: Soft , no tenderness EXTREMITIES: No edema feet - Labs CBC & Chem 7: 06/01/22 05:12 05/31/22 06:04 Labs: Abnormal Lab Results - Last 24 Hours (Table) 05/31/22 05/31/22 05/31/22 Range/Units 06:04 06:04 06:04 WBC 50.68 H* (4.50-10.00) X 10*3/uL RBC 2.47 L (4.10-5.20) X 10*6/uL Hgb 7.0 L (12.0-15.0) g/dL Hct 23.4 L (37.2-46.3) % MCHC 29.9 L (32.0-37.0) g/dL RDW 15.2 H (11.5-14.5) % MPV 9.3 L (9.5-12.2) fL Neutrophils # (Manual) 50.17 H (2.00-8.90) X 10*3/uL Lymphocytes # (Manual) 0.51 L (0.90-5.00) X 10*3/uL Monocytes # (Manual) 0 L (0.20-1.00) X 10*3/uL Eosinophils # (Manual) 0 L (0.04-0.35) X 10*3/uL Creatinine 0.5 L (0.6-1.5) mg/dL BUN/Creatinine Ratio 34.60 H (12.00-20.00) Ratio Calcium 8.1 L (8.7-10.3) mg/dL Total Bilirubin 0.20 L (0.30-1.20) mg/dL Alkaline Phosphatase 143 H (41-126) U/L Total Protein 5.2 L (6.2-8.2) g/dL Albumin 2.3 L (3.8-4.9) g/dL Albumin/Globulin Ratio 0.79 L (1.60-3.17) g/dL Procalcitonin 1.29 H (0.02-0.09) ng/mL Microbiology - Last 24 Hours (Table) 05/25/22 09:45 Blood Culture - Final Blood No Growth after 144 hours 05/26/22 11:10 Anaerobic Culture - Final Aspirate 05/26/22 11:10 Gram Stain - Final Aspirate Tissue Culture - Final 05/24/22 10:33 Blood Culture - Final Blood No Growth after 144 hours 05/24/22 10:30 Blood Culture - Final Blood No Growth after 144 hours Assessment and Plan (1) Pneumonia Current Visit: Yes Status: Acute Code(s): J18.9 - PNEUMONIA, UNSPECIFIED ORGANISM SNOMED Code(s): 442826133 Plan: 1patient presented to hospital with sepsis and respiratory fever elevated white count elevated lactic acid with evidence of left sided lung mass and cavitation with a question of possible malignancy versus pneumonia with cavitation and pos sible related to community-acquired versus gram-negative pathogen. 2patient is status post IR biopsy of the area fluid should has been sent for culture both bacterial fungal and AFB which are currently pending 3-patient slowly the clinical improvement and will continue with the Zosyn 3.375 g every 8 hours while waiting for the cultures to finalize. Time with Patient: Less than 30
--- NOTE | 2022-06-01 11:46 | P.PN ---
Subjective Progress Note Date: 06/01/22 66-year-old female patient, former smoker, but does carry [id number] smoking history, who came into the emergency department on May 26, 2022, with symptoms of shortness of breath, cough, fever. Patient states she has had the symptoms since early April 2022. On 05/02/2022 she went to the urgent care where she was treated with antibiotics and steroids. She then saw her PCP in follow-up, chest x-ray was taken and she was told that she has a pneumonia, and was given another round of a biotics and steroids. However she still having difficulty breathing, and coughing. She does admit to some weight loss, denies any hemoptysis no chest pain. Chest x-ray in the ED showed left upper lobe opacification consistent with pneumonia, EKG showed sinus tachycardia. Patient tested negative for COVID-19. The rest of her lab work showed leukocytosis with white blood cell, 29.1, hemoglobin of 8.1, platelet count of 512, coagulation profile was within normal limits, sodium is 132, potassium is 3.9, chloride is 105, CO2 is 20, BUN of 13 creatinine 0.43, plasma lactic acid was 2.3. Patient was started on azithromycin and Rocephin, was given gentle IV hydration. Chest x- ray findings are concerning for underlying pulmonary mass, and dedicated CT of the chest was recommended. And we're consulted for the same. On 05/25/2022 patient seen in follow-up. Computed tomography scan of the chest without contrast was completed showing large left upper lobe mass with cavitation, and there is invasion into the left side of the mediastinum suggestive of malignancy area and left pleural effusion and pulmonary emphysema. Nonspecific left adrenal mass. Patient remains on antibiotics, breathing treatments, vital signs are stable, patient is afebrile, currently on 2 L of oxygen satting 96%. She is short of breath with exertion, and does have a dry nonproductive cough. Denies any hemoptysis. On 05/27/2022 patient seen in follow-up. Patient underwent successful CT-guided core biopsy and fine needle aspiration of the left upper lobe lung mass yesterday by interventional radiology. Biopsy results are still pending. Clinically patient states she is feeling better, she was able to get a shower t ambrose, still a bit short of breath with exertion but tolerates activity well, room air pulse ox 93%, she had a low-grade fever this afternoon with a temp of 100.1F, she remains on antibiotics in the form of Zosyn. No complains of chest discomfort, no hemoptysis. Today's labs have been noted, white blood cell count is up to 34.5 on today's labs, hemoglobin is 7.4. Sodium is 134, potassium is 2.9, BUN is 6, creatinine 0.45. CRP is improved and is down to 27.6, pro calcitonin is elevated at 1.41. On 05/28/2022 patient seen in follow-up. Patient is awake and alert, she is mildly dyspneic at rest, low-grade fever today with a temp of 99.9F, slightly tachycardic, and slightly more congested on today's exam. Last night patient had an episode of increased shortness of breath, she was given IV Lasix 40 mg, breathing treatments. She remains on Zosyn. Her pleural fluid aspirate cultures have shown no organisms thus far. on 05/29/2022 patient is seen in follow-up on medical oncology floor. She is sitting up in the chair, she states her breathing is improved, she continues on Zosyn for empiric antibiotic coverage, IV Solu-Medrol. so far all her cultures remain negative, rheumatoid pulse ox is 94%. however today's labs show further increase in her leukocytosis, possibly partially due to IV steroids, white blood cell count is up to 45.5, and pro-calcitonin level was increased and is up to 2.12 on yesterday's labs. The patient states she is feeling better, remains on Zosyn. The patient is seen today 05/30/2000 follow-up on the regular medical floor. She is sitting up in bed. Awake and alert in no acute distress. She is breathing a bit easier today compared to yesterday. No worsening cough or congestion. Maintaining O2 saturations in the 90s on room air. No new labs today. She remains on DuoNeb inhalations, IV Solu-Medrol, antibiotics in the form of Zosyn. Patient is seen on 05/31/2022 recurrent condition is stable. Awaiting the follow-up white cell count. No fever. No chills. He remains on Zosyn and Solu-Medrol. The patient is also on DuoNeb nebulized treatments around the clock. 06/01/2022, clinically stable. Slightly feeling weak. No new complaints. White cell count peaked at 50 and dropped down to 43. Her hemoglobin is at 7.4. Awaiting electrolytes. Nevertheless, the pro-calcitonin level was improving and the level was down to 1.29 from 2.12. The patient was taken off the IV Solu-Medrol and placed on a prednisone burst taper. The patient is also on IV Zosyn. She has non-small cell lung cancer/adenocarcinoma, new diagnosis. Objective - Vital Signs Vital signs: Vital Signs Temp 99 F 06/01/22 04:40 Pulse 107 H 06/01/22 09:18 Resp 18 06/01/22 09:06 BP 114/69 06/01/22 04:40 Pulse Ox 95 06/01/22 08:15 FiO2 Intake & Output 05/31/22 06/01/22 06/01/22 18:59 06:59 18:59 Intake Total 600 Balance 600 Intake: Intake, IV Titration 100 Amount Piperacillin-Tazobactam 3 100 .375 gm In Sodium Chloride 0.9% 100 ml @ 25 mls/hr IVPB Q8H [facility] Rx#: [id number] Oral 500 Other: Voiding Method Toilet Toilet Toilet Bedside Commode Bedside Commode Bedside Commode # Voids 2 0 # Bowel Movements 1 0 - Exam GENERAL EXAM: Alert, active,66-year-old female, on room air,comfortable in no apparent distress. HEAD: Normocephalic. EYES: Normal reaction of pupils, equal size. NOSE: Clear with pink turbinates. THROAT: No erythema or exudates. NECK: No masses, no JVD. CHEST: No chest wall deformity. LUNGS: Equal air entry with few scattered rhonchi. CVS: S1 and S2 normal with no audible murmur, regular rhythm. ABDOMEN: No hepatosplenomegaly, normal bowel sounds, no guarding or rigidity. SPINE: No scoliosis or deformity SKIN: No rashes CENTRAL NERVOUS SYSTEM: No focal deficits, tone is normal in all 4 extremities. EXTREMITIES: There is no peripheral edema. No clubbing, no cyanosis. Peripheral pulses are intact. - Labs CBC & Chem 7: 06/01/22 05:12 05/31/22 06:04 Labs: Abnormal Lab Results - Last 24 Hours (Table) 05/31/22 05/31/22 05/31/22 Range/Units 06:04 06:04 06:04 WBC 50.68 H* (4.50-10.00) X 10*3/uL RBC 2.47 L (4.10-5.20) X 10*6/uL Hgb 7.0 L (12.0-15.0) g/dL Hct 23.4 L (37.2-46.3) % MCHC 29.9 L (32.0-37.0) g/dL RDW 15.2 H (11.5-14.5) % Plt Count (150-450) k/uL MPV 9.3 L (9.5-12.2) fL Neutrophils # (Manual) 50.17 H (2.00-8.90) X 10*3/uL Lymphocytes # (Manual) 0.51 L (0.90-5.00) X 10*3/uL Monocytes # (Manual) 0 L (0.20-1.00) X 10*3/uL Eosinophils # (Manual) 0 L (0.04-0.35) X 10*3/uL Creatinine 0.5 L (0.6-1.5) mg/dL BUN/Creatinine Ratio 34.60 H (12.00-20.00) Ratio Calcium 8.1 L (8.7-10.3) mg/dL Total Bilirubin 0.20 L (0.30-1.20) mg/dL Alkaline Phosphatase 143 H (41-126) U/L Total Protein 5.2 L (6.2-8.2) g/dL Albumin 2.3 L (3.8-4.9) g/dL Albumin/Globulin Ratio 0.79 L (1.60-3.17) g/dL Procalcitonin 1.29 H (0.02-0.09) ng/mL 06/01/22 Range/Units 05:12 WBC 43.4 H (4.50-10.00) X 10*3/uL RBC 2.69 L (4.10-5.20) X 10*6/uL Hgb 7.4 L (12.0-15.0) g/dL Hct 24.4 L (37.2-46.3) % MCHC 30.4 L (32.0-37.0) g/dL RDW (11.5-14.5) % Plt Count 491 H (150-450) k/uL MPV (9.5-12.2) fL Neutrophils # (Manual) 41.23 H (2.00-8.90) X 10*3/uL Lymphocytes # (Manual) (0.90-5.00) X 10*3/uL Monocytes # (Manual) (0.20-1.00) X 10*3/uL Eosinophils # (Manual) (0.04-0.35) X 10*3/uL Creatinine (0.6-1.5) mg/dL BUN/Creatinine Ratio (12.00-20.00) Ratio Calcium (8.7-10.3) mg/dL Total Bilirubin (0.30-1.20) mg/dL Alkaline Phosphatase (41-126) U/L Total Protein (6.2-8.2) g/dL Albumin (3.8-4.9) g/dL Albumin/Globulin Ratio (1.60-3.17) g/dL Procalcitonin (0.02-0.09) ng/mL Microbiology - Last 24 Hours (Table) 05/25/22 09:45 Blood Culture - Final Blood No Growth after 144 hours Assessment and Plan Plan: Assessment: #1. Non-small cell lung cancer/pulmonary adenocarcinoma and the patient has a left upper lobe mass with postobstructive pneumonia #2. Leukocytosis secondary to pneumonia., Pro calcitonin level was elevated, although the numbers are improving. The patient was also developed severe leukocytosis and based on the most recent blood work, the white cell count and the Pro calcitonin LEVEL OF BEEN IMPROVING. #3. Lactic acidosis, mild, improved with IV hydration #4. Former smoker, currently in remission, carries [id number] smoking history #5. Anemia, chronic, unchanged, hemoglobin is stable Plan: Repeat another cell count tomorrow to make sure the numbers are improving further There has been improvement in the pro calcitonin level Continue prednisone burst taper Monitor the white cell count We'll continue to follow Possible discharge in the next 24-48 hours. Will need medical oncology and radiation oncology.
--- NOTE | 2022-06-01 17:31 | P.PN ---
Subjective This is a 66 year old female who is admitted to hospital for left upper lobe mass with cavitation and invasion into the left side of the mediastinum suggestive of malignancy. Patient continues with leukocytosis, 34.58 today, hemoglobin stable at 7.4. Patient is status post Lung biopsy CT completed yesterday, cytology currently pending at this time. Infectious disease, oncology, radiology, and pulmonary are following the patient closely. 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 Cultures are currently showing negative. She continues on antibiotics in the form of IV zosyn. Potassium today 2.9 patient received 60 meq replacement this morning, and will receive another 40 meq of potassium this evening. Labs will be repeated in the morning. Patient continues with fevers 100.1 today, tachycardic with heart rate in the low 110s, she was started on low dose betablocker. Blood pressure 101/64, 93% room air. She has also been receiving IV fluids with normal saline at 0.9 and 130 mls per hour and we will lower to 75 mls per hour, patient does have increased peripheral edema. 05/28/2022 Patient evaluated today sitting in bed. She is dypsneic at rest currently on 2L nasal cannula she has oxygen saturation of 96%. Continues with fever T-Max 100.1 in the last 24 hours, fever of 99.9 today. She is also tachycardic in the 110s, continues on low dose betablocker although suspect tachycardia is from infection. IV fluids were decreased to 75 yesterday, patient had an episode last night of respiratory distress and received a dose of IV lasix 40 mg once, fluids are discontinued. Repeat chest xray today shows stable opacification left upper lung field suspicious for large mass. She is post lung biopsy and remains on IV zosyn. Pulmonary is following the patient closely. Subjective: Resuming the care of the patient today 05/29/2022 This is a pleasant 66 years old female who presents with a large left upper lobe lung mass status post biopsy on 05/26, masses are suspicious for cancer given its mediastinal irrigation of the left side. Also patient is followed by oncology and redo oncologist. There is evidence of postobstructive pneumonia poorly responsive to Zosyn which is broad-spectrum antibiotic. Pulmonary team on the case and the plan for bronchoscopy and bronchoalveolar lavage tomorrow and looks like patient is agreeable to this plan. Also she is on Solu-Medrol 40 mg. Other than that she had a fever of 101.8 on admission and today is the first day she is afebrile for the last 24 hours. However leukocytosis went up 45,004Custar and went up to 2.1, was 1.4. 05/30/2022 Patient: Padilla he came back positive for adenocarcinoma, non-small cell pulmonary cancer, and hematology/oncology team on the case and the plan for further testing for her biopsy specimen which is pending now. Also patient still has significant sepsis with fever, tachycardia and borderline blood pressure. She was on Zosyn on Solu-Medrol 40 mg. Pulmonary team for plan for bronchoscopy today but was canceled, patient already ate WBC 45.5, hemoglobin 7.2. Sodium 136, potassium 3.8. No fever today but heart rate 115 and blood pressure 99/64 05/31/2022 Patient mildly tachypneic at rest with mild respiratory distress however she has good saturation on room air. She is aware of her diagnosis of adenocarcinoma of the lung. She is mildly tachycardic but blood pressure is more stable 117/72. She is afebrile today. White cell count jumped to 50,000 today. Change IV Solu-Medrol to prednisone per billing assistant Continue with Zosyn Discussed with staff to check orthostatic vitals 06/01/2022 Patient presents that this is a stable regard to her left upper lung adenocarcinoma mass with superimposed pneumonia. She is less tachycardic today and breathing slightly better compared to yesterday, she is able to talk, she still have somewhat poor appetite. No other new complaints. Despite that it looks like she is able to consume her needs. We checked her orthostatic vitals last night and there were negative. Patient does not need more IV fluids as there is risk of pulmonary congestion. WBC is trending down to 43,000, IV Solu-Medrol and switched to prednisone 40 mg. Possible discharge in 24-48 hours if she remains stable and cleared by consultants however she'll need close outpatient follow-up \\ Objective - Vital Signs Vital signs: Vital Signs Temp 98.9 F 06/01/22 11:23 Pulse 117 H 06/01/22 11:23 Resp 16 06/01/22 11:23 BP 103/62 06/01/22 11:23 Pulse Ox 93 L 06/01/22 11:23 FiO2 Intake & Output 05/31/22 06/01/22 06/01/22 18:59 06:59 18:59 Intake Total 600 Balance 600 Intake: Intake, IV Titration 100 Amount Piperacillin-Tazobactam 3 100 .375 gm In Sodium Chloride 0.9% 100 ml @ 25 mls/hr IVPB Q8H [facility] Rx#: [id number] Oral 500 Other: Voiding Method Toilet Toilet Toilet Bedside Commode Bedside Commode Bedside Commode # Voids 2 0 # Bowel Movements 1 0 - Exam GENERAL: The patient is alert and oriented x3, not in any acute distress. Well developed, well nourished. HEENT: Pupils are round and equally reacting to light. EOMI. No scleral icterus. No conjunctival pallor. Normocephalic, atraumatic. No pharyngeal erythema. No thyromegaly. CARDIOVASCULAR: S1 and S2 present. No murmurs, rubs, or gallops. -PULMONARY: Chest is clear to auscultation, no wheezing or crackles. Decreased breath sounds on the left side, very mild tachypnea ABDOMEN: Soft, nontender, nondistended, normoactive bowel sounds. No palpable organomegaly. MUSCULOSKELETAL: No joint swelling or deformity. EXTREMITIES: No cyanosis, clubbing, or pedal edema. NEUROLOGICAL: Gross neurological examination did not reveal any focal deficits. SKIN: No rashes. no petechiae. Gait is normal - Labs CBC & Chem 7: 06/01/22 05:12 05/31/22 06:04 Labs: Abnormal Lab Results - Last 24 Hours (Table) 05/31/22 06/01/22 Range/Units 06:04 05:12 WBC 50.68 H* 43.4 H (4.50-10.00) X 10*3/uL RBC 2.47 L 2.69 L (4.10-5.20) X 10*6/uL Hgb 7.0 L 7.4 L (12.0-15.0) g/dL Hct 23.4 L 24.4 L (37.2-46.3) % MCHC 29.9 L 30.4 L (32.0-37.0) g/dL RDW 15.2 H (11.5-14.5) % Plt Count 491 H (150-450) k/uL MPV 9.3 L (9.5-12.2) fL Neutrophils # (Manual) 50.17 H 41.23 H (2.00-8.90) X 10*3/uL Lymphocytes # (Manual) 0.51 L (0.90-5.00) X 10*3/uL Monocytes # (Manual) 0 L (0.20-1.00) X 10*3/uL Eosinophils # (Manual) 0 L (0.04-0.35) X 10*3/uL Microbiology - Last 24 Hours (Table) 05/25/22 09:45 Blood Culture - Final Blood No Growth after 144 hours Assessment and Plan Assessment: Left sided lung mass with cavitation, lung biopsy: non-small cell pulmonary cancer, Postobstructive Pneumonia Tachycardia most likely from sepsis/infection Hyponatremia, hypovolemic Constipation on bowel regimen Anemia of chronic disease Former smoker Plan: This is a pleasant 66 years old female who presents with large left upper lobe lung mass and pneumonia Continue on IV Zosyn, cultures pending . Hold bronchoscopy per pulmonary team Further studies per oncology team Change Solu-Medrol 40 mg to prednisone taper Pulmonary, oncology, radial oncology and infectious disease teams on the case Labs and medication were reviewed.. Continue same treatment. Continue with symptomatic treatment. Resume home medication. Monitor lytes and vitals. DVT and GI prophylaxis. Further recommendations as per clinical course of the patient PT/OT: Home health care, ordered Prognosis is guarded
[2022-06-01] MEDS: ALPRAZolam 0.25 MG TAB PO PRN (21:18)
--- NOTE | 2022-06-02 07:42 | P.PN ---
Subjective Progress Note Date: 06/01/22 Principal diagnosis: Fever/pneumonia Patient is a 66-year-old female presenting to the hospital with increasing shortness of breath and cough and fever, patient did have a CT of the chest today shows large left upper lobe mass with cavitation in this patient who is status post IR biopsy as well as cultures completed on 05/26/2022. On today's evaluation of his 06/01/2022, the patient remains to be afebrile, the patient is breathing slightly comfortably on nasal cannula oxygen, the patient had left-sided chest pain has decreased intensity, the patient cough has decr eased intensity with less productive. The patient denies any nausea no vomiting no abdominal pain no diarrhea Objective - Vital Signs Vital signs: Vital Signs Temp 98.9 F 06/01/22 11:23 Pulse 110 H 06/01/22 12:54 Resp 18 06/01/22 12:54 BP 103/62 06/01/22 11:23 Pulse Ox 93 L 06/01/22 11:23 FiO2 Intake & Output 05/31/22 06/01/22 06/01/22 18:59 06:59 18:59 Intake Total 600 Balance 600 Intake: Intake, IV Titration 100 Amount Piperacillin-Tazobactam 3 100 .375 gm In Sodium Chloride 0.9% 100 ml @ 25 mls/hr IVPB Q8H [facility] Rx#: [id number] Oral 500 Other: Voiding Method Toilet Toilet Toilet Bedside Commode Bedside Commode Bedside Commode # Voids 2 0 # Bowel Movements 1 0 - Exam GENERAL DESCRIPTION: An elderly female lying in bed in no distress RESPIRATORY SYSTEM: Unlabored breathing , decreased breath sounds at bases HEART: S1 S2 regular rate and rhythm , ABDOMEN: Soft , no tenderness EXTREMITIES: No edema feet - Labs CBC & Chem 7: 06/01/22 05:12 05/31/22 06:04 Labs: Abnormal Lab Results - Last 24 Hours (Table) 06/01/22 Range/Units 05:12 WBC 43.4 H (3.8-10.6) k/uL RBC 2.69 L (3.80-5.40) m/uL Hgb 7.4 L (11.4-16.0) gm/dL Hct 24.4 L (34.0-46.0) % MCHC 30.4 L (31.0-37.0) g/dL Plt Count 491 H (150-450) k/uL Neutrophils # (Manual) 41.23 H (1.3-7.7) k/uL Microbiology - Last 24 Hours (Table) 05/25/22 09:45 Blood Culture - Final Blood No Growth after 144 hours Assessment and Plan (1) Pneumonia Current Visit: Yes Status: Acute Code(s): J18.9 - PNEUMONIA, UNSPECIFIED ORGANISM SNOMED Code(s): 735718791 Plan: 1patient presented to hospital with sepsis and respiratory fever elevated white count elevated lactic acid with evidence of left sided lung mass and cavitation with a question of possible malignancy versus pneumonia with cavitation and possible related to community-acquired versus gram-negative pathogen. 2patient is status post IR biopsy of the area fluid should has been sent for culture both bacterial fungal and AFB which are currently pending, routine bacterial cultures so far negative 3-patient with elevated white count more likely steroid effect and will monitor closely was some 4with a culture negative for any resistant pathogen antibiotics switched to Unasyn with a plan to finish therapy with oral Augmentin Time with Patient: Less than 30
[2022-06-02] MEDS: DOCUSATE 100 MG CAP PO SCH (07:45)
[2022-06-02] MEDS: FAMOTIDINE 20 MG TAB PO SCH ×2 (07:46→19:52)
[2022-06-02] MEDS: HEPARIN SODIUM,PORCINE/PF 5,000 UNIT/0.5 ML SYRINGE SQ SCH ×2 (07:46→19:52)
[2022-06-02] MEDS: NYSTATIN 100,000 UNIT/ML SUSP 500,000 UNIT/5 ML CUP PO SCH ×4 (07:46→21:07)
[2022-06-02] MEDS: predniSONE 20 MG TAB PO SCH (07:46)
[2022-06-02] MEDS: FERROUS SULFATE 325 MG TAB PO SCH (07:46)
[2022-06-02] MEDS: METOPROLOL TARTRATE 25 MG TAB PO SCH ×2 (07:46→19:52)
[2022-06-02] MEDS: IPRATROPIUM-ALBUTEROL 3 ML NEB INHALATION SCH ×4 (08:14→19:39)
[2022-06-02] MEDS: AMPICILLIN-SULBACTAM 3 GM in SODIUM CHLORIDE 0.9% 100 ML IVPB SCH ×4 (08:53→23:28)
[2022-06-02 09:34] LABS: Basophils # (A) 0.06 X 10*3/uL (0.00-0.10); Basophils % (A) 0.2 %; Eosinophils # (A) 0.01 X 10*3/uL (0.04-0.35); Eosinophils % (A) 0 %; HCT 24.4 % (37.2-46.3); HGB 7.5 g/dL (12.0-15.0); Immature Grans, Automated 2.4 %; Lymphocytes # (A) 1.19 X 10*3/uL (0.90-5.00); Lymphocytes % (A) 3.3 %; MCH 28.7 pg (27.0-32.0); MCHC 30.7 g/dL (32.0-37.0); MCV 93.5 fL (80.0-97.0); Mean Platelet Volume 9.4 fL (9.5-12.2); Monocytes # (A) 1.07 X 10*3/uL (0.20-1.00); Monocytes % (A) 2.9 %; NRBC Per 100 WBC 0.1 /100 WBCS (0.0-0.0); Neutrophils # (A) 33.31 X 10*3/uL (1.80-7.70); Neutrophils % (A) 91.2 %; Platelet Count 440 X 10*3/uL (140-440); RBC 2.61 X 10*6/uL (4.10-5.20); RDW 15.9 % (11.5-14.5)
--- NOTE | 2022-06-02 12:18 | P.PN ---
Subjective Progress Note Date: 06/02/22 66-year-old female patient, former smoker, but does carry [id number] smoking history, who came into the emergency department on May 26, 2022, with symptoms of shortness of breath, cough, fever. Patient states she has had the symptoms since early April 2022. On 05/02/2022 she went to the urgent care where she was treated with antibiotics and steroids. She then saw her PCP in follow-up, chest x-ray was taken and she was told that she has a pneumonia, and was given another round of a biotics and steroids. However she still having difficulty breathing, and coughing. She does admit to some weight loss, denies any hemoptysis no chest pain. Chest x-ray in the ED showed left upper lobe opacification consistent with pneumonia, EKG showed sinus tachycardia. Patient tested negative for COVID-19. The rest of her lab work showed leukocytosis with white blood cell, 29.1, hemoglobin of 8.1, platelet count of 512, coagulation profile was within normal limits, sodium is 132, potassium is 3.9, chloride is 105, CO2 is 20, BUN of 13 creatinine 0.43, plasma lactic acid was 2.3. Patient was started on azithromycin and Rocephin, was given gentle IV hydration. Chest x- ray findings are concerning for underlying pulmonary mass, and dedicated CT of the chest was recommended. And we're consulted for the same. On 05/25/2022 patient seen in follow-up. Computed tomography scan of the chest without contrast was completed showing large left upper lobe mass with cavitation, and there is invasion into the left side of the mediastinum suggestive of malignancy area and left pleural effusion and pulmonary emphysema. Nonspecific left adrenal mass. Patient remains on antibiotics, breathing treatments, vital signs are stable, patient is afebrile, currently on 2 L of oxygen satting 96%. She is short of breath with exertion, and does have a dry nonproductive cough. Denies any hemoptysis. On 05/27/2022 patient seen in follow-up. Patient underwent successful CT-guided core biopsy and fine needle aspiration of the left upper lobe lung mass yesterday by interventional radiology. Biopsy results are still pending. Clinically patient states she is feeling better, she was able to get a shower t [place], still a bit short of breath with exertion but tolerates activity well, room air pulse ox 93%, she had a low-grade fever this afternoon with a temp of 100.1F, she remains on antibiotics in the form of Zosyn. No complains of chest discomfort, no hemoptysis. Today's labs have been noted, white blood cell count is up to 34.5 on today's labs, hemoglobin is 7.4. Sodium is 134, potassium is 2.9, BUN is 6, creatinine 0.45. CRP is improved and is down to 27.6, pro calcitonin is elevated at 1.41. On 05/28/2022 patient seen in follow-up. Patient is awake and alert, she is mildly dyspneic at rest, low-grade fever today with a temp of 99.9F, slightly tachycardic, and slightly more congested on today's exam. Last night patient had an episode of increased shortness of breath, she was given IV Lasix 40 mg, breathing treatments. She remains on Zosyn. Her pleural fluid aspirate cultures have shown no organisms thus far. on 05/29/2022 patient is seen in follow-up on medical oncology floor. She is sitting up in the chair, she states her breathing is improved, she continues on Zosyn for empiric antibiotic coverage, IV Solu-Medrol. so far all her cultures remain negative, rheumatoid pulse ox is 94%. however today's labs show further increase in her leukocytosis, possibly partially due to IV steroids, white blood cell count is up to 45.5, and pro-calcitonin level was increased and is up to 2.12 on yesterday's labs. The patient states she is feeling better, remains on Zosyn. The patient is seen today 05/30/2000 follow-up on the regular medical floor. She is sitting up in bed. Awake and alert in no acute distress. She is breathing a bit easier today compared to yesterday. No worsening cough or congestion. Maintaining O2 saturations in the 90s on room air. No new labs today. She remains on DuoNeb inhalations, IV Solu-Medrol, antibiotics in the form of Zosyn. Patient is seen on 05/31/2022 recurrent condition is stable. Awaiting the follow-up white cell count. No fever. No chills. He remains on Zosyn and Solu-Medrol. The patient is also on DuoNeb nebulized treatments around the clock. 06/01/2022, clinically stable. Slightly feeling weak. No new complaints. White cell count peaked at 50 and dropped down to 43. Her hemoglobin is at 7.4. Awaiting electrolytes. Nevertheless, the pro-calcitonin level was improving and the level was down to 1.29 from 2.12. The patient was taken off the IV Solu-Medrol and placed on a prednisone burst taper. The patient is also on IV Zosyn. She has non-small cell lung cancer/adenocarcinoma, new diagnosis. The patient is seen today 06/02/2022 to follow-up on the regular medical floor. She is currently sitting up in a chair at the bedside. Awake and alert in no acute distress. She is maintaining O2 saturations in the 90s on room air. She remains on DuoNeb inhalations, Deformity Unasyn, prednisone taper. Heparin for DVT prophylaxis. Objective - Vital Signs Vital signs: Vital Signs Temp 98.4 F 06/02/22 11:39 Pulse 110 H 06/02/22 12:14 Resp 20 06/02/22 11:39 BP 103/66 06/02/22 11:39 Pulse Ox 94 L 06/02/22 11:39 FiO2 Intake & Output 06/01/22 06/02/22 06/02/22 18:59 06:59 18:59 Intake Total 100 Balance 100 Intake: Intake, IV Titration 100 Amount Piperacillin-Tazobactam 3 100 .375 gm In Sodium Chloride 0.9% 100 ml @ 25 mls/hr IVPB Q8H [facility] Rx#: [id number] Other: Voiding Method Toilet Toilet Bedside Commode Bedside Commode Bedside Commode # Voids 6 1 - Exam GENERAL EXAM: Alert, active, 66-year-old female, on room air, comfortable in no apparent distress. HEAD: Normocephalic. EYES: Normal reaction of pupils, equal size. NOSE: Clear with pink turbinates. THROAT: No erythema or exudates. NECK: No masses, no JVD. CHEST: No chest wall deformity. LUNGS: Equal air entry with few scattered rhonchi. CVS: S1 and S2 normal with no audible murmur, regular rhythm. ABDOMEN: No hepatosplenomegaly, normal bowel sounds, no guarding or rigidity. SPINE: No scoliosis or deformity SKIN: No rashes CENTRAL NERVOUS SYSTEM: No focal deficits, tone is normal in all 4 extremities. EXTREMITIES: There is no peripheral edema. No clubbing, no cyanosis. Peripheral pulses are intact. - Labs CBC & Chem 7: 06/02/22 05:17 05/31/22 06:04 Labs: Abnormal Lab Results - Last 24 Hours (Table) 06/02/22 Range/Units 05:17 WBC 36.50 H (4.50-10.00) X 10*3/uL RBC 2.61 L (4.10-5.20) X 10*6/uL Hgb 7.5 L (12.0-15.0) g/dL Hct 24.4 L (37.2-46.3) % MCHC 30.7 L (32.0-37.0) g/dL RDW 15.9 H (11.5-14.5) % MPV 9.4 L (9.5-12.2) fL Absolute Nucleated RBC 0.02 H (0.00-0.00) X 10*3/uL Immature Gran # 0.86 H (0.00-0.04) X 10*3/uL Neutrophils # 33.31 H (1.80-7.70) X 10*3/uL Monocytes # 1.07 H (0.20-1.00) X 10*3/uL Eosinophils # 0.01 L (0.04-0.35) X 10*3/uL NRBC/100 WBC Diff 0.1 H (0.0-0.0) /100 WBCS Assessment and Plan Assessment: Left upper lobe lung mass with cavitation and invasion into the left side of the mediastinum suggestive of malignancy. Patient had symptoms of cough, shortness of breath and fever with failure of outpatient treatment with 2 rounds of antibiotics and steroids. Patient underwent CT-guided core biopsy and fine- needle aspiration of the left upper lobe lung mass, biopsy is positive for pulmonary adenocarcinoma Leukocytosis, fever, cough shortness of breath related to postobstructive pneumonia and sepsis. COVID-19 PCR was negative Lactic acidosis, mild, improved with IV hydration Former smoker, currently in remission, carries [id number] smoking history Anemia Plan: The patient was seen and evaluated Currently stable and on room air Cleared for discharge from the pulmonary standpoint Complete course of Augmentin Complete a prednisone taper Medical oncology, radiation oncology following Plan is for outpatient PET scan I have personally seen and examined the patient, performed the documentation and the assessment and plan as written. Number of minutes spent on the visit: 10.
--- NOTE | 2022-06-02 20:41 | P.PN ---
Subjective This is a 66 year old female who is admitted to hospital for left upper lobe mass with cavitation and invasion into the left side of the mediastinum suggestive of malignancy. Patient continues with leukocytosis, 34.58 today, hemoglobin stable at 7.4. Patient is status post Lung biopsy CT completed yesterday, cytology currently pending at this time. Infectious disease, oncology, radiology, and pulmonary are following the patient closely. 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 Cultures are currently showing negative. She continues on antibiotics in the form of IV zosyn. Potassium today 2.9 patient received 60 meq replacement this morning, and will receive another 40 meq of potassium this evening. Labs will be repeated in the morning. Patient continues with fevers 100.1 today, tachycardic with heart rate in the low 110s, she was started on low dose betablocker. Blood pressure 101/64, 93% room air. She has also been receiving IV fluids with normal saline at 0.9 and 130 mls per hour and we will lower to 75 mls per hour, patient does have increased peripheral edema. 05/28/2022 Patient evaluated today sitting in bed. She is dypsneic at rest currently on 2L nasal cannula she has oxygen saturation of 96%. Continues with fever T-Max 100.1 in the last 24 hours, fever of 99.9 today. She is also tachycardic in the 110s, continues on low dose betablocker although suspect tachycardia is from infection. IV fluids were decreased to 75 yesterday, patient had an episode last night of respiratory distress and received a dose of IV lasix 40 mg once, fluids are discontinued. Repeat chest xray today shows stable opacification left upper lung field suspicious for large mass. She is post lung biopsy and remains on IV zosyn. Pulmonary is following the patient closely. Subjective: Resuming the care of the patient today 05/29/2022 This is a pleasant 66 years old female who presents with a large left upper lobe lung mass status post biopsy on 05/26, masses are suspicious for cancer given its mediastinal irrigation of the left side. Also patient is followed by oncology and redo oncologist. There is evidence of postobstructive pneumonia poorly responsive to Zosyn which is broad-spectrum antibiotic. Pulmonary team on the case and the plan for bronchoscopy and bronchoalveolar lavage tomorrow and looks like patient is agreeable to this plan. Also she is on Solu-Medrol 40 mg. Other than that she had a fever of 101.8 on admission and today is the first day she is afebrile for the last 24 hours. However leukocytosis went up 45,004Custar and went up to 2.1, was 1.4. 05/30/2022 Patient: Padilla he came back positive for adenocarcinoma, non-small cell pulmonary cancer, and hematology/oncology team on the case and the plan for further testing for her biopsy specimen which is pending now. Also patient still has significant sepsis with fever, tachycardia and borderline blood pressure. She was on Zosyn on Solu-Medrol 40 mg. Pulmonary team for plan for bronchoscopy today but was canceled, patient already ate WBC 45.5, hemoglobin 7.2. Sodium 136, potassium 3.8. No fever today but heart rate 115 and blood pressure 99/64 05/31/2022 Patient mildly tachypneic at rest with mild respiratory distress however she has good saturation on room air. She is aware of her diagnosis of adenocarcinoma of the lung. She is mildly tachycardic but blood pressure is more stable 117/72. She is afebrile today. White cell count jumped to 50,000 today. 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 She is less tachycardic today and breathing slightly better compared to yesterday, she is able to talk, she still have somewhat poor appetite. No other new complaints. Despite that it looks like she is able to consume her needs. We checked her orthostatic vitals last night and there were negative. Patient does not need more IV fluids as there is risk of pulmonary congestion. WBC is trending down to 43,000, IV Solu-Medrol and switched to prednisone 40 mg. Possible discharge in 24-48 hours if she remains stable and cleared by consultants however she'll need close outpatient follow-up 06/02/2022 Patient dyspnea and other respiratory symptoms are improving and patient is doing well. She still have borderline appetite but is enough this office her needs. Her WBC is trending down to 36,000 Antibiotic was adjusted to Unasyn today Possible discharge tomorrow, once cleared by all consultants \\ Objective - Vital Signs Vital signs: Vital Signs Temp 98.4 F 06/02/22 11:39 Pulse 109 H 06/02/22 15:47 Resp 20 06/02/22 11:39 BP 103/66 06/02/22 11:39 Pulse Ox 94 L 06/02/22 11:39 FiO2 Intake & Output 06/01/22 06/02/22 06/02/22 18:59 06:59 18:59 Intake Total 100 Balance 100 Weight 49.895 kg Intake: Intake, IV Titration 100 Amount Piperacillin-Tazobactam 3 100 .375 gm In Sodium Chloride 0.9% 100 ml @ 25 mls/hr IVPB Q8H [facility] Rx#: [id number] Other: Voiding Method Toilet Toilet Bedside Commode Bedside Commode Bedside Commode # Voids 6 1 - Exam GENERAL: The patient is alert and oriented x3, not in any acute distress. Well developed, well nourished. HEENT: Pupils are round and equally reacting to light. EOMI. No scleral icterus. No conjunctival pallor. Normocephalic, atraumatic. No pharyngeal erythema. No thyromegaly. CARDIOVASCULAR: S1 and S2 present. No murmurs, rubs, or gallops. -PULMONARY: Chest is clear to auscultation, no wheezing or crackles. Decreased breath sounds on the left side, very mild tachypnea ABDOMEN: Soft, nontender, nondistended, normoactive bowel sounds. No palpable organomegaly. MUSCULOSKELETAL: No joint swelling or deformity. EXTREMITIES: No cyanosis, clubbing, or pedal edema. NEUROLOGICAL: Gross neurological examination did not reveal any focal deficits. SKIN: No rashes. no petechiae. Gait is normal - Labs CBC & Chem 7: 06/02/22 05:17 05/31/22 06:04 Labs: Abnormal Lab Results - Last 24 Hours (Table) 06/02/22 Range/Units 05:17 WBC 36.50 H (4.50-10.00) X 10*3/uL RBC 2.61 L (4.10-5.20) X 10*6/uL Hgb 7.5 L (12.0-15.0) g/dL Hct 24.4 L (37.2-46.3) % MCHC 30.7 L (32.0-37.0) g/dL RDW 15.9 H (11.5-14.5) % MPV 9.4 L (9.5-12.2) fL Absolute Nucleated RBC 0.02 H (0.00-0.00) X 10*3/uL Immature Gran # 0.86 H (0.00-0.04) X 10*3/uL Neutrophils # 33.31 H (1.80-7.70) X 10*3/uL Monocytes # 1.07 H (0.20-1.00) X 10*3/uL Eosinophils # 0.01 L (0.04-0.35) X 10*3/uL NRBC/100 WBC Diff 0.1 H (0.0-0.0) /100 WBCS Assessment and Plan Assessment: Left sided lung mass with cavitation, lung biopsy: non-small cell pulmonary cancer, Postobstructive Pneumonia Tachycardia most likely from sepsis/infection Hyponatremia, hypovolemic Constipation on bowel regimen Anemia of chronic disease Former smoker Plan: This is a pleasant 66 years old female who presents with large left upper lobe lung mass and pneumonia Continue on IV Zosyn, cultures pending . Hold bronchoscopy per pulmonary team Further studies per oncology team Change Solu-Medrol 40 mg to prednisone taper Pulmonary, oncology, radial oncology and infectious disease teams on the case Labs and medication were reviewed.. Continue same treatment. Continue with symptomatic treatment. Resume home medication. Monitor lytes and vitals. DVT and GI prophylaxis. Further recommendations as per clinical course of the patient PT/OT: Home health care, ordered Prognosis is guarded
[2022-06-02] MEDS: ALPRAZolam 0.25 MG TAB PO PRN (21:07)
[2022-06-03] MEDS: AMPICILLIN-SULBACTAM 3 GM in SODIUM CHLORIDE 0.9% 100 ML IVPB SCH (05:17)
[2022-06-03 06:30] VITALS: TEMP 97.9
[2022-06-03] MEDS: IPRATROPIUM-ALBUTEROL 3 ML NEB INHALATION SCH ×2 (07:44→11:24)
--- NOTE | 2022-06-03 08:20 | P.PN ---
Subjective Progress Note Date: 06/02/22 Principal diagnosis: Fever/pneumonia Patient is a 66-year-old female presenting to the hospital with increasing shortness of breath and cough and fever, patient did have a CT of the chest today shows large left upper lobe mass with cavitation in this patient who is status post IR biopsy as well as cultures completed on 05/26/2022. On today's evaluation of his 06/02/2022, the patient denies any fever or any chills, the patient is breathing comfortably on room air, the patient had left- sided chest pain has decreased intensity, the patient cough has decreased intensity with less productive. The patient denies any nausea no vomiting no abdominal pain no diarrhea Objective - Vital Signs Vital signs: Vital Signs Temp 98.4 F 06/02/22 11:39 Pulse 110 H 06/02/22 12:14 Resp 20 06/02/22 11:39 BP 103/66 06/02/22 11:39 Pulse Ox 94 L 06/02/22 11:39 FiO2 Intake & Output 06/01/22 06/02/22 06/02/22 18:59 06:59 18:59 Intake Total 100 Balance 100 Intake: Intake, IV Titration 100 Amount Piperacillin-Tazobactam 3 100 .375 gm In Sodium Chloride 0.9% 100 ml @ 25 mls/hr IVPB Q8H [facility] Rx#: [id number] Other: Voiding Method Toilet Toilet Bedside Commode Bedside Commode Bedside Commode # Voids 6 1 - Exam GENERAL DESCRIPTION: An elderly female lying in bed in no distress RESPIRATORY SYSTEM: Unlabored breathing , decreased breath sounds at bases HEART: S1 S2 regular rate and rhythm , ABDOMEN: Soft , no tenderness EXTREMITIES: No edema feet - Labs CBC & Chem 7: 06/02/22 05:17 05/31/22 06:04 Labs: Abnormal Lab Results - Last 24 Hours (Table) 06/02/22 Range/Units 05:17 WBC 36.50 H (4.50-10.00) X 10*3/uL RBC 2.61 L (4.10-5.20) X 10*6/uL Hgb 7.5 L (12.0-15.0) g/dL Hct 24.4 L (37.2-46.3) % MCHC 30.7 L (32.0-37.0) g/dL RDW 15.9 H (11.5-14.5) % MPV 9.4 L (9.5-12.2) fL Absolute Nucleated RBC 0.02 H (0.00-0.00) X 10*3/uL Immature Gran # 0.86 H (0.00-0.04) X 10*3/uL Neutrophils # 33.31 H (1.80-7.70) X 10*3/uL Monocytes # 1.07 H (0.20-1.00) X 10*3/uL Eosinophils # 0.01 L (0.04-0.35) X 10*3/uL NRBC/100 WBC Diff 0.1 H (0.0-0.0) /100 WBCS Assessment and Plan (1) Pneumonia Current Visit: Yes Status: Acute Code(s): J18.9 - PNEUMONIA, UNSPECIFIED ORGANISM SNOMED Code(s): 089341253 Plan: 1patient presented to hospital with sepsis and respiratory fever elevated white count elevated lactic acid with evidence of left sided lung mass and cavitation with a question of possible malignancy versus pneumonia with cavitation and possible related to community-acquired versus gram-negative pathogen. 2patient is status post IR biopsy of the area fluid should has been sent for culture both bacterial fungal and AFB which are currently pending, routine bacterial cultures so far negative 3-patient with elevated white count more likely steroid effect and will monitor closely was some 4patient routine bacterial culture negative for any resistant pathogen patient is currently on Unasyn and will finish therapy with oral Augmentin Time with Patient: Less than 30
[2022-06-03 08:31] VITALS: BP 112/64
[2022-06-03] MEDS: FERROUS SULFATE 325 MG TAB PO SCH (08:32)
[2022-06-03] MEDS: NYSTATIN 100,000 UNIT/ML SUSP 500,000 UNIT/5 ML CUP PO SCH (08:32)
[2022-06-03] MEDS: DOCUSATE 100 MG CAP PO SCH (08:32)
[2022-06-03] MEDS: HEPARIN SODIUM,PORCINE/PF 5,000 UNIT/0.5 ML SYRINGE SQ SCH (08:32)
[2022-06-03] MEDS: METOPROLOL TARTRATE 25 MG TAB PO SCH (08:32)
[2022-06-03] MEDS: FAMOTIDINE 20 MG TAB PO SCH (08:32)
[2022-06-03] MEDS: predniSONE 20 MG TAB PO SCH (08:32)
--- NOTE | 2022-06-03 11:18 | P.PN ---
Subjective Progress Note Date: 06/03/22 66-year-old female patient, former smoker, but does carry [id number] smoking history, who came into the emergency department on May 26, 2022, with symptoms of shortness of breath, cough, fever. Patient states she has had the symptoms since early April 2022. On 05/02/2022 she went to the urgent care where she was treated with antibiotics and steroids. She then saw her PCP in follow-up, chest x-ray was taken and she was told that she has a pneumonia, and was given another round of a biotics and steroids. However she still having difficulty breathing, and coughing. She does admit to some weight loss, denies any hemoptysis no chest pain. Chest x-ray in the ED showed left upper lobe opacification consistent with pneumonia, EKG showed sinus tachycardia. Patient tested negative for COVID-19. The rest of her lab work showed leukocytosis with white blood cell, 29.1, hemoglobin of 8.1, platelet count of 512, coagulation profile was within normal limits, sodium is 132, potassium is 3.9, chloride is 105, CO2 is 20, BUN of 13 creatinine 0.43, plasma lactic acid was 2.3. Patient was started on azithromycin and Rocephin, was given gentle IV hydration. Chest x- ray findings are concerning for underlying pulmonary mass, and dedicated CT of the chest was recommended. And we're consulted for the same. On 05/25/2022 patient seen in follow-up. Computed tomography scan of the chest without contrast was completed showing large left upper lobe mass with cavitation, and there is invasion into the left side of the mediastinum suggestive of malignancy area and left pleural effusion and pulmonary emphysema. Nonspecific left adrenal mass. Patient remains on antibiotics, breathing treatments, vital signs are stable, patient is afebrile, currently on 2 L of oxygen satting 96%. She is short of breath with exertion, and does have a dry nonproductive cough. Denies any hemoptysis. On 05/27/2022 patient seen in follow-up. Patient underwent successful CT-guided core biopsy and fine needle aspiration of the left upper lobe lung mass yesterday by interventional radiology. Biopsy results are still pending. Clinically patient states she is feeling better, she was able to get a shower t ambrose, still a bit short of breath with exertion but tolerates activity well, room air pulse ox 93%, she had a low-grade fever this afternoon with a temp of 100.1F, she remains on antibiotics in the form of Zosyn. No complains of chest discomfort, no hemoptysis. Today's labs have been noted, white blood cell count is up to 34.5 on today's labs, hemoglobin is 7.4. Sodium is 134, potassium is 2.9, BUN is 6, creatinine 0.45. CRP is improved and is down to 27.6, pro calcitonin is elevated at 1.41. On 05/28/2022 patient seen in follow-up. Patient is awake and alert, she is mildly dyspneic at rest, low-grade fever today with a temp of 99.9F, slightly tachycardic, and slightly more congested on today's exam. Last night patient had an episode of increased shortness of breath, she was given IV Lasix 40 mg, breathing treatments. She remains on Zosyn. Her pleural fluid aspirate cultures have shown no organisms thus far. on 05/29/2022 patient is seen in follow-up on medical oncology floor. She is sitting up in the chair, she states her breathing is improved, she continues on Zosyn for empiric antibiotic coverage, IV Solu-Medrol. so far all her cultures remain negative, rheumatoid pulse ox is 94%. however today's labs show further increase in her leukocytosis, possibly partially due to IV steroids, white blood cell count is up to 45.5, and pro-calcitonin level was increased and is up to 2.12 on yesterday's labs. The patient states she is feeling better, remains on Zosyn. The patient is seen today 05/30/2000 follow-up on the regular medical floor. She is sitting up in bed. Awake and alert in no acute distress. She is breathing a bit easier today compared to yesterday. No worsening cough or congestion. Maintaining O2 saturations in the 90s on room air. No new labs today. She remains on DuoNeb inhalations, IV Solu-Medrol, antibiotics in the form of Zosyn. Patient is seen on 05/31/2022 recurrent condition is stable. Awaiting the follow-up white cell count. No fever. No chills. He remains on Zosyn and Solu-Medrol. The patient is also on DuoNeb nebulized treatments around the clock. 06/01/2022, clinically stable. Slightly feeling weak. No new complaints. White cell count peaked at 50 and dropped down to 43. Her hemoglobin is at 7.4. Awaiting electrolytes. Nevertheless, the pro-calcitonin level was improving and the level was down to 1.29 from 2.12. The patient was taken off the IV Solu-Medrol and placed on a prednisone burst taper. The patient is also on IV Zosyn. She has non-small cell lung cancer/adenocarcinoma, new diagnosis. The patient is seen today 06/02/2022 to follow-up on the regular medical floor. She is currently sitting up in a chair at the bedside. Awake and alert in no acute distress. She is maintaining O2 saturations in the 90s on room air. She remains on DuoNeb inhalations, Deformity Unasyn, prednisone taper. Heparin for DVT prophylaxis. The patient is seen today 06/03/2022 in follow-up on the regular medical floor. She is awake and alert in no acute distress. Resting comfortably in bed. No worsening shortness of breath, cough or congestion. Bronchial wash cultures revealed no growth. Blood cultures reveal no growth. Sputum culture revealed no growth. Last white count 36.5. She had been maintained on Unasyn and bronchodilators. Heparin for DVT prophylaxis. Objective - Vital Signs Vital signs: Vital Signs Temp 97.9 F 06/03/22 05:00 Pulse 136 H 06/03/22 08:29 Resp 24 06/03/22 05:00 BP 112/64 06/03/22 08:29 Pulse Ox 95 06/03/22 08:29 FiO2 Intake & Output 06/02/22 06/03/22 06/03/22 18:59 06:59 18:59 Intake Total 1880 Balance 1880 Weight 49.895 kg Intake: Intake, IV Titration 300 Amount Ampicillin-Sulbactam 3 gm 300 In Sodium Chloride 0.9% 100 ml @ 200 mls/hr IVPB Q6HR [facility] Rx#:[id number] Oral 1580 Other: Voiding Method Bedside Commode Toilet Toilet # Voids 4 2 # Bowel Movements 1 - Exam GENERAL EXAM: Alert, active, 66-year-old female, on 2 L with O2 saturation 95%, comfortable in no apparent distress. HEAD: Normocephalic. EYES: Normal reaction of pupils, equal size. NOSE: Clear with pink turbinates. THROAT: No erythema or exudates. NECK: No masses, no JVD. CHEST: No chest wall deformity. LUNGS: Equal air entry with few scattered rhonchi. CVS: S1 and S2 normal with no audible murmur, regular rhythm. ABDOMEN: No hepatosplenomegaly, normal bowel sounds, no guarding or rigidity. SPINE: No scoliosis or deformity SKIN: No rashes CENTRAL NERVOUS SYSTEM: No focal deficits, tone is normal in all 4 extremities. EXTREMITIES: There is no peripheral edema. No clubbing, no cyanosis. Peripheral pulses are intact. - Labs CBC & Chem 7: 06/02/22 05:17 05/31/22 06:04 Assessment and Plan Assessment: Left upper lobe lung mass with cavitation and invasion into the left side of the mediastinum suggestive of malignancy. Patient had symptoms of cough, shortness of breath and fever with failure of outpatient treatment with 2 rounds of antibiotics and steroids. Patient underwent CT-guided core biopsy and fine- needle aspiration of the left upper lobe lung mass, biopsy is positive for pulmonary adenocarcinoma Leukocytosis, fever, cough shortness of breath related to postobstructive pneumonia and sepsis. COVID-19 PCR was negative Lactic acidosis, mild, improved with IV hydration Former smoker, currently in remission, carries [id number] smoking history Anemia Plan: The patient was seen and evaluated Cleared for discharge from the pulmonary standpoint Complete a course of Augmentin Complete a prednisone taper Medical oncology, radiation oncology following Plan is for outpatient PET scan I have personally seen and examined the patient, performed the documentation and the assessment and plan as written. Number of minutes spent on the visit: 10.
[2022-06-03 11:37] VITALS: PULSE 128
[2022-06-03 13:25] VITALS: RESP 16
--- NOTE | 2022-06-03 15:15 | P.PN ---
Subjective Progress Note Date: 06/03/22 Principal diagnosis: lung mass-adenocarcinoma In f/u today pt is doing good, no need for O2, she denies fevers, nausea, chest pain, shortness of breath, she can ambulate independently. Objective - Vital Signs Vital signs: Vital Signs Temp 97.9 F 06/03/22 05:00 Pulse 128 H 06/03/22 11:37 Resp 16 06/03/22 13:00 BP 112/64 06/03/22 08:29 Pulse Ox 94 L 06/03/22 13:00 FiO2 Intake & Output 06/02/22 06/03/22 06/03/22 18:59 06:59 18:59 Intake Total 1880 Balance 1880 Weight 49.895 kg Intake: Intake, IV Titration 300 Amount Ampicillin-Sulbactam 3 gm 300 In Sodium Chloride 0.9% 100 ml @ 200 mls/hr IVPB Q6HR [facility] Rx#:[id number] Oral 1580 Other: Voiding Method Bedside Commode Toilet Toilet # Voids 4 2 # Bowel Movements 1 - Constitutional General appearance: Present: cooperative, no acute distress, thin - EENT Eyes: Present: anicteric sclerae, EOMI, poor dentition ENT: Present: hearing grossly normal - Respiratory Respiratory: bilateral: CTA, diminished - Cardiovascular Rhythm: regular Heart sounds: normal: S1, S2 Abnormal Heart Sounds: Absent: systolic murmur, diastolic murmur, rub, S3 Gallop, S4 Gallop, click, other - Neurologic Neurologic: Present: CNII-XII intact (grossly) - Musculoskeletal Musculoskeletal: Present: strength equal bilaterally - Psychiatric Psychiatric: Present: A&O x's 3, appropriate affect, intact judgment & insight - Labs CBC & Chem 7: 06/02/22 05:17 05/31/22 06:04 Assessment and Plan (1) Lung mass Status: Acute Code(s): R91.8 - OTHER NONSPECIFIC ABNORMAL FINDING OF LUNG FIELD SNOMED Code(s): 739672409 Plan: lung biopsy pathology returned adenocarcinoma, consistent with lung primary. MRI brain-no evidence of disease Staging PET will be scheduled. She understands that she will be contacted for scheduling of scans and lab draws. She will be seen in follow-up once all the results are available. Anemia of inflammation. Hgb stable. Will cont to be monitored outpt
--- NOTE | 2022-06-04 08:00 | P.DS ---
Providers Date of admission: 05/24/22 11:14 Attending physician: Rut Kenyon Consults: 05/24/22 11:14 Consult Physician Routine Consulting Provider: Nikko Sevilla Consult Reason/Comments: Pneumonia failed outpatient Do you want consulting provider notified?: Yes 05/25/22 08:55 Consult Physician Routine Consulting Provider: Baljinder Rosenbaum Consult Reason/Comments: lung mass Do you want consulting provider notified?: Yes 05/25/22 08:56 Consult Physician Routine Consulting Provider: Kai Mcintosh Consult Reason/Comments: lung mass Do you want consulting provider notified?: Yes 05/25/22 19:28 Consult Physician Routine Consulting Provider: Ingrid Kennedy Consult Reason/Comments: increased lactic, elevated HR, temp, low BPs Do you want consulting provider notified?: Yes Primary care physician: Physician Nonstaff Hospital Course: Diagnoses: Left sided large lung mass with cavitation, lung biopsy: non-small cell pulmonary cancer, Postobstructive Pneumonia Tachycardia most likely from sepsis/infection Hyponatremia, hypovolemic Constipation on bowel regimen Anemia of chronic disease Former smoker Hospital course: This is a 66 year old female who is admitted to hospital for left upper lobe mass with cavitation and invasion into the left side of the mediastinum suggestive of malignancy. Patient continues with leukocytosis, went up to 50.6, but start improving once we switched her IV steroids into oral dose. Patient had extensive workup. And his been evaluated by infectious disease team, pre planning advisor, oncologist and radiation oncologist area Patient was treated with Solu-Medrol 40 mg switched to oral prednisone 40 mg over the last 2 days. Also received antibiotic in the form of Zosyn which is switched to Unasyn under the guidance of ID team. Patient did not need IV fluids until she was able to eat and drink although her appetite was not perfect. On the day of discharge she is fully awake and oriented, slightly tachypneic at rest. No chest pain. She thinks she can go home today. She denies any abdominal or urinary complaints. She is able to walk freely. Laps looks stable with WBC 36.5, hemoglobin 7.5. Patient was cleared for discharge by all consultants including infectious disease, oncologist on pulmonary team with a recommendation for discharge her with oral antibiotics including Augmentin 10 D, and tapered prednisone Problems and management plan were discussed with the patient and he verbalized understanding and acceptance Patient was found stable and can be discharged home in guarded prognosis however he needs follow-up as an outpatient. Patient was instructed to follow up with PCP within one week and patient agrees Patient was instructed to follow up with oncologist Dr. Mcintosh in 7-10 days, and pre planning advisor Dr. Sevilla on 07/17 and she agrees, also with radiation oncologist Dr. Rosenbaum in 1 week and she agrees and Dr. Kennedy from ID team within one week and she agrees to call and make appointments Physical exam Gen: patient is a AAOx3, no distress CVS: S1-S2, RRR, no murmur -Lungs: B/L CTA, no wheezing. Decreased breath sounds on the left side, mildly tachypneic at rest Abdomen: soft, no distention, no tenderness, positive bowel sounds Extremity: no leg edema or induration Time spent more than 35 minutes Plan - Discharge Summary Discharge Rx Participant: Yes New Discharge Prescriptions: New Amoxic-Pot Clav 875-125Mg [Augmentin 875-125] 1 tab PO BID 10 Days #20 tab Metoprolol Tartrate [Lopressor] 25 mg PO BID #60 tab Melatonin 6 mg PO HS PRN 10 Days #10 tab PRN Reason: Insomnia Famotidine [Pepcid] 20 mg PO Q12HR #60 tab Acetaminophen Tab [Tylenol] 650 mg PO Q6HR PRN tab PRN Reason: Fever And/ Or Pain Nystatin 100,000 Unit/ml Susp [Mycostatin Oral Susp] 500,000 unit PO QID 3 Days #60 ml predniSONE 10 mg PO DIRECTED #40 tab ALPRAZolam [Xanax] 0.25 mg PO BID PRN 3 Days #6 tab PRN Reason: Anxiety Continue Ferrous Sulfate [Iron (65 MG Elemental)] 325 mg PO DAILY Docusate [Colace] 100 mg PO DAILY Albuterol Inhaler [Ventolin Hfa Inhaler] 2 puff INHALATION RT-Q4H PRN PRN Reason: Shortness Of Breath Discharge Medication List Albuterol Inhaler [Ventolin Hfa Inhaler] 2 puff INHALATION RT-Q4H PRN 05/24/22 [History] Docusate [Colace] 100 mg PO DAILY 05/24/22 [History] Ferrous Sulfate [Iron (65 MG Elemental)] 325 mg PO DAILY 05/24/22 [History] ALPRAZolam [Xanax] 0.25 mg PO BID PRN 3 Days #6 tab 06/03/22 [Rx] Acetaminophen Tab [Tylenol] 650 mg PO Q6HR PRN tab 06/03/22 [Rx] Amoxic-Pot Clav 875-125Mg [Augmentin 875-125] 1 tab PO BID 10 Days #20 tab 06/03/22 [Rx] Famotidine [Pepcid] 20 mg PO Q12HR #60 tab 06/03/22 [Rx] Melatonin 6 mg PO HS PRN 10 Days #10 tab 06/03/22 [Rx] Metoprolol Tartrate [Lopressor] 25 mg PO BID #60 tab 06/03/22 [Rx] Nystatin 100,000 Unit/ml Susp [Mycostatin Oral Susp] 500,000 unit PO QID 3 Days #60 ml 06/03/22 [Rx] predniSONE 10 mg PO DIRECTED #40 tab 06/03/22 [Rx] Follow up Appointment(s)/Referral(s): Kai Mcintosh MD [STAFF PHYSICIAN] - 10 Days (new patient they will retrieve the records and call her with appt time and date) [facility] [NON-STAFF] - 1 Week Nikko Sevilla DO [Doctor of Osteopathic Medicine] - 07/17/22 10:00 am Baljinder Rosenbaum MD [STAFF PHYSICIAN] - 1 Week Nonstaff,Physician [Primary Care Provider] - 1-2 days Ingrid Kennedy MD [STAFF PHYSICIAN] - 1 Week Patient Instructions/Handouts: Metoprolol (By mouth), Famotidine (By mouth), Alprazolam (By mouth), Prednisone (By mouth), Nystatin (By mouth), Amoxicillin/Clavulanate Potassium (By mouth), Melatonin (By mouth), Pneumonia (DC) Activity/Diet/Wound Care/Special Instructions: regular diet , try to consume low carbohydrate diet while you are on steroids ( prednisone) activity is restricted till you see your doctor Discharge Disposition: HOME WITH HOME HEALTH SERVICES
== END 2022-06-03 13:50 | disposition home health service (06) | DRG 871 ==
LOC: EC 10:05 → 5NMEDONC 11:14
PROVIDERS: ADMIT Internal Medicine; ATTEND Internal Medicine
PROC: 0BBG3ZX Excision of Left Upper Lung Lobe, Percutaneous Approach, Diagnostic (ICD-10-PCS; principal; 2022-05-26)
PROC: 0B9L3ZX Drainage of Left Lung, Percutaneous Approach, Diagnostic (ICD-10-PCS; principal; 2022-05-26)
DX: A41.9 Sepsis, unspecified organism (principal); J18.9 Pneumonia, unspecified organism; C34.12 Malignant neoplasm of upper lobe, left bronchus or lung; E87.1 Hypo-osmolality and hyponatremia; E87.2 Acidosis; J90 Pleural effusion, not elsewhere classified; F17.290 Nicotine dependence, other tobacco product, uncomplicated; D50.9 Iron deficiency anemia, unspecified; D63.0 Anemia in neoplastic disease; E27.9 Disorder of adrenal gland, unspecified; E83.42 Hypomagnesemia; E86.1 Hypovolemia; E87.6 Hypokalemia; T50.2X5A Adverse effect of carbonic-anhydrase inhibitors, benzothiadiazides and other diuretics, initial encounter; K59.00 Constipation, unspecified; Z20.822 Contact with and (suspected) exposure to COVID-19
CPT/HCPCS: 32408; 36415; 70553; 71045; 71046; 71260; 80048; 80053; 82533; 82607; 82728; 82747; 83540; 83550; 83605; 83615; 83735; 83921; 84145; 84484; 85025; 85610; 85730; 86140; 87040; 87070; 87075; 87102; 87116; 87205; 87206; 87635; 88305; 88341; 88342; 93005; 94640; 94760; 96365; 96367; 96375; 99285

== ENCOUNTER → 2022-06-06 | Outpatient (CLI) | payer MEDICARE ==
--- NOTE | 2022-06-07 09:59 | PE ---
EXAMINATION TYPE: PET CT fusion skull to thigh DATE OF EXAM: 06/06/2022 CLINICAL INDICATION:Female, 66 years old with history of C34.12 Lung CA; TECHNIQUE: Following the intravenous administration of 12.0 mCi of F-18 FDG, whole body images are performed from the skull base to the midthigh. Images are reviewed on the computer in the coronal, a xial, and sagittal planes. Reconstructed rotating images are created on independent workstation and reviewed on the computer. A non-contrast CT is performed in conjunction with the PET scan. Glucose level 104 mg/dL COMPARISON: CT 05/24/2022 05/26/2022, PET/CT none FINDINGS: Mediastinal SUV maximum is 1.1. Hepatic parenchyma SUV maximum is 1.5. SKULL BASE AND NECK: No suspicious FDG activity. CHEST, MEDIASTINUM, AND HILAR REGION: Large mass within the left upper chest which extends into the m ediastinum measures roughly 10.7 x 9.1 x cm with max SUV 26.0. Additional left lower lobe pulmonary nodule measuring 12 mm demonstrates max SUV 5.4. There is focal uptake along the pleura at least 2 areas on the left with max SUV 3.1 next to the aortic arch. FDG up take does extend towards the anterior chest wall. The tardive completely exclude invasion into the ch est wall. Focal radiotracer uptake within the left lung near the diaphragm with max SUV 1.8 ABDOMEN AND PELVIS: Suspicious asymmetric left adrenal gland nodule measuring 22 x 12 mm and FDG acti vity with max SUV 9.6. OSSEOUS STRUCTURES: No suspicious FDG activity. OTHER CT: Mild centrilobular and paraseptal emphysema changes are seen in the aerated lungs. There ar e scattered atherosclerosis of the arterial vasculature. Mild Multilevel disc degeneration changes ar e seen throughout the spine.. There is scattered clonic diverticula present throughout the spine. The re is a moderate to large stool burden throughout the colon. There is a small left pleural effusion. IMPRESSION: Left upper lobe large conglomerate mass with extension into the mediastinum and possibly the anterior chest wall. There is suspected additional foci within the left upper lung as well as pleural metasta tic foci and left adrenal suspected metastatic nodule. Suspected small malignant left pleural effusio n.
== END | disposition home or self-care (01) ==
LOC: RADPETMAIN 15:17
PROVIDERS: ATTEND Radiology Radiation Oncology
DX: C34.12 Malignant neoplasm of upper lobe, left bronchus or lung (principal)
CPT/HCPCS: 78815; A9552

== ENCOUNTER 2022-06-09 19:20 | Inpatient (IN) | payer MEDICARE ==
[2022-06-09] MEDS ORDERED: IBUPROFEN 600 MG TAB PO STA (19:26)
[2022-06-09] MEDS ORDERED: cefTRIAXone IN SWFI 1,000 MG/10 ML SYRINGE IVP STA (19:27)
--- NOTE | 2022-06-09 19:33 | ED ---
General Adult HPI - General Stated complaint: Sepsis Time Seen by Provider: 06/09/22 19:20 Source: patient, RN notes reviewed, old records reviewed - History of Present Illness Initial comments: This is a 66-year-old female who presents emergency Department complaining that she feels extremely tired. Patient states she's taken and her antibiotics at home for pneumonia. Patient denies any short of breath cough or chest pain but she states she just can't stay awake she so exhausted. Patient states continues oral antibiotics at home. Patient denies any chest pain or palpitations. Patient denies sore throat. Patient denies any neck stiffness. Patient denies headache. Patient denies abdominal pain patient denies nausea vomiting diarrhea. Patient denies any dysuria hematuria urinary frequency. Patient denies any back pain. Patient denies any skin lesions rashes or erythema. Patient had a fever in route per EMS - Related Data Home Medications Medication Instructions Recorded Confirmed Albuterol Inhaler [Ventolin Hfa 2 puff INHALATION RT-Q4H PRN 05/24/22 05/24/22 Inhaler] Docusate [Colace] 100 mg PO DAILY 05/24/22 05/24/22 Ferrous Sulfate [Iron (65 MG 325 mg PO DAILY 05/24/22 05/24/22 Elemental)] Previous Rx's Medication Instructions Recorded ALPRAZolam [Xanax] 0.25 mg PO BID PRN 3 Days #6 tab 06/03/22 Acetaminophen Tab [Tylenol] 650 mg PO Q6HR PRN tab 06/03/22 Amoxic-Pot Clav 875-125Mg 1 tab PO BID 10 Days #20 tab 06/03/22 [Augmentin 875-125] Famotidine [Pepcid] 20 mg PO Q12HR #60 tab 06/03/22 Melatonin 6 mg PO HS PRN 10 Days #10 tab 06/03/22 Metoprolol Tartrate [Lopressor] 25 mg PO BID #60 tab 06/03/22 Nystatin 100,000 Unit/ml Susp 500,000 unit PO QID 3 Days #60 ml 06/03/22 [Mycostatin Oral Susp] predniSONE 10 mg PO DIRECTED #40 tab 06/03/22 Allergies Allergy/AdvReac Type Severity Reaction Status Date / Time No Known Allergies Allergy Verified 05/24/22 11:34 Review of Systems ROS Statement: Those systems with pertinent positive or pertinent negative responses have been documented in the HPI. ROS Other: All systems not noted in ROS Statement are negative. Past Medical History Past Medical History: Pneumonia History of Any Multi-Drug Resistant Organisms: None Reported Past Surgical History: No Surgical Hx Reported Past Anesthesia/Blood Transfusion Reactions: No Reported Reaction Past Psychological History: No Psychological Hx Reported Smoking Status: Former smoker Past Alcohol Use History: None Reported Past Drug Use History: None Reported - Past Family History Mother Family Medical History: Cancer General Exam - General Exam Comments Initial Comments: GENERAL: Patient is well-developed and well-nourished. Patient is nontoxic and well- hydrated and is in mild distress. ENT: Neck is soft and supple. No significant lymphadenopathy is noted. Oropharynx is clear. Moist mucous membranes. Neck has full range of motion without eliciting any pain. EYES: The sclera were anicteric and conjunctiva were pink and moist. Extraocular movements were intact and pupils were equal round and reactive to light. Eyelids were unremarkable. PULMONARY: Unlabored respirations. Good breath sounds bilaterally. No audible rales rhon chi or wheezing was noted. CARDIOVASCULAR: There is a regular rate and rhythm without any murmurs gallops or rubs. ABDOMEN: Soft and nontender with normal bowel sounds. SKIN: Skin is clear with no lesions or rashes and otherwise unremarkable. NEUROLOGIC: Patient is alert and oriented x3. Cranial nerves II through XII are grossly intact. Motor and sensory are also intact. Normal speech, volume and content. Symmetrical smile. MUSCULOSKELETAL: Normal extremities with adequate strength and full range of motion. LYMPHATICS: No significant lymphadenopathy is noted PSYCHIATRIC: Normal psychiatric evaluation. Course Vital Signs 06/09/22 19:32 Temperature 98.6 F Pulse Rate 122 H Respiratory 17 Rate Blood Pressure 104/52 O2 Sat by Pulse 95 Oximetry Medical Decision Making - Medical Decision Making EKG shows sinus tachycardia at 119 bpm ID interval 212 QRS is 89 QT interval 01/05/1990 QTC is 399. Patient's EKG shows no ST segment elevation or depression. Chest x-ray shows left upper lobe opacification Patient's hemoglobin was 6.3 started the patient on 1 unit of packed red blood cells. Patient also received 2 g of Rocephin. I was found physicians agreed to admit the patient admitted the patient wrote admitting orders. - Lab Data Result diagrams: 06/09/22 19:46 06/09/22 19:46 Lab Results 06/09/22 06/09/22 06/09/22 Range/Units 19:46 19:46 19:46 WBC 34.9 H (3.8-10.6) k/uL RBC 1.98 L (3.80-5.40) m/uL Hgb 6.3 L* (11.4-16.0) gm/dL Hct 18.0 L* (34.0-46.0) % MCV 90.7 (80.0-100.0) fL MCH 31.8 (25.0-35.0) pg MCHC 35.1 (31.0-37.0) g/dL RDW 16.2 H (11.5-15.5) % Plt Count 403 (150-450) k/uL MPV 7.3 Neutrophils % 96 % Lymphocytes % 2 % Monocytes % 1 % Eosinophils % 0 % Basophils % 0 % Neutrophils # 33.5 H (1.3-7.7) k/uL Lymphocytes # 0.8 L (1.0-4.8) k/uL Monocytes # 0.5 (0-1.0) k/uL Eosinophils # 0.0 (0-0.7) k/uL Basophils # 0.0 (0-0.2) k/uL Hypochromasia Marked Anisocytosis Slight PT 11.5 (9.0-12.0) sec INR 1.1 (<1.2) APTT 21.8 L (22.0-30.0) sec Sodium 136 L (137-145) mmol/L Potassium 3.4 L (3.5-5.1) mmol/L Chloride 106 (98-107) mmol/L Carbon Dioxide 21 L (22-30) mmol/L Anion Gap 9 mmol/L BUN 16 (7-17) mg/dL Creatinine 0.42 L (0.52-1.04) mg/dL Est GFR (CKD-EPI)AfAm >90 (>60 ml/min/1.73 sqM) Est GFR (CKD-EPI)NonAf >90 (>60 ml/min/1.73 sqM) Glucose 93 (74-99) mg/dL Plasma Lactic Acid Vamsi (0.7-2.0) mmol/L Calcium 7.0 L (8.4-10.2) mg/dL Total Bilirubin 0.3 (0.2-1.3) mg/dL AST 28 (14-36) U/L ALT 17 (4-34) U/L Alkaline Phosphatase 156 H (38-126) U/L Total Protein 4.4 L (6.3-8.2) g/dL Albumin 1.9 L (3.5-5.0) g/dL 06/09/22 Range/Units 19:46 WBC (3.8-10.6) k/uL RBC (3.80-5.40) m/uL Hgb (11.4-16.0) gm/dL Hct (34.0-46.0) % MCV (80.0-100.0) fL MCH (25.0-35.0) pg MCHC (31.0-37.0) g/dL RDW (11.5-15.5) % Plt Count (150-450) k/uL MPV Neutrophils % % Lymphocytes % % Monocytes % % Eosinophils % % Basophils % % Neutrophils # (1.3-7.7) k/uL Lymphocytes # (1.0-4.8) k/uL Monocytes # (0-1.0) k/uL Eosinophils # (0-0.7) k/uL Basophils # (0-0.2) k/uL Hypochromasia Anisocytosis PT (9.0-12.0) sec INR (<1.2) APTT (22.0-30.0) sec Sodium (137-145) mmol/L Potassium (3.5-5.1) mmol/L Chloride (98-107) mmol/L Carbon Dioxide (22-30) mmol/L Anion Gap mmol/L BUN (7-17) mg/dL Creatinine (0.52-1.04) mg/dL Est GFR (CKD-EPI)AfAm (>60 ml/min/1.73 sqM) Est GFR (CKD-EPI)NonAf (>60 ml/min/1.73 sqM) Glucose (74-99) mg/dL Plasma Lactic Acid Vamsi 2.0 (0.7-2.0) mmol/L Calcium (8.4-10.2) mg/dL Total Bilirubin (0.2-1.3) mg/dL AST (14-36) U/L ALT (4-34) U/L Alkaline Phosphatase (38-126) U/L Total Protein (6.3-8.2) g/dL Albumin (3.5-5.0) g/dL Critical Care Time Critical Care Time: Yes Total Critical Care Time: 35 Disposition Clinical Impression: Pneumonia, Anemia, Sepsis Disposition: ADMITTED IP TO THIS HOSP Referrals: Nonstaff,Physician [Primary Care Provider] - 1-2 days Time of Disposition: 20:40
[2022-06-09 20:27] LABS: Anisocytosis Slight; Basophils % (A) 0 %; Eosinophils % (A) 0 %; HGB 6.3 gm/dL (11.4-16.0); Hypochromasia Marked; Lymphocytes # (A) 0.8 k/uL (1.0-4.8); Lymphocytes % (A) 2 %; MCH 31.8 pg (25.0-35.0); MCHC 35.1 g/dL (31.0-37.0); MCV 90.7 fL (80.0-100.0); Mean Platelet Volume 7.3; Monocytes # (A) 0.5 k/uL (0-1.0); Monocytes % (A) 1 %; Neutrophils # (A) 33.5 k/uL (1.3-7.7); Neutrophils % (A) 96 %; Platelet Count 403 k/uL (150-450); RBC 1.98 m/uL (3.80-5.40); RDW 16.2 % (11.5-15.5); WBC 34.9 k/uL (3.8-10.6)
[2022-06-09 20:31] LABS: INR 1.1 (<1.2); Partial Thromboplastin Time 21.8 sec (22.0-30.0); Prothrombin Time 11.5 sec (9.0-12.0)
[2022-06-09] MEDS ORDERED: PNEUMONIA PROTOCOL UTILIZED 1 EACH MISC PO PRN (20:40)
[2022-06-09] MEDS ORDERED: AZITHROMYCIN 500 MG in SODIUM CHLORIDE 0.9% 250 ML IVPB STA (20:40)
[2022-06-09] MEDS ORDERED: PIPERACILLIN-TAZOBACTAM 3.375 GM in SODIUM CHLORIDE 0.9% 100 ML IVPB STA (20:40)
[2022-06-09 20:42] LABS: ALT 17 U/L (4-34); AST 28 U/L (14-36); African American GFR (CKD) >90 (>60 ml/min/1.73 sqM); Albumin 1.9 g/dL (3.5-5.0); Alkaline Phosphatase 156 U/L (38-126); Anion Gap 9 mmol/L; Blood Urea Nitrogen 16 mg/dL (7-17); Carbon Dioxide 21 mmol/L (22-30); Chloride 106 mmol/L (98-107); Glucose 93 mg/dL (74-99); Non-African American GFR(CKD) >90 (>60 ml/min/1.73 sqM); Potassium 3.4 mmol/L (3.5-5.1); Sodium 136 mmol/L (137-145); Total Bilirubin 0.3 mg/dL (0.2-1.3); Total Protein 4.4 g/dL (6.3-8.2)
--- NOTE | 2022-06-09 20:49 | XR ---
EXAMINATION TYPE: XR chest 2V DATE OF EXAM: 06/09/2022 8:18 PM COMPARISON: Chest radiographs from 05/28/2022, PET/CT 06/06/2022. TECHNIQUE: XR chest 2V Frontal and lateral views of the chest. CLINICAL INDICATION:Female, 66 years old with history of Fever; FINDINGS: Lungs/Pleura: Persistent large opacity within the left lung with obscuration of a majority of the lef t upper lung Consistent with prior PET imaging malignancy. Pulmonary vascularity: Unremarkable. Heart/mediastinum: Cardiomediastinal silhouette is unremarkable. Musculoskeletal: No acute osseous pathology. IMPRESSION: Left upper lung mass as seen on prior PET with increased opacity within the lateral aspect aspect of the left lung when comparing to 05/25/2022 and 05/26/2022 findings may represent interval increase atelec tasis versus airspace disease.
[2022-06-09] MEDS: SODIUM CHLORIDE 0.9% 500 ML 500 ML IV SCH ×3 (21:16→23:43)
[2022-06-09] MEDS: SODIUM CHLORIDE 0.9% 1,000 ML IV SCH (23:42)
[2022-06-10] MEDS ORDERED: PIPERACILLIN-TAZOBACTAM 3.375 GM in SODIUM CHLORIDE 0.9% 100 ML IVPB ONE (02:00)
[2022-06-10] MEDS ORDERED: ALBUTEROL NEBULIZED 2.5 MG/3 ML INHALATION PRN (03:07)
[2022-06-10] MEDS ORDERED: ONDANSETRON 4 MG/2 ML VIAL IVP PRN (03:08)
[2022-06-10] MEDS ORDERED: NALOXONE 0.4 MG/ML 1 ML VIAL IV PRN (03:08)
[2022-06-10] MEDS: AZITHROMYCIN 500 MG in SODIUM CHLORIDE 0.9% 250 ML IVPB SCH (03:30)
--- NOTE | 2022-06-10 03:33 | P.HPIM ---
History of Present Illness H&P Date: 06/09/22 Chief Complaint: fatigue 66 year old female with recent diagnosis of pulmonary adenocarcinoma within 1 month ago she comes in today due to increase fatigue , she feels exhausted and sleepy all the time, denies any chest pain or palpitations , denies any syncopal episodes. she has been on antibiotics at home for pneumonia with augmentin. she denies any fever, or chills. she denies any headache, chest pain, abd pain , nausea vomiting, changes in bowel or urinary habits , she denies any GI bleeding. during my interview, initially she was hard to arouse, but then she woke up and was sharp answering questions properly and conversant. she wanted to be a DNR, she was recently diagnosed with pulmonary adenocarcinoma with a biopsy, Brain MRI showed no acute pathology earlier this month , she has long history of smoking but quit 4 years ago and started vaping until recently . she has not started OP treatment for her cancer yet, ,and has a scheduled appoinntment with dr Rosenbaum. in the ED , workup showed acute on chronic anemia , again she denies any GI bleeding. or any other source of identifiable bleeding. also has leukocytosis. CXR showed left upper lobe mass with possible airspace disease. she otherwise denies any other medical history , denies illicit drugs or alcohol . she reports significant weight loss over the past few months Review of Systems Pertinent positives as noted in HPI. All other systems were reviewed and are negative Past Medical History Past Medical History: Pneumonia History of Any Multi-Drug Resistant Organisms: None Reported Past Surgical History: No Surgical Hx Reported Past Anesthesia/Blood Transfusion Reactions: No Reported Reaction Past Psychological History: No Psychological Hx Reported Smoking Status: Former smoker Past Alcohol Use History: None Reported Past Drug Use History: None Reported - Past Family History Mother Family Medical History: Cancer Medications and Allergies Home Medications Medication Instructions Recorded Confirmed Type Albuterol Inhaler [Ventolin Hfa 2 puff INHALATION RT-Q4H PRN 05/24/22 06/09/22 History Inhaler] Docusate [Colace] 100 mg PO DAILY 05/24/22 06/09/22 History Ferrous Sulfate [Iron (65 MG 325 mg PO DAILY 05/24/22 06/09/22 History Elemental)] ALPRAZolam [Xanax] 0.25 mg PO BID PRN 3 Days #6 tab 06/03/22 06/09/22 Rx Acetaminophen Tab [Tylenol] 650 mg PO Q6HR PRN tab 06/03/22 06/09/22 Rx Amoxic-Pot Clav 875-125Mg 1 tab PO BID 10 Days #20 tab 06/03/22 06/09/22 Rx [Augmentin 875-125] Famotidine [Pepcid] 20 mg PO Q12HR #60 tab 06/03/22 06/09/22 Rx Melatonin 6 mg PO HS PRN 10 Days #10 tab 06/03/22 06/09/22 Rx Metoprolol Tartrate [Lopressor] 25 mg PO BID #60 tab 06/03/22 06/09/22 Rx Nystatin 100,000 Unit/ml Susp 500,000 unit PO QID 3 Days #60 ml 06/03/22 06/09/22 Rx [Mycostatin Oral Susp] predniSONE See Taper PO DIRECTED 06/09/22 06/09/22 History Allergies Allergy/AdvReac Type Severity Reaction Status Date / Time No Known Allergies Allergy Verified 06/09/22 21:11 Physical Exam Vitals: Vital Signs Temp Pulse Resp BP Pulse Ox 06/09/22 19:32 98.6 F 122 H 17 104/52 95 Intake and Output 06/09/22 06/09/22 06/09/22 06:59 14:59 22:59 Other: Weight 49.895 kg ExamConstitutional: initially lethargic, then became more awake and responsive , no acute distress, conversant, pleasant Eyes: Anicteric sclerae, moist conjunctiva, Pupils equal round reactive to light ENMT: NC/AT Oropharynx clear, no erythema, or exudates Neck: Supple,no masses, or JVD No carotid bruits No thyromegaly Lungs: decrease breath sounds over anterior left chest Clear to percussion Normal respiratory effort, no accessory muscle use Cardiovascular: Heart regular in rate and rhythm, No murmurs, gallops, or rubs +3 bilateral peripheral leg edema Abdominal: Soft Nontender, no guarding, rebound or rigidity Abdomen moving with respiration Normoactive bowel sounds No hepatomegaly, No splenomegaly No palpable mass No abdominal wall hernia noted Skin: Normal temperature, tone, texture, turgor No induration No subcutaneous nodules No rash, lesions No ulcers Extremities: No digital cyanosis No clubbing Pedal pulses intact and symmetrical Radial pulses intact and symmetrical No calf tenderness Psychiatric: Alert and oriented to person, place and time Appropriate affect fair judgement Neuro Muscles Strength 4/5 in all 4 extremities Sensation to light touch grossly present throughout Cranial nerves II-XII grossly intact No focal sensory deficits Lymphatics: no palpable cervical or supraclavicular , lymph nodes Results CBC & Chem 7: 06/09/22 19:46 06/09/22 19:46 Labs: Abnormal Lab Results - Last 24 Hours (Table) 06/09/22 06/09/22 06/09/22 Range/Units 19:46 19:46 19:46 WBC 34.9 H (3.8-10.6) k/uL RBC 1.98 L (3.80-5.40) m/uL Hgb 6.3 L* (11.4-16.0) gm/dL Hct 18.0 L* (34.0-46.0) % RDW 16.2 H (11.5-15.5) % Neutrophils # 33.5 H (1.3-7.7) k/uL Lymphocytes # 0.8 L (1.0-4.8) k/uL APTT 21.8 L (22.0-30.0) sec Sodium 136 L (137-145) mmol/L Potassium 3.4 L (3.5-5.1) mmol/L Carbon Dioxide 21 L (22-30) mmol/L Creatinine 0.42 L (0.52-1.04) mg/dL Calcium 7.0 L (8.4-10.2) mg/dL Alkaline Phosphatase 156 H (38-126) U/L Total Protein 4.4 L (6.3-8.2) g/dL Albumin 1.9 L (3.5-5.0) g/dL Assessment and Plan Assessment: sepsis secondary to pneumonia follow up cultures suspected post obstructive pneumonia due to lung mass, initiated on Zosyn and azithro monitor vvital signs gentle IVF hydration with saline tylenol for fever fall precautions acute on chronic anemia denies any bleeding transfuse 1 U PRBC follow up hgb PPI daily adenocarcinoma of the lungs significant weight loss secondary to above OP follow up with dr Rosenbaum no treatment initiated yet DNR DVT PPX mechanical due to acute anemia
[2022-06-10] MEDS: SODIUM CHLORIDE 0.9% 1,000 ML IV SCH ×3 (06:28→17:52)
--- NOTE | 2022-06-10 07:53 | XR ---
EXAMINATION TYPE: XR chest 2V DATE OF EXAM: 06/10/2022 COMPARISON: Chest x-ray from yesterday. Most recent PET CT 4 days ago. HISTORY: Pneumonia. History of left-sided lung cancer. TECHNIQUE: Frontal and lateral views of the chest are obtained. FINDINGS: There is new small left pleural effusion. Persistent left mid to lower lung opacity with more dense component in the periphery corresponds to large neoplasm and adjacent postobstructive atel ectasis. Slight tracheal shift to the right remains present. Right lung remains clear. The cardiac si lhouette size is stable and within normal limits. The osseous structures are intact. IMPRESSION: New small left pleural effusion. Persistent left lung opacity favoring neoplasm and atel ectatic change. Right lung remains clear.
[2022-06-10] MEDS: PIPERACILLIN-TAZOBACTAM 3.375 GM in SODIUM CHLORIDE 0.9% 100 ML IVPB SCH ×2 (08:56→17:52)
[2022-06-10] MEDS: METOPROLOL TARTRATE 25 MG TAB PO SCH ×2 (08:56→20:10)
[2022-06-10] MEDS: FERROUS SULFATE 325 MG TAB PO SCH (08:56)
[2022-06-10] MEDS: DOCUSATE 100 MG CAP PO SCH (08:56)
[2022-06-10] MEDS: PANTOPRAZOLE 40 MG TABLET PO SCH (08:56)
[2022-06-10] MEDS ORDERED: IPRATROPIUM-ALBUTEROL 3 ML NEB INHALATION PRN (13:44)
[2022-06-10 13:52] VITALS: BMI 16.7
[2022-06-10 15:34] LABS: Appearance,Urine Clear (Clear); Bilirubin,Urine Negative (Negative); Blood,Urine Negative (Negative); Color,Urine Yellow; Glucose,Urine (UA) 2+ (Negative); Hyaline Casts,Urine 1 /lpf (0-2); Ketones,Urine Trace (Negative); Leukocyte Esterase,Urine Negative (Negative); Mucus,Urine Rare /hpf; Nitrite,Urine Negative (Negative); PH, Urine 5.5 (5.0-8.0); Protein,Urine 1+ (Negative); RBC,Urine 1 /hpf (0-5); Specific Gravity,Urine 1.029 (1.001-1.035); Squamous Epithelial Cell,Urine 4 /hpf (0-4); Urobilinogen,Urine <2.0 mg/dL (<2.0); WBC,Urine 2 /hpf (0-5)
[2022-06-10 16:09] LABS: HCT 25.7 % (34.0-46.0); HGB 7.7 gm/dL (11.4-16.0); Hypochromasia Marked; MCH 28.1 pg (25.0-35.0); MCHC 30.1 g/dL (31.0-37.0); MCV 93.4 fL (80.0-100.0); Mean Platelet Volume 7.9; Platelet Count 446 k/uL (150-450); RBC 2.75 m/uL (3.80-5.40); RDW 15.5 % (11.5-15.5); WBC 43.3 k/uL (3.8-10.6)
[2022-06-10 17:46] LABS: Band Neutrophils % 3 %; Lymphocytes # (M) 0.43 k/uL (1.0-4.8); Monocytes # (M) 0.87 k/uL (0-1.0); Neutrophils % (M) 94 %; Nucleated Red Blood Cells 0 /100 WBC (0-0); Total Cells Counted 100
[2022-06-10 17:47] LABS: Anisocytosis (M) Present; Stomatocytes Present
[2022-06-10 17:48] LABS: Poikilocytosis (M) Present
--- NOTE | 2022-06-10 18:55 | P.CONS ---
History of Present Illness - Reason for Consult Consult date: 06/10/22 lung adenocarcinoma Requesting physician: Liliana Mendez - Chief Complaint shortness of breath - History of Present Illness Ms. Cosby is a very pleasant 66-year-old female who was seen initially in consult 05/25/[address] Mcintosh. She came to the ER with complaints of a persistent cough, shortness of breath and intermittent fevers, 1 month. 2 courses of antibiotics with transient relief, symptoms recurred and progressed. Chest x- ray showed large consolidation in the left upper lobe. CT was performed, showing a mass with cavitation measuring up to 12 cm with possible invasion into the mediastinum. Patient eventually had core biopsy of the left upper lobe mass on 05/26 with Pulmonary, this revealed non-small cell lung cancer, adenocarcinoma. Specimen requested to be sent for NGS and PDL1. 05/27 she had MRI of the brain that was negative for metastatic disease. She was seen by Radiation Oncology. She was scheduled for PET scan outpatient 06/06 with follow-up appointments. She was anemic, this was worked up, significantly elevated ferritin with low iron and saturation, most consistent with anemia of malignancy. Patient had not required a transfusion. Since discharge patient did complete her PET scan. She had a follow-up with Radiation Oncology scheduled in the next day or so, Medical Onc next week. Unfortunately, her shortness of breath is been getting progressively worse, she is coughing, not expectorating a lot, this is affecting her ability to get around, she is not much better since coming in to the hospital. On admission she was noted to have a hemoglobin of 6.3, she denies any bleeding. She is received 1 unit of blood. She denies fevers, nausea, chest pain, abdominal pain or cramping, acute changes in bowel or bladder habits, no hematochezia, melena, hematuria, unusual bleeding or bruising otherwise. She is not currently in any pain. Patient is a former smoker. She quit in 2018, but had been using E cigarettes since. She has a [id number] smoking history. Review of Systems 10 point review of systems is negative except as stated in HPI Past Medical History Past Medical History: Cancer, Osteoarthritis (OA), Pneumonia Additional Past Medical History / Comment(s): Pt recently admitted to [facility] on 05/24/22 with L large lung mass with cavitation/adenocarcinoma/postobstructive pneumonia and tachycardia thought likely d/t sepsis. Other hx: Pt states since last admission she has had bilateral lower leg/pedal edema, chronic anemia, bronchitis years ago, skin cancer removed from leg, chronic low back pain. History of Any Multi-Drug Resistant Organisms: None Reported Past Surgical History: No Surgical Hx Reported Additional Past Surgical History / Comment(s): L lung biopsy, colonoscopy/benign polypectomy Past Anesthesia/Blood Transfusion Reactions: No Reported Reaction Past Psychological History: No Psychological Hx Reported Smoking Status: Former smoker Past Alcohol Use History: None Reported Past Drug Use History: None Reported - Past Family History Mother Family Medical History: Cancer Additional Family Medical History / Comment(s): Pt does not know type of cancer Father Family Medical History: Coronary Artery Disease (CAD) Additional Family Medical History / Comment(s): Father was a smoker. Medications and Allergies Home Medications Medication Instructions Recorded Confirmed Type Albuterol Inhaler [Ventolin Hfa 2 puff INHALATION RT-Q4H PRN 05/24/22 06/09/22 History Inhaler] Docusate [Colace] 100 mg PO DAILY 05/24/22 06/09/22 History Ferrous Sulfate [Iron (65 MG 325 mg PO DAILY 05/24/22 06/09/22 History Elemental)] ALPRAZolam [Xanax] 0.25 mg PO BID PRN 3 Days #6 tab 06/03/22 06/09/22 Rx Acetaminophen Tab [Tylenol] 650 mg PO Q6HR PRN tab 06/03/22 06/09/22 Rx Amoxic-Pot Clav 875-125Mg 1 tab PO BID 10 Days #20 tab 06/03/22 06/09/22 Rx [Augmentin 875-125] Famotidine [Pepcid] 20 mg PO Q12HR #60 tab 06/03/22 06/09/22 Rx Melatonin 6 mg PO HS PRN 10 Days #10 tab 06/03/22 06/09/22 Rx Metoprolol Tartrate [Lopressor] 25 mg PO BID #60 tab 06/03/22 06/09/22 Rx Nystatin 100,000 Unit/ml Susp 500,000 unit PO QID 3 Days #60 ml 06/03/22 06/09/22 Rx [Mycostatin Oral Susp] predniSONE See Taper PO DIRECTED 06/09/22 06/09/22 History Allergies Allergy/AdvReac Type Severity Reaction Status Date / Time No Known Allergies Allergy Verified 06/09/22 21:11 Physical Exam Vitals: Vital Signs Temp Pulse Pulse Resp BP BP Pulse Ox 06/10/22 11:12 98.2 F 134 H 18 87/59 97 06/10/22 05:20 97.4 F L 102 H 18 94/58 99 06/10/22 02:14 97.2 F L 95 20 101/72 06/10/22 00:15 97.3 F L 101 H 20 94/60 06/10/22 00:00 97.2 F L 101 H 20 93/55 98 06/09/22 23:45 97.4 F L 101 H 20 93/54 06/09/22 23:35 98.6 F 101 H 16 94/55 98 06/09/22 21:36 117 H 15 104/52 98 06/09/22 19:32 98.6 F 122 H 17 104/52 95 Intake and Output 06/10/22 06/10/22 06/10/22 06:59 14:59 22:59 Intake Total 310 Balance 310 Intake: Blood Product 310 Rc As-1 Unit 310 [id number] Other: Voiding Method Toilet # Voids 1 # Bowel Movements 1 Weight 49.895 kg - Constitutional General appearance: cooperative, mild distress, thin - EENT Eyes: anicteric sclerae, edentulous ENT: hearing grossly normal, normal oropharynx - Neck Neck: no lymphadenopathy - Respiratory Respiratory: right: CTA, left: rhonchi, wheezing - Cardiovascular Heart sounds: normal: S1, S2 Abnormal Heart Sounds: no systolic murmur, no diastolic murmur, no rub, no S3 Gallop, no S4 Gallop, no click, no other leg Peripheral Edema: bilateral: None - Gastrointestinal General gastrointestinal: no absent bowel sounds, no decreased bowel sounds, no distended, no hepatomegaly, no hyperactive bowel sounds, normal bowel sounds, no organomegaly, no rigid, scaphoid, soft, no splenomegaly, no tenderness, no umbilical hernia, no ventral hernia - Integumentary Integumentary: pale - Neurologic Neurologic: CNII-XII intact - Musculoskeletal Musculoskeletal: generalized weakness, strength equal bilaterally - Psychiatric Psychiatric: A&O x's 3, appropriate affect, intact judgment & insight Results CBC & Chem 7: 06/10/22 15:49 06/09/22 19:46 Labs: Abnormal Lab Results - Last 24 Hours (Table) 06/09/22 06/09/22 06/09/22 Range/Units 19:46 19:46 19:46 WBC 34.9 H (3.8-10.6) k/uL RBC 1.98 L (3.80-5.40) m/uL Hgb 6.3 L* (11.4-16.0) gm/dL Hct 18.0 L* (34.0-46.0) % MCHC (31.0-37.0) g/dL RDW 16.2 H (11.5-15.5) % Neutrophils # 33.5 H (1.3-7.7) k/uL Neutrophils # (Manual) (1.3-7.7) k/uL Lymphocytes # 0.8 L (1.0-4.8) k/uL Lymphocytes # (Manual) (1.0-4.8) k/uL APTT 21.8 L (22.0-30.0) sec Sodium 136 L (137-145) mmol/L Potassium 3.4 L (3.5-5.1) mmol/L Carbon Dioxide 21 L (22-30) mmol/L Creatinine 0.42 L (0.52-1.04) mg/dL Calcium 7.0 L (8.4-10.2) mg/dL Alkaline Phosphatase 156 H (38-126) U/L Total Protein 4.4 L (6.3-8.2) g/dL Albumin 1.9 L (3.5-5.0) g/dL Urine Protein (Negative) Urine Glucose (UA) (Negative) Urine Ketones (Negative) Urine Mucus (None) /hpf Crossmatch 06/09/22 06/10/22 06/10/22 Range/Units 21:03 15:28 15:49 WBC 43.3 H (3.8-10.6) k/uL RBC 2.75 L (3.80-5.40) m/uL Hgb 7.7 L (11.4-16.0) gm/dL Hct 25.7 L (34.0-46.0) % MCHC 30.1 L (31.0-37.0) g/dL RDW (11.5-15.5) % Neutrophils # (1.3-7.7) k/uL Neutrophils # (Manual) 42.00 H (1.3-7.7) k/uL Lymphocytes # (1.0-4.8) k/uL Lymphocytes # (Manual) 0.43 L (1.0-4.8) k/uL APTT (22.0-30.0) sec Sodium (137-145) mmol/L Potassium (3.5-5.1) mmol/L Carbon Dioxide (22-30) mmol/L Creatinine (0.52-1.04) mg/dL Calcium (8.4-10.2) mg/dL Alkaline Phosphatase (38-126) U/L Total Protein (6.3-8.2) g/dL Albumin (3.5-5.0) g/dL Urine Protein 1+ H (Negative) Urine Glucose (UA) 2+ H (Negative) Urine Ketones Trace H (Negative) Urine Mucus Rare H (None) /hpf Crossmatch See Detail Chest x-ray: report reviewed Assessment and Plan (1) SOB (shortness of breath) Current Visit: Yes Status: Acute Priority: High Code(s): R06.02 - SHORTNESS OF BREATH SNOMED Code(s): 174535253 (2) Anemia Current Visit: Yes Status: Acute Priority: High Code(s): D64.9 - ANEMIA, UNSPECIFIED SNOMED Code(s): 556239947 (3) Adenocarcinoma, lung Current Visit: Yes Status: Acute Priority: High Code(s): C34.90 - MA LIGNANT NEOPLASM OF UNSP PART OF UNSP BRONCHUS OR LUNG SNOMED Code(s): 25 6944317 Plan: Anemia of malignancy. Previous anemia workup about 15 days ago, reviewed. Plan is for transfusion for hemoglobin less than 7. This will have to be monitored more closely in the outpatient setting with PRN transfusions. Patient is currently being treated with respiratory supportive medications as well as antibiotics for suspected postobstructive pneumonia. Agree with plan. Radiation Oncology consulted. Reviewed the results of the PET scan with the patient. Everything appears to be area localized in the left lung and mediastinal area, some pleural metastatic foci. Suspect a small malignant left pleural effusion. There is 1 suspicious left adrenal gland nodule, SUV is 9.6. Still pending NGS and PDL1 status. May have to consider chemo initially as the pt is moderately symptomatic. Will see how she is doing in AM. Further recs to follow.
[2022-06-10] MEDS: IPRATROPIUM-ALBUTEROL 3 ML NEB INHALATION SCH (19:58)
[2022-06-10] MEDS: ACETAMINOPHEN TAB 325 MG TAB PO PRN (20:30)
--- NOTE | 2022-06-11 00:18 | HP ---
HISTORY AND PHYSICAL CHIEF COMPLAINTS: Weakness and pneumonia. HISTORY OF PRESENT ILLNESS: This is a 66-year-old woman with a past medical history of multiple medical problems was recently admitted, diagnosed to have a left CA of lung. The patient is complaining of severe weakness, some cough and the patient has an appointment with oncologist soon. Hemoglobin was found to be 6.3. The patient was not feeling well after discharge and because of failure of outpatient treatment, the patient was readmitted and is being closely monitored at this time. One unit of transfusion has been arranged. There is no history of any fever, rigors, or chills at this time. PAST MEDICAL HISTORY: History of recently diagnosed lung cancer, history of degenerative joint disease. The rest of the history noted. HOME MEDICATIONS: Reviewed include melatonin, dose and rest of medications reviewed. ALLERGIES: None. FAMILY HISTORY: History of cancer in the family. SOCIAL HISTORY: Previous history of smoking. REVIEW OF SYSTEMS: A 14-point review of systems is negative except as mentioned earlier. PHYSICAL EXAMINATION: VITAL SIGNS: Pulse is 102, blood pressure 90/58, respiration 18, temperature 97.4. HEENT: Conjunctivae normal. CARDIOVASCULAR: S1, S2 muffled. RESPIRATION: Breath sounds diminished at the bases, especially on the left side. ABDOMEN: Soft, nontender. LEGS: No edema. NERVOUS SYSTEM: Diffusely weak. SKIN: No ulcer. JOINTS: No active deforming arthropathy. LABORATORY DATA: Hemoglobin 6.2, white count 34.9. ASSESSMENT: 1. Left-sided lung cancer. 2. Possible pneumonia. 3. Increased WBC. 4. Anemia, multifactorial possibly. 5. Degenerative joint disease. 6. History of pneumonia. 7. Multiple complex medical issues. RECOMMENDATIONS AND DISCUSSION: This is a 66-year-old woman, who presented with multiple complex medical issues. We will monitor the patient closely. Continue the current medications. I would recommend empiric antibiotics. The patient is on IV Zosyn. Recommend Pulmonary as well as Radiation Oncology consultation and Hematology/ Oncology consultation. See orders for further details. Prognosis extremely guarded because of multiple complex medical issues. Further recommendations to follow. MMODL / IJN: [id number] /
[2022-06-11] MEDS: PIPERACILLIN-TAZOBACTAM 3.375 GM in SODIUM CHLORIDE 0.9% 100 ML IVPB SCH ×3 (01:33→19:46)
[2022-06-11] MEDS: AZITHROMYCIN 500 MG in SODIUM CHLORIDE 0.9% 250 ML IVPB SCH (01:38)
[2022-06-11] MEDS: SODIUM CHLORIDE 0.9% 1,000 ML IV SCH ×2 (06:26→19:47)
[2022-06-11] MEDS: IPRATROPIUM-ALBUTEROL 3 ML NEB INHALATION SCH ×4 (08:32→20:11)
[2022-06-11] MEDS: METOPROLOL TARTRATE 25 MG TAB PO SCH ×2 (09:00→19:46)
[2022-06-11] MEDS: DOCUSATE 100 MG CAP PO SCH (09:01)
[2022-06-11] MEDS: PANTOPRAZOLE 40 MG TABLET PO SCH (09:01)
[2022-06-11] MEDS: FERROUS SULFATE 325 MG TAB PO SCH (09:01)
[2022-06-11 09:35] LABS: African American GFR (CKD) 116.1 (60.0-200.0); Albumin 2.1 g/dL (3.8-4.9); Albumin/Globulin Ratio 0.7 (1.60-3.17); Anion Gap 12.2 mmol/L (10.00-18.00); BUN/Creat Ratio 30.8 Ratio (12.00-20.00); Blood Urea Nitrogen 15.4 mg/dL (9.0-27.0); Carbon Dioxide 20.8 mmol/L (20.0-27.5); Non-African American GFR(CKD) 100.1 (60.0-200.0); Potassium 3.5 mmol/L (3.5-5.5); Total Bilirubin 0.6 mg/dL (0.30-1.20); Total Protein 5.1 g/dL (6.2-8.2)
[2022-06-11 09:36] LABS: Magnesium 2.1 mg/dL (1.5-2.4)
[2022-06-11 11:18] LABS: NRBC Per 100 WBC 0 /100 WBCS (0.0-0.0)
[2022-06-11 11:20] LABS: Acanthocytes 2+; Basophils # (M) 0 X 10*3/uL (0.00-0.10); Eosinophils # (M) 0 X 10*3/uL (0.04-0.35); HCT 26.2 % (37.2-46.3); Lymphocytes # (M) 1.08 X 10*3/uL (0.90-5.00); MCH 28.5 pg (27.0-32.0); MCHC 30.5 g/dL (32.0-37.0); MCV 93.2 fL (80.0-97.0); Mean Platelet Volume 9.6 fL (9.5-12.2); Monocytes # (M) 0 X 10*3/uL (0.20-1.00); Neutrophils # (M) 52.91 X 10*3/uL (2.00-8.90); Neutrophils % (M) 98 %; Platelet Count 440 X 10*3/uL (140-440); RBC 2.81 X 10*6/uL (4.10-5.20); RDW 16.1 % (11.5-14.5); WBC 53.99 X 10*3/uL (4.50-10.00)
--- NOTE | 2022-06-11 18:39 | US ---
EXAMINATION TYPE: US venous doppler duplex LE BI DATE OF EXAM: 06/11/2022 6:20 PM COMPARISON: NONE CLINICAL HISTORY: dvt. rule out dvt SIDE PERFORMED: Bilateral TECHNIQUE: The lower extremity deep venous system is examined utilizing real time linear array sonog josiane with graded compression, doppler sonography and color-flow sonography. VESSELS IMAGED: Common Femoral Vein Deep Femoral Vein Greater Saphenous Vein * Femoral Vein Popliteal Vein Small Saphenous Vein * Proximal Calf Veins (* superficial vessels) Right Leg: No evidence of DVT seen Left Leg: No evidence of DVT seen Grayscale, color doppler, spectral doppler imaging performed of the deep veins of the lower extremiti es. There is normal flow, compressibility, vascular waveforms. IMPRESSION: No evidence of DVT.
--- NOTE | 2022-06-11 19:26 | P.PN ---
Subjective Progress Note Date: 06/11/22 Principal diagnosis: Metastatic In f/u today pt cot to be SOB, cough, tired. Appetite is poor, generalized weakness. Objective - Vital Signs Vital signs: Vital Signs Temp 98.5 F 06/11/22 11:00 Pulse 135 H 06/11/22 12:50 Resp 22 06/11/22 12:50 BP 105/60 06/11/22 11:00 Pulse Ox 93 L 06/11/22 11:00 FiO2 Intake & Output 06/10/22 06/11/22 06/11/22 18:59 06:59 18:59 Intake Total 1200 Balance 1200 Weight 49.895 kg Intake: Intake, IV Titration 1200 Amount Sodium Chloride 0.9% 1, 1200 000 ml @ 100 mls/hr IV . Q10H [facility] Rx#:[id number] Other: Voiding Method Toilet Toilet # Voids 1 1 1 # Bowel Movements 1 1 - Constitutional General appearance: Present: cooperative, mild distress, thin - EENT Eyes: Present: anicteric sclerae, EOMI ENT: Present: hearing grossly normal - Respiratory Respiratory: right: CTA, left: wheezing, other (egophony ) - Cardiovascular Rhythm: regular Heart sounds: normal: S1, S2 Abnormal Heart Sounds: Absent: systolic murmur, diastolic murmur, rub, S3 Gallop, S4 Gallop, click, other - Peripheral edema leg Peripheral Edema: bilateral: None - Gastrointestinal General gastrointestinal: Present: normal bowel sounds, scaphoid - Integumentary Integumentary: Present: pale - Neurologic Neurologic: Present: CNII-XII intact - Musculoskeletal Musculoskeletal: Present: generalized weakness - Psychiatric Psychiatric: Present: A&O x's 3, appropriate affect, intact judgment & insight - Labs CBC & Chem 7: 06/11/22 05:58 06/11/22 05:58 Labs: Abnormal Lab Results - Last 24 Hours (Table) 06/10/22 06/10/22 06/11/22 Range/Units 15:28 15:49 05:58 WBC 43.3 H 53.99 H* (3.8-10.6) k/uL RBC 2.75 L 2.81 L (3.80-5.40) m/uL Hgb 7.7 L 8.0 L (11.4-16.0) gm/dL Hct 25.7 L 26.2 L (34.0-46.0) % MCHC 30.1 L 30.5 L (31.0-37.0) g/dL RDW 16.1 H (11.5-14.5) % Absolute Nucleated RBC 0.02 H (0.00-0.00) X 10*3/uL Neutrophils # (Manual) 42.00 H 52.91 H (1.3-7.7) k/uL Lymphocytes # (Manual) 0.43 L (1.0-4.8) k/uL Monocytes # (Manual) 0 L (0.20-1.00) X 10*3/uL Eosinophils # (Manual) 0 L (0.04-0.35) X 10*3/uL D-Dimer (<0.60) mg/L FEU Creatinine (0.6-1.5) mg/dL BUN/Creatinine Ratio (12.00-20.00) Ratio Calcium (8.7-10.3) mg/dL Alkaline Phosphatase (41-126) U/L Total Protein (6.2-8.2) g/dL Albumin (3.8-4.9) g/dL Albumin/Globulin Ratio (1.60-3.17) g/dL Urine Protein 1+ H (Negative) Urine Glucose (UA) 2+ H (Negative) Urine Ketones Trace H (Negative) Urine Mucus Rare H (None) /hpf 06/11/22 06/11/22 Range/Units 05:58 12:44 WBC (3.8-10.6) k/uL RBC (3.80-5.40) m/uL Hgb (11.4-16.0) gm/dL Hct (34.0-46.0) % MCHC (31.0-37.0) g/dL RDW (11.5-14.5) % Absolute Nucleated RBC (0.00-0.00) X 10*3/uL Neutrophils # (Manual) (1.3-7.7) k/uL Lymphocytes # (Manual) (1.0-4.8) k/uL Monocytes # (Manual) (0.20-1.00) X 10*3/uL Eosinophils # (Manual) (0.04-0.35) X 10*3/uL D-Dimer 3.49 H (<0.60) mg/L FEU Creatinine 0.5 L (0.6-1.5) mg/dL BUN/Creatinine Ratio 30.80 H (12.00-20.00) Ratio Calcium 8.0 L (8.7-10.3) mg/dL Alkaline Phosphatase 180 H (41-126) U/L Total Protein 5.1 L (6.2-8.2) g/dL Albumin 2.1 L (3.8-4.9) g/dL Albumin/Globulin Ratio 0.70 L (1.60-3.17) g/dL Urine Protein (Negative) Urine Glucose (UA) (Negative) Urine Ketones (Negative) Urine Mucus (None) /hpf Microbiology - Last 24 Hours (Table) 06/11/22 06:15 Sputum Culture - Preliminary Sputum 06/09/22 19:46 Blood Culture - Preliminary Blood No Growth after 24 hours Assessment and Plan (1) SOB (shortness of breath) Current Visit: Yes Status: Acute Priority: High Code(s): R06.02 - SHORTNESS OF BREATH SNOMED Code(s): 772316961 (2) Anemia Current Visit: Yes Status: Acute Priority: High Code(s): D64.9 - ANEMIA, UNSPECIFIED SNOMED Code(s): 100506020 (3) Adenocarcinoma, lung Current Visit: Yes Status: Acute Priority: High Code(s): C34.90 - MALIGNANT NEOPLASM OF UNSP PART OF UNSP BRONCHUS OR LUNG SNOMED Code(s): 818753060 Plan: Anemia of malignancy. Previous anemia workup about 15 days ago, reviewed. Plan is for transfusion for hemoglobin less than 7. This will have to be monitored more closely in the outpatient setting with PRN transfusions. Patient is currently being treated with respiratory supportive medications as we ll as antibiotics for suspected postobstructive pneumonia. Agree with plan. Radiation Oncology discussed case with Primary Oncologist. Plan is to treat for pneumonia, complete abx course. Rad Onc will do short course of radiation to see if that helps with resp status, opens airway. Pt will have chemo planned for outpt next week or early the following week. PET scan results reviewed with the patient yesterday. Everything appears to be area localized in the left lung and mediastinal area, some pleural metastatic foci. Suspect a small malignant left pleural effusion. There is 1 suspicious left adrenal gland nodule, SUV is 9.6. Still pending NGS and PDL1 status. Attests: I have seen and examined pt, performed H&P, developed impression and plan of care. Discussed with dictator. Agree with documentation, dictated as a scribe.
--- NOTE | 2022-06-11 19:44 | CT ---
EXAMINATION TYPE: CT angio chest CT DLP: 169.1 mGycm, Automated exposure control for dose reduction was used. DATE OF EXAM: 06/11/2022 7:27 PM COMPARISON: 06/06/2022. CLINICAL INDICATION:Female, 66 years old with history of pe; PE TECHNIQUE/CONTRAST: CTA scan of the thorax is performed with IV Contrast, patient injected with 100ml mL of Isovue 370, p ulmonary embolism protocol. MIP images are created and reviewed. FINDINGS: Pulmonary Artery: There is no evidence for a filling defect within the pulmonary vasculature to sugge st acute pulmonary embolism. The pulmonary artery is of normal size. Lungs/Pleura: Redemonstration of large left pulmonary mass measuring up to at least 15.2 x 9.2 cm wit h surrounding consolidation which is bigger than prior PET on 06/06/2022.. There is a small left pleur al effusion. Nodular changes in the left lung base again seen measuring up to 16 mm. The right lung i s relatively clear without evidence of there is an enlarging left pleural effusion. Patchy airspace o pacity seen within the right posterior lung are new from prior PET. Airway: The left airways are narrowed with mass effect from a forementioned left lung mass. Heart: The heart is slightly displaced to the right secondary to a large mass. The pulmonary trunk is attenuated from the mass effect. Vasculature: No evidence of aortic aneurysm. Mediastinum: No gross evidence of adenopathy. Musculoskeletal: No acute osseous abnormalities Soft Tissues: Unremarkable. Lower neck: No significant findings. Upper Abdomen: No significant findings. IMPRESSION: 1. No evidence of pulmonary embolism. 2. Enlarging left pulmonary mass compared to 06/06/2022 PET/CT. These findings could be due to increas ing from mass effect of the mass on the left pulmonary hilum resulting in atelectasis. 3. Enlarging left pleural effusion. 4. Right posterior lung patchy airspace disease correlate for pneumonia.
[2022-06-11] MEDS: ALPRAZolam 0.25 MG TAB PO PRN (19:46)
[2022-06-12] MEDS: SODIUM CHLORIDE 0.9% 1,000 ML IV SCH ×3 (02:21→22:09)
[2022-06-12] MEDS: PIPERACILLIN-TAZOBACTAM 3.375 GM in SODIUM CHLORIDE 0.9% 100 ML IVPB SCH ×3 (02:23→17:07)
[2022-06-12] MEDS: IPRATROPIUM-ALBUTEROL 3 ML NEB INHALATION SCH ×3 (07:24→19:22)
--- NOTE | 2022-06-12 08:51 | P.PN ---
Subjective Progress Note Date: 06/12/22 Principal diagnosis: lung cancer, fatigue/dyspnea The patient is a 66-year-old female with a history of a newly diagnosed stage IV (cT4, cN2, 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 This is felt to likely be postobstructive in nature. The day prior to admission, the patient had been feeling increasingly fatigued. She was unable to stand up and ambulate independently. She was also feeling increasing shortness of breath. She also has some discomfort in the posterior chest wall. Her daughter called EMS, and the patient was found to have a fever in route to the hospital. She also has had difficulty with lower extremity swel ling. She states that she is coughing, but is not producing much sputum. Upon admission, her hemoglobin was found to be 6.2. She did have a CT PE protocol performed on 06/11/22, which revealed the large, left pulmonary mass measuring 15 x 9 cm. This appeared larger than even her PET scan from this past week. Lower extremity Doppler performed was unremarkable. Objective - Vital Signs Vital signs: Vital Signs Temp 98.7 F 06/12/22 05:00 Pulse 132 H 06/12/22 07:35 Resp 24 06/12/22 05:00 BP 113/69 06/12/22 05:00 Pulse Ox 96 06/12/22 05:00 FiO2 Intake & Output 06/11/22 06/12/22 06/12/22 18:59 06:59 18:59 Intake Total 1200 Balance 1200 Intake: Intake, IV Titration 1200 Amount Sodium Chloride 0.9% 1, 1200 000 ml @ 100 mls/hr IV . Q10H [facility] Rx#:[id number] Other: Voiding Method Toilet # Voids 1 # Bowel Movements 1 - Constitutional General appearance: Present: mild distress - EENT Eyes: Present: EOMI, PERRLA ENT: Present: hearing grossly normal - Respiratory Respiratory: right: CTA, left: diminished - Cardiovascular Rhythm: regular (tachycardic) - Gastrointestinal General gastrointestinal: Absent: tenderness - Integumentary Integumentary: Present: pale - Musculoskeletal Musculoskeletal: Present: generalized weakness - Psychiatric Psychiatric: Present: A&O x's 3, appropriate affect - Labs CBC & Chem 7: 06/11/22 05:58 06/11/22 05:58 Labs: Abnormal Lab Results - Last 24 Hours (Table) 06/11/22 06/11/22 06/11/22 Range/Units 05:58 05:58 12:44 WBC 53.99 H* (4.50-10.00) X 10*3/uL RBC 2.81 L (4.10-5.20) X 10*6/uL Hgb 8.0 L (12.0-15.0) g/dL Hct 26.2 L (37.2-46.3) % MCHC 30.5 L (32.0-37.0) g/dL RDW 16.1 H (11.5-14.5) % Absolute Nucleated RBC 0.02 H (0.00-0.00) X 10*3/uL Neutrophils # (Manual) 52.91 H (2.00-8.90) X 10*3/uL Monocytes # (Manual) 0 L (0.20-1.00) X 10*3/uL Eosinophils # (Manual) 0 L (0.04-0.35) X 10*3/uL D-Dimer 3.49 H (<0.60) mg/L FEU Creatinine 0.5 L (0.6-1.5) mg/dL BUN/Creatinine Ratio 30.80 H (12.00-20.00) Ratio Calcium 8.0 L (8.7-10.3) mg/dL Alkaline Phosphatase 180 H (41-126) U/L Total Protein 5.1 L (6.2-8.2) g/dL Albumin 2.1 L (3.8-4.9) g/dL Albumin/Globulin Ratio 0.70 L (1.60-3.17) g/dL Microbiology - Last 24 Hours (Table) 06/09/22 19:46 Blood Culture - Preliminary Blood No Growth after 48 hours 06/11/22 06:15 Sputum Culture - Preliminary Sputum - Imaging and Cardiology CT scan - chest: report reviewed, image reviewed Assessment and Plan Assessment: The patient is a 66-year-old female with a history of a newly diagnosed stage IV (cT4, cN2, 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 This is felt to likely be postobstructive in nature. Plan: 1. Pneumonia - felt to be possibly postobstructive in nature, the patient was febrile on admission but is not febrile at the time of my evaluation (afternoon of 06/11/2022). She has been started on broad-spectrum antibiotics, and cultures are pending. She still feels quite short of breath, which is worse when lying flat. 2. Adenocarcinoma of left upper lung: This lesion seems to be growing rapidly, and has caused further lung collapse compared to the computed tomography scan d one approximately 3 weeks ago. The patient is symptomatic from this lesion. I did discuss with the patient a possible short course of palliative radiotherapy to this area. We also discussed the possibility of initiation of inpatient chemotherapy. Dr. Mcintosh did express some concern about starting chemotherapy if there is an intercurrent infection. I discussed with the patient that while radiation may help to shrink the tumor and relieve some of the patient's symptoms, oftentimes relief from this type of treatment may take some time to be realized. The patient and her daughter were in agreement with initiating therapy, and I will touch base with medical oncology regarding timing. 3. LE Edema: The patient does have 2+ bilateral lower extremity pitting edema. She had this during a prior hospital stay as well, and states that it did improve with Lasix but has since reoccurred. Time with Patient: Less than 30
[2022-06-12] MEDS: FERROUS SULFATE 325 MG TAB PO SCH (09:42)
[2022-06-12] MEDS: DOCUSATE 100 MG CAP PO SCH (09:42)
[2022-06-12] MEDS: PANTOPRAZOLE 40 MG TABLET PO SCH (09:43)
[2022-06-12] MEDS: METOPROLOL TARTRATE 25 MG TAB PO SCH ×2 (09:43→21:26)
--- NOTE | 2022-06-12 10:14 | PN ---
PROGRESS NOTE SUBJECTIVE: This is a 66-year-old woman, who was admitted with left-sided lung cancer, also had possible pneumonia. The patient also is tachycardic. The patient on broad spectrum IV antibiotics. Multiple consultants are following the patient closely. PAST MEDICAL HISTORY: Reviewed. REVIEW OF SYSTEMS: A 14-point review of systems is negative except as mentioned earlier. CURRENT MEDICATIONS: Reviewed include DuoNeb. Dose and rest of medication noted. PHYSICAL EXAMINATION: VITAL SIGNS: Pulse is 107, regular. Blood pressure 105/60, respiration 20. HEENT: Conjunctivae normal. NECK: No JVD. CARDIOVASCULAR: S1 and S2. RESPIRATION: Decreased breath sounds at the bases. Scattered rhonchi and expiratory wheezing. ABDOMEN: Soft, nontender. LEGS: No edema. NERVOUS SYSTEM: No focal deficits. LABS: WBC 53.99. D-dimer is 3.49. The rest of the labs are noted. ASSESSMENT: 1. Left-sided lung cancer. 2. Possible pneumonia. 3. Tachycardia. 4. Increased WBC. 5. Elevated D-dimer. 6. Anemia multifactorial possibly. 7. Degenerative joint disease. 8. History of pneumonia. 9. Multiple complex medical issues. RECOMMENDATIONS AND DISCUSSION: I recommend to continue current medications, symptomatic treatment. Continue with antibiotics. Also recommend a CT angio of the chest to complete the workup and rule out possible pulmonary embolism, otherwise overall prognosis guarded. Repeat labs. The patient had possibly leukemoid reaction. Further recommendations to follow. MMODL / IJN: [id number] /
[2022-06-12 10:45] LABS: ALT 17 U/L (4-34); AST 23 U/L (14-36); African American GFR (CKD) >90 (>60 ml/min/1.73 sqM); Albumin 2.1 g/dL (3.5-5.0); Albumin/Globulin Ratio 0.7; Alkaline Phosphatase 177 U/L (38-126); Anion Gap 11 mmol/L; Blood Urea Nitrogen 16 mg/dL (7-17); Calcium 7.5 mg/dL (8.4-10.2); Carbon Dioxide 22 mmol/L (22-30); Chloride 104 mmol/L (98-107); Globulin 2.9 g/dL; Glucose 106 mg/dL (74-99); Non-African American GFR(CKD) >90 (>60 ml/min/1.73 sqM); Potassium 3.1 mmol/L (3.5-5.1); Sodium 137 mmol/L (137-145); Total Bilirubin 0.7 mg/dL (0.2-1.3)
[2022-06-12 10:53] LABS: Anisocytosis Slight; Basophils % (A) 0 %; Eosinophils % (A) 0 %; HCT 24.8 % (34.0-46.0); HGB 7.6 gm/dL (11.4-16.0); Hypochromasia Marked; Lymphocytes # (A) 0.7 k/uL (1.0-4.8); Lymphocytes % (A) 2 %; MCH 28.4 pg (25.0-35.0); MCHC 30.7 g/dL (31.0-37.0); MCV 92.5 fL (80.0-100.0); Mean Platelet Volume 7.7; Monocytes # (A) 0.5 k/uL (0-1.0); Monocytes % (A) 1 %; Neutrophils # (A) 40.3 k/uL (1.3-7.7); Neutrophils % (A) 97 %; Platelet Count 390 k/uL (150-450); RBC 2.68 m/uL (3.80-5.40); WBC 41.8 k/uL (3.8-10.6)
[2022-06-12] MEDS: ACETAMINOPHEN TAB 325 MG TAB PO PRN (13:06)
--- NOTE | 2022-06-12 17:42 | P.PN ---
Subjective Progress Note Date: 06/12/22 Principal diagnosis: Metastatic lung adenocarcinoma In f/u today pt reports that she is feeling less short of breath but looking at her, her respirations are shallow unlabored. She continues to have a cough. Generalized weakness. Poor energy levels, poor appetite. Patient states "I just want to go to sleep". Objective - Vital Signs Vital signs: Vital Signs Temp 98.9 F 06/12/22 14:28 Pulse 128 H 06/12/22 13:05 Resp 32 H 06/12/22 13:05 BP 107/63 06/12/22 13:05 Pulse Ox 95 06/12/22 13:05 FiO2 Intake & Output 06/11/22 06/12/22 06/12/22 18:59 06:59 18:59 Intake Total 1200 Balance 1200 Intake: Intake, IV Titration 1200 Amount Sodium Chloride 0.9% 1, 1200 000 ml @ 100 mls/hr IV . Q10H MARIYA Rx#:[id number] Other: Voiding Method Toilet Toilet # Voids 1 1 # Bowel Movements 1 - Constitutional Constitutional Comment(s): Frail, cachectic General appearance: Present: no acute distress, thin - EENT Eyes: Present: anicteric sclerae, EOMI, poor dentition ENT: Present: hearing grossly normal, normal oropharynx - Respiratory Respiratory: right: rales, left: rhonchi, wheezing - Cardiovascular Heart sounds: normal: S1, S2 Abnormal Heart Sounds: Absent: systolic murmur, diastolic murmur, rub, S3 Gallop, S4 Gallop, click, other - Peripheral edema leg Peripheral Edema: bilateral: None - Gastrointestinal General gastrointestinal: Present: normal bowel sounds, soft - Neurologic Neurologic: Present: CNII-XII intact (Grossly) - Musculoskeletal Musculoskeletal: Present: generalized weakness - Psychiatric Psychiatric: Present: A&O x's 3, appropriate affect, intact judgment & insight - Labs CBC & Chem 7: 06/12/22 09:58 06/12/22 09:58 Labs: Abnormal Lab Results - Last 24 Hours (Table) 06/12/22 06/12/22 Range/Units 09:58 09:58 WBC 41.8 H (3.8-10.6) k/uL RBC 2.68 L (3.80-5.40) m/uL Hgb 7.6 L (11.4-16.0) gm/dL Hct 24.8 L (34.0-46.0) % MCHC 30.7 L (31.0-37.0) g/dL RDW 16.0 H (11.5-15.5) % Neutrophils # 40.3 H (1.3-7.7) k/uL Lymphocytes # 0.7 L (1.0-4.8) k/uL Potassium 3.1 L (3.5-5.1) mmol/L Creatinine 0.46 L (0.52-1.04) mg/dL Glucose 106 H (74-99) mg/dL Calcium 7.5 L (8.4-10.2) mg/dL Alkaline Phosphatase 177 H (38-126) U/L Total Protein 5.0 L (6.3-8.2) g/dL Albumin 2.1 L (3.5-5.0) g/dL Microbiology - Last 24 Hours (Table) 06/11/22 06:15 Gram Stain - Preliminary Sputum Sputum Culture - Preliminary 06/09/22 19:46 Blood Culture - Preliminary Blood No Growth after 48 hours - Imaging and Cardiology CT scan - chest: report reviewed, image reviewed Assessment and Plan (1) SOB (shortness of breath) Current Visit: Yes Status: Acute Priority: High Code(s): R06.02 - SHORTNESS OF BREATH SNOMED Code(s): 697593209 (2) Anemia Current Visit: Yes Status: Acute Priority: High Code(s): D64.9 - ANEMIA, UNSPECIFIED SNOMED Code(s): 280431937 (3) Adenocarcinoma, lung Current Visit: Yes Status: Acute Priority: High Code(s): C34.90 - MALIGNANT NEOPLASM OF UNSP PART OF UNSP BRONCHUS OR LUNG SNOMED Code(s): 049188079 Plan: Anemia of malignancy. Previous anemia workup reviewed. No acute intervention or supplements are needed at this time. Transfuse for hemoglobin less than 7. Patient is currently being treated with respiratory supportive medications as well as antibiotics for suspected postobstructive pneumonia. She reports subjective improvements today. Objectively though, she seems to be struggling similarly to breathe. Treatment of malignancy plan is to treat for pneumonia, complete abx course, short course of radiation to see if that helps with resp status, opens airway. Pt did have a 101.8 temp. Radiation Oncologist held treatment. Pancultures ordered. Infectious disease consulted as patient is on antibiotics currently. PET scan results were previously reviewed with the patient. Everything appears to be area localized in the left lung and mediastinal area, some pleural metastatic foci. Suspect a small malignant left pleural effusion. There is 1 suspicious left adrenal gland nodule, SUV is 9.6. Still pending NGS and PDL1 status. Despite disease burden that is not particularly heavy, patient is struggling. Her performance status is declining rapidly. Was explained to her that we are trying to balance risks versus benefits. Patient does have a pneumonia and treating her with chemotherapy right now could cause more harm as it wouldn't put her at increased risk for susceptibility to an infection. If everything that is happening is related to progression of cancer than delaying treatment puts her at risk for disease progression that would eventually be fatal. A few days of antibiotics short course of radiation was felt to be the best course of action. We will continue to follow closely with patient and make decisions as her case evolves. Patient did verbalize understanding the plan. Attests: I have seen and examined pt, performed H&P, developed impression and plan of care. Discussed with dictator. Agree with documentation, dictated as a scribe.
[2022-06-12] MEDS: methylPREDNISolone SOD SUCCI 125 MG/2 ML VIAL IV SCH (18:32)
--- NOTE | 2022-06-12 22:08 | XR ---
EXAMINATION TYPE: XR chest 2V DATE OF EXAM: 06/12/2022 COMPARISON: 06/10/2022 HISTORY: Fever and cough TECHNIQUE: FINDINGS: There is almost complete opacification left hemithorax. Heart size is fairly normal. Right lung is clear. No heart failure seen. Bony thorax is intact IMPRESSION: Extensive pulmonary consolidation or pleural fluid on the left side which has progressed compared to recent exam. No heart failure seen.
[2022-06-12] MEDS ORDERED: FUROSEMIDE 10 MG/ML 2 ML VIAL IV ONE (22:41)
[2022-06-13] MEDS: methylPREDNISolone SOD SUCCI 125 MG/2 ML VIAL IV SCH ×4 (00:23→18:10)
[2022-06-13] MEDS: PIPERACILLIN-TAZOBACTAM 3.375 GM in SODIUM CHLORIDE 0.9% 100 ML IVPB SCH ×3 (02:10→20:56)
[2022-06-13] MEDS: IPRATROPIUM-ALBUTEROL 3 ML NEB INHALATION SCH ×3 (07:21→19:55)
[2022-06-13 08:05] LABS: Appearance,Urine Clear (Clear); Bilirubin,Urine Negative (Negative); Blood,Urine Negative (Negative); Color,Urine Light Yellow; Glucose,Urine (UA) Negative (Negative); Ketones,Urine Negative (Negative); Leukocyte Esterase,Urine Negative (Negative); Nitrite,Urine Negative (Negative); Protein,Urine Negative (Negative); Urobilinogen,Urine <2.0 mg/dL (<2.0)
[2022-06-13] MEDS: DOCUSATE 100 MG CAP PO SCH (08:29)
[2022-06-13] MEDS: FERROUS SULFATE 325 MG TAB PO SCH (08:29)
[2022-06-13] MEDS: METOPROLOL TARTRATE 25 MG TAB PO SCH ×2 (08:29→20:56)
[2022-06-13] MEDS: PANTOPRAZOLE 40 MG TABLET PO SCH (08:29)
--- NOTE | 2022-06-13 09:58 | PN ---
PROGRESS NOTE SUBJECTIVE: This is a 66-year-old woman, who was admitted with left lung cancer, also had possible pneumonia. The patient is also tachycardic. The patient is also short of breath. The patient is on broad-spectrum IV antibiotics empirically. The Radiation Oncology is holding the treatment because of the patient's poor general condition. The patient continues to be febrile, tachycardic as mentioned earlier. The patient will be closely monitored. PAST MEDICAL HISTORY: Reviewed. REVIEW OF SYSTEMS: A 14-point review of systems is negative except as mentioned earlier. CURRENT MEDICATIONS: Reviewed include Zosyn, dose and rest of medication noted. PHYSICAL EXAMINATION: VITAL SIGNS: Pulse is 128, regular. Blood pressure 107/60, respirations NTD HEENT: Conjunctivae normal. NECK: No JVD. CARDIOVASCULAR: S1, S2 muffled. RESPIRATION: Breath sounds diminished at the bases. A few scattered rhonchi ABDOMEN: Soft, nontender. LEGS: No edema. NERVOUS SYSTEM: No focal deficits. LABS: Reviewed. White count is 41.8 and the chest CTA, which I reviewed personally showed no evidence of pulmonary embolism, but enlarging pulmonary mass and pleural effusion. ASSESSMENT: 1. Left-sided lung cancer. 2. Possible pneumonia. 3. Tachycardia. 4. Increased WBC. 5. Elevated D-dimer. 6. Anemia multifactorial possibly. 7. Degenerative joint disease. 8. History of pneumonia. 9. Multiple complex medical issues. RECOMMENDATIONS AND DISCUSSION: I recommend to continue current management and symptomatic treatment. Continue with bronchodilators. I would also add IV steroids, otherwise continue with empiric antibiotics. Prognosis guarded because of multiple complex medical issues and further recommendations to follow. The cultures are negative so far. The CT of the chest is reviewed personally by me. Discussed with family and closely follow with multiple consultants and further recommendation to follow. See orders for details. MMODL / IJN: [id number] / MTDD
[2022-06-13 10:11] LABS: African American GFR (CKD) 124.9 (60.0-200.0); Albumin 1.8 g/dL (3.8-4.9); Albumin/Globulin Ratio 0.6 (1.60-3.17); Anion Gap 13.5 mmol/L (10.00-18.00); BUN/Creat Ratio 47.25 Ratio (12.00-20.00); Blood Urea Nitrogen 18.9 mg/dL (9.0-27.0); Calcium 7.8 mg/dL (8.7-10.3); Carbon Dioxide 20.5 mmol/L (20.0-27.5); Non-African American GFR(CKD) 107.8 (60.0-200.0); Potassium 3.2 mmol/L (3.5-5.5); Total Bilirubin 0.3 mg/dL (0.30-1.20); Total Protein 4.8 g/dL (6.2-8.2)
[2022-06-13 12:09] LABS: Basophils % (A) 0.2 %; Eosinophils # (A) 0.05 X 10*3/uL (0.04-0.35); Eosinophils % (A) 0.1 %; Immature Grans, Automated 4.6 %; Lymphocytes # (A) 0.83 X 10*3/uL (0.90-5.00); Lymphocytes % (A) 1.9 %; Monocytes # (A) 0.59 X 10*3/uL (0.20-1.00); Monocytes % (A) 1.3 %; NRBC Per 100 WBC 0 /100 WBCS (0.0-0.0); Neutrophils # (A) 41.03 X 10*3/uL (1.80-7.70); Neutrophils % (A) 91.9 %
[2022-06-13 12:10] LABS: HCT 22.2 % (37.2-46.3); HGB 6.8 g/dL (12.0-15.0); MCH 27.4 pg (27.0-32.0); MCHC 30.6 g/dL (32.0-37.0); MCV 89.5 fL (80.0-97.0); Mean Platelet Volume 9.6 fL (9.5-12.2); Platelet Count 305 X 10*3/uL (140-440); RBC 2.48 X 10*6/uL (4.10-5.20); RDW 16.3 % (11.5-14.5); WBC 44.67 X 10*3/uL (4.50-10.00)
--- NOTE | 2022-06-13 13:41 | US ---
EXAMINATION TYPE: US venous doppler duplex UE LT DATE OF EXAM: 06/13/2022 COMPARISON: NONE CLINICAL HISTORY: LUE swelling and into the neck. Swelling left side/ neck and arm SIDE PERFORMED: Left Left Arm: Negative for DVT IMPRESSION: 1. Left upper extremity ultrasound negative for deep venous thrombosis.
[2022-06-13] MEDS: SODIUM CHLORIDE 0.9% 1,000 ML IV SCH ×2 (14:08→18:06)
[2022-06-13] MEDS ORDERED: Potassium Replacement Protocol 1 EACH MISC MISCELLANE PRN (16:32)
[2022-06-13] MEDS: POTASSIUM CHLORIDE ER 20 MEQ TAB.ER PO SCH ×2 (17:30→18:10)
--- NOTE | 2022-06-13 21:18 | P.PN ---
Subjective Progress Note Date: 06/13/22 Pallaiaitive radiation and hg 6.8 - Transfuse one unit PRBC today Objective - Vital Signs Vital signs: Vital Signs Temp 98.4 F 06/13/22 20:55 Pulse 103 H 06/13/22 20:55 Resp 18 06/13/22 20:55 BP 105/77 06/13/22 20:55 Pulse Ox 94 L 06/13/22 20:55 FiO2 Intake & Output 06/13/22 06/13/22 06/14/22 06:59 18:59 06:59 Intake Total 0 310 Output Total 500 100 120 Balance -500 -100 190 Weight 49.895 kg Intake: Blood Product 0 310 Rc Irr As1 Unit 0 310 [id number] Output: Urine 500 100 120 Other: Voiding Method Bedside Commode Bedside Commode # Voids 1 2 # Bowel Movements 1 - Exam - Constitutional Constitutional Comment(s): Frail, cachectic General appearance: Present: no acute distress, thin - EENT Eyes: Present: anicteric sclerae, EOMI, poor dentition ENT: Present: hearing grossly normal, normal oropharynx - Respiratory Respiratory: right: rales, left: rhonchi, wheezing - Cardiovascular Heart sounds: normal: S1, S2 Abnormal Heart Sounds: Absent: systolic murmur, diastolic murmur, rub, S3 Gallop, S4 Gallop, click, other - Peripheral edema leg Peripheral Edema: bilateral: None - Gastrointestinal General gastrointestinal: Present: normal bowel sounds, soft - Neurologic Neurologic: Present: CNII-XII intact (Grossly) - Musculoskeletal Musculoskeletal: Present: generalized weakness - Psychiatric Psychiatric: Present: A&O x's 3, appropriate affect, intact judgment & insight - Labs CBC & Chem 7: 06/13/22 06:22 06/13/22 19:12 Labs: Abnormal Lab Results - Last 24 Hours (Table) 06/13/22 06/13/22 06/13/22 Range/Units 06:22 06:22 13:10 WBC 44.67 H (4.50-10.00) X 10*3/uL RBC 2.48 L (4.10-5.20) X 10*6/uL Hgb 6.8 L* (12.0-15.0) g/dL Hct 22.2 L (37.2-46.3) % MCHC 30.6 L (32.0-37.0) g/dL RDW 16.3 H (11.5-14.5) % Immature Gran # 2.07 H (0.00-0.04) X 10*3/uL Neutrophils # 41.03 H (1.80-7.70) X 10*3/uL Lymphocytes # 0.83 L (0.90-5.00) X 10*3/uL Potassium 3.2 L (3.5-5.5) mmol/L Creatinine 0.4 L (0.6-1.5) mg/dL BUN/Creatinine Ratio 47.25 H (12.00-20.00) Ratio Glucose 154 H (70-110) mg/dL Calcium 7.8 L (8.7-10.3) mg/dL Alkaline Phosphatase 149 H (41-126) U/L Total Protein 4.8 L (6.2-8.2) g/dL Albumin 1.8 L (3.8-4.9) g/dL Albumin/Globulin Ratio 0.60 L (1.60-3.17) g/dL Crossmatch See Detail 06/13/22 Range/Units 19:12 WBC (4.50-10.00) X 10*3/uL RBC (4.10-5.20) X 10*6/uL Hgb (12.0-15.0) g/dL Hct (37.2-46.3) % MCHC (32.0-37.0) g/dL RDW (11.5-14.5) % Immature Gran # (0.00-0.04) X 10*3/uL Neutrophils # (1.80-7.70) X 10*3/uL Lymphocytes # (0.90-5.00) X 10*3/uL Potassium 3.4 L (3.5-5.5) mmol/L Creatinine (0.6-1.5) mg/dL BUN/Creatinine Ratio (12.00-20.00) Ratio Glucose (70-110) mg/dL Calcium (8.7-10.3) mg/dL Alkaline Phosphatase (41-126) U/L Total Protein (6.2-8.2) g/dL Albumin (3.8-4.9) g/dL Albumin/Globulin Ratio (1.60-3.17) g/dL Crossmatch Microbiology - Last 24 Hours (Table) 06/12/22 17:55 Blood Culture - Preliminary Blood No Growth after 24 hours 06/11/22 06:15 Gram Stain - Final Sputum Sputum Culture - Final 06/09/22 19:46 Blood Culture - Preliminary Blood No Growth after 72 hours Assessment and Plan Plan: - Imaging and Cardiology CT scan - chest: report reviewed, image reviewed Assessment and Plan (1) SOB (shortness of breath) Current Visit: Yes Status: Acute Priority: High Code(s): R06.02 - SHORTNESS OF BREATH SNOMED Code(s): 878025902 (2) Anemia Current Visit: Yes Status: Acute Priority: High Code(s): D64.9 - ANEMIA, UNSPECIFIED SNOMED Code(s): 473893295 (3) Adenocarcinoma, lung Current Visit: Yes Status: Acute Priority: High Code(s): C34.90 - MALIGNANT NEOPLASM OF UNSP PART OF UNSP BRONCHUS OR LUNG SNOMED Code(s): 690809238 Plan: Anemia of malignancy. Transfuse for hemoglobin less than 7. Transfuse today Patient is currently being treated with respiratory supportive medications as well as antibiotics for suspected postobstructive pneumonia. She reports subjective improvements today. Objectively though, she seems to be struggling similarly to breathe. Treatment of malignancy plan is to treat for pneumonia, complete abx course, short course of radiation to see if that helps with resp status, opens airway. Pt did have a 101.8 temp. Radiation Oncologist held treatment. PET scan results were previously reviewed with the patient. Everything appears to be area localized in the left lung and mediastinal area, some pleural metastatic foci. Suspect a small malignant left pleural effusion. There is 1 s ] Attests: I have seen and examined pt, performed H&P, developed impression and plan of care. Discussed with dictator. Agree with documentation, dictated as a scribe.
--- NOTE | 2022-06-13 22:04 | P.CONS ---
History of Present Illness - Reason for Consult Consult date: 06/13/22 Fever while on antibiotic Requesting physician: Xiomy Alvarado - Chief Complaint Fever x few days - History of Present Illness Patient is a 66-year-old female with recent diagnosis of large left upper lobe mass with cavitation and invasion into the left side of the mediastinum the patient is Status post CT-guided aspirate culture were negative biopsy was suggestive of non-small cell lung cancer adenocarcinoma, MRI of the brain was negative for metastatic disease patient presented back to the hospital 4 days ago for evaluation of fever that started the day of presentation to the hospital patient mention she did have a fever of 101 F patient also complains of increasing shortness of breath and did have a cough with occasional sputum production did have some blood staining to it, patient on presentation to the hospital was afebrile however she did spike a fever yesterday afternoon of 101.8 F that has prompted this infectious disease consultation patient has been hypoxic and need for supplemental oxygen, patient did have a white count of 34,000 on admission which went up to 53.9 -day before yesterday down to 44.67 kidney function has been normal liver enzymes are normal urine negative COVID testing was negative patient did have blood and sputum cultures which are negative patient did have a CT angiogram of the chest no evidence of PE enlargin g left pulmonary mass enlarging effusion right posterior lung presently concerning for pneumonia Review of Systems Positive point has been mentioned in the HPI rest of the systems are negative Past Medical History Past Medical History: Cancer, Osteoarthritis (OA), Pneumonia Additional Past Medical History / Comment(s): Pt recently admitted to [facility] on 05/24/22 with L large lung mass with cavitation/adenocarcinoma/postobstructive pneumonia and tachycardia thought likely d/t sepsis. Other hx: Pt states since last admission she has had bilateral lower leg/pedal edema, chronic anemia, bronchitis years ago, skin cancer removed from leg, chronic low back pain. History of Any Multi-Drug Resistant Organisms: None Reported Past Surgical History: No Surgical Hx Reported Additional Past Surgical History / Comment(s): L lung biopsy, colonoscopy/benign polypectomy Past Anesthesia/Blood Transfusion Reactions: No Reported Reaction Past Psychological History: No Psychological Hx Reported Smoking Status: Former smoker Past Alcohol Use History: None Reported Past Drug Use History: None Reported - Past Family History Mother Family Medical History: Cancer Additional Family Medical History / Comment(s): Pt does not know type of cancer Father Family Medical History: Coronary Artery Disease (CAD) Additional Family Medical History / Comment(s): Father was a smoker. Medications and Allergies Home Medications Medication Instructions Recorded Confirmed Type Albuterol Inhaler [Ventolin Hfa 2 puff INHALATION RT-Q4H PRN 05/24/22 06/09/22 History Inhaler] Docusate [Colace] 100 mg PO DAILY 05/24/22 06/09/22 History Ferrous Sulfate [Iron (65 MG 325 mg PO DAILY 05/24/22 06/09/22 History Elemental)] ALPRAZolam [Xanax] 0.25 mg PO BID PRN 3 Days #6 tab 06/03/22 06/09/22 Rx Acetaminophen Tab [Tylenol] 650 mg PO Q6HR PRN tab 06/03/22 06/09/22 Rx Amoxic-Pot Clav 875-125Mg 1 tab PO BID 10 Days #20 tab 06/03/22 06/09/22 Rx [Augmentin 875-125] Famotidine [Pepcid] 20 mg PO Q12HR #60 tab 06/03/22 06/09/22 Rx Melatonin 6 mg PO HS PRN 10 Days #10 tab 06/03/22 06/09/22 Rx Metoprolol Tartrate [Lopressor] 25 mg PO BID #60 tab 06/03/22 06/09/22 Rx Nystatin 100,000 Unit/ml Susp 500,000 unit PO QID 3 Days #60 ml 06/03/22 06/09/22 Rx [Mycostatin Oral Susp] predniSONE See Taper PO DIRECTED 06/09/22 06/09/22 History Allergies Allergy/AdvReac Type Severity Reaction Status Date / Time No Known Allergies Allergy Verified 06/09/22 21:11 Physical Exam Vitals: Vital Signs Temp Pulse Pulse Resp BP Pulse Ox 06/13/22 07:31 111 H 06/13/22 07:21 109 H 95 06/13/22 04:40 98.0 F 99 15 101/61 96 06/12/22 19:32 120 H 06/12/22 19:22 117 H 97 06/12/22 19:04 98.9 F 116 H 30 H 107/64 97 06/12/22 14:28 98.9 F 06/12/22 13:05 128 H 32 H 107/63 95 06/12/22 13:02 101.8 F H Intake and Output 06/12/22 06/13/22 06/13/22 22:59 06:59 14:59 Output Total 500 Balance -500 Output: Urine 500 Other: Voiding Method Bedside Commode # Voids 3 1 GENERAL DESCRIPTION: Elderly female lying in bed, no distress. No tachypnea or accessory muscle of respiration use. HEENT: Shows Pallor , no scleral icterus. Oral mucous membrane is dry. No pharyngeal erythema or thrush NECK: Trachea central, no thyromegaly. LUNGS: Unlabored breathing. Decreased intensity of breath sounds. No wheeze or crackle. HEART: S1, S2, regular rate and rhythm. No loud murmur ABDOMEN: Soft, no tenderness , guarding or rigidity, no organomegaly EXTREMITIES: No edema of feet. SKIN: No rash, no masses palpable. NEUROLOGICAL: The patient is awake, alert, oriented x3, mood and affect normal. Results CBC & Chem 7: 06/13/22 06:22 06/13/22 19:12 Labs: Abnormal Lab Results - Last 24 Hours (Table) 06/13/22 Range/Units 06:22 Potassium 3.2 L (3.5-5.5) mmol/L Creatinine 0.4 L (0.6-1.5) mg/dL BUN/Creatinine Ratio 47.25 H (12.00-20.00) Ratio Glucose 154 H (70-110) mg/dL Calcium 7.8 L (8.7-10.3) mg/dL Alkaline Phosphatase 149 H (41-126) U/L Total Protein 4.8 L (6.2-8.2) g/dL Albumin 1.8 L (3.8-4.9) g/dL Albumin/Globulin Ratio 0.60 L (1.60-3.17) g/dL Microbiology - Last 24 Hours (Table) 06/11/22 06:15 Gram Stain - Final Sputum Sputum Culture - Final 06/09/22 19:46 Blood Culture - Preliminary Blood No Growth after 72 hours Assessment and Plan Plan: 1patient with recent diagnosis of 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 with cavitation status post CT-guided biopsy as well as culture of those were negative subsequent presented to hospital increasing shortness of breath cough and did have a fever with evidence of increasing left upper lobe mass on the recent CAT scan could be related to possible postobstructive pneumonia or enlarging tumor with a tumor necrosis as the patient did have significant elevated white count, blood and sputum culture has been negative so far 2we will try to obtain another sputum sample and check a inflammatory markers 3continue with Zosyn 3.375 g every 8 hours We will follow on clinical condition and cultures to further adjust medication if needed Thank you for this consultation will follow this patient along with you Time with Patient: Greater than 30
[2022-06-14] MEDS: methylPREDNISolone SOD SUCCI 125 MG/2 ML VIAL IV SCH ×5 (00:09→23:48)
[2022-06-14] MEDS: SODIUM CHLORIDE 0.9% 1,000 ML IV SCH (03:28)
[2022-06-14] MEDS: PIPERACILLIN-TAZOBACTAM 3.375 GM in SODIUM CHLORIDE 0.9% 100 ML IVPB SCH ×3 (04:33→17:31)
--- NOTE | 2022-06-14 06:29 | PN ---
PROGRESS NOTE SUBJECTIVE: This is a 66-year-old woman, who was admitted with left-sided lung cancer, also had possible pneumonia. The patient was started empirically on steroids. The patient is on broad-spectrum antibiotics. Hemoglobin is again 6.8 today on exam. PAST MEDICAL HISTORY: Reviewed. REVIEW OF SYSTEMS: A 14-point review of systems is negative except as mentioned earlier. CURRENT MEDICATIONS: Reviewed include DuoNeb. Dose and rest of medications noted. PHYSICAL EXAMINATION: VITAL SIGNS: Pulse is 111, blood pressure is 140/69, respirations 18. HEENT: Conjunctivae pale. NECK: No JVD. CARDIOVASCULAR: S1, S2. RESPIRATION: Breath sounds diminished at the bases. Scattered rhonchi. ABDOMEN: Soft, nontender. LEGS: No edema. NERVOUS SYSTEM: No focal deficits. LABS: Hemoglobin 6.6. Other labs are noted. WBC 44. ASSESSMENT: 1. Left-sided lung cancer. 2. Possible pneumonia. 3. Tachycardia. 4. Anemia possibly secondary to malignancy or to gastrointestinal bleed. 5. Increased WBC. 6. Elevated D-dimer. 7. Degenerative joint disease. 8. History of pneumonia. 9. Multiple complex medical issues. 10.No code. No CPR. No vent. RECOMMENDATIONS AND DISCUSSION: This is a 66-year-old woman who had presented with multiple complex medical issues. We will continue the current management and symptomatic treatment. Continue the antibiotics. Continue steroids. Monitor blood sugars closely. I also recommend 1 unit of transfusion today. Closely follow with multiple medications. Repeat labs in the morning. Prognosis extremely guarded because of multiple complex medical issues. Continue supplemental oxygen. Further recommendations to follow. See orders for further details. MMODL / IJN: [id number] /
[2022-06-14] MEDS: IPRATROPIUM-ALBUTEROL 3 ML NEB INHALATION SCH ×3 (08:07→19:35)
[2022-06-14] MEDS: PANTOPRAZOLE 40 MG TABLET PO SCH (08:37)
[2022-06-14] MEDS: DOCUSATE 100 MG CAP PO SCH (08:37)
[2022-06-14] MEDS: FERROUS SULFATE 325 MG TAB PO SCH (08:37)
[2022-06-14] MEDS: METOPROLOL TARTRATE 25 MG TAB PO SCH ×2 (08:38→20:44)
[2022-06-14 12:00] LABS: African American GFR (CKD) >90 (>60 ml/min/1.73 sqM); Anion Gap 12 mmol/L; Blood Urea Nitrogen 25 mg/dL (7-17); Calcium 7.9 mg/dL (8.4-10.2); Carbon Dioxide 22 mmol/L (22-30); Chloride 104 mmol/L (98-107); Glucose 152 mg/dL (74-99); Non-African American GFR(CKD) >90 (>60 ml/min/1.73 sqM); Potassium 3.7 mmol/L (3.5-5.1); Sodium 138 mmol/L (137-145)
[2022-06-14 12:05] LABS: Basophils # (A) 0.1 k/uL (0-0.2); Basophils % (A) 0 %; Eosinophils # (A) 0.2 k/uL (0-0.7); Eosinophils % (A) 0 %; HCT 29.1 % (34.0-46.0); HGB 8.7 gm/dL (11.4-16.0); Hypochromasia Marked; Lymphocytes # (A) 0.4 k/uL (1.0-4.8); Lymphocytes % (A) 1 %; MCH 28.5 pg (25.0-35.0); MCHC 29.9 g/dL (31.0-37.0); Mean Platelet Volume 8.9; Monocytes # (A) 0.5 k/uL (0-1.0); Monocytes % (A) 1 %; Neutrophils # (A) 46.9 k/uL (1.3-7.7); Neutrophils % (A) 97 %; Platelet Count 338 k/uL (150-450); Poikilocytosis Slight; RBC 3.07 m/uL (3.80-5.40); RDW 15.7 % (11.5-15.5); WBC 48.2 k/uL (3.8-10.6)
[2022-06-14 16:02] LABS: Toxic Granulation Present; Toxic Vacuolation Present
[2022-06-14] MEDS: HYDROcodone/APAP 5-325MG 1 EACH TAB PO PRN (20:44)
--- NOTE | 2022-06-15 00:04 | P.PN ---
Subjective Progress Note Date: 06/14/22 Principal diagnosis: Fever Patient is a 66-year-old female with recent diagnosis of lung cancer left upper lobe with a cavitating mass readmitted to the hospital with severe shortness of breath with worsening on the CT. On today's evaluation that is 06/14/2022, the patient denies having any fever or any chills patient is breathing Comfortably patient denies having any chest pain she did have a cough but not bringing up any sputum denies abdominal pain and no diarrhea Objective - Vital Signs Vital signs: Vital Signs Temp 99.2 F 06/14/22 13:00 Pulse 112 H 06/14/22 13:00 Resp 28 H 06/14/22 13:00 BP 115/68 06/14/22 13:00 Pulse Ox 95 06/14/22 15:30 FiO2 Intake & Output 06/13/22 06/14/22 06/14/22 18:59 06:59 18:59 Intake Total 0 650 Output Total 100 120 Balance -100 530 Weight 49.895 kg Intake: Intake, IV Titration 100 Amount Piperacillin-Tazobactam 3 100 .375 gm In Sodium Chloride 0.9% 100 ml @ 25 mls/hr IVPB Q8H [facility] Rx#: [id number] Oral 240 Blood Product 0 310 Rc Irr As1 Unit 0 310 [id number] Output: Urine 100 120 Other: Voiding Method Bedside Commode Bedside Commode # Voids 2 4 1 # Bowel Movements 1 1 - Exam GENERAL DESCRIPTION: An elderly female lying in bed in no distress RESPIRATORY SYSTEM: Unlabored breathing , decreased breath sounds at bases HEART: S1 S2 regular rate and rhythm , ABDOMEN: Soft , no tenderness EXTREMITIES: No edema feet - Labs CBC & Chem 7: 06/14/22 04:41 06/14/22 04:41 Labs: Abnormal Lab Results - Last 24 Hours (Table) 06/13/22 06/13/22 06/14/22 Range/Units 13:10 19:12 04:41 WBC (3.8-10.6) k/uL RBC (3.80-5.40) m/uL Hgb (11.4-16.0) gm/dL Hct (34.0-46.0) % MCHC (31.0-37.0) g/dL RDW (11.5-15.5) % ESR (0-30) mm/Hr Potassium 3.4 L (3.5-5.1) mmol/L BUN (7-17) mg/dL Creatinine (0.52-1.04) mg/dL Glucose (74-99) mg/dL Calcium (8.4-10.2) mg/dL C-Reactive Protein (0.00-0.80) mg/dL Procalcitonin 14.00 H (0.02-0.09) ng/mL Crossmatch See Detail 06/14/22 06/14/22 06/14/22 Range/Units 04:41 04:41 04:41 WBC 48.2 H (3.8-10.6) k/uL RBC 3.07 L (3.80-5.40) m/uL Hgb 8.7 L (11.4-16.0) gm/dL Hct 29.1 L (34.0-46.0) % MCHC 29.9 L (31.0-37.0) g/dL RDW 15.7 H (11.5-15.5) % ESR 83 H (0-30) mm/Hr Potassium (3.5-5.1) mmol/L BUN (7-17) mg/dL Creatinine (0.52-1.04) mg/dL Glucose (74-99) mg/dL Calcium (8.4-10.2) mg/dL C-Reactive Protein 19.20 H (0.00-0.80) mg/dL Procalcitonin (0.02-0.09) ng/mL Crossmatch 06/14/22 Range/Units 04:41 WBC (3.8-10.6) k/uL RBC (3.80-5.40) m/uL Hgb (11.4-16.0) gm/dL Hct (34.0-46.0) % MCHC (31.0-37.0) g/dL RDW (11.5-15.5) % ESR (0-30) mm/Hr Potassium (3.5-5.1) mmol/L BUN 25 H (7-17) mg/dL Creatinine 0.44 L (0.52-1.04) mg/dL Glucose 152 H (74-99) mg/dL Calcium 7.9 L (8.4-10.2) mg/dL C-Reactive Protein (0.00-0.80) mg/dL Procalcitonin (0.02-0.09) ng/mL Crossmatch Microbiology - Last 24 Hours (Table) 06/09/22 19:46 Blood Culture - Preliminary Blood No Growth after 96 hours 06/12/22 17:55 Blood Culture - Preliminary Blood No Growth after 24 hours Assessment and Plan (1) Pneumonia Current Visit: Yes Status: Acute Code(s): J18.9 - PNEUMONIA, UNSPECIFIED ORGANISM SNOMED Code(s): 827444224 Plan: 1patient with recent diagnosis of 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 with cavitation status post CT-guided biopsy as well as culture of those were negative subsequent presented to hospital increasing shortness of breath cough and did have a fever with evidence of increasing left upper lobe mass on the recent CAT scan could be related to possible postobstructive pneumonia or enlarging tumor with a tumor necrosis as the patient did have significant elevated white count, blood and sputum culture has been negative so far, however the patient did have significantly elevated procalcitonin and CRP 2we will try to obtain another sputum sample 3patient to continue with Zosyn 3.375 g every 8 hours Time with Patient: Less than 30
[2022-06-15] MEDS: PIPERACILLIN-TAZOBACTAM 3.375 GM in SODIUM CHLORIDE 0.9% 100 ML IVPB SCH ×3 (01:54→17:44)
--- NOTE | 2022-06-15 03:47 | PN ---
PROGRESS NOTE SUBJECTIVE: This is a 66-year-old woman who was admitted with lung cancer and multiple complications. . No chest pain. No palpitations. No fever. PHYSICAL EXAMINATION: VITAL SIGNS: Pulse is 112, blood pressure 115/60, respirations 20. HEENT: Conjunctivae normal. CARDIOVASCULAR: S1, S2. RESPIRATION: Breath sounds diminished at the bases. Scattered rhonchi. ABDOMEN: Soft, nontender. LEGS: No edema. NERVOUS SYSTEM: No focal deficits. LABS: Reviewed. Hemoglobin 8.7. ASSESSMENT: 1. Left-sided lung cancer, on radiation treatment. 2. Possible pneumonia. 3. Tachycardia. 4. Anemia possibly secondary to malignancy, multifactorial status post transfusion x2. 5. Elevated D-dimer. 6. Multiple complex medical issues. RECOMMENDATIONS AND DISCUSSION: I recommend to continue current management and symptomatic treatment. Continue with bronchodilators. Continue steroids. Continue the rest of medication. Prognosis guarded. Further recommendations to follow. MMODL / IJN: [id number] / MTDD
[2022-06-15] MEDS: methylPREDNISolone SOD SUCCI 125 MG/2 ML VIAL IV SCH ×3 (05:12→17:44)
[2022-06-15] MEDS: IPRATROPIUM-ALBUTEROL 3 ML NEB INHALATION SCH ×3 (08:06→19:51)
[2022-06-15] MEDS: FERROUS SULFATE 325 MG TAB PO SCH (08:38)
[2022-06-15] MEDS: DOCUSATE 100 MG CAP PO SCH (08:38)
[2022-06-15] MEDS: PANTOPRAZOLE 40 MG TABLET PO SCH (08:38)
[2022-06-15] MEDS: METOPROLOL TARTRATE 25 MG TAB PO SCH ×2 (08:38→20:40)
[2022-06-15] MEDS: SENNOSIDES 8.6 MG TAB PO SCH (08:38)
[2022-06-15 09:45] LABS: African American GFR (CKD) 120.3 (60.0-200.0); Anion Gap 13.3 mmol/L (10.00-18.00); BUN/Creat Ratio 54.46 Ratio (12.00-20.00); Blood Urea Nitrogen 24.4 mg/dL (9.0-27.0); Calcium 8.4 mg/dL (8.7-10.3); Carbon Dioxide 22.6 mmol/L (20.0-27.5); Non-African American GFR(CKD) 103.8 (60.0-200.0); Potassium 4.1 mmol/L (3.5-5.5)
[2022-06-15 10:05] LABS: HGB 8.6 g/dL (12.0-15.0); MCH 28.7 pg (27.0-32.0); MCHC 30.7 g/dL (32.0-37.0); MCV 93.3 fL (80.0-97.0); Mean Platelet Volume 10.2 fL (9.5-12.2); NRBC Per 100 WBC 0.1 /100 WBCS (0.0-0.0); Platelet Count 271 X 10*3/uL (140-440); RDW 16.3 % (11.5-14.5); WBC 50.88 X 10*3/uL (4.50-10.00)
[2022-06-15 10:19] LABS: Basophils # (M) 0 X 10*3/uL (0.00-0.10); Eosinophils # (M) 0 X 10*3/uL (0.04-0.35); Lymphocytes # (M) 0.51 X 10*3/uL (0.90-5.00); Monocytes # (M) 0.51 X 10*3/uL (0.20-1.00); Neutrophils # (M) 49.86 X 10*3/uL (2.00-8.90); Neutrophils % (M) 98 %; Rouleaux PRESENT
[2022-06-15] MEDS: HYDROcodone/APAP 5-325MG 1 EACH TAB PO PRN ×2 (14:11→21:39)
--- NOTE | 2022-06-15 15:26 | P.PN ---
Subjective Progress Note Date: 06/15/22 Principal diagnosis: Fever Patient is a 66-year-old female with recent diagnosis of lung cancer left upper lobe with a cavitating mass readmitted to the hospital with severe shortness of breath with worsening on the CT. On today's evaluation that is 06/15/2022, the patient remains to be afebrile, patient is breathing Comfortably on nasal cannula oxygen patient denies having any chest pain she did have a cough but not bringing up any sputum , the patient denies abdominal pain and no diarrhea Objective - Vital Signs Vital signs: Vital Signs Temp 99.6 F 06/15/22 12:06 Pulse 104 H 06/15/22 12:30 Resp 20 06/15/22 12:06 BP 117/71 06/15/22 12:06 Pulse Ox 95 06/15/22 08:06 FiO2 Intake & Output 06/14/22 06/15/22 06/15/22 18:59 06:59 18:59 Intake Total 1340 240 Balance 1340 240 Intake: Intake, IV Titration 1100 Amount Sodium Chloride 0.9% 1, 1100 000 ml @ 100 mls/hr IV . Q10H [facility] Rx#:[id number] Oral 240 240 Other: Voiding Method Bedside Commode Bedside Commode Bedside Commode # Voids 4 2 1 # Bowel Movements 1 1 - Exam GENERAL DESCRIPTION: An elderly female lying in bed in no distress RESPIRATORY SYSTEM: Unlabored breathing , decreased breath sounds at bases HEART: S1 S2 regular rate and rhythm , ABDOMEN: Soft , no tenderness EXTREMITIES: No edema feet - Labs CBC & Chem 7: 06/15/22 05:41 06/15/22 05:41 Labs: Abnormal Lab Results - Last 24 Hours (Table) 06/14/22 06/15/22 06/15/22 Range/Units 04:41 05:41 05:41 WBC 50.88 H* (4.50-10.00) X 10*3/uL RBC 3.00 L (4.10-5.20) X 10*6/uL Hgb 8.6 L (12.0-15.0) g/dL Hct 28.0 L (37.2-46.3) % MCHC 30.7 L (32.0-37.0) g/dL RDW 16.3 H (11.5-14.5) % Plt Count Comment DECREASED A Absolute Nucleated RBC 0.05 H (0.00-0.00) X 10*3/uL Neutrophils # 46.9 H (1.3-7.7) k/uL Neutrophils # (Manual) 49.86 H (2.00-8.90) X 10*3/uL Lymphocytes # 0.4 L (1.0-4.8) k/uL Lymphocytes # (Manual) 0.51 L (0.90-5.00) X 10*3/uL Eosinophils # (Manual) 0 L (0.04-0.35) X 10*3/uL NRBC/100 WBC Diff 0.1 H (0.0-0.0) /100 WBCS Creatinine 0.4 L (0.6-1.5) mg/dL BUN/Creatinine Ratio 54.46 H (12.00-20.00) Ratio Glucose 134 H (70-110) mg/dL Calcium 8.4 L (8.7-10.3) mg/dL Microbiology - Last 24 Hours (Table) 06/09/22 19:46 Blood Culture - Preliminary Blood No Growth after 120 hours 06/12/22 17:55 Blood Culture - Preliminary Blood No Growth after 48 hours Assessment and Plan (1) Pneumonia Current Visit: Yes Status: Acute Code(s): J18.9 - PNEUMONIA, UNSPECIFIED ORGANISM SNOMED Code(s): 723777604 Plan: 1patient with recent diagnosis of 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 with cavitation status post CT-guided biopsy as well as culture of those were negative subsequent presented to hospital increasing shortness of breath cough and did have a fever with evidence of increasing left upper lobe ma ss on the recent CAT scan could be related to possible postobstructive pneumonia or enlarging tumor with a tumor necrosis as the patient did have significant elevated white count, blood and sputum culture has been negative for any resistant pathogen, patient did have significantly elevated procalcitonin and CRP 2patient to continue with Zosyn 3.375 g every 8 hours 3- leukocytosis more likely steroid related and will be monitored closely Time with Patient: Less than 30
[2022-06-16] MEDS: methylPREDNISolone SOD SUCCI 125 MG/2 ML VIAL IV SCH ×4 (01:11→17:44)
[2022-06-16] MEDS: PIPERACILLIN-TAZOBACTAM 3.375 GM in SODIUM CHLORIDE 0.9% 100 ML IVPB SCH ×3 (01:27→17:44)
--- NOTE | 2022-06-16 08:09 | PN ---
PROGRESS NOTE SUBJECTIVE: This is a 66-year-old woman who was admitted with extensive left-sided lung cancer, radiation therapy which notes her left upper arm swelling, also with some cellulitis, but ultrasound is negative for DVT. No chest pain, no palpitations. PHYSICAL EXAMINATION: VITAL SIGNS: Pulse 90, blood pressure is 124/70, respirations 20. HEENT: Conjunctivae normal. NECK: No JVD. CARDIOVASCULAR: S1, S2. RESPIRATION: Breath sounds diminished at the bases. Scattered rhonchi. ABDOMEN: Soft. NERVOUS SYSTEM: No focal deficits. LABORATORY DATA: WBC 50.8. ASSESSMENT: 1. Left-sided lung cancer, extensive, on radiation treatment. 2. Possible pneumonia. 3. Tachycardia. 4. Anemia, possibly secondary to malignancy, multifactorial, status post transfusion x2. 5. Elevated D-dimer. 6. Multiple complex medical issues. RECOMMENDATIONS: I recommend to continue current management and symptomatic treatment. . Continue the bronchodilators and steroids. Continue the radiation therapy. Prognosis extremely guarded because of multiple complex medical issues. MMODL / IJN: [id number] / THEODORE
[2022-06-16] MEDS: FERROUS SULFATE 325 MG TAB PO SCH (08:51)
[2022-06-16] MEDS: DOCUSATE 100 MG CAP PO SCH (08:52)
[2022-06-16] MEDS: SENNOSIDES 8.6 MG TAB PO SCH (08:52)
[2022-06-16] MEDS: METOPROLOL TARTRATE 25 MG TAB PO SCH ×2 (08:52→20:13)
[2022-06-16] MEDS: PANTOPRAZOLE 40 MG TABLET PO SCH (08:52)
[2022-06-16] MEDS: IPRATROPIUM-ALBUTEROL 3 ML NEB INHALATION SCH ×3 (09:33→20:44)
--- NOTE | 2022-06-16 15:42 | P.PN ---
Subjective Progress Note Date: 06/16/22 Principal diagnosis: Patient is feeling OK today - still feeling short of breath. No significant chest pain. She does feel weak at this time - difficulty standing without assistance. Concerned about how she will tolerate next steps in therapy. Objective - Vital Signs Vital signs: Vital Signs Temp 98.5 F 06/16/22 11:52 Pulse 113 H 06/16/22 11:52 Resp 16 06/16/22 11:52 BP 130/72 06/16/22 11:52 Pulse Ox 94 L 06/16/22 11:52 FiO2 Intake & Output 06/15/22 06/16/22 06/16/22 18:59 06:59 18:59 Intake Total 240 118 Output Total 100 Balance 240 18 Intake: Oral 240 118 Output: Urine 100 Other: Voiding Method Bedside Commode Bedside Commode # Voids 3 1 1 # Bowel Movements 2 1 - Constitutional General appearance: Present: mild distress - EENT Eyes: Present: EOMI, PERRLA ENT: Present: hearing grossly normal - Neck Neck: Absent: lymphadenopathy - Respiratory Respiratory: right: CTA, left: diminished - Cardiovascular Rhythm: regular - Integumentary Integumentary: Present: pale - Neurologic Neurologic: Present: CNII-XII intact - Musculoskeletal Musculoskeletal: Present: generalized weakness - Psychiatric Psychiatric: Present: A&O x's 3, appropriate affect - Labs CBC & Chem 7: 06/15/22 05:41 06/15/22 05:41 Labs: Microbiology - Last 24 Hours (Table) 06/09/22 19:46 Blood Culture - Final Blood No Growth after 144 hours 06/12/22 17:55 Blood Culture - Preliminary Blood No Growth after 72 hours Assessment and Plan Assessment: The patient is a 66-year-old female with a history of a newly diagnosed stage IV (cT4, cN2, 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 This is felt to likely be postobstructive in nature. Plan: 1. Pneumonia - breathing largely unchanged, on 3L. Have continued with broad spectrum antibiotics, no recent fevers. 2. Adenocarcinoma - left upper lung - Currently finished 2/5 planned palliative RT treatments. 3. Edema - Bilateral LE and now Left upper extremity both quite edematous. Patient seemed to have some improvement on lasix. Would consider further therapy - may have fluid back up due to lung cancer's central location (mass effect on pulmonary trunk). Time with Patient: Less than 30
[2022-06-16] MEDS: HYDROcodone/APAP 5-325MG 1 EACH TAB PO PRN (16:45)
--- NOTE | 2022-06-16 18:02 | P.PN ---
Subjective Progress Note Date: 06/16/22 Weak today, awaiting XRT oncology decision for treatment, Lasix for increased BLE edema Objective - Vital Signs Vital signs: Vital Signs Temp 98.5 F 06/16/22 11:52 Pulse 113 H 06/16/22 11:52 Resp 16 06/16/22 11:52 BP 130/72 06/16/22 11:52 Pulse Ox 94 L 06/16/22 11:52 FiO2 Intake & Output 06/15/22 06/16/22 06/16/22 18:59 06:59 18:59 Intake Total 240 118 Output Total 100 Balance 240 18 Intake: Oral 240 118 Output: Urine 100 Other: Voiding Method Bedside Commode Bedside Commode # Voids 3 1 1 # Bowel Movements 2 1 - Exam - Constitutional Constitutional Comment(s): Frail, cachectic General appearance: Present: no acute distress, thin - EENT Eyes: Present: anicteric sclerae, EOMI, poor dentition ENT: Present: hearing grossly normal, normal oropharynx - Respiratory Respiratory: right: rales, left: rhonchi, wheezing - Cardiovascular Heart sounds: normal: S1, S2 Abnormal Heart Sounds: Absent: systolic murmur, diastolic murmur, rub, S3 Gallop, S4 Gallop, click, other - Peripheral edema leg Peripheral Edema: bilateral: 3+ - Gastrointestinal General gastrointestinal: Present: normal bowel sounds, soft - Neurologic Neurologic: Present: CNII-XII intact (Grossly) - Musculoskeletal Musculoskeletal: Present: generalized weakness - Psychiatric Psychiatric: Present: A&O x's 3, appropriate affect, intact judgment & insight - Labs CBC & Chem 7: 06/15/22 05:41 06/15/22 05:41 Labs: Microbiology - Last 24 Hours (Table) 06/09/22 19:46 Blood Culture - Final Blood No Growth after 144 hours 06/12/22 17:55 Blood Culture - Preliminary Blood No Growth after 72 hours Assessment and Plan Plan: - Imaging and Cardiology CT scan - chest: report reviewed, image reviewed Assessment and Plan (1) SOB (shortness of breath) Current Visit: Yes Status: Acute Priority: High Code(s): R06.02 - SHORTNESS OF BREATH SNOMED Code(s): 413780080 (2) Anemia Current Visit: Yes Status: Acute Priority: High Code(s): D64.9 - ANEMIA, UNSPECIFIED SNOMED Code(s): 372821005 (3) Adenocarcinoma, lung Current Visit: Yes Status: Acute Priority: High Code(s): C34.90 - MALIGNANT NEOPLASM OF UNSP PART OF UNSP BRONCHUS OR LUNG SNOMED Code(s): 410660223 Plan: Anemia of malignancy. PET scan results were previously reviewed with the patient. Everything appears to be area localized in the left lung and mediastinal area, some pleural metast atic foci. Suspect a small malignant left pleural effusion. There is 1 s hemoglobin stable 8.[address] beckwith plan for radiation Lasix per primary tea,
[2022-06-16] MEDS: NYSTATIN 100,000 UNIT/ML SUSP 500,000 UNIT/5 ML CUP PO SCH ×2 (19:19→20:12)
[2022-06-17] MEDS: PIPERACILLIN-TAZOBACTAM 3.375 GM in SODIUM CHLORIDE 0.9% 100 ML IVPB SCH ×2 (00:44→11:13)
[2022-06-17] MEDS: methylPREDNISolone SOD SUCCI 125 MG/2 ML VIAL IV SCH ×5 (00:44→23:09)
--- NOTE | 2022-06-17 05:46 | PN ---
PROGRESS NOTE SUBJECTIVE: This 66-year-old woman was admitted with lung cancer radiation therapy. No chest pain. No palpitations. No fever. PHYSICAL EXAMINATION: VITAL SIGNS: Pulse is 113, blood pressure NTD, respirations 16. CARDIOVASCULAR: S1, S2. RESPIRATION: Bilateral scattered rhonchi. ABDOMEN: Soft. NERVOUS SYSTEM: Diffusely weak. LABORATORY DATA: WBC 50.8. ASSESSMENT: 1. Left-sided lung cancer, extensive, on radiation treatment. 2. Possible pneumonia. 3. Tachycardia. 4. Anemia, possibly secondary to malignancy, multifactorial, status post transfusions x2. 5. Elevated D-dimer. 6. Multiple complex medical issues. 7. No code, no CPR, no vent. RECOMMENDATIONS AND DISCUSSION: I recommend to continue current management, and prognosis guarded because of multiple complex medical issues. We will continue the antibiotics, steroids, and radiation therapy. Prognosis guarded. Further recommendations to follow. MMOMARL / IJN: [id number] / MTDD
[2022-06-17] MEDS: IPRATROPIUM-ALBUTEROL 3 ML NEB INHALATION SCH ×3 (08:03→19:34)
[2022-06-17] MEDS: SENNOSIDES 8.6 MG TAB PO SCH (09:40)
[2022-06-17] MEDS: METOPROLOL TARTRATE 25 MG TAB PO SCH ×2 (09:40→20:18)
[2022-06-17] MEDS: FERROUS SULFATE 325 MG TAB PO SCH (09:40)
[2022-06-17] MEDS: PANTOPRAZOLE 40 MG TABLET PO SCH (09:40)
[2022-06-17] MEDS: DOCUSATE 100 MG CAP PO SCH (09:41)
[2022-06-17] MEDS: NYSTATIN 100,000 UNIT/ML SUSP 500,000 UNIT/5 ML CUP PO SCH ×4 (09:41→21:44)
--- NOTE | 2022-06-17 13:26 | XR ---
EXAMINATION TYPE: XR chest 1V portable DATE OF EXAM: 06/17/2022 1:20 PM COMPARISON: Chest radiographs from 06/12/2022, CTA chest 06/11/2022 TECHNIQUE: XR chest 1V portable Frontal view of the chest. CLINICAL INDICATION:Female, 66 years old with history of shortness of breath; FINDINGS: Lungs/Pleura: Similar almost complete opacification of the left hemithorax. New patchy airspace disea se within the right midlung. No pneumothorax. Pulmonary vascularity: Unremarkable. Heart/mediastinum: Cardiomediastinal silhouette is obscured due to overlying and adjacent opacities. Musculoskeletal: No acute osseous pathology. IMPRESSION: 1. Similar almost complete opacification of left hemithorax related to known left pulmonary mass and effusion. 2. Development of subtle patchy right midlung patchy airspace disease concerning for pneumonia.
[2022-06-17] MEDS ORDERED: FUROSEMIDE 10 MG/ML 2 ML VIAL IV ONE (21:30)
--- NOTE | 2022-06-17 21:38 | P.PN ---
Subjective Progress Note Date: 06/17/22 Principal diagnosis: Metastatic lung adenocarcinoma In f/u today pt reports that she is feeling still SOB, not worse but not better. She is on 4L. She states she is not moving much, as this does make her more SOB. She is having trouble caring for basic needs, wears out easily. Generalized weakness. Poor energy levels, poor appetite. Her LUE is swelling more, her legs are swollen too. Objective - Vital Signs Vital signs: Vital Signs Temp 99.0 F 06/17/22 11:04 Pulse 124 H 06/17/22 12:46 Resp 22 06/17/22 11:04 BP 124/80 06/17/22 11:04 Pulse Ox 91 L 06/17/22 11:04 FiO2 Intake & Output 06/16/22 06/17/22 06/17/22 18:59 06:59 18:59 Intake Total 100 Balance 100 Intake: Oral 100 Other: # Voids 1 3 # Bowel Movements 1 - Constitutional General appearance: Present: cooperative, mild distress, thin - EENT Eyes: Present: anicteric sclerae, EOMI ENT: Present: hearing grossly normal - Respiratory Respiratory: right: rhonchi, left: diminished - Cardiovascular Heart sounds: normal: S1, S2 Abnormal Heart Sounds: Absent: systolic murmur, diastolic murmur, rub, S3 Gallop, S4 Gallop, click, other - Peripheral edema leg Peripheral Edema: bilateral: 2+, absent: Other (LUE swelling-suspect vascular compromise 2/2 lung tumor) - Gastrointestinal General gastrointestinal: Present: scaphoid, soft - Integumentary Integumentary: Present: pale - Neurologic Neurologic: Present: CNII-XII intact - Musculoskeletal Musculoskeletal: Present: generalized weakness - Psychiatric Psychiatric: Present: A&O x's 3, appropriate affect, intact judgment & insight - Labs CBC & Chem 7: 06/15/22 05:41 06/15/22 05:41 Labs: Microbiology - Last 24 Hours (Table) 06/12/22 17:55 Blood Culture - Preliminary Blood No Growth after 96 hours Assessment and Plan (1) SOB (shortness of breath) Current Visit: Yes Status: Acute Priority: High Code(s): R06.02 - SHORTNESS OF BREATH SNOMED Code(s): 065347617 (2) Anemia Current Visit: Yes Status: Acute Priority: High Code(s): D64.9 - ANEMIA, UNSPECIFIED SNOMED Code(s): 143867673 (3) Adenocarcinoma, lung Current Visit: Yes Status: Acute Priority: High Code(s): C34.90 - MALIGNANT NEOPLASM OF UNSP PART OF UNSP BRONCHUS OR LUNG SNOMED Code(s): 393911643 Plan: Anemia of malignancy. Previous anemia workup reviewed. No acute intervention or supplements are needed at this time. Transfuse for hemoglobin less than 7. Her Hgb has been stable since recent transfusion Leukocytosis, mostly neutrophilia. WBC is going back up. She is on steroids but this does not typically increase a WBC to this extreme. Could be related to tumor? Cont abx for now. Patient is currently being treated with respiratory supportive medications as well as antibiotics for suspected postobstructive pneumonia. She reports no further significant improvements in her breathing today. Objectively though, she cont to be struggling to breathe, at rest. Treatment of malignancy plan is to treat for pneumonia, complete abx course, short course of radiation to see if that helps with resp status, opens airway. She missed a radiation treatment last week due to fever. She was lethargic and not able to cooperate for treatment today. She is on antibiotics. PET scan results were previously reviewed with the patient. Everything appears to be area localized in the left lung and mediastinal area, some pleural metastatic foci. Suspect a small malignant left pleural effusion. There is 1 suspicious left adrenal gland nodule, SUV is 9.6. Still pending NGS and PDL1 status. Despite disease burden that is not particularly heavy, patient is struggling. Her performance status is declining rapidly. Previously it was discussed with her that we are trying to balance risks versus benefits. Patient does have a pneumonia and treating her with chemotherapy right now could cause more harm as it would put her at increased risk for susceptibility to an infection. If everything that is happening is related to progression of cancer than delaying treatment puts her at risk for disease progression that would eventually be fatal. Plan was for a few days of antibiotics short course of radiation so far but, she has not been able to have 2 planned XRT. We have continued to follow closely with patient. We are planning a family meeting tomorrow. Did speak with Rad Onc about her. Not certain at this point what can be done safely. We will clarify goals, answer questions and see what type of plan is going to be best for pt and her family. Appropriately, pt is a no code. Attests: I have seen and examined pt, performed H&P, developed impression and plan of care. Discussed with dictator. Agree with documentation, dictated as a scribe Time with Patient: Greater than 30
[2022-06-18] MEDS: methylPREDNISolone SOD SUCCI 125 MG/2 ML VIAL IV SCH ×4 (05:03→23:27)
[2022-06-18 05:42] LABS: ALT 17 U/L (4-34); AST 21 U/L (14-36); African American GFR (CKD) >90 (>60 ml/min/1.73 sqM); Albumin/Globulin Ratio 0.7; Alkaline Phosphatase 183 U/L (38-126); Anion Gap 8 mmol/L; Blood Urea Nitrogen 20 mg/dL (7-17); Calcium 7.8 mg/dL (8.4-10.2); Carbon Dioxide 28 mmol/L (22-30); Chloride 101 mmol/L (98-107); Globulin 2.9 g/dL; Glucose 172 mg/dL (74-99); Non-African American GFR(CKD) >90 (>60 ml/min/1.73 sqM); Potassium 3.4 mmol/L (3.5-5.1); Sodium 137 mmol/L (137-145); Total Bilirubin 0.5 mg/dL (0.2-1.3); Total Protein 4.9 g/dL (6.3-8.2)
[2022-06-18 05:50] LABS: Anisocytosis Slight; Basophils # (A) 0.1 k/uL (0-0.2); Basophils % (A) 0 %; Eosinophils % (A) 0 %; HCT 29.8 % (34.0-46.0); HGB 9.4 gm/dL (11.4-16.0); Hypochromasia Marked; Lymphocytes # (A) 0.3 k/uL (1.0-4.8); Lymphocytes % (A) 1 %; MCH 29.5 pg (25.0-35.0); MCHC 31.5 g/dL (31.0-37.0); MCV 93.7 fL (80.0-100.0); Mean Platelet Volume 8.1; Monocytes # (A) 0.3 k/uL (0-1.0); Monocytes % (A) 1 %; Neutrophils # (A) 40.3 k/uL (1.3-7.7); Neutrophils % (A) 98 %; Platelet Count 171 k/uL (150-450); RBC 3.18 m/uL (3.80-5.40)
[2022-06-18] MEDS: POTASSIUM CHLORIDE ER 20 MEQ TAB.ER PO SCH ×2 (05:51→07:42)
--- NOTE | 2022-06-18 06:09 | PN ---
PROGRESS NOTE SUBJECTIVE: This is a 66-year-old woman who was admitted with left lung cancer, is receiving radiation therapy. The patient is slightly drowsy today. No chest pain. No palpitations. No fever. PHYSICAL EXAMINATION: VITAL SIGNS: Pulse ntd, respirations 20. HEENT: Conjunctivae normal. NECK: No JVD. CARDIOVASCULAR: S1, S2. RESPIRATIONS: Breath sounds diminished at the bases. ABDOMEN: Soft. NERVOUS SYSTEM: No focal deficits. LABS: WBC noted. ASSESSMENT: 1. Left-sided lung cancer, extensive on radiation treatment. 2. Possible pneumonia. 3. Tachycardia. 4. Anemia, possibly secondary to malignancy, multifactorial, status post transfusion. 5. Elevated D-dimer. 6. Leukemoid reaction, elevated WBC. 7. Multiple medical issues. 8. No code, no CPR, no vent. RECOMMENDATIONS AND DISCUSSION: I recommend to continue current antibiotics and steroids and the rest of medications. Closely follow with Oncology and Radiation Oncology. Prognosis guarded. Further recommendations to follow. MMODL / IJN: [id number] / MTDD
[2022-06-18 07:07] LABS: Polychromasia Present
[2022-06-18] MEDS: PANTOPRAZOLE 40 MG TABLET PO SCH (07:42)
[2022-06-18] MEDS: IPRATROPIUM-ALBUTEROL 3 ML NEB INHALATION SCH ×3 (07:53→20:15)
[2022-06-18] MEDS: FERROUS SULFATE 325 MG TAB PO SCH (10:35)
[2022-06-18] MEDS: SENNOSIDES 8.6 MG TAB PO SCH (10:35)
[2022-06-18] MEDS: DOCUSATE 100 MG CAP PO SCH (10:35)
[2022-06-18] MEDS: METOPROLOL TARTRATE 25 MG TAB PO SCH ×2 (10:35→21:35)
[2022-06-18] MEDS: NYSTATIN 100,000 UNIT/ML SUSP 500,000 UNIT/5 ML CUP PO SCH ×4 (10:36→21:35)
[2022-06-18] MEDS: FUROSEMIDE 10 MG/ML 2 ML VIAL IV SCH (12:31)
[2022-06-18] MEDS: AMPICILLIN-SULBACTAM 3 GM in SODIUM CHLORIDE 0.9% 100 ML IVPB SCH ×3 (12:32→23:28)
[2022-06-18] MEDS ORDERED: POTASSIUM CHLORIDE ER 20 MEQ TAB.ER PO STA (14:53)
--- NOTE | 2022-06-18 14:54 | P.PN ---
Subjective Progress Note Date: 06/18/22 This is a 66-year-old female who was recently admitted with recently diagnosed lung cancer on the left and also recently undergoing radiation therapy with radiation oncology along with oncology following closely. Plan is for 2 more sessions this week. Patient continues to require oxygen via nasal cannula at 2- 3 L and continues to report shortness of breath. Patient with generalized edema and was given a dose of IV Lasix yesterday and will add low-dose 20 mg IV push Lasix daily and will follow-up with repeat labs. Recommend physical therapy evaluation daily and patient continues to be extremely weak. Social work is following for possible ECF and will be discussed after radiation treatment on how the patient is doing. Patient is currently afebrile and denies chest pain or palpitations. Patient with poor oral intake and needs encouragement and eating. Recommend supplements in between meals and encouraged activity as tolerated. Overall prognosis remains extremely guarded. Patient is also continued on DuoNeb treatments along with IV steroids and antibiotics along with oral nystatin swish and swallow. Chest x-ray done yesterday shows similar to almost complete opacification patient of the left hemithorax related to known left pulmonary mass and effusion and development of subtle patchy right midlung patchy airspace disease concerning for pneumonia. Patient is maintained on antibiotics and will continue. Infectious disease is following. Review of systems: Constitutional: reports of fatigue and continued weakness, no reports of fever, or chills Cardiovascular: No reports of chest pain or palpitations Respiratory: reports of shortness of breath and weak cough GI: No reports of nausea, no reports of of vomiting, no reports of diarrhea : No reports of dysuria or retention Neurovascular: reports of generalized weakness All medications have been reviewed Active Medications Acetaminophen (Acetaminophen Tab 325 Mg Tab) 650 mg PO Q6HR PRN PRN Reason: Fever and/ or MILD Pain Last Admin: 06/12/22 13:06 Dose: 650 mg Hydrocodone Bitart/Acetaminophen (Hydrocodone/Apap 5-325mg 1 Each Tab) 0.5 each PO Q6HR PRN PRN Reason: Moderate Pain (Scale 4 to 6) Last Admin: 06/16/22 16:45 Dose: 0.5 each Albuterol Sulfate (Albuterol Nebulized 2.5 Mg/3 Ml) 2.5 mg INHALATION RT-Q4H PRN PRN Reason: Shortness Of Breath Albuterol/Ipratropium (Ipratropium-Albuterol 3 Ml Neb) 3 ml INHALATION RT-TID PRN PRN Reason: Shortness Of Breath Or Wheezing Albuterol/Ipratropium (Ipratropium-Albuterol 3 Ml Neb) 3 ml INHALATION RT-TID [facility] Last Admin: 06/18/22 11:34 Dose: 3 ml Alprazolam (Alprazolam 0.25 Mg Tab) 0.25 mg PO BID PRN PRN Reason: Anxiety Last Admin: 06/11/22 19:46 Dose: 0.25 mg Docusate Sodium (Docusate 100 Mg Cap) 100 mg PO DAILY [facility] Last Admin: 06/18/22 10:35 Dose: 100 mg Ferrous Sulfate (Ferrous Sulfate 325 Mg Tab) 325 mg PO DAILY [facility] Last Admin: 06/18/22 10:35 Dose: 325 mg Furosemide (Furosemide 10 Mg/Ml 2 Ml Vial) 20 mg IV DAILY [facility] Last Admin: 06/18/22 12:31 Dose: 20 mg Ampicillin Sodium/Sulbactam (Sodium 3 gm/ Sodium Chloride) 100 mls @ 200 mls/hr IVPB Q6HR [facility]; Protocol Last Admin: 06/18/22 12:32 Dose: 200 mls/hr Methylprednisolone Sodium Succinate (Methylprednisolone Sod Succi 125 Mg/2 Ml Vial) 60 mg IV Q6HR [facility] Last Admin: 06/18/22 12:32 Dose: 60 mg Metoprolol Tartrate (Metoprolol Tartrate 25 Mg Tab) 25 mg PO BID [facility] Last Admin: 06/18/22 10:35 Dose: 25 mg Miscellaneous Information (Pneumonia Protocol Utilized 1 Each Misc) 1 each PO ONCE PRN PRN Reason: Per Protocol Miscellaneous Information (Potassium Replacement Protocol 1 Each Misc) 1 each MISCELLANE DAILY PRN; Protocol PRN Reason: Per Protocol Naloxone HCl (Naloxone 0.4 Mg/Ml 1 Ml Vial) 0.2 mg IV Q2M PRN PRN Reason: Opioid Reversal Nystatin (Nystatin 100,000 Unit/Ml Susp 500,000 Unit/5 Ml Cup) 500,000 unit PO QID [facility]; Protocol Last Admin: 06/18/22 13:28 Dose: 500,000 unit Ondansetron HCl (Ondansetron 4 Mg/2 Ml Vial) 4 mg IVP Q8HR PRN PRN Reason: Nausea And Vomiting Last Admin: 06/18/22 01:52 Dose: 4 mg Pantoprazole Sodium (Pantoprazole 40 Mg Tablet) 40 mg PO AC-BRKFST [facility] Last Admin: 06/18/22 07:42 Dose: 40 mg Senna (Sennosides 8.6 Mg Tab) 8.6 mg PO DAILY [facility] Last Admin: 06/18/22 10:35 Dose: 8.6 mg PHYSICAL EXAMINATION: GENERAL: The patient is alert and oriented 2, slightly delayed and confused at times, ill-appearing, thin built . HEENT: Pupils are round and equally reacting to light. EOMI. no scleral icterus. No conjunctival pallor. Normocephalic, atraumatic. No pharyngeal erythema. No thyromegaly. CARDIOVASCULAR: S1 and S2 muffled PULMONARY: diminished breath sounds bilaterally with some scattered rhonchi and crackles noted. ABDOMEN: soft. Nontender on exam. Mildly distended, normoactive bowel sounds. No palpable organomegaly. MUSCULOSKELETAL: No joint swelling or deformity. EXTREMITIES: No cyanosis, clubbing, or pedal edema. Generalized edema noted to the upper and lower extremities NEUROLOGICAL: Gross neurological examination did not reveal any focal deficits. Diffuse weakness SKIN: No rashes. Assessment: Left-sided lung cancer, extensive on radiation treatment Possible pneumonia Tachycardia [place] anemia, possibly secondary to malignancy, multifactorial, status post transfusion Elevated d-dimer Leukemoid reaction, elevated WBC Multiple medical issues Gait dysfunction, generalized weakness GI prophylaxis DVT prophylaxis No code, no CPR, no vent Plan: Recommend to continue with current medications and management along with symptomatic treatment and continued antibiotics. Patient is scheduled to receive another dose of radiation today and tomorrow with radiation oncology and also oncology following. Social work also following as patient is agreeable to ECF and will discuss further with consultations and social work along with patient and family about discharge planning. Patient continues to require oxygen via nasal cannula at 4 L and continues to report shortness of breath and dyspnea with minimal exertion. Recommend PT/OT therapy daily and encouraged oral intake. Discussion is also being had about all treatment options and possible hospice with oncology. Plan is for patient to receive the next 2 doses of radiation with reevaluation after to see how patient is progressing. Patient with generalized edema noted throughout especially bilateral upper extremities and was given a dose of IV Lasix yesterday with some improvement. Recommend IV Lasix 20 mg daily and will follow-up with repeat labs. Due to multiple complex medical issues, overall prognosis is extremely guarded. The impression and plan of care has been dictated by Liliana Mendez, nurse practitioner as directed. Dr. Gal MD I have performed a history and examination and MDM of this patient, discussed the same with the dictator, and agree with the dictator's assessment and plan as written ,documented as a scribe. Based on total visit time, I have performed more than 50% of the visit. Any additional findings or plans will be noted. Objective - Vital Signs Vital signs: Vital Signs Temp 97.7 F 06/18/22 07:17 Pulse 112 H 06/18/22 11:43 Resp 14 06/18/22 07:17 BP 104/67 06/18/22 07:17 Pulse Ox 98 06/18/22 07:17 FiO2 Intake & Output 06/17/22 06/18/22 06/18/22 18:59 06:59 18:59 Intake Total 100 120 Output Total 1000 Balance 100 -880 Weight 49.895 kg Intake: Intake, IV Titration 100 Amount Piperacillin-Tazobactam 3 100 .375 gm In Sodium Chloride 0.9% 100 ml @ 25 mls/hr IVPB Q8H [facility] Rx#: [id number] Oral 120 Output: Urine 1000 Other: Voiding Method Bedside Commode Bedside Commode - Labs CBC & Chem 7: 06/18/22 04:59 06/18/22 04:59 Labs: Abnormal Lab Results - Last 24 Hours (Table) 06/18/22 06/18/22 Range/Units 04:59 04:59 WBC 41.0 H (3.8-10.6) k/uL RBC 3.18 L (3.80-5.40) m/uL Hgb 9.4 L (11.4-16.0) gm/dL Hct 29.8 L (34.0-46.0) % RDW 17.0 H (11.5-15.5) % Neutrophils # 40.3 H (1.3-7.7) k/uL Lymphocytes # 0.3 L (1.0-4.8) k/uL Potassium 3.4 L (3.5-5.1) mmol/L BUN 20 H (7-17) mg/dL Creatinine 0.40 L (0.52-1.04) mg/dL Glucose 172 H (74-99) mg/dL Calcium 7.8 L (8.4-10.2) mg/dL Alkaline Phosphatase 183 H (38-126) U/L Total Protein 4.9 L (6.3-8.2) g/dL Albumin 2.0 L (3.5-5.0) g/dL Microbiology - Last 24 Hours (Table) 06/12/22 17:55 Blood Culture - Preliminary Blood No Growth after 120 hours
--- NOTE | 2022-06-18 17:06 | P.PN ---
Subjective Progress Note Date: 06/18/22 Principal diagnosis: Metastatic lung adenocarcinoma In f/u today pt reports no significant changes in her resp status. She is on 4L, stable. She did get radiation yesterday. Objective - Vital Signs Vital signs: Vital Signs Temp 100.0 F H 06/18/22 14:06 Pulse 111 H 06/18/22 14:06 Resp 20 06/18/22 14:06 BP 99/62 06/18/22 14:06 Pulse Ox 91 L 06/18/22 14:06 FiO2 Intake & Output 06/17/22 06/18/22 06/18/22 18:59 06:59 18:59 Intake Total 100 120 Output Total 1000 Balance 100 -880 Weight 49.895 kg Intake: Intake, IV Titration 100 Amount Piperacillin-Tazobactam 3 100 .375 gm In Sodium Chloride 0.9% 100 ml @ 25 mls/hr IVPB Q8H [facility] Rx#: [id number] Oral 120 Output: Urine 1000 Other: Voiding Method Bedside Commode Bedside Commode Bedside Commode Diaper - Constitutional General appearance: Present: cooperative, mild distress, thin - EENT Eyes: Present: anicteric sclerae, EOMI ENT: Present: hearing grossly normal - Respiratory Respiratory: right: rales, bilateral: diminished, rhonchi - Cardiovascular Rhythm: regular Heart sounds: normal: S1, S2 Abnormal Heart Sounds: Absent: systolic murmur, diastolic murmur, rub, S3 Gallop, S4 Gallop, click, other - Peripheral edema leg Peripheral Edema Comment(s): LUE swelling Peripheral Edema: bilateral: 1+ - Gastrointestinal General gastrointestinal: Present: normal bowel sounds, soft - Neurologic Neurologic: Present: CNII-XII intact - Musculoskeletal Musculoskeletal: Present: generalized weakness - Psychiatric Psychiatric: Present: A&O x's 3, appropriate affect, intact judgment & insight - Labs CBC & Chem 7: 06/18/22 04:59 06/18/22 04:59 Labs: Abnormal Lab Results - Last 24 Hours (Table) 06/18/22 06/18/22 Range/Units 04:59 04:59 WBC 41.0 H (3.8-10.6) k/uL RBC 3.18 L (3.80-5.40) m/uL Hgb 9.4 L (11.4-16.0) gm/dL Hct 29.8 L (34.0-46.0) % RDW 17.0 H (11.5-15.5) % Neutrophils # 40.3 H (1.3-7.7) k/uL Lymphocytes # 0.3 L (1.0-4.8) k/uL Potassium 3.4 L (3.5-5.1) mmol/L BUN 20 H (7-17) mg/dL Creatinine 0.40 L (0.52-1.04) mg/dL Glucose 172 H (74-99) mg/dL Calcium 7.8 L (8.4-10.2) mg/dL Alkaline Phosphatase 183 H (38-126) U/L Total Protein 4.9 L (6.3-8.2) g/dL Albumin 2.0 L (3.5-5.0) g/dL Microbiology - Last 24 Hours (Table) 06/12/22 17:55 Blood Culture - Preliminary Blood No Growth after 120 hours - Imaging and Cardiology Chest x-ray: report reviewed Assessment and Plan (1) SOB (shortness of breath) Current Visit: Yes Status: Acute Priority: High Code(s): R06.02 - SHORTNESS OF BREATH SNOMED Code(s): 828223501 (2) Anemia Current Visit: Yes Status: Acute Priority: High Code(s): D64.9 - ANEMIA, UNSPECIFIED SNOMED Code(s): 471295570 (3) Adenocarcinoma, lung Current Visit: Yes Status: Acute Priority: High Code(s): C34.90 - MALIGNANT NEOPLASM OF UNSP PART OF UNSP BRONCHUS OR LUNG SNOMED Code(s): 706831760 Plan: Anemia of malignancy. Previous anemia workup reviewed. No acute intervention or supplements are needed at this time. Transfuse for hemoglobin less than 7. Her Hgb has been stable since recent transfusion, 9.4 today Leukocytosis, mostly neutrophilia. WBC is trending back down today. Cont abx and treatment for pneumonia for now. Patient is currently being treated with respiratory supportive medications as well as antibiotics for suspected postobstructive pneumonia. Stable, no further significant improvements in her breathing today. Reviewed again with pt plan of care. Treat for pneumonia and short course of radiation to see if that helps with resp status. She missed one radiation treatment last week due to fever. She DID get radiation yesterday. Concern is giving chemo if she is not clear of pneumonia-risk for sepsis when counts drop. Also, pt PS is progressively worsening as her resp status is preventing her from moving around to stay strong. I did speak directly with PT. They're going to evaluate and treat. Occupational therapy has been consulted. She has had a try her very best to see if she can get moving independently or with assistive device. Still pending NGS and PDL1 status. Appropriately, pt is a no code. Attests: I have seen and examined pt, performed H&P, developed impression and plan of care. Discussed with dictator. Agree with documentation, dictated as a scribe
[2022-06-18] MEDS: HYDROcodone/APAP 5-325MG 1 EACH TAB PO PRN (21:32)
[2022-06-19] MEDS: methylPREDNISolone SOD SUCCI 125 MG/2 ML VIAL IV SCH ×4 (05:32→23:55)
[2022-06-19] MEDS: AMPICILLIN-SULBACTAM 3 GM in SODIUM CHLORIDE 0.9% 100 ML IVPB SCH ×4 (05:33→23:56)
[2022-06-19] MEDS: FUROSEMIDE 10 MG/ML 2 ML VIAL IV SCH (07:41)
[2022-06-19] MEDS: PANTOPRAZOLE 40 MG TABLET PO SCH (07:41)
[2022-06-19] MEDS: NYSTATIN 100,000 UNIT/ML SUSP 500,000 UNIT/5 ML CUP PO SCH ×3 (07:42→20:39)
[2022-06-19] MEDS: METOPROLOL TARTRATE 25 MG TAB PO SCH ×2 (07:42→20:39)
[2022-06-19] MEDS: FERROUS SULFATE 325 MG TAB PO SCH (07:42)
[2022-06-19] MEDS: SENNOSIDES 8.6 MG TAB PO SCH (07:42)
[2022-06-19] MEDS: DOCUSATE 100 MG CAP PO SCH (07:42)
[2022-06-19] MEDS: IPRATROPIUM-ALBUTEROL 3 ML NEB INHALATION SCH ×3 (08:05→20:45)
[2022-06-19 08:06] LABS: Anisocytosis Slight; Basophils # (A) 0.1 k/uL (0-0.2); Basophils % (A) 0 %; Eosinophils % (A) 0 %; HCT 29.1 % (34.0-46.0); HGB 8.6 gm/dL (11.4-16.0); Hypochromasia Marked; Lymphocytes # (A) 0.2 k/uL (1.0-4.8); Lymphocytes % (A) 0 %; MCH 28.3 pg (25.0-35.0); MCHC 29.5 g/dL (31.0-37.0); MCV 95.9 fL (80.0-100.0); Macrocytosis Slight; Mean Platelet Volume 8.5; Monocytes # (A) 0.4 k/uL (0-1.0); Monocytes % (A) 1 %; Neutrophils # (A) 49.3 k/uL (1.3-7.7); Neutrophils % (A) 99 %; Platelet Count 161 k/uL (150-450); RBC 3.03 m/uL (3.80-5.40); RDW 16.8 % (11.5-15.5)
[2022-06-19 08:51] LABS: African American GFR (CKD) >90 (>60 ml/min/1.73 sqM); Anion Gap 7 mmol/L; Blood Urea Nitrogen 20 mg/dL (7-17); Calcium 8.1 mg/dL (8.4-10.2); Carbon Dioxide 29 mmol/L (22-30); Chloride 103 mmol/L (98-107); Glucose 149 mg/dL (74-99); Non-African American GFR(CKD) >90 (>60 ml/min/1.73 sqM); Potassium 4.2 mmol/L (3.5-5.1); Sodium 139 mmol/L (137-145); Total Protein 4.8 g/dL (6.3-8.2)
[2022-06-19 08:52] LABS: ALT 16 U/L (4-34); AST 19 U/L (14-36); Albumin/Globulin Ratio 0.7; Alkaline Phosphatase 201 U/L (38-126); Globulin 2.8 g/dL; Total Bilirubin 0.4 mg/dL (0.2-1.3)
--- NOTE | 2022-06-19 09:21 | P.PN ---
Subjective Progress Note Date: 06/19/22 Patient appears to be fairly unchanged compared to yesterday. There is marked generalized weakness. She continues to be short of breath with oxygen requirement stable. Objective - Vital Signs Vital signs: Vital Signs Temp 98.6 F 06/19/22 04:24 Pulse 111 H 06/19/22 08:22 Resp 17 06/19/22 04:24 BP 120/74 06/19/22 04:24 Pulse Ox 92 L 06/19/22 08:06 FiO2 Intake & Output 06/18/22 06/19/22 06/19/22 18:59 06:59 18:59 Intake Total 200 Output Total 500 375 Balance -300 -375 Intake: Intake, IV Titration 200 Amount Ampicillin-Sulbactam 3 gm 200 In Sodium Chloride 0.9% 100 ml @ 200 mls/hr IVPB Q6HR [facility] Rx#:[id number] Output: Urine 500 375 Other: Voiding Method Bedside Commode Diaper - Constitutional General appearance: Present: no acute distress - EENT Eyes: Present: EOMI ENT: Present: hearing grossly normal, normal oropharynx - Respiratory Respiratory: left: diminished - Cardiovascular Rhythm: regular Heart sounds: normal: S1, S2 - Gastrointestinal General gastrointestinal: Present: soft - Integumentary Integumentary: Present: normal - Neurologic Neurologic: Present: CNII-XII intact - Musculoskeletal Musculoskeletal: Present: generalized weakness, strength equal bilaterally - Psychiatric Psychiatric: Present: A&O x's 3, appropriate affect - Labs CBC & Chem 7: 06/19/22 07:43 06/19/22 07:43 Labs: Abnormal Lab Results - Last 24 Hours (Table) 06/19/22 06/19/22 Range/Units 07:43 07:43 WBC 50.0 H (3.8-10.6) k/uL RBC 3.03 L (3.80-5.40) m/uL Hgb 8.6 L (11.4-16.0) gm/dL Hct 29.1 L (34.0-46.0) % MCHC 29.5 L (31.0-37.0) g/dL RDW 16.8 H (11.5-15.5) % Neutrophils # 49.3 H (1.3-7.7) k/uL Lymphocytes # 0.2 L (1.0-4.8) k/uL BUN 20 H (7-17) mg/dL Creatinine 0.38 L (0.52-1.04) mg/dL Glucose 149 H (74-99) mg/dL Calcium 8.1 L (8.4-10.2) mg/dL Alkaline Phosphatase 201 H (38-126) U/L Total Protein 4.8 L (6.3-8.2) g/dL Albumin 2.0 L (3.5-5.0) g/dL Microbiology - Last 24 Hours (Table) 06/12/22 17:55 Blood Culture - Final Blood No Growth after 144 hours Assessment and Plan (1) Physical debility Narrative/Plan: Multifactorial, due to decreased activity, persistent shortness of breath and superimposed acute illness with pneumonia and underlying malignancy. This continues to be quite significant. The patient was able to stand with assistance but was unable to do anything more than that. - Continue working with physical therapy. - At this time her performance status is too poor to permit any systemic treatment. The rationale has been discussed with her, and also her daughter who expressed understanding. - The patient will complete radiation today. Hopefully if this results in reasonable tumor response, performance status would improve though she will require aggressive physical therapy in addition. At this time she is agreeable for possible rehab placement after completion of radiation, if physically stable. Discussed with case management. Current Visit: Yes Status: Acute Code(s): R53.81 - OTHER MALAISE SNOMED Code(s): 93651145 (2) Adenocarcinoma, lung Narrative/Plan: Patient is currently undergoing radiation to the primary site. This constitutes the bulk of disease. Border of disease for metastatic lesion is actually quite minor. Her symptoms are also related to local affects from the large primary tumor. As noted performance status is too poor to permit any aggressive systemic therapy. At this time the hope is that her performance status can improve with radiation to the primary site and treatment of postobstructive pneumonia. Current Visit: Yes Status: Acute Priority: High Code(s): C34.90 - MALIGNANT NEOPLASM OF UNSP PART OF UNSP BRONCHUS OR LUNG SNOMED Code(s): 367742901 (3) Anemia Narrative/Plan: Due to anemia of cancer. Hemoglobin is in a safe range. Transfused to keep above 7. Current Visit: Yes Status: Acute Priority: High Code(s): D64.9 - ANEMIA, UNSPECIFIED SNOMED Code(s): 396736556
[2022-06-19] MEDS: HYDROcodone/APAP 5-325MG 1 EACH TAB PO PRN (14:02)
--- NOTE | 2022-06-19 16:33 | P.CNPUL ---
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 She was discharged home on 06/03/2022. The patient had been seen by medical and radiation oncology. She presented back here to the hospital on 06/09/2022 with complaints of generalized weakness, fatigue. The patient had been receiving radiation therapy. Her chest x-ray had revealed near complete opacification of the left lung. CT angiogram ruled out pulmonary embolism. There is enlarging left pulmonary mass due to increasing mass effect of the left hilar mass resulting in atelectasis. Enlarging left pleural effusion. Right posterior lung patchy opacity suspicious for pneumonia. She was continued on radiation therapy which she completed today. We're consulted for possible thoracentesis which may be both therapeutic and diagnostic. There is some concern with possible empyema. White count 50. Hemoglobin 8.6. Platelets 161,000. Neutrophils 49.3. Sodium 139. Potassium 4.2. BUN 20. Creatinine 0.38. Glucose 149. AST 19. ALT 16. Pro-calcitonin was 14.0. She's been followed by infectious disease. She is currently on Unasyn. She is seen today in consultation on the oncology unit. She is quite weak and frail. She is alert. She is oriented. She is maintaining O2 saturations in the low 90s on 4 L/m per nasal cannula. Current temperature 99.8. She is tachycardic at 120. Respirations 19. She is dyspneic with conversation and exertion. She was however comfortable at rest. Her main complaint is that of continued fatigue. Review of Systems REVIEW OF SYSTEMS: CONSTITUTIONAL: Positive for significant weight loss. EYES: Denies change in vision. EARS, NOSE, MOUTH, THROAT: Denies headaches, denies sore throat. CARDIOVASCULAR: Denies chest pain, palpitations or syncopal episodes. RESPIRATORY: Positive for shortness of breath, cough, congestion no hemoptysis. GASTROINTESTINAL: Positive for poor appetite, denies abdominal pain GENITOURINARY: Denies hematuria, denies infections. MUSKULOSKELETAL: Denies pain, denies swelling. INTEGUMENTARY: Denies rash, denies eczema. NEUROLOGICAL: Denies recent memory loss, no recent seizure activity. PSYCHIATRIC: Denies anxiety, denies depression. HEMATOLOGIC/LYMPHATIC: Consistent of 4 anemia, denies enlarged lymph nodes. Past Medical History Past Medical History: Cancer, Osteoarthritis (OA), Pneumonia Additional Past Medical History / Comment(s): Pt recently admitted to [facility] on 05/24/22 with L large lung mass with cavitation/adenocarcinoma/postobstructive pneumonia and tachycardia thought likely d/t sepsis. Other hx: Pt states since last admission she has had bilateral lower leg/pedal edema, chronic anemia, bronchitis years ago, skin cancer removed from leg, chronic low back pain. History of Any Multi-Drug Resistant Organisms: None Reported Past Surgical History: No Surgical Hx Reported Additional Past Surgical History / Comment(s): L lung biopsy, colonoscopy/benign polypectomy Past Anesthesia/Blood Transfusion Reactions: No Reported Reaction Past Psychological History: No Psychological Hx Reported Smoking Status: Former smoker Past Alcohol Use History: None Reported Past Drug Use History: None Reported - Past Family History Mother Family Medical History: Cancer Additional Family Medical History / Comment(s): Pt does not know type of cancer Father Family Medical History: Coronary Artery Disease (CAD) Additional Family Medical History / Comment(s): Father was a smoker. Medications and Allergies Home Medications Medication Instructions Recorded Confirmed Type Albuterol Inhaler [Ventolin Hfa 2 puff INHALATION RT-Q4H PRN 05/24/22 06/09/22 History Inhaler] Docusate [Colace] 100 mg PO DAILY 05/24/22 06/09/22 History Ferrous Sulfate [Iron (65 MG 325 mg PO DAILY 05/24/22 06/09/22 History Elemental)] ALPRAZolam [Xanax] 0.25 mg PO BID PRN 3 Days #6 tab 06/03/22 06/09/22 Rx Acetaminophen Tab [Tylenol] 650 mg PO Q6HR PRN tab 06/03/22 06/09/22 Rx Amoxic-Pot Clav 875-125Mg 1 tab PO BID 10 Days #20 tab 06/03/22 06/09/22 Rx [Augmentin 875-125] Famotidine [Pepcid] 20 mg PO Q12HR #60 tab 06/03/22 06/09/22 Rx Melatonin 6 mg PO HS PRN 10 Days #10 tab 06/03/22 06/09/22 Rx Metoprolol Tartrate [Lopressor] 25 mg PO BID #60 tab 06/03/22 06/09/22 Rx Nystatin 100,000 Unit/ml Susp 500,000 unit PO QID 3 Days #60 ml 06/03/22 06/09/22 Rx [Mycostatin Oral Susp] predniSONE See Taper PO DIRECTED 06/09/22 06/09/22 History Allergies Allergy/AdvReac Type Severity Reaction Status Date / Time No Known Allergies Allergy Verified 06/09/22 21:11 Physical Exam Vitals: Vital Signs Temp Pulse Pulse Resp BP BP Pulse Ox 06/19/22 12:23 99.8 F H 120 H 19 98/62 92 L 06/19/22 12:17 112 H 06/19/22 12:05 115 H 06/19/22 08:22 111 H 06/19/22 08:06 110 H 92 L 06/19/22 04:24 98.6 F 112 H 17 120/74 92 L 06/18/22 22:01 123 H 06/18/22 21:08 98.8 F 123 H 20 95/57 93 L 06/18/22 20:26 108 H 06/18/22 20:16 104 H 06/18/22 18:58 98.8 F 121 H 17 102/66 94 L Intake and Output 06/19/22 06/19/22 06/19/22 06:59 14:59 22:59 Output Total 375 Balance -375 Output: Urine 375 GENERAL EXAM: Alert, frail, cachectic, 66-year-old female, appears older than stated age, on 4 L nasal cannula, fairly comfortable in no apparent distress. HEAD: Normocephalic. EYES: Normal reaction of pupils, equal size. NOSE: Clear with pink turbinates. THROAT: No erythema or exudates. NECK: No masses, no JVD. CHEST: No chest wall deformity. LUNGS: Equal air entry with dullness and crackles in the left lung throughout. CVS: S1 and S2 normal with no audible murmur, regular rhythm. ABDOMEN: No hepatosplenomegaly, normal bowel sounds, no guarding or rigidity. SPINE: No scoliosis or deformity SKIN: No rashes CENTRAL NERVOUS SYSTEM: No focal deficits, tone is normal in all 4 extremities. EXTREMITIES: There is no peripheral edema. No clubbing, no cyanosis. Peripheral pulses are intact. Results - Laboratory Findings CBC and BMP: 06/19/22 07:43 06/19/22 07:43 PT/INR, D-dimer PT 11.5 sec (9.0-12.0) 06/09/22 19:46 INR 1.1 (<1.2) 06/09/22 19:46 D-Dimer 3.49 mg/L FEU (<0.60) H 06/11/22 12:44 Abnormal lab findings: Abnormal Labs 06/09/22 06/09/22 06/09/22 19:46 19:46 19:46 WBC 34.9 H RBC 1.98 L Hgb 6.3 L* Hct 18.0 L* MCHC RDW 16.2 H Plt Count Comment Absolute Nucleated RBC Immature Gran # Neutrophils # 33.5 H Neutrophils # (Manual) Lymphocytes # 0.8 L Lymphocytes # (Manual) Monocytes # (Manual) Eosinophils # (Manual) NRBC/100 WBC Diff ESR APTT 21.8 L D-Dimer Sodium 136 L Potassium 3.4 L Carbon Dioxide 21 L BUN Creatinine 0.42 L BUN/Creatinine Ratio Glucose Calcium 7.0 L Alkaline Phosphatase 156 H C-Reactive Protein Total Protein 4.4 L Albumin 1.9 L Albumin/Globulin Ratio Procalcitonin Urine Protein Urine Glucose (UA) Urine Ketones Urine Mucus Crossmatch 06/09/22 06/10/22 06/10/22 21:03 15:28 15:49 WBC 43.3 H RBC 2.75 L Hgb 7.7 L Hct 25.7 L MCHC 30.1 L RDW Plt Count Comment Absolute Nucleated RBC Immature Gran # Neutrophils # Neutrophils # (Manual) 42.00 H Lymphocytes # Lymphocytes # (Manual) 0.43 L Monocytes # (Manual) Eosinophils # (Manual) NRBC/100 WBC Diff ESR APTT D-Dimer Sodium Potassium Carbon Dioxide BUN Creatinine BUN/Creatinine Ratio Glucose Calcium Alkaline Phosphatase C-Reactive Protein Total Protein Albumin Albumin/Globulin Ratio Procalcitonin Urine Protein 1+ H Urine Glucose (UA) 2+ H Urine Ketones Trace H Urine Mucus Rare H Crossmatch See Detail 06/11/22 06/11/22 06/11/22 05:58 05:58 12:44 WBC 53.99 H* RBC 2.81 L Hgb 8.0 L Hct 26.2 L MCHC 30.5 L RDW 16.1 H Plt Count Comment Absolute Nucleated RBC 0.02 H Immature Gran # Neutrophils # Neutrophils # (Manual) 52.91 H Lymphocytes # Lymphocytes # (Manual) Monocytes # (Manual) 0 L Eosinophils # (Manual) 0 L NRBC/100 WBC Diff ESR APTT D-Dimer 3.49 H Sodium Potassium Carbon Dioxide BUN Creatinine 0.5 L BUN/Creatinine Ratio 30.80 H Glucose Calcium 8.0 L Alkaline Phosphatase 180 H C-Reactive Protein Total Protein 5.1 L Albumin 2.1 L Albumin/Globulin Ratio 0.70 L Procalcitonin Urine Protein Urine Glucose (UA) Urine Ketones Urine Mucus Crossmatch 06/12/22 06/12/22 06/13/22 09:58 09:58 06:22 WBC 41.8 H 44.67 H RBC 2.68 L 2.48 L Hgb 7.6 L 6.8 L* Hct 24.8 L 22.2 L MCHC 30.7 L 30.6 L RDW 16.0 H 16.3 H Plt Count Comment Absolute Nucleated RBC Immature Gran # 2.07 H Neutrophils # 40.3 H 41.03 H Neutrophils # (Manual) Lymphocytes # 0.7 L 0.83 L Lymphocytes # (Manual) Monocytes # (Manual) Eosinophils # (Manual) NRBC/100 WBC Diff ESR APTT D-Dimer Sodium Potassium 3.1 L Carbon Dioxide BUN Creatinine 0.46 L BUN/Creatinine Ratio Glucose 106 H Calcium 7.5 L Alkaline Phosphatase 177 H C-Reactive Protein Total Protein 5.0 L Albumin 2.1 L Albumin/Globulin Ratio Procalcitonin Urine Protein Urine Glucose (UA) Urine Ketones Urine Mucus Crossmatch 06/13/22 06/13/22 06/13/22 06:22 13:10 19:12 WBC RBC Hgb Hct MCHC RDW Plt Count Comment Absolute Nucleated RBC Immature Gran # Neutrophils # Neutrophils # (Manual) Lymphocytes # Lymphocytes # (Manual) Monocytes # (Manual) Eosinophils # (Manual) NRBC/100 WBC Diff ESR APTT D-Dimer Sodium Potassium 3.2 L 3.4 L Carbon Dioxide BUN Creatinine 0.4 L BUN/Creatinine Ratio 47.25 H Glucose 154 H Calcium 7.8 L Alkaline Phosphatase 149 H C-Reactive Protein Total Protein 4.8 L Albumin 1.8 L Albumin/Globulin Ratio 0.60 L Procalcitonin Urine Protein Urine Glucose (UA) Urine Ketones Urine Mucus Crossmatch See Detail 06/14/22 06/14/22 06/14/22 04:41 04:41 04:41 WBC RBC Hgb Hct MCHC RDW Plt Count Comment Absolute Nucleated RBC Immature Gran # Neutrophils # Neutrophils # (Manual) Lymphocytes # Lymphocytes # (Manual) Monocytes # (Manual) Eosinophils # (Manual) NRBC/100 WBC Diff ESR 83 H APTT D-Dimer Sodium Potassium Carbon Dioxide BUN Creatinine BUN/Creatinine Ratio Glucose Calcium Alkaline Phosphatase C-Reactive Protein 19.20 H Total Protein Albumin Albumin/Globulin Ratio Procalcitonin 14.00 H Urine Protein Urine Glucose (UA) Urine Ketones Urine Mucus Crossmatch 06/14/22 06/14/22 06/15/22 04:41 04:41 05:41 WBC 48.2 H 50.88 H* RBC 3.07 L 3.00 L Hgb 8.7 L 8.6 L Hct 29.1 L 28.0 L MCHC 29.9 L 30.7 L RDW 15.7 H 16.3 H Plt Count Comment DECREASED A Absolute Nucleated RBC 0.05 H Immature Gran # Neutrophils # 46.9 H Neutrophils # (Manual) 49.86 H Lymphocytes # 0.4 L Lymphocytes # (Manual) 0.51 L Monocytes # (Manual) Eosinophils # (Manual) 0 L NRBC/100 WBC Diff 0.1 H ESR APTT D-Dimer Sodium Potassium Carbon Dioxide BUN 25 H Creatinine 0.44 L BUN/Creatinine Ratio Glucose 152 H Calcium 7.9 L Alkaline Phosphatase C-Reactive Protein Total Protein Albumin Albumin/Globulin Ratio Procalcitonin Urine Protein Urine Glucose (UA) Urine Ketones Urine Mucus Crossmatch 06/15/22 06/18/22 06/18/22 05:41 04:59 04:59 WBC 41.0 H RBC 3.18 L Hgb 9.4 L Hct 29.8 L MCHC RDW 17.0 H Plt Count Comment Absolute Nucleated RBC Immature Gran # Neutrophils # 40.3 H Neutrophils # (Manual) Lymphocytes # 0.3 L Lymphocytes # (Manual) Monocytes # (Manual) Eosinophils # (Manual) NRBC/100 WBC Diff ESR APTT D-Dimer Sodium Potassium 3.4 L Carbon Dioxide BUN 20 H Creatinine 0.4 L 0.40 L BUN/Creatinine Ratio 54.46 H Glucose 134 H 172 H Calcium 8.4 L 7.8 L Alkaline Phosphatase 183 H C-Reactive Protein Total Protein 4.9 L Albumin 2.0 L Albumin/Globulin Ratio Procalcitonin Urine Protein Urine Glucose (UA) Urine Ketones Urine Mucus Crossmatch 06/19/22 06/19/22 07:43 07:43 WBC 50.0 H RBC 3.03 L Hgb 8.6 L Hct 29.1 L MCHC 29.5 L RDW 16.8 H Plt Count Comment Absolute Nucleated RBC Immature Gran # Neutrophils # 49.3 H Neutrophils # (Manual) Lymphocytes # 0.2 L Lymphocytes # (Manual) Monocytes # (Manual) Eosinophils # (Manual) NRBC/100 WBC Diff ESR APTT D-Dimer Sodium Potassium Carbon Dioxide BUN 20 H Creatinine 0.38 L BUN/Creatinine Ratio Glucose 149 H Calcium 8.1 L Alkaline Phosphatase 201 H C-Reactive Protein Total Protein 4.8 L Albumin 2.0 L Albumin/Globulin Ratio Procalcitonin Urine Protein Urine Glucose (UA) Urine Ketones Urine Mucus Crossmatch - Diagnostic Findings Chest x-ray: image reviewed CT scan - chest: image reviewed Assessment and Plan Assessment: Acute hypoxemic respiratory failure secondary to postobstructive pneumonia secondary to large left upper lobe mass. This was diagnosed as stage IV pulmonary adenocarcinoma on 05/26/[address]-guided fine-needle aspirate. She had been seen by medical and radiation oncology. She completed 5 cycles of radiation today. Chest x-ray shows near complete opacification of the left chest. Cannot rule out empyema. Pro-calcitonin 14.0. Significant leukocytosis suspect secondary to above Anemia with a drop of hemoglobin is 6.8, status post 2 units packed red blood cells this admission, currently on 8.6 Poor overall functional performance Former smoker, currently in remission, carries [id number] smoking history Plan: The patient was seen and evaluated Chest x-ray, CAT scan, labs and medications reviewed We will order an ultrasound of the left chest to see if there is any free flowin g fluid May perform a left-sided thoracentesis, diagnostic, possibly therapeutic She remains on Unasyn per infectious disease Completed radiation therapy Further treatment options will depend on her functional performance DO NOT RESUSCITATE/DO NOT INTUBATE CODE STATUS We will continue to follow and make further recommendations based on her clinical status I have personally seen and examined the patient, performed the documentation and the assessment and plan as written. Number of minutes spent on the visit: 20. I have personally seen and examined the patient and reviewed the documentation. I performed a joint evaluation with the nurse practitioner in this evaluation was done more than 30 minutes. I fully agree with the documentation above and the plan of care.. The patient will have an ultrasound and if there is a sizable effusion a thoracentesis of the right lung.
--- NOTE | 2022-06-19 19:38 | US ---
EXAMINATION TYPE: US chest DATE OF EXAM: 06/19/2022 COMPARISON: NONE CLINICAL HISTORY: Pleural effusion. Pleural effusion. TECHNIQUE: Targeted ultrasound of the posterior lower left hemithorax EXAM MEASUREMENTS: Left Pleural Effusion pocket size: 9.3 cm Left skin surface to fluid distance: 1.4 cm lung tissue visualized and 4 cm deep in fluid pocket . Left side marked for possible thoracentesis outside the dept. Pulmonologists are able to review the images in the patient?s EMR. IMPRESSIONS: Left pleural effusion.
[2022-06-20] MEDS: methylPREDNISolone SOD SUCCI 125 MG/2 ML VIAL IV SCH ×3 (05:32→17:52)
[2022-06-20] MEDS: AMPICILLIN-SULBACTAM 3 GM in SODIUM CHLORIDE 0.9% 100 ML IVPB SCH ×3 (05:32→17:52)
--- NOTE | 2022-06-20 05:42 | P.PN ---
Subjective Progress Note Date: 06/19/22 This is a 66-year-old female who was recently admitted with recently diagnosed lung cancer on the left and also recently undergoing radiation therapy with radiation oncology along with oncology following closely. Plan is for 2 more sessions this week. Patient continues to require oxygen via nasal cannula at 2- 3 L and continues to report shortness of breath. Patient with generalized edema and was given a dose of IV Lasix yesterday and will add low-dose 20 mg IV push Lasix daily and will follow-up with repeat labs. Recommend physical therapy evaluation daily and patient continues to be extremely weak. Social work is following for possible ECF and will be discussed after radiation treatment on how the patient is doing. Patient is currently afebrile and denies chest pain or palpitations. Patient with poor oral intake and needs encouragement and eating. Recommend supplements in between meals and encouraged activity as tolerated. Overall prognosis remains extremely guarded. Patient is also continued on DuoNeb treatments along with IV steroids and antibiotics along with oral nystatin swish and swallow. Chest x-ray done yesterday shows similar to almost complete opacification patient of the left hemithorax related to known left pulmonary mass and effusion and development of subtle patchy right midlung patchy airspace disease concerning for pneumonia. Patient is maintained on antibiotics and will continue. Infectious disease is following. 06/19/2022 Patient is seen in follow up today post radiation and has completed 5 cycles with radiation, oncology, and infectious disease following. Patient is continued on duonebs, IV steroids, IV lasix, and IV abx of Zosyn and no real clinical improvement. Patient not behaving as a pneumonia and will consult pulmonary and appreciate input and recommendations. Patient continues with significant weakness as well and working with PT/OT therapy. Planning possible ecf. Intake is fair to poor and lethargic at times. Chest ultrasound ordered. Review of systems: Constitutional: reports of fatigue and continued weakness, no reports of fever, or chills Cardiovascular: No reports of chest pain or palpitations Respiratory: reports of shortness of breath and weak cough GI: No reports of nausea, no reports of of vomiting, no reports of diarrhea : No reports of dysuria or retention Neurovascular: reports of generalized weakness All medications have been reviewed Active Medications Acetaminophen (Acetaminophen Tab 325 Mg Tab) 650 mg PO Q6HR PRN PRN Reason: Fever and/ or MILD Pain Last Admin: 08/25/22 13:06 Dose: 650 mg Hydrocodone Bitart/Acetaminophen (Hydrocodone/Apap 5-325mg 1 Each Tab) 0.5 each PO Q6HR PRN PRN Reason: Moderate Pain (Scale 4 to 6) Last Admin: 06/19/22 14:02 Dose: 0.5 each Albuterol Sulfate (Albuterol Nebulized 2.5 Mg/3 Ml) 2.5 mg INHALATION RT-Q4H PRN PRN Reason: Shortness Of Breath Albuterol/Ipratropium (Ipratropium-Albuterol 3 Ml Neb) 3 ml INHALATION RT-TID PRN PRN Reason: Shortness Of Breath Or Wheezing Albuterol/Ipratropium (Ipratropium-Albuterol 3 Ml Neb) 3 ml INHALATION RT-TID [facility] Last Admin: 06/19/22 20:45 Dose: 3 ml Alprazolam (Alprazolam 0.25 Mg Tab) 0.25 mg PO BID PRN PRN Reason: Anxiety Last Admin: 06/11/22 19:46 Dose: 0.25 mg Docusate Sodium (Docusate 100 Mg Cap) 100 mg PO DAILY [facility] Last Admin: 06/19/22 07:42 Dose: 100 mg Ferrous Sulfate (Ferrous Sulfate 325 Mg Tab) 325 mg PO DAILY [facility] Last Admin: 06/19/22 07:42 Dose: 325 mg Furosemide (Furosemide 10 Mg/Ml 2 Ml Vial) 20 mg IV DAILY [facility] Last Admin: 06/19/22 07:41 Dose: 20 mg Ampicillin Sodium/Sulbactam (Sodium 3 gm/ Sodium Chloride) 100 mls @ 200 mls/hr IVPB Q6HR [facility]; Protocol Last Admin: 06/19/22 23:56 Dose: 200 mls/hr Methylprednisolone Sodium Succinate (Methylprednisolone Sod Succi 125 Mg/2 Ml Vial) 60 mg IV Q6HR [facility] Last Admin: 06/19/22 23:55 Dose: 60 mg Metoprolol Tartrate (Metoprolol Tartrate 25 Mg Tab) 25 mg PO BID [facility] Last Admin: 06/19/22 20:39 Dose: 25 mg Miscellaneous Information (Pneumonia Protocol Utilized 1 Each Misc) 1 each PO ONCE PRN PRN Reason: Per Protocol Miscellaneous Information (Potassium Replacement Protocol 1 Each Misc) 1 each MISCELLANE DAILY PRN; Protocol PRN Reason: Per Protocol Naloxone HCl (Naloxone 0.4 Mg/Ml 1 Ml Vial) 0.2 mg IV Q2M PRN PRN Reason: Opioid Reversal Nystatin (Nystatin 100,000 Unit/Ml Susp 500,000 Unit/5 Ml Cup) 500,000 unit PO QID [facility]; Protocol Last Admin: 06/19/22 20:39 Dose: 500,000 unit Ondansetron HCl (Ondansetron 4 Mg/2 Ml Vial) 4 mg IVP Q8HR PRN PRN Reason: Nausea And Vomiting Last Admin: 06/18/22 01:52 Dose: 4 mg Pantoprazole Sodium (Pantoprazole 40 Mg Tablet) 40 mg PO AC-BRKFST [facility] Last Admin: 06/19/22 07:41 Dose: 40 mg Senna (Sennosides 8.6 Mg Tab) 8.6 mg PO DAILY [facility] Last Admin: 06/19/22 07:42 Dose: 8.6 mg PHYSICAL EXAMINATION: GENERAL: The patient is alert and oriented 2-3, slightly delayed at times, ill- appearing, thin built . HEENT: Pupils are round and equally reacting to light. EOMI. no scleral icterus. No conjunctival pallor. Normocephalic, atraumatic. No pharyngeal erythema. No thyromegaly. CARDIOVASCULAR: S1 and S2 muffled PULMONARY: diminished breath sounds bilaterally with some scattered rhonchi and crackles noted. ABDOMEN: soft. Nontender on exam. Mildly distended, normoactive bowel sounds. No palpable organomegaly. MUSCULOSKELETAL: No joint swelling or deformity. EXTREMITIES: No cyanosis, clubbing, or pedal edema. Generalized edema noted to the upper and lower extremities NEUROLOGICAL: Gross neurological examination did not reveal any focal deficits. Diffuse weakness SKIN: No rashes. Assessment: Left-sided lung cancer, extensive on radiation treatment Possible pneumonia, although suspicion is low Tachycardia anemia, possibly secondary to malignancy, multifactorial, status post transfusion Elevated d-dimer Leukemoid reaction, elevated WBC Gait dysfunction, generalized weakness GI prophylaxis DVT prophylaxis No code, no CPR, no vent Plan: Recommend to continue with current medications and management along with symptomatic treatment and continued antibiotics. Patient is scheduled to receive another dose of radiation today to complete the cycle and oncology following. Social work also following as patient is agreeable to ECF and will discuss further with consultations and social work along with patient and family about discharge planning. Patient continues to require oxygen via nasal cannula at 4 L and continues to report shortness of breath and dyspnea with minimal exertion. Recommend PT/OT therapy daily and encouraged oral intake. Discussion is also being had about all treatment options and possible hospice with oncology. ID following and patient has been maintained on IV abx with no real clinical improvement and not behaving as pneumonia, recommend pulmonary consult. chest ultrasound ordered and discussing possible thoracentesis. Patient continues with generalized edema noted throughout especially bilateral upper extremities and on IV Lasix 20 mg daily and will follow-up with repeat labs. Due to multiple complex medical issues, overall prognosis is extremely guarded. The impression and plan of care has been dictated by Liliana Mendez, nurse practitioner as directed. Dr. Gal MD I have performed a history and examination and MDM of this patient, discussed the same with the dictator, and agree with the dictator's assessment and plan as written ,documented as a scribe. Based on total visit time, I have performed more than 50% of the visit. Any additional findings or plans will be noted. Objective - Vital Signs Vital signs: Vital Signs Temp 98.6 F 06/19/22 04:24 Pulse 111 H 06/19/22 08:22 Resp 17 06/19/22 04:24 BP 120/74 06/19/22 04:24 Pulse Ox 92 L 06/19/22 08:06 FiO2 Intake & Output 06/18/22 06/19/22 06/19/22 18:59 06:59 18:59 Intake Total 200 Output Total 500 375 Balance -300 -375 Intake: Intake, IV Titration 200 Amount Ampicillin-Sulbactam 3 gm 200 In Sodium Chloride 0.9% 100 ml @ 200 mls/hr IVPB Q6HR [facility] Rx#:[id number] Output: Urine 500 375 Other: Voiding Method Bedside Commode Diaper - Labs CBC & Chem 7: 06/19/22 07:43 06/19/22 07:43 Labs: Abnormal Lab Results - Last 24 Hours (Table) 06/19/22 06/19/22 Range/Units 07:43 07:43 WBC 50.0 H (3.8-10.6) k/uL RBC 3.03 L (3.80-5.40) m/uL Hgb 8.6 L (11.4-16.0) gm/dL Hct 29.1 L (34.0-46.0) % MCHC 29.5 L (31.0-37.0) g/dL RDW 16.8 H (11.5-15.5) % Neutrophils # 49.3 H (1.3-7.7) k/uL Lymphocytes # 0.2 L (1.0-4.8) k/uL BUN 20 H (7-17) mg/dL Creatinine 0.38 L (0.52-1.04) mg/dL Glucose 149 H (74-99) mg/dL Calcium 8.1 L (8.4-10.2) mg/dL Alkaline Phosphatase 201 H (38-126) U/L Total Protein 4.8 L (6.3-8.2) g/dL Albumin 2.0 L (3.5-5.0) g/dL Microbiology - Last 24 Hours (Table) 06/12/22 17:55 Blood Culture - Final Blood No Growth after 144 hours
[2022-06-20] MEDS: IPRATROPIUM-ALBUTEROL 3 ML NEB INHALATION SCH ×3 (08:30→20:09)
--- NOTE | 2022-06-20 08:38 | P.PN ---
Subjective Progress Note Date: 06/16/22 Principal diagnosis: Fever Patient is a 66-year-old female with recent diagnosis of lung cancer left upper lobe with a cavitating mass readmitted to the hospital with severe shortness of breath with worsening on the CT. On today's evaluation that is 06/16/2022, the patient continues to be afebrile, patient is breathing slightly Comfortably on nasal cannula oxygen patient denies having any chest pain she did have a cough but mostly dry in nature , the patient denies abdominal pain and no diarrhea Objective - Vital Signs Vital signs: Vital Signs Temp 97.7 F 06/16/22 04:24 Pulse 106 H 06/16/22 09:43 Resp 15 06/16/22 04:24 BP 118/72 06/16/22 04:24 Pulse Ox 95 06/16/22 09:33 FiO2 Intake & Output 06/15/22 06/16/22 06/16/22 18:59 06:59 18:59 Intake Total 240 118 Output Total 100 Balance 240 18 Intake: Oral 240 118 Output: Urine 100 Other: Voiding Method Bedside Commode Bedside Commode # Voids 3 1 1 # Bowel Movements 2 1 - Exam GENERAL DESCRIPTION: An elderly female lying in bed in no distress RESPIRATORY SYSTEM: Unlabored breathing , decreased breath sounds at bases HEART: S1 S2 regular rate and rhythm , ABDOMEN: Soft , no tenderness EXTREMITIES: No edema feet - Labs CBC & Chem 7: 06/19/22 07:43 06/19/22 07:43 Labs: Microbiology - Last 24 Hours (Table) 06/09/22 19:46 Blood Culture - Final Blood No Growth after 144 hours 06/12/22 17:55 Blood Culture - Preliminary Blood No Growth after 72 hours Assessment and Plan (1) Pneumonia Current Visit: Yes Status: Acute Code(s): J18.9 - PNEUMONIA, UNSPECIFIED ORGANISM SNOMED Code(s): 626372977 Plan: 1patient with recent diagnosis of 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 with cavitation status post CT-guided biopsy as well as culture of those were negative subsequent presented to hospital increasing shortness of breath cough and did have a fever with evidence of increasing left upper lobe mass on the recent CAT scan could be related to possible postobstructive pneumonia or enlarging tumor with a tumor necrosis as the patient did have si gnificant elevated white count, blood and sputum culture has been negative for any resistant pathogen, patient did have significantly elevated procalcitonin and CRP 2patient blood and sputum culture has been negative antibodies switched over to Unasyn 3 g every 6 hours Time with Patient: Less than 30
--- NOTE | 2022-06-20 08:40 | P.PN ---
Subjective Progress Note Date: 06/17/22 Principal diagnosis: Fever Patient is a 66-year-old female with recent diagnosis of lung cancer left upper lobe with a cavitating mass readmitted to the hospital with severe shortness of breath with worsening on the CT. On today's evaluation that is 06/17/2022, the patient remains to be afebrile, patient is breathing comfortably on nasal cannula oxygen, and the patient denies having any chest pain, the patient cough is decreased intensity with the patient's sputum, the patient denies any abdominal pain and no diarrhea Objective - Vital Signs Vital signs: Vital Signs Temp 99.0 F 06/17/22 11:04 Pulse 129 H 06/17/22 11:04 Resp 22 06/17/22 11:04 BP 124/80 06/17/22 11:04 Pulse Ox 91 L 06/17/22 11:04 FiO2 Intake & Output 06/16/22 06/17/22 06/17/22 18:59 06:59 18:59 Intake Total 100 Balance 100 Intake: Oral 100 Other: # Voids 1 3 # Bowel Movements 1 - Exam GENERAL DESCRIPTION: An elderly female lying in bed in no distress RESPIRATORY SYSTEM: Unlabored breathing , decreased breath sounds at bases HEART: S1 S2 regular rate and rhythm , ABDOMEN: Soft , no tenderness EXTREMITIES: No edema feet - Labs CBC & Chem 7: 06/19/22 07:43 06/19/22 07:43 Labs: Microbiology - Last 24 Hours (Table) 06/12/22 17:55 Blood Culture - Preliminary Blood No Growth after 96 hours Assessment and Plan (1) Pneumonia Current Visit: Yes Status: Acute Code(s): J18.9 - PNEUMONIA, UNSPECIFIED ORGANISM SNOMED Code(s): 245344080 Plan: 1patient with recent diagnosis of 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 with cavitation status post CT-guided biopsy as well as culture of those were negative subsequent presented to hospital increasing shortness of breath cough and did have a fever with evidence of increasing left upper lobe mass on the recent CAT scan could be related to possible postobstructive pneumonia or enlarging tumor with a tumor necrosis as the patient did have significant elevated white count, blood and sputum culture has been negative for any resistant pathogen, patient did have significantly elevated procalcitonin and CRP 2patient blood and sputum culture has been negative 3-patient seemed to have shown some clinical improvement and will continue with Unasyn 3 g every 6 hours Time with Patient: Less than 30
--- NOTE | 2022-06-20 08:41 | P.PN ---
Subjective Progress Note Date: 06/18/22 Principal diagnosis: Fever Patient is a 66-year-old female with recent diagnosis of lung cancer left upper lobe with a cavitating mass readmitted to the hospital with severe shortness of breath with worsening on the CT. On today's evaluation that is 06/18/2022, the patient denies any fever or any chills, patient is breathing comfortably on nasal cannula oxygen,the patient denies having any chest pain, the patient cough is decreased intensity and not bringing up any sputum, the patient denies any abdominal pain and no diarrhea Objective - Vital Signs Vital signs: Vital Signs Temp 97.7 F 06/18/22 07:17 Pulse 108 H 06/18/22 08:08 Resp 14 06/18/22 07:17 BP 104/67 06/18/22 07:17 Pulse Ox 98 06/18/22 07:17 FiO2 Intake & Output 06/17/22 06/18/22 06/18/22 18:59 06:59 18:59 Intake Total 100 120 Output Total 1000 Balance 100 -880 Weight 49.895 kg Intake: Intake, IV Titration 100 Amount Piperacillin-Tazobactam 3 100 .375 gm In Sodium Chloride 0.9% 100 ml @ 25 mls/hr IVPB Q8H [facility] Rx#: [id number] Oral 120 Output: Urine 1000 Other: Voiding Method Bedside Commode Bedside Commode - Exam GENERAL DESCRIPTION: An elderly female lying in bed in no distress RESPIRATORY SYSTEM: Unlabored breathing , decreased breath sounds at bases HEART: S1 S2 regular rate and rhythm , ABDOMEN: Soft , no tenderness EXTREMITIES: No edema feet - Labs CBC & Chem 7: 06/19/22 07:43 06/19/22 07:43 Labs: Abnormal Lab Results - Last 24 Hours (Table) 06/18/22 06/18/22 Range/Units 04:59 04:59 WBC 41.0 H (3.8-10.6) k/uL RBC 3.18 L (3.80-5.40) m/uL Hgb 9.4 L (11.4-16.0) gm/dL Hct 29.8 L (34.0-46.0) % RDW 17.0 H (11.5-15.5) % Neutrophils # 40.3 H (1.3-7.7) k/uL Lymphocytes # 0.3 L (1.0-4.8) k/uL Potassium 3.4 L (3.5-5.1) mmol/L BUN 20 H (7-17) mg/dL Creatinine 0.40 L (0.52-1.04) mg/dL Glucose 172 H (74-99) mg/dL Calcium 7.8 L (8.4-10.2) mg/dL Alkaline Phosphatase 183 H (38-126) U/L Total Protein 4.9 L (6.3-8.2) g/dL Albumin 2.0 L (3.5-5.0) g/dL Microbiology - Last 24 Hours (Table) 06/12/22 17:55 Blood Culture - Preliminary Blood No Growth after 120 hours Assessment and Plan (1) Pneumonia Current Visit: Yes Status: Acute Code(s): J18.9 - PNEUMONIA, UNSPECIFIED ORGANISM SNOMED Code(s): 495997376 Plan: 1patient with recent diagnosis of 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 with cavitation status post CT-guided biopsy as well as culture of those were negative subsequent presented to hospital increasing shortness of breath cough and did have a fever with evidence of increasing left upper lobe mass on the recent CAT scan could be related to possible postobstructive pneumonia or enlarging tumor with a tumor necrosis as the patient did have significant elevated white count, blood and sputum culture has been negative for any resistant pathogen, patient did have significantly elevated procalcitonin and CRP 2patient blood and sputum culture has been negative 3-patient x-ray did show complete opacification of the left lung and will benefit from pulmonary evaluation, patient to continue with Unasyn 3 g every 6 hours Time with Patient: Less than 30
--- NOTE | 2022-06-20 08:43 | P.PN ---
Subjective Progress Note Date: 06/19/22 Principal diagnosis: Fever Patient is a 66-year-old female with recent diagnosis of lung cancer left upper lobe with a cavitating mass readmitted to the hospital with severe shortness of breath with worsening on the CT. On today's evaluation that is 06/19/2022, the patient remains to be afebrile, patient is breathing comfortably on nasal cannula oxygen,the patient denies having any chest pain, the patient cough has decreased in intensity mostly dry in nature patient denies any nausea no vomiting no abdominal pain no diarrhea Objective - Vital Signs Vital signs: Vital Signs Temp 99.8 F H 06/19/22 12:23 Pulse 120 H 06/19/22 12:23 Resp 19 06/19/22 12:23 BP 98/62 06/19/22 12:23 Pulse Ox 92 L 06/19/22 12:23 FiO2 Intake & Output 06/18/22 06/19/22 06/19/22 18:59 06:59 18:59 Intake Total 200 Output Total 500 375 Balance -300 -375 Intake: Intake, IV Titration 200 Amount Ampicillin-Sulbactam 3 gm 200 In Sodium Chloride 0.9% 100 ml @ 200 mls/hr IVPB Q6HR [facility] Rx#:[id number] Output: Urine 500 375 Other: Voiding Method Bedside Commode Diaper - Exam GENERAL DESCRIPTION: An elderly female lying in bed in no distress RESPIRATORY SYSTEM: Unlabored breathing , decreased breath sounds at bases HEART: S1 S2 regular rate and rhythm , ABDOMEN: Soft , no tenderness EXTREMITIES: No edema feet - Labs CBC & Chem 7: 06/19/22 07:43 06/19/22 07:43 Labs: Abnormal Lab Results - Last 24 Hours (Table) 06/19/22 06/19/22 Range/Units 07:43 07:43 WBC 50.0 H (3.8-10.6) k/uL RBC 3.03 L (3.80-5.40) m/uL Hgb 8.6 L (11.4-16.0) gm/dL Hct 29.1 L (34.0-46.0) % MCHC 29.5 L (31.0-37.0) g/dL RDW 16.8 H (11.5-15.5) % Neutrophils # 49.3 H (1.3-7.7) k/uL Lymphocytes # 0.2 L (1.0-4.8) k/uL BUN 20 H (7-17) mg/dL Creatinine 0.38 L (0.52-1.04) mg/dL Glucose 149 H (74-99) mg/dL Calcium 8.1 L (8.4-10.2) mg/dL Alkaline Phosphatase 201 H (38-126) U/L Total Protein 4.8 L (6.3-8.2) g/dL Albumin 2.0 L (3.5-5.0) g/dL Microbiology - Last 24 Hours (Table) 06/12/22 17:55 Blood Culture - Final Blood No Growth after 144 hours Assessment and Plan (1) Pneumonia Current Visit: Yes Status: Acute Code(s): J18.9 - PNEUMONIA, UNSPECIFIED ORGANISM SNOMED Code(s): 689668253 Plan: 1patient with recent diagnosis of 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 with cavitation status post CT-guided biopsy as well as culture of those were negative subsequent presented to hospital increasing shortness of breath cough and did have a fever with evidence of increasing left upper lobe mass on the recent CAT scan could be related to possible postobstructive pneumonia or enlarging tumor with a tumor necrosis as the patient did have significant elevated white count, blood and sputum culture has been negative for any resistant pathogen, patient did have significantly elevated procalcitonin and CRP 2patient blood and sputum culture has been negative 3-patient x-ray did show complete opacification of the left lung and pulmonary has been consulted 4- patient to continue with Unasyn 3 g every 6 hours and monitor clinical course closely Time with Patient: Less than 30
[2022-06-20 09:29] LABS: African American GFR (CKD) 134.9 (60.0-200.0); Anion Gap 10.4 mmol/L (10.00-18.00); BUN/Creat Ratio 57.73 Ratio (12.00-20.00); Blood Urea Nitrogen 18.3 mg/dL (9.0-27.0); Calcium 8.3 mg/dL (8.7-10.3); Carbon Dioxide 28.9 mmol/L (20.0-27.5); Non-African American GFR(CKD) 116.4 (60.0-200.0); Potassium 3.9 mmol/L (3.5-5.5)
[2022-06-20] MEDS: SENNOSIDES 8.6 MG TAB PO SCH (09:42)
[2022-06-20] MEDS: METOPROLOL TARTRATE 25 MG TAB PO SCH ×2 (09:42→21:29)
[2022-06-20] MEDS: DOCUSATE 100 MG CAP PO SCH (09:42)
[2022-06-20] MEDS: FERROUS SULFATE 325 MG TAB PO SCH (09:42)
[2022-06-20] MEDS: PANTOPRAZOLE 40 MG TABLET PO SCH (09:42)
[2022-06-20] MEDS: FUROSEMIDE 10 MG/ML 2 ML VIAL IV SCH (09:43)
[2022-06-20] MEDS: NYSTATIN 100,000 UNIT/ML SUSP 500,000 UNIT/5 ML CUP PO SCH ×4 (09:46→21:29)
[2022-06-20 10:06] LABS: NRBC Per 100 WBC 0 /100 WBCS (0.0-0.0)
[2022-06-20 10:07] LABS: Basophils # (M) 0 X 10*3/uL (0.00-0.10); Eosinophils # (M) 0 X 10*3/uL (0.04-0.35); HGB 8.4 g/dL (12.0-15.0); Lymphocytes # (M) 0 X 10*3/uL (0.90-5.00); MCH 29.2 pg (27.0-32.0); MCHC 31.1 g/dL (32.0-37.0); MCV 93.8 fL (80.0-97.0); Mean Platelet Volume 10.5 fL (9.5-12.2); Monocytes # (M) 1.09 X 10*3/uL (0.20-1.00); Neutrophils # (M) 53.26 X 10*3/uL (2.00-8.90); Neutrophils % (M) 98 %; Platelet Count 125 X 10*3/uL (140-440); RBC 2.88 X 10*6/uL (4.10-5.20); RDW 17.2 % (11.5-14.5); Stomatocytes 2+; WBC 54.35 X 10*3/uL (4.50-10.00)
[2022-06-20] MEDS ORDERED: bisacodyL 10 MG SUPP RECTAL STA (10:53)
[2022-06-20] MEDS ORDERED: LIDOCAINE 1% INJ 10MG/ML (20 ML MDV) ONE (12:23)
--- NOTE | 2022-06-20 13:03 | P.PCN ---
Date of Procedure: 06/20/22 Preoperative Diagnosis: Left-sided pleural effusion Postoperative Diagnosis: Left-sided pleural effusion Procedure(s) Performed: Thoracentesis, left-sided Anesthesia: local Surgeon: Corin Grajeda Estimated Blood Loss (ml): 0 Pathology: other Condition: stable Disposition: same day Operative Findings: A time out was performed and the chest x-ray was reviewed, the appropriate side was confirmed and marked. My hands were washed immediately prior to the procedure. I wore a surgical cap, mask with protective eyewear, sterile gown and sterile gloves throughout the procedure. The patient was prepped and draped in a sterile manner using chlorhexidine scrub after the appropriate level was percussed and confirmed by ultrasound. 1% lidocaine was used to anesthesize the skin, subcutaneous tissue, superior aspect of the rib periosteum and parietal pleura. A finder needle was then introduced over the superior aspect of the rib to locate the pleural fluid; 2colored fluid was aspirated at a depth of approximately 2 cm. A 10-blade scalpel was used to cain the skin at the inserti on site. The [id number] needle was then introduced through the skin incision into the pleural space using negative aspiration pressure and the red colometric indicator to confirm appropriate positioning of the needle. The thoracentesis catheter was then threaded without difficulty. 1000 ml of turbid colored fluid was removed without difficulty. The catheter was then removed. No immediate complications were noted during the procedure. A post-procedure chest x-ray is pending at the time of this note. The fluid will be sent for studies. Estimated blood loss is 0cc
--- NOTE | 2022-06-20 13:08 | P.PN ---
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 She was discharged home on 06/03/2022. The patient had been seen by medical and radiation oncology. She presented back here to the hospital on 06/09/2022 with complaints of generalized weakness, fatigue. The patient had been receiving radiation therapy. Her chest x-ray had revealed near complete opacification of the left lung. CT angiogram ruled out pulmonary embolism. There is enlarging left pulmonary mass due to increasing mass effect of the left hilar mass resulting in atelectasis. Enlarging left pleural effusion. Right posterior lung patchy opacity suspicious for pneumonia. She was continued on radiation therapy which she completed today. We're consulted for possible thoracentesis which may be both therapeutic and diagnostic. There is some concern with possible empyema. White count 50. Hemoglobin 8.6. Platelets 161,000. Neutrophils 49.3. Sodium 139. Potassium 4.2. BUN 20. Creatinine 0.38. Glucose 149. AST 19. ALT 16. Pro-calcitonin was 14.0. She's been followed by infectious disease. She is currently on Unasyn. She is seen today in consultation on the oncology unit. She is quite weak and frail. She is alert. She is oriented. She is maintaining O2 saturations in the low 90s on 4 L/m per nasal cannula. Current temperature 99.8. She is tachycardic at 120. Respirations 19. She is dyspneic with conversation and exertion. She was however comfortable at rest. Her main complaint is that of continued fatigue. 06/20/2022, condition is essentially unchanged. Quite debilitated and very weak. Breathing is labored even at rest. Right-sided thoracentesis was done and total of 1000 mL of pleural fluid was removed from the left lung. The fluid was nonbloody. The fluid was none purulent in nature.. The patient is doing well following the procedure. Remains on IV Unasyn. There is a post obstructive pneumonia and the patient's white cell count remains quite elevated and on today's evaluation the white cell count of 54 with a hemoglobin of 8.4 and a platelet count of 125. BUN is at 80 with a creatinine of 0.3. Bicarbonate is 28 and a sodium level is at 142. The patient is currently on oxygen for histamine nasal cannula with a pulse ox of 97%. Slightly tachycardic. Oral intake is diminished and she is very much debilitated. Objective - Vital Signs Vital signs: Vital Signs Temp 97.8 F 06/20/22 03:50 Pulse 108 H 06/20/22 08:41 Resp 17 06/20/22 03:50 BP 98/62 06/20/22 12:20 Pulse Ox 97 06/20/22 12:20 FiO2 Intake & Output 06/19/22 06/20/22 06/20/22 18:59 06:59 18:59 Intake Total 900 Output Total 1200 350 300 Balance -300 -350 -300 Intake: Oral 900 Output: Urine 1200 350 300 Other: Voiding Method Bedside Commode Diaper - Exam GENERAL EXAM: Alert, frail, cachectic, 66-year-old female, appears older than stated age, on 4 L nasal cannula, fairly comfortable in no apparent distress. HEAD: Normocephalic. EYES: Normal reaction of pupils, equal size. NOSE: Clear with pink turbinates. THROAT: No erythema or exudates. NECK: No masses, no JVD. CHEST: No chest wall deformity. LUNGS: Equal air entry with dullness and crackles in the left lung throughout. CVS: S1 and S2 normal with no audible murmur, regular rhythm. ABDOMEN: No hepatosplenomegaly, normal bowel sounds, no guarding or rigidity. SPINE: No scoliosis or deformity SKIN: No rashes CENTRAL NERVOUS SYSTEM: No focal deficits, tone is normal in all 4 extremities. EXTREMITIES: There is no peripheral edema. No clubbing, no cyanosis. Peripheral pulses are intact. - Labs CBC & Chem 7: 06/20/22 06:07 06/20/22 06:07 Labs: Abnormal Lab Results - Last 24 Hours (Table) 06/20/22 06/20/22 Range/Units 06:07 06:07 WBC 54.35 H* (4.50-10.00) X 10*3/uL RBC 2.88 L (4.10-5.20) X 10*6/uL Hgb 8.4 L (12.0-15.0) g/dL Hct 27.0 L (37.2-46.3) % MCHC 31.1 L (32.0-37.0) g/dL RDW 17.2 H (11.5-14.5) % Plt Count 125 L (140-440) X 10*3/uL Plt Count Comment DECREASED A Neutrophils # (Manual) 53.26 H (2.00-8.90) X 10*3/uL Lymphocytes # (Manual) 0 L (0.90-5.00) X 10*3/uL Monocytes # (Manual) 1.09 H (0.20-1.00) X 10*3/uL Eosinophils # (Manual) 0 L (0.04-0.35) X 10*3/uL Carbon Dioxide 28.9 H (20.0-27.5) mmol/L Creatinine 0.3 L (0.6-1.5) mg/dL BUN/Creatinine Ratio 57.73 H (12.00-20.00) Ratio Glucose 152 H (70-110) mg/dL Calcium 8.3 L (8.7-10.3) mg/dL Assessment and Plan Assessment: Acute hypoxemic respiratory failure secondary to postobstructive pneumonia secondary to large left upper lobe mass. This was diagnosed as stage IV pulmonary adenocarcinoma on 05/26/[address]-guided fine-needle aspirate. She had been seen by medical and radiation oncology. She completed 5 cycles of radiation today. Chest x-ray shows near complete opacification of the left chest. A bedside thoracentesis was done and total of 1 L of fluid was evacuated and the fluid was nonpurulent. Rule out malignant pleural effusion. Nevertheless, left lung continues to be specified due to a post obstructive pneumonia and large left upper lobe mass and the white cell count remains elevated and the patient remains on IV Unasyn. She is very much debilitated and deconditioned at this point in time. Large left-sided pleural effusion, post thoracentesis and removal of 1 L of pleural fluid, nonpurulent Significant leukocytosis suspect secondary to above Anemia with a drop of hemoglobin is 6.8, status post 2 units packed red blood cells this admission, currently on 8.4 Poor overall functional performance Former smoker, currently in remission, carries [id number] smoking history Plan: The pleural fluid is nonpurulent. Yet this could be malignant. A total of 1 L of fluid. Monitor Procal level Very poor prognosis based on the above-mentioned comorbidities. No code
--- NOTE | 2022-06-20 13:33 | XR ---
EXAMINATION TYPE: XR chest 1V portable DATE OF EXAM: 06/20/2022 COMPARISON: 06/17/2022 INDICATION: Postthoracentesis left side TECHNIQUE: Single frontal view of the chest is obtained. FINDINGS: The heart size is indistinct. The pulmonary vasculature is normal. There is a patchy infiltrate through the right midlung. There is opacification to the left lung. Significant change is not readily apparent. There is some be tter visualization of the lower lung field. Loculated residual effusion should be considered. No pneu mothorax is evident post thoracentesis. IMPRESSION: 1. Moderate or large left pleural effusion. Given the distribution of aerated lung, consider loculate d effusions remain present. 2. No pneumothorax post left-sided thoracentesis 3. Developing right midlung patchy infiltrate.
[2022-06-20] MEDS: HYDROcodone/APAP 5-325MG 1 EACH TAB PO PRN (14:31)
--- NOTE | 2022-06-20 16:08 | P.PN ---
Subjective Progress Note Date: 06/20/22 Principal diagnosis: Fever Patient is a 66-year-old female with recent diagnosis of lung cancer left upper lobe with a cavitating mass readmitted to the hospital with severe shortness of breath with worsening on the CT. patient repeat x-ray did shows complete opacification of the left hemithorax, patient is status post left-sided thoracocentesis with removal of 1 L of fluid on 06/20/2022 On today's evaluation that is 06/20/2022, the patient continues to be afebrile, patient is breathing comfortably on nasal cannula oxygen,the patient denies having any chest pain, the patient cough has decreased in and not bringing up any sputum no nausea no vomiting no abdominal pain or diarrhea Objective - Vital Signs Vital signs: Vital Signs Temp 98.3 F 06/20/22 12:50 Pulse 112 H 06/20/22 12:50 Resp 19 06/20/22 12:50 BP 107/69 06/20/22 12:50 Pulse Ox 92 L 06/20/22 12:50 FiO2 Intake & Output 06/19/22 06/20/22 06/20/22 18:59 06:59 18:59 Intake Total 900 Output Total 1200 350 300 Balance -300 -350 -300 Weight 49.895 kg Intake: Oral 900 Output: Urine 1200 350 300 Other: Voiding Method Bedside Commode Diaper - Exam GENERAL DESCRIPTION: An elderly female lying in bed in no distress RESPIRATORY SYSTEM: Unlabored breathing , decreased breath sounds at bases HEART: S1 S2 regular rate and rhythm , ABDOMEN: Soft , no tenderness EXTREMITIES: No edema feet - Labs CBC & Chem 7: 06/20/22 06:07 06/20/22 06:07 Labs: Abnormal Lab Results - Last 24 Hours (Table) 06/20/22 06/20/22 Range/Units 06:07 06:07 WBC 54.35 H* (4.50-10.00) X 10*3/uL RBC 2.88 L (4.10-5.20) X 10*6/uL Hgb 8.4 L (12.0-15.0) g/dL Hct 27.0 L (37.2-46.3) % MCHC 31.1 L (32.0-37.0) g/dL RDW 17.2 H (11.5-14.5) % Plt Count 125 L (140-440) X 10*3/uL Plt Count Comment DECREASED A Neutrophils # (Manual) 53.26 H (2.00-8.90) X 10*3/uL Lymphocytes # (Manual) 0 L (0.90-5.00) X 10*3/uL Monocytes # (Manual) 1.09 H (0.20-1.00) X 10*3/uL Eosinophils # (Manual) 0 L (0.04-0.35) X 10*3/uL Carbon Dioxide 28.9 H (20.0-27.5) mmol/L Creatinine 0.3 L (0.6-1.5) mg/dL BUN/Creatinine Ratio 57.73 H (12.00-20.00) Ratio Glucose 152 H (70-110) mg/dL Calcium 8.3 L (8.7-10.3) mg/dL Assessment and Plan (1) Pneumonia Current Visit: Yes Status: Acute Code(s): J18.9 - PNEUMONIA, UNSPECIFIED ORGANISM SNOMED Code(s): 007107924 Plan: 1patient with recent diagnosis of 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 with cavitation status post CT-guided biopsy as well as culture of those were negative subsequent presented to hospital increasing shortness of breath cough and did have a fever with evidence of increasing left upper lobe mass on the recent CAT scan could be related to possible postobstructive pneumonia or enlarging tumor with a tumor necrosis as the patient did have sig nificant elevated white count, blood and sputum culture has been negative for any resistant pathogen, patient did have significantly elevated procalcitonin and CRP 2patient blood and sputum culture has been negative 3-patient x-ray did show complete opacification of the left lung and pulmonary has evaluated the patient and is status post thoracocentesis fluid has been sent for analysis those will be followed 4- patient to continue with Unasyn 3 g every 6 hours and monitor clinical course closely Time with Patient: Less than 30
--- NOTE | 2022-06-20 19:46 | P.PN ---
Subjective Progress Note Date: 06/20/22 This is a 66-year-old female who was recently admitted with recently diagnosed lung cancer on the left and also recently undergoing radiation therapy with radiation oncology along with oncology following closely. Plan is for 2 more sessions this week. Patient continues to require oxygen via nasal cannula at 2- 3 L and continues to report shortness of breath. Patient with generalized edema and was given a dose of IV Lasix yesterday and will add low-dose 20 mg IV push Lasix daily and will follow-up with repeat labs. Recommend physical therapy evaluation daily and patient continues to be extremely weak. Social work is following for possible ECF and will be discussed after radiation treatment on how the patient is doing. Patient is currently afebrile and denies chest pain or palpitations. Patient with poor oral intake and needs encouragement and eating. Recommend supplements in between meals and encouraged activity as tolerated. Overall prognosis remains extremely guarded. Patient is also continued on DuoNeb treatments along with IV steroids and antibiotics along with oral nystatin swish and swallow. Chest x-ray done yesterday shows similar to almost complete opacification patient of the left hemithorax related to known left pulmonary mass and effusion and development of subtle patchy right midlung patchy airspace disease concerning for pneumonia. Patient is maintained on antibiotics and will continue. Infectious disease is following. 06/19/2022 Patient is seen in follow up today post radiation and has completed 5 cycles with radiation, oncology, and infectious disease following. Patient is continued on duonebs, IV steroids, IV lasix, and IV abx of Unasyn and no real clinical improvement. Patient not behaving as a pneumonia and will consult pulmonary and appreciate input and recommendations. Patient continues with significant weakness as well and working with PT/OT therapy. Planning possible ecf. Intake is fair to poor and lethargic at times. Chest ultrasound ordered. 06/20/2022 Patient seen again today and continues to be extremely short of breath m aintained on 4L via NC. Chest ultrasound was done for thoracentesis today with pulmonary following. ID following and continued on IV abx along with duonebs, IV steroids, IV lasix with no improvement in respiratory status. Patient also reporting some abdominal bloating and distention with tenderness and has not had a bowel movement. Patient reports senna not helping. Will add suppository. Encouraged increased activity as tolerated and continues with significant weakness. Approx 1L of fluid removed from the left lung and sent for analysis. Overall prognosis is extremely poor and guarded and need to discuss with oncology about treatment plan moving forward and possible hospice. Patient is afebrile and denies chest pain. Oral intake is fair to poor. Encouraged oral intake. Review of systems: Constitutional: reports of fatigue and continued weakness, no reports of fever, or chills Cardiovascular: No reports of chest pain or palpitations Respiratory: reports of shortness of breath and weak cough GI: No reports of nausea, no reports of of vomiting, no reports of diarrhea, reports no BM in days and abdominal bloating. : No reports of dysuria or retention Neurovascular: reports of generalized weakness All medications have been reviewed Active Medications Acetaminophen (Acetaminophen Tab 325 Mg Tab) 650 mg PO Q6HR PRN PRN Reason: Fever and/ or MILD Pain Last Admin: 06/12/22 13:06 Dose: 650 mg Hydrocodone Bitart/Acetaminophen (Hydrocodone/Apap 5-325mg 1 Each Tab) 0.5 each PO Q6HR PRN PRN Reason: Moderate Pain (Scale 4 to 6) Last Admin: 06/20/22 14:31 Dose: 0.5 each Albuterol Sulfate (Albuterol Nebulized 2.5 Mg/3 Ml) 2.5 mg INHALATION RT-Q4H PRN PRN Reason: Shortness Of Breath Albuterol/Ipratropium (Ipratropium-Albuterol 3 Ml Neb) 3 ml INHALATION RT-TID PRN PRN Reason: Shortness Of Breath Or Wheezing Albuterol/Ipratropium (Ipratropium-Albuterol 3 Ml Neb) 3 ml INHALATION RT-TID [facility] Last Admin: 06/20/22 11:56 Dose: Not Given Alprazolam (Alprazolam 0.25 Mg Tab) 0.25 mg PO BID PRN PRN Reason: Anxiety Last Admin: 06/11/22 19:46 Dose: 0.25 mg Docusate Sodium (Docusate 100 Mg Cap) 100 mg PO DAILY [facility] Last Admin: 06/20/22 09:42 Dose: 100 mg Ferrous Sulfate (Ferrous Sulfate 325 Mg Tab) 325 mg PO DAILY [facility] Last Admin: 06/20/22 09:42 Dose: 325 mg Furosemide (Furosemide 10 Mg/Ml 2 Ml Vial) 20 mg IV DAILY [facility] Last Admin: 06/20/22 09:43 Dose: 20 mg Ampicillin Sodium/Sulbactam (Sodium 3 gm/ Sodium Chloride) 100 mls @ 200 mls/hr IVPB Q6HR [facility]; Protocol Last Admin: 06/20/22 17:52 Dose: 200 mls/hr Methylprednisolone Sodium Succinate (Methylprednisolone Sod Succi 125 Mg/2 Ml Vial) 60 mg IV Q6HR [facility] Last Admin: 06/20/22 17:52 Dose: 60 mg Metoprolol Tartrate (Metoprolol Tartrate 25 Mg Tab) 25 mg PO BID [facility] Last Admin: 06/20/22 09:42 Dose: 25 mg Miscellaneous Information (Pneumonia Protocol Utilized 1 Each Mis) 1 each PO ONCE PRN PRN Reason: Per Protocol Miscellaneous Information (Potassium Replacement Protocol 1 Each [facility]) 1 each MISCELLANE DAILY PRN; Protocol PRN Reason: Per Protocol Naloxone HCl (Naloxone 0.4 Mg/Ml 1 Ml Vial) 0.2 mg IV Q2M PRN PRN Reason: Opioid Reversal Nystatin (Nystatin 100,000 Unit/Ml Susp 500,000 Unit/5 Ml Cup) 500,000 unit PO QID [facility]; Protocol Last Admin: 06/20/22 17:52 Dose: 500,000 unit Ondansetron HCl (Ondansetron 4 Mg/2 Ml Vial) 4 mg IVP Q8HR PRN PRN Reason: Nausea And Vomiting Last Admin: 06/18/22 01:52 Dose: 4 mg Pantoprazole Sodium (Pantoprazole 40 Mg Tablet) 40 mg PO AC-BRKFST [facility] Last Admin: 06/20/22 09:42 Dose: 40 mg Senna (Sennosides 8.6 Mg Tab) 8.6 mg PO DAILY [facility] Last Admin: 06/20/22 09:42 Dose: 8.6 mg PHYSICAL EXAMINATION: GENERAL: The patient is alert and oriented 2-3, slightly delayed at times, ill- appearing, thin built . extremely dyspneic during conversation HEENT: Pupils are round and equally reacting to light. EOMI. no scleral icterus. No conjunctival pallor. Normocephalic, atraumatic. No pharyngeal erythema. No thyromegaly. CARDIOVASCULAR: S1 and S2 muffled PULMONARY: diminished breath sounds bilaterally worse on the left with some scattered rhonchi and crackles noted. ABDOMEN: soft. tender on exam. Mildly distended, normoactive bowel sounds. No palpable organomegaly. MUSCULOSKELETAL: No joint swelling or deformity. EXTREMITIES: No cyanosis, clubbing, or pedal edema. Generalized edema noted to the upper and lower extremities NEUROLOGICAL: Gross neurological examination did not reveal any focal deficits. Diffuse weakness SKIN: No rashes. Assessment: Left-sided lung cancer, extensive on radiation treatment large pleural effusion of the left status post thoracentesis of approx 1L removed Possible pneumonia, although suspicion is low Tachycardia anemia, possibly secondary to malignancy, multifactorial, status post transfusion Elevated d-dimer Leukemoid reaction, elevated WBC Gait dysfunction, generalized weakness GI prophylaxis DVT prophylaxis No code, no CPR, no vent Plan: Recommend to continue with current medications and management along with symptomatic treatment and continued antibiotics. Patient has completed a cycle of radiation this week. Pulmonary following and underwent thoracentesis of the left with 1L removed and sent for analysis. Repeat xray pending. Social work also following as patient is agreeable to ECF and will discuss further with consultations and social work along with patient and family about discharge planning. Patient is not stable for discharge as of yet. Need to discuss possible hospice as well. Need to speak with oncology Patient continues to require oxygen via nasal cannula at 4 L and continues to report shortness of breath and dyspnea with minimal exertion. Recommend PT/OT therapy daily and encouraged oral intake. ID following and patient has been maintained on IV abx with no real clinical improvement and not behaving as pneumonia, recommend awaiting fluid analysis from thoracentesis today. Patient with poor oral intake and reports some abdominal bloating and no bowel movement in days. Will add suppository. Obtain abdominal xray Recommend to continue with IV Lasix 20 mg daily and will follow-up with repeat labs. Due to multiple complex medical issues, overall prognosis is extremely poor and guarded. The impression and plan of care has been dictated by nurse Dedrick prac titioner as directed. Dr. Kostas MD I have performed a history and examination and MDM of this patient, discussed the same with the dictator, and agree with the dictator's assessment and plan as written ,documented as a scribe. Based on total visit time, I have performed more than 50% of the visit. Any additional findings or plans will be noted. Objective - Vital Signs Vital signs: Vital Signs Temp 97.8 F 06/20/22 03:50 Pulse 108 H 06/20/22 08:41 Resp 17 06/20/22 03:50 BP 111/65 06/20/22 03:50 Pulse Ox 92 L 06/20/22 03:50 FiO2 Intake & Output 06/19/22 06/20/22 06/20/22 18:59 06:59 18:59 Intake Total 900 Output Total 1200 350 300 Balance -300 -350 -300 Intake: Oral 900 Output: Urine 1200 350 300 Other: Voiding Method Bedside Commode Diaper - Labs CBC & Chem 7: 06/20/22 06:07 06/20/22 06:07 Labs: Abnormal Lab Results - Last 24 Hours (Table) 06/20/22 06/20/22 Range/Units 06:07 06:07 WBC 54.35 H* (4.50-10.00) X 10*3/uL RBC 2.88 L (4.10-5.20) X 10*6/uL Hgb 8.4 L (12.0-15.0) g/dL Hct 27.0 L (37.2-46.3) % MCHC 31.1 L (32.0-37.0) g/dL RDW 17.2 H (11.5-14.5) % Plt Count 125 L (140-440) X 10*3/uL Plt Count Comment DECREASED A Neutrophils # (Manual) 53.26 H (2.00-8.90) X 10*3/uL Lymphocytes # (Manual) 0 L (0.90-5.00) X 10*3/uL Monocytes # (Manual) 1.09 H (0.20-1.00) X 10*3/uL Eosinophils # (Manual) 0 L (0.04-0.35) X 10*3/uL Carbon Dioxide 28.9 H (20.0-27.5) mmol/L Creatinine 0.3 L (0.6-1.5) mg/dL BUN/Creatinine Ratio 57.73 H (12.00-20.00) Ratio Glucose 152 H (70-110) mg/dL Calcium 8.3 L (8.7-10.3) mg/dL
--- NOTE | 2022-06-20 19:52 | P.PN ---
Subjective Progress Note Date: 06/20/22 Status post thoracentesis today, relief was expressed although still weak Objective - Vital Signs Vital signs: Vital Signs Temp 98.3 F 06/20/22 12:50 Pulse 112 H 06/20/22 12:50 Resp 19 06/20/22 12:50 BP 107/69 06/20/22 12:50 Pulse Ox 92 L 06/20/22 12:50 FiO2 Intake & Output 06/20/22 06/20/22 06/21/22 06:59 18:59 06:59 Intake Total 100 Output Total 350 2100 Balance -350 -2000 Weight 49.895 kg Intake: IV 100 Ampicillin-Sulbactam 3 gm 100 In Sodium Chloride 0.9% 100 ml @ 200 mls/hr IVPB Q6HR [facility] Rx#:[id number] Output: Urine 350 1100 Other 1000 Other: Voiding Method Bedside Commode Diaper - Exam - Constitutional Constitutional Comment(s): Frail, cachectic General appearance: Present: no acute distress, thin - EENT Eyes: Present: anicteric sclerae, EOMI, poor dentition ENT: Present: hearing grossly normal, normal oropharynx - Respiratory Respiratory: right: rales, left: rhonchi, wheezing - Cardiovascular Heart sounds: normal: S1, S2 Abnormal Heart Sounds: Absent: systolic murmur, diastolic murmur, rub, S3 Gallop, S4 Gallop, click, other - Peripheral edema leg Peripheral Edema: bilateral: 3+ - Gastrointestinal General gastrointestinal: Present: normal bowel sounds, soft - Neurologic Neurologic: Present: CNII-XII intact (Grossly) - Musculoskeletal Musculoskeletal: Present: generalized weakness - Psychiatric Psychiatric: Present: A&O x's 3, appropriate affect, intact judgment & insight - Labs CBC & Chem 7: 06/20/22 06:07 06/20/22 06:07 Labs: Abnormal Lab Results - Last 24 Hours (Table) 06/20/22 06/20/22 Range/Units 06:07 06:07 WBC 54.35 H* (4.50-10.00) X 10*3/uL RBC 2.88 L (4.10-5.20) X 10*6/uL Hgb 8.4 L (12.0-15.0) g/dL Hct 27.0 L (37.2-46.3) % MCHC 31.1 L (32.0-37.0) g/dL RDW 17.2 H (11.5-14.5) % Plt Count 125 L (140-440) X 10*3/uL Plt Count Comment DECREASED A Neutrophils # (Manual) 53.26 H (2.00-8.90) X 10*3/uL Lymphocytes # (Manual) 0 L (0.90-5.00) X 10*3/uL Monocytes # (Manual) 1.09 H (0.20-1.00) X 10*3/uL Eosinophils # (Manual) 0 L (0.04-0.35) X 10*3/uL Carbon Dioxide 28.9 H (20.0-27.5) mmol/L Creatinine 0.3 L (0.6-1.5) mg/dL BUN/Creatinine Ratio 57.73 H (12.00-20.00) Ratio Glucose 152 H (70-110) mg/dL Calcium 8.3 L (8.7-10.3) mg/dL Assessment and Plan Plan: - Imaging and Cardiology CT scan - chest: report reviewed, image reviewed Assessment and Plan (1) SOB (shortness of breath) Current Visit: Yes Status: Acute Priority: High Code(s): R06.02 - SHORTNESS OF BREATH SNOMED Code(s): 434586948 (2) Anemia Current Visit: Yes Status: Acute Priority: High Code(s): D64.9 - ANEMIA, UNSPECIFIED SNOMED Code(s): 119743016 (3) Adenocarcinoma, lung Current Visit: Yes Status: Acute Priority: High Code(s): C34.90 - MALIGNANT NEOPLASM OF UNSP PART OF UNSP BRONCHUS OR LUNG SNOMED Code(s): 700742360 Plan: Anemia of malignancy. PET scan results were previously reviewed with the patient. Everything appears to be area localized in the left lung and mediastinal area, some pleural metastatic foci. Suspect a small malignant left pleural effusion. There is 1 s hemoglobin stable She is status post Thoracentesis with pulmonary today Dr. Suh: I have completed the full history and physical and developed the above impression and plan, agree with dictation, dictated as a scribe
--- NOTE | 2022-06-20 20:26 | XR ---
EXAMINATION TYPE: XR KUB portable DATE OF EXAM: 06/20/2022 COMPARISON: NONE HISTORY: Abdominal pain TECHNIQUE: Single view FINDINGS: Bowel gas pattern is normal. No sign of intestinal obstruction or pneumoperitoneum. Fecal p attern is normal. No sign of a mass. No pathologic calcification IMPRESSION: Nonacute abdomen.
[2022-06-20 20:35] LABS: ALT 18 U/L (4-34); AST 26 U/L (14-36); African American GFR (CKD) >90 (>60 ml/min/1.73 sqM); Albumin/Globulin Ratio 0.7; Alkaline Phosphatase 194 U/L (38-126); Anion Gap 11 mmol/L; Blood Urea Nitrogen 22 mg/dL (7-17); Calcium 7.9 mg/dL (8.4-10.2); Carbon Dioxide 27 mmol/L (22-30); Chloride 99 mmol/L (98-107); Globulin 2.7 g/dL; Glucose 236 mg/dL (74-99); Non-African American GFR(CKD) >90 (>60 ml/min/1.73 sqM); Potassium 3.5 mmol/L (3.5-5.1); Sodium 137 mmol/L (137-145); Total Bilirubin 0.4 mg/dL (0.2-1.3); Total Protein 4.7 g/dL (6.3-8.2)
[2022-06-21] MEDS: AMPICILLIN-SULBACTAM 3 GM in SODIUM CHLORIDE 0.9% 100 ML IVPB SCH ×5 (00:20→23:24)
[2022-06-21] MEDS: methylPREDNISolone SOD SUCCI 125 MG/2 ML VIAL IV SCH ×5 (00:20→23:24)
[2022-06-21 02:05] LABS: Appearance,BF Cloudy; Color,BF Orange; Nucleated Cells, Body Fluid 3050 /uL; RBC, Body Fluid 9100 /uL
[2022-06-21 02:12] LABS: Mononuclear WBC,Body Fluid 5 %; Polynuclear WBC,Body Fluid 95 %; Total Cells Counted,Body Fluid 100
[2022-06-21] MEDS: PANTOPRAZOLE 40 MG TABLET PO SCH (08:01)
[2022-06-21] MEDS: FUROSEMIDE 10 MG/ML 2 ML VIAL IV SCH (08:01)
[2022-06-21] MEDS: METOPROLOL TARTRATE 25 MG TAB PO SCH ×2 (08:02→20:40)
[2022-06-21] MEDS: DOCUSATE 100 MG CAP PO SCH (08:02)
[2022-06-21] MEDS: SENNOSIDES 8.6 MG TAB PO SCH (08:02)
[2022-06-21] MEDS: FERROUS SULFATE 325 MG TAB PO SCH (08:02)
[2022-06-21] MEDS: NYSTATIN 100,000 UNIT/ML SUSP 500,000 UNIT/5 ML CUP PO SCH ×4 (08:02→20:40)
[2022-06-21] MEDS: IPRATROPIUM-ALBUTEROL 3 ML NEB INHALATION SCH ×3 (08:18→20:13)
[2022-06-21 09:31] LABS: T. Protein, Body Fluid Source Pleural Fluid; Total Protein, Body Fluid 1810 mg/dL
[2022-06-21 09:45] LABS: LDH, Body Fluid Source Pleural Fluid
--- NOTE | 2022-06-21 09:46 | P.PN ---
Subjective Progress Note Date: 06/21/22 This is a 66-year-old female who was recently admitted with recently diagnosed lung cancer on the left and also recently undergoing radiation therapy with radiation oncology along with oncology following closely. Plan is for 2 more sessions this week. Patient continues to require oxygen via nasal cannula at 2- 3 L and continues to report shortness of breath. Patient with generalized edema and was given a dose of IV Lasix yesterday and will add low-dose 20 mg IV push Lasix daily and will follow-up with repeat labs. Recommend physical therapy evaluation daily and patient continues to be extremely weak. Social work is following for possible ECF and will be discussed after radiation treatment day on how the patient is doing. Patient is currently afebrile and denies chest pain or palpitations. Patient with poor oral intake and needs encouragement and eating. Recommend supplements in between meals and encouraged activity as tolerated. Overall prognosis remains extremely guarded. Patient is also continued on DuoNeb treatments along with IV steroids and antibiotics along with oral nystatin swish and swallow. Chest x-ray done yesterday shows similar to almost complete opacification patient of the left hemithorax related to known left pulmonary mass and effusion and development of subtle patchy right midlung patchy airspace disease concerning for pneumonia. Patient is maintained on antibiotics and will continue. Infectious disease is following. 06/19/2022 Patient is seen in follow up today post radiation and has completed 5 cycles with radiation, oncology, and infectious disease following. Patient is continued on duonebs, IV steroids, IV lasix, and IV abx of Unasyn and no real clinical improvement. Patient not behaving as a pneumonia and will consult pulmonary and appreciate input and recommendations. Patient continues with significant weakness as well and working with PT/OT therapy. Planning possible ecf. Intake is fair to poor and lethargic at times. Chest ultrasound ordered. 06/20/2022 Patient seen again today and continues to be extremely short of breath main tained on 4L via NC. Chest ultrasound was done for thoracentesis today with pulmonary following. ID following and continued on IV abx along with duonebs, IV steroids, IV lasix with no improvement in respiratory status. Patient also reporting some abdominal bloating and distention with tenderness and has not had a bowel movement. Patient reports senna not helping. Will add suppository. Encouraged increased activity as tolerated and continues with significant weakness. Approx 1L of fluid removed from the left lung and sent for analysis. Overall prognosis is extremely poor and guarded and need to discuss with oncology about treatment plan moving forward and possible hospice. Patient is afebrile and denies chest pain. Oral intake is fair to poor. Encouraged oral intake. 06/21/2022 Patient is resting in bed today, appears short of breath at rest, continues with tachycardia, heart rate in the 120s today. She is status post left sided thoracentesis with [address] Grajeda yesterday. Postthoracentesis xray showing moderate to large left pleural effusion, loculated residual effusion s hould be considered, no pneumothorax post thoracentesis. There is developing right midlung patchy infiltrate. KUB was negative for acute, did show some mild constipation, patient was given suppository and states she did have a BM and reports improvement in abdominal distention and tenderness. Labs are pending from today. She has been afebrile overnight, blood pressure today 131/72. She is on 5L nasal cannula with oxygen saturation 90%. She continues on IV solumedrol 60 mg Q6h, IV lasix 20 mg daily, IV unasyn. Infectious disease, pulmonary, oncology following the patient closely. Review of systems: Constitutional: reports of fatigue and continued weakness, no reports of fever, or chills Cardiovascular: No reports of chest pain or palpitations Respiratory: reports of shortness of breath and weak cough GI: No reports of nausea, no reports of of vomiting, no reports of diarrhea, abdominal bloating improved, patient had a BM : No reports of dysuria or retention Neurovascular: reports of generalized weakness All medications have been reviewed Assessment: Left-sided lung cancer, extensive on radiation treatment large pleural effusion of the left status post thoracentesis of approx 1L removed Possible pneumonia, although suspicion is low, possible post obstructive pneumonia Tachycardia anemia, possibly secondary to malignancy, multifactorial, status post transfusion Elevated d-dimer Leukemoid reaction, elevated WBC Gait dysfunction, generalized weakness GI prophylaxis DVT prophylaxis No code, no CPR, no vent Plan: Recommend to continue with current medications and management along with symptomatic treatment and continued antibiotics. Patient has completed a cycle of radiation this week. Pulmonary following and underwent thoracentesis of the left with 1L removed and sent for analysis. Social work also following as patient is agreeable to ECF and will discuss f urther with consultations and social work along with patient and family about discharge planning. Patient is not stable for discharge as of yet. Need to discuss possible hospice as well. Need to speak with oncology Patient continues to require oxygen via nasal cannula at 5 L and continues to report shortness of breath and dyspnea with minimal exertion. Recommend PT/OT therapy daily and encouraged oral intake. ID following and patient has been maintained on IV abx with no real clinical improvement and not behaving as pneumonia, recommend awaiting fluid analysis from thoracentesis. Patient with poor oral intake continue with ensure and magic cup. Had BM, continue with scheduled bowel regimen. Pain management, patient reports improvement in pain today. Recommend to continue with IV Lasix 20 mg daily, follow up labs. Due to multiple complex medical issues, overall prognosis is extremely poor and guarded. The impression and plan of care has been dictated by Danita Alvarez Nurse Practitioner as directed. Dr. Kostas MD I have performed a history and physical examination and medical decision making of this patient, discussed the same with the dictator, and agree with the dictators assessment and plan as written, documented as a scribe. Based on total visit time, I have performed more than 50% of this visit. Objective - Vital Signs Vital signs: Vital Signs Temp 98.4 F 06/21/22 05:00 Pulse 125 H 06/21/22 05:00 Resp 24 06/21/22 05:00 BP 131/72 06/21/22 05:00 Pulse Ox 90 L 06/21/22 05:00 FiO2 40 06/20/22 20:09 Intake & Output 06/20/22 06/21/22 06/21/22 18:59 06:59 18:59 Intake Total 100 Output Total 2100 Balance -1999 Weight 49.895 kg Intake: IV 100 Ampicillin-Sulbactam 3 gm 100 In Sodium Chloride 0.9% 100 ml @ 200 mls/hr IVPB Q6HR [facility] Rx#:[id number] Output: Urine 1100 Other 1000 Other: Voiding Method Diaper External Catheter # Voids 1 # Bowel Movements 2 - Labs CBC & Chem 7: 06/20/22 06:07 06/20/22 20:14 Labs: Abnormal Lab Results - Last 24 Hours (Table) 06/20/22 06/20/22 Range/Units 06:07 20:14 WBC 54.35 H* (4.50-10.00) X 10*3/uL RBC 2.88 L (4.10-5.20) X 10*6/uL Hgb 8.4 L (12.0-15.0) g/dL Hct 27.0 L (37.2-46.3) % MCHC 31.1 L (32.0-37.0) g/dL RDW 17.2 H (11.5-14.5) % Plt Count 125 L (140-440) X 10*3/uL Plt Count Comment DECREASED A Neutrophils # (Manual) 53.26 H (2.00-8.90) X 10*3/uL Lymphocytes # (Manual) 0 L (0.90-5.00) X 10*3/uL Monocytes # (Manual) 1.09 H (0.20-1.00) X 10*3/uL Eosinophils # (Manual) 0 L (0.04-0.35) X 10*3/uL BUN 22 H (7-17) mg/dL Creatinine 0.35 L (0.52-1.04) mg/dL Glucose 236 H (74-99) mg/dL Calcium 7.9 L (8.4-10.2) mg/dL Alkaline Phosphatase 194 H (38-126) U/L Total Protein 4.7 L (6.3-8.2) g/dL Albumin 2.0 L (3.5-5.0) g/dL Assessment and Plan Time with Patient: Less than 30
[2022-06-21 11:59] LABS: HCT 28.2 % (37.2-46.3); HGB 8.5 g/dL (12.0-15.0); MCH 28.4 pg (27.0-32.0); MCHC 30.1 g/dL (32.0-37.0); MCV 94.3 fL (80.0-97.0); Mean Platelet Volume 10.8 fL (9.5-12.2); NRBC Per 100 WBC 0 /100 WBCS (0.0-0.0); Platelet Count 118 X 10*3/uL (140-440); RBC 2.99 X 10*6/uL (4.10-5.20); RDW 17.3 % (11.5-14.5); WBC 52.49 X 10*3/uL (4.50-10.00)
[2022-06-21 12:16] LABS: Basophils # (M) 0 X 10*3/uL (0.00-0.10); Eosinophils # (M) 0 X 10*3/uL (0.04-0.35); Lymphocytes # (M) 0 X 10*3/uL (0.90-5.00); Monocytes # (M) 0.52 X 10*3/uL (0.20-1.00); Neutrophils # (M) 51.97 X 10*3/uL (2.00-8.90); Neutrophils % (M) 99 %
[2022-06-21] MEDS: HYDROcodone/APAP 5-325MG 1 EACH TAB PO PRN (13:12)
--- NOTE | 2022-06-21 14:32 | P.PN ---
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 She was discharged home on 06/03/2022. The patient had been seen by medical and radiation oncology. She presented back here to the hospital on 06/09/2022 with complaints of generalized weakness, fatigue. The patient had been receiving radiation therapy. Her chest x-ray had revealed near complete opacification of the left lung. CT angiogram ruled out pulmonary embolism. There is enlarging left pulmonary mass due to increasing mass effect of the left hilar mass resulting in atelectasis. Enlarging left pleural effusion. Right posterior lung patchy opacity suspicious for pneumonia. She was continued on radiation therapy which she completed today. We're consulted for possible thoracentesis which may be both therapeutic and diagnostic. There is some concern with possible empyema. White count 50. Hemoglobin 8.6. Platelets 161,000. Neutrophils 49.3. Sodium 139. Potassium 4.2. BUN 20. Creatinine 0.38. Glucose 149. AST 19. ALT 16. Pro-calcitonin was 14.0. She's been followed by infectious disease. She is currently on Unasyn. She is seen today in consultation on the oncology unit. She is quite weak and frail. She is alert. She is oriented. She is maintaining O2 saturations in the low 90s on 4 L/m per nasal cannula. Current temperature 99.8. She is tachycardic at 120. Respirations 19. She is dyspneic with conversation and exertion. She was however comfortable at rest. Her main complaint is that of continued fatigue. 06/20/2022, condition is essentially unchanged. Quite debilitated and very weak. Breathing is labored even at rest. Right-sided thoracentesis was done and total of 1000 mL of pleural fluid was removed from the left lung. The fluid was nonbloody. The fluid was none purulent in nature.. The patient is doing well following the procedure. Remains on IV Unasyn. There is a post obstructive pneumonia and the patient's white cell count remains quite elevated and on today's evaluation the white cell count of 54 with a hemoglobin of 8.4 and a platelet count of 125. BUN is at 80 with a creatinine of 0.3. Bicarbonate is 28 and a sodium level is at 142. The patient is currently on oxygen for histamine nasal cannula with a pulse ox of 97%. Slightly tachycardic. Oral intake is diminished and she is very much debilitated. 06/21/22, the patient is slightly improved postthoracentesis and the fluid do not to be an exudate and the fluid cytology still pending for now. Meanwhile, the patient wasn't on still elevated and there is no evidence of empyema and the culture from the pleural fluid is negative for bacterial growth for now. His most likely postobstructive pneumonia in the right upper lobe with significantly leukocytosis remains extremely debilitated and weak Objective - Vital Signs Vital signs: Vital Signs Temp 98.1 F 06/21/22 12:13 Pulse 126 H 06/21/22 12:13 Resp 18 06/21/22 12:13 BP 106/67 06/21/22 12:13 Pulse Ox 92 L 06/21/22 12:13 FiO2 40 06/20/22 20:09 Intake & Output 06/20/22 06/21/22 06/21/22 18:59 06:59 18:59 Intake Total 100 Output Total 2100 Balance -1999 Weight 49.895 kg Intake: IV 100 Ampicillin-Sulbactam 3 gm 100 In Sodium Chloride 0.9% 100 ml @ 200 mls/hr IVPB Q6HR [facility] Rx#:[id number] Output: Urine 1100 Other 1000 Other: Voiding Method Diaper Diaper External Catheter External Catheter # Voids 1 # Bowel Movements 2 - Exam GENERAL EXAM: Alert, frail, cachectic, 66-year-old female, appears older than stated age, on 4 L nasal cannula, fairly comfortable in no apparent distress. HEAD: Normocephalic. EYES: Normal reaction of pupils, equal size. NOSE: Clear with pink turbinates. THROAT: No erythema or exudates. NECK: No masses, no JVD. CHEST: No chest wall deformity. LUNGS: Equal air entry with dullness and crackles in the left lung throughout. CVS: S1 and S2 normal with no audible murmur, regular rhythm. ABDOMEN: No hepatosplenomegaly, normal bowel sounds, no guarding or rigidity. SPINE: No scoliosis or deformity SKIN: No rashes CENTRAL NERVOUS SYSTEM: No focal deficits, tone is normal in all 4 extremities. EXTREMITIES: There is no peripheral edema. No clubbing, no cyanosis. Peripheral pulses are intact. - Labs CBC & Chem 7: 06/21/22 06:55 06/20/22 20:14 Labs: Abnormal Lab Results - Last 24 Hours (Table) 06/20/22 06/21/22 Range/Units 20:14 06:55 WBC 52.49 H* (4.50-10.00) X 10*3/uL RBC 2.99 L (4.10-5.20) X 10*6/uL Hgb 8.5 L (12.0-15.0) g/dL Hct 28.2 L (37.2-46.3) % MCHC 30.1 L (32.0-37.0) g/dL RDW 17.3 H (11.5-14.5) % Plt Count 118 L (140-440) X 10*3/uL Plt Count Comment DECREASED A Neutrophils # (Manual) 51.97 H (2.00-8.90) X 10*3/uL Lymphocytes # (Manual) 0 L (0.90-5.00) X 10*3/uL Eosinophils # (Manual) 0 L (0.04-0.35) X 10*3/uL BUN 22 H (7-17) mg/dL Creatinine 0.35 L (0.52-1.04) mg/dL Glucose 236 H (74-99) mg/dL Calcium 7.9 L (8.4-10.2) mg/dL Alkaline Phosphatase 194 H (38-126) U/L Total Protein 4.7 L (6.3-8.2) g/dL Albumin 2.0 L (3.5-5.0) g/dL Microbiology - Last 24 Hours (Table) 06/20/22 20:00 Body Fluid Culture - Preliminary Pleural Fluid Assessment and Plan Assessment: Acute hypoxemic respiratory failure secondary to postobstructive pneumonia s econdary to large left upper lobe mass. This was diagnosed as stage IV pulmonary adenocarcinoma on 05/26/[address]-guided fine-needle aspirate. She had been seen by medical and radiation oncology. She completed 5 cycles of radiation today. Chest x-ray shows near complete opacification of the left chest. A bedside thoracentesis was done and total of 1 L of fluid was evacuated and the fluid was nonpurulent. Rule out malignant pleural effusion. Nevertheless, left lung continues to be specified due to a post obstructive pneumonia and large left upper lobe mass and the white cell count remains elevated and the patient remains on IV Unasyn. She is very much debilitated and deconditioned at this point in time. Clinically somewhat improved since yesterday. No evidence of empyema. The pleural fluid was exudate. Awaiting fluid cytology. Limited clinical improvement post thoracentesis. Large left-sided pleural effusion, post thoracentesis and removal of 1 L of pleural fluid, nonpurulent Significant leukocytosis suspect secondary to above Anemia with a drop of hemoglobin is 6.8, status post 2 units packed red blood cells this admission, currently on 8.5 Poor overall functional performance Former smoker, currently in remission, carries [id number] smoking history Plan: The pleural fluid is nonpurulent. Yet this could be malignant. A total of 1 L of fluid. Rule out malignant pleural effusion Monitor Procal level and the repeat levels are still pending Very poor prognosis based on the above-mentioned comorbidities. No code Consider hospice, not a candidate for chemotherapy
[2022-06-22] MEDS: methylPREDNISolone SOD SUCCI 125 MG/2 ML VIAL IV SCH ×3 (05:59→17:00)
[2022-06-22] MEDS: AMPICILLIN-SULBACTAM 3 GM in SODIUM CHLORIDE 0.9% 100 ML IVPB SCH ×4 (05:59→23:44)
[2022-06-22] MEDS: IPRATROPIUM-ALBUTEROL 3 ML NEB INHALATION SCH ×3 (08:02→19:31)
[2022-06-22] MEDS: FUROSEMIDE 10 MG/ML 2 ML VIAL IV SCH (08:14)
[2022-06-22] MEDS: SENNOSIDES 8.6 MG TAB PO SCH (08:14)
[2022-06-22] MEDS: PANTOPRAZOLE 40 MG TABLET PO SCH (08:14)
[2022-06-22] MEDS: NYSTATIN 100,000 UNIT/ML SUSP 500,000 UNIT/5 ML CUP PO SCH ×4 (08:14→20:03)
[2022-06-22] MEDS: FERROUS SULFATE 325 MG TAB PO SCH (08:14)
[2022-06-22] MEDS: DOCUSATE 100 MG CAP PO SCH (08:14)
[2022-06-22] MEDS: METOPROLOL TARTRATE 25 MG TAB PO SCH ×2 (08:14→20:03)
--- NOTE | 2022-06-22 13:40 | P.PN ---
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 She was discharged home on 06/03/2022. The patient had been seen by medical and radiation oncology. She presented back here to the hospital on 06/09/2022 with complaints of generalized weakness, fatigue. The patient had been receiving radiation therapy. Her chest x-ray had revealed near complete opacification of the left lung. CT angiogram ruled out pulmonary embolism. There is enlarging left pulmonary mass due to increasing mass effect of the left hilar mass resulting in atelectasis. Enlarging left pleural effusion. Right posterior lung patchy opacity suspicious for pneumonia. She was continued on radiation therapy which she completed today. We're consulted for possible thoracentesis which may be both therapeutic and diagnostic. There is some concern with possible empyema. White count 50. Hemoglobin 8.6. Platelets 161,000. Neutrophils 49.3. Sodium 139. Potassium 4.2. BUN 20. Creatinine 0.38. Glucose 149. AST 19. ALT 16. Pro-calcitonin was 14.0. She's been followed by infectious disease. She is currently on Unasyn. She is seen today in consultation on the oncology unit. She is quite weak and frail. She is alert. She is oriented. She is maintaining O2 saturations in the low 90s on 4 L/m per nasal cannula. Current temperature 99.8. She is tachycardic at 120. Respirations 19. She is dyspneic with conversation and exertion. She was however comfortable at rest. Her main complaint is that of continued fatigue. 06/20/2022, condition is essentially unchanged. Quite debilitated and very weak. Breathing is labored even at rest. Right-sided thoracentesis was done and total of 1000 mL of pleural fluid was removed from the left lung. The fluid was nonbloody. The fluid was none purulent in nature.. The patient is doing well following the procedure. Remains on IV Unasyn. There is a post obstructive pneumonia and the patient's white cell count remains quite elevated and on today's evaluation the white cell count of 54 with a hemoglobin of 8.4 and a platelet count of 125. BUN is at 80 with a creatinine of 0.3. Bicarbonate is 28 and a sodium level is at 142. The patient is currently on oxygen for histamine nasal cannula with a pulse ox of 97%. Slightly tachycardic. Oral intake is diminished and she is very much debilitated. 06/21/22, the patient is slightly improved postthoracentesis and the fluid do not to be an exudate and the fluid cytology still pending for now. Meanwhile, the patient wasn't on still elevated and there is no evidence of empyema and the culture from the pleural fluid is negative for bacterial growth for now. His most likely postobstructive pneumonia in the right upper lobe with significantly leukocytosis remains extremely debilitated and weak 06/22/2022, patient is clinically unchanged, white cell count remains elevated and the patient remains on IV Unasyn and the pleural fluid cytology still pending for now. She is afebrile. Tachycardic. She is on 5 L of O2 nasal cannula with a pulse ox of 93%. Objective - Vital Signs Vital signs: Vital Signs Temp 98.6 F 06/22/22 11:27 Pulse 118 H 06/22/22 12:26 Resp 20 06/22/22 11:27 BP 96/57 06/22/22 11:27 Pulse Ox 93 L 06/22/22 11:27 FiO2 40 06/20/22 20:09 Intake & Output 06/21/22 06/22/22 06/22/22 18:59 06:59 18:59 Intake Total 200 500 Output Total 600 Balance 200 -100 Intake: IV 200 Ampicillin-Sulbactam 3 gm 200 In Sodium Chloride 0.9% 100 ml @ 200 mls/hr IVPB Q6HR [facility] Rx#:[id number] Oral 500 Output: Urine 600 Other: Voiding Method Diaper Diaper External Catheter External Catheter # Voids 2 - Exam GENERAL EXAM: Alert, frail, cachectic, 66-year-old female, appears older than stated age, on 4 L nasal cannula, fairly comfortable in no apparent distress. HEAD: Normocephalic. EYES: Normal reaction of pupils, equal size. NOSE: Clear with pink turbinates. THROAT: No erythema or exudates. NECK: No masses, no JVD. CHEST: No chest wall deformity. LUNGS: Equal air entry with dullness and crackles in the left lung throughout. CVS: S1 and S2 normal with no audible murmur, regular rhythm. ABDOMEN: No hepatosplenomegaly, normal bowel sounds, no guarding or rigidity. SPINE: No scoliosis or deformity SKIN: No rashes CENTRAL NERVOUS SYSTEM: No focal deficits, tone is normal in all 4 extremities. EXTREMITIES: There is no peripheral edema. No clubbing, no cyanosis. Peripheral pulses are intact. - Labs CBC & Chem 7: 06/21/22 06:55 06/20/22 20:14 Labs: Microbiology - Last 24 Hours (Table) 06/20/22 20:00 Gram Stain - Preliminary Pleural Fluid Body Fluid Culture - Preliminary Assessment and Plan Assessment: Acute hypoxemic respiratory failure secondary to postobstructive pneumonia secondary to large left upper lobe mass. This was diagnosed as stage IV pulmonary adenocarcinoma on 05/26/[address]-guided fine-needle aspirate. She had been seen by medical and radiation oncology. She completed 5 cycles of radiation today. Chest x-ray shows near complete opacification of the left antoine st. A bedside thoracentesis was done and total of 1 L of fluid was evacuated and the fluid was nonpurulent. Rule out malignant pleural effusion. Nevertheless, left lung continues to be specified due to a post obstructive pneumonia and large left upper lobe mass and the white cell count remains el evated and the patient remains on IV Unasyn. She is very much debilitated and deconditioned at this point in time. Clinically somewhat improved since yesterday. No evidence of empyema. The pleural fluid was exudate. Awaiting fluid cytology. Limited clinical improvement post thoracentesis. Clinically patient remains the same and unchanged and she remains tachycardic in the white cell count remains elevated. Large left-sided pleural effusion, post thoracentesis and removal of 1 L of pleural fluid, nonpurulent Significant leukocytosis suspect secondary to above Anemia with a drop of hemoglobin is 6.8, status post 2 units packed red blood cells this admission, currently on 8.5 Poor overall functional performance Former smoker, currently in remission, carries [id number] smoking history Plan: The pleural fluid is nonpurulent. Yet this could be malignant. A total of 1 L of fluid. Rule out malignant pleural effusion Monitor Procal level and the repeat levels are still pending Very poor prognosis based on the above-mentioned comorbidities. No code Consider hospice, not a candidate for chemotherapy
[2022-06-22] MEDS: HYDROcodone/APAP 5-325MG 1 EACH TAB PO PRN (16:55)
--- NOTE | 2022-06-22 22:08 | P.PN ---
Subjective Progress Note Date: 06/21/22 Principal diagnosis: Fever Patient is a 66-year-old female with recent diagnosis of lung cancer left upper lobe with a cavitating mass readmitted to the hospital with severe shortness of breath with worsening on the CT. patient repeat x-ray did shows complete opacification of the left hemithorax, patient is status post left-sided thoracocentesis with removal of 1 L of fluid on 06/20/2022 On today's evaluation that is 06/21/2022, the patient remains to be afebrile, silvio [place] is breathing comfortably on 5 L nasal cannula oxygen,the patient denies having any chest pain, the patient cough has decreased in and mostly dry in nature, no nausea no vomiting no abdominal pain or diarrhea Objective - Vital Signs Vital signs: Vital Signs Temp 98.1 F 06/21/22 12:13 Pulse 126 H 06/21/22 12:13 Resp 18 06/21/22 12:13 BP 106/67 06/21/22 12:13 Pulse Ox 92 L 06/21/22 12:13 FiO2 40 06/20/22 20:09 Intake & Output 06/20/22 06/21/22 06/21/22 18:59 06:59 18:59 Intake Total 100 Output Total 2100 Balance -1999 Weight 49.895 kg Intake: IV 100 Ampicillin-Sulbactam 3 gm 100 In Sodium Chloride 0.9% 100 ml @ 200 mls/hr IVPB Q6HR [facility] Rx#:[id number] Output: Urine 1100 Other 1000 Other: Voiding Method Diaper Diaper External Catheter External Catheter # Voids 1 # Bowel Movements 2 - Exam GENERAL DESCRIPTION: An elderly female lying in bed in no distress RESPIRATORY SYSTEM: Unlabored breathing , decreased breath sounds at bases HEART: S1 S2 regular rate and rhythm , ABDOMEN: Soft , no tenderness EXTREMITIES: No edema feet - Labs CBC & Chem 7: 06/21/22 06:55 06/20/22 20:14 Labs: Abnormal Lab Results - Last 24 Hours (Table) 06/20/22 06/21/22 Range/Units 20:14 06:55 WBC 52.49 H* (4.50-10.00) X 10*3/uL RBC 2.99 L (4.10-5.20) X 10*6/uL Hgb 8.5 L (12.0-15.0) g/dL Hct 28.2 L (37.2-46.3) % MCHC 30.1 L (32.0-37.0) g/dL RDW 17.3 H (11.5-14.5) % Plt Count 118 L (140-440) X 10*3/uL Plt Count Comment DECREASED A Neutrophils # (Manual) 51.97 H (2.00-8.90) X 10*3/uL Lymphocytes # (Manual) 0 L (0.90-5.00) X 10*3/uL Eosinophils # (Manual) 0 L (0.04-0.35) X 10*3/uL BUN 22 H (7-17) mg/dL Creatinine 0.35 L (0.52-1.04) mg/dL Glucose 236 H (74-99) mg/dL Calcium 7.9 L (8.4-10.2) mg/dL Alkaline Phosphatase 194 H (38-126) U/L Total Protein 4.7 L (6.3-8.2) g/dL Albumin 2.0 L (3.5-5.0) g/dL Microbiology - Last 24 Hours (Table) 06/20/22 20:00 Body Fluid Culture - Preliminary Pleural Fluid Assessment and Plan (1) Pneumonia Current Visit: Yes Status: Acute Code(s): J18.9 - PNEUMONIA, UNSPECIFIED ORGANISM SNOMED Code(s): 520163246 Plan: 1patient with recent diagnosis of 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 with cavitation status post CT-guided biopsy as well as culture of those were negative subsequent presented to hospital increasing shortness of breath cough and did have a fever with evidence of increasing left upper lobe mass on the recent CAT scan could be related to possible postobstructive pneumonia or enlarging tumor with a tumor necrosis as the patient did have significant elevated white count, blood and sputum culture has been negative for any resistant pathogen, patient did have significantly elevated procalcitonin and CRP 2patient blood and sputum culture has been negative 3-patient x-ray did show complete opacification of the left lung and pulmonary has evaluated the patient and is status post thoracocentesis fluid has been sent for analysis results currently pending 4- patient respiratory status remains to be stable and will continue with Unasyn 3 g every 6 hours and monitor clinical course closely Time with Patient: Less than 30
--- NOTE | 2022-06-22 22:12 | P.PN ---
Subjective Progress Note Date: 06/22/22 Principal diagnosis: Fever Patient is a 66-year-old female with recent diagnosis of lung cancer left upper lobe with a cavitating mass readmitted to the hospital with severe shortness of breath with worsening on the CT. patient repeat x-ray did shows complete opacification of the left hemithorax, patient is status post left-sided thoracocentesis with removal of 1 L of fluid on 06/20/2022 On today's evaluation that is 06/22/2022, the patient continues to be afebrile, patient is complaining of shortness of breath and is currently on 5 L nasal cannula oxygen,the patient denies having any chest pain, the patient cough is mostly dry in nature, no nausea no vomiting no abdominal pain or diarrhea Objective - Vital Signs Vital signs: Vital Signs Temp 98.6 F 06/22/22 11:27 Pulse 118 H 06/22/22 12:26 Resp 20 06/22/22 11:27 BP 96/57 06/22/22 11:27 Pulse Ox 93 L 06/22/22 11:27 FiO2 40 06/20/22 20:09 Intake & Output 06/21/22 06/22/22 06/22/22 18:59 06:59 18:59 Intake Total 200 500 Output Total 600 600 Balance 200 -100 -600 Intake: IV 200 Ampicillin-Sulbactam 3 gm 200 In Sodium Chloride 0.9% 100 ml @ 200 mls/hr IVPB Q6HR [facility] Rx#:[id number] Oral 500 Output: Urine 600 600 Other: Voiding Method Diaper Diaper External Catheter External Catheter # Voids 2 # Bowel Movements 1 - Exam GENERAL DESCRIPTION: An elderly female lying in bed in no distress RESPIRATORY SYSTEM: Unlabored breathing , decreased breath sounds at bases HEART: S1 S2 regular rate and rhythm , ABDOMEN: Soft , no tenderness EXTREMITIES: No edema feet - Labs CBC & Chem 7: 06/21/22 06:55 06/20/22 20:14 Labs: Microbiology - Last 24 Hours (Table) 06/20/22 20:00 Gram Stain - Preliminary Pleural Fluid Body Fluid Culture - Preliminary Assessment and Plan (1) Pneumonia Current Visit: Yes Status: Acute Code(s): J18.9 - PNEUMONIA, UNSPECIFIED ORGANISM SNOMED Code(s): 394990918 Plan: 1patient with recent diagnosis of 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 with cavitation status post CT-guided biopsy as well as culture of those were negative subsequent presented to hospital increasing shortness of breath cough and did have a fever with evidence of increasing left upper lobe mass on the recent CAT scan could be related to possible postobstructive pneumonia or enlarging tumor with a tumor necrosis as the patient did have significant elevated white count, blood and sputum culture has been negative for any resistant pathogen, patient did have significantly elevated procalcitonin and CRP 2patient blood and sputum culture has been negative , pleural fluid cultures are negative so far 3-patient x-ray did show complete opacification of the left lung and pulmonary has evaluated the patient and is status post thoracocentesis fluid has been sent for cultures 4- patient respiratory status remains to be guarded and is currently being treated with Unasyn 3 g every 6 hours with antibiotic adjusted further on the basis of cultures and clinical condition Time with Patient: Less than 30
--- NOTE | 2022-06-22 22:35 | P.PN ---
Subjective Progress Note Date: 06/22/22 This is a 66-year-old female who was recently admitted with recently diagnosed lung cancer on the left and also recently undergoing radiation therapy with radiation oncology along with oncology following closely. Plan is for 2 more sessions this week. Patient continues to require oxygen via nasal cannula at 2- 3 L and continues to report shortness of breath. Patient with generalized edema and was given a dose of IV Lasix yesterday and will add low-dose 20 mg IV push Lasix daily and will follow-up with repeat labs. Recommend physical therapy evaluation daily and patient continues to be extremely weak. Social work is following for possible ECF and will be discussed after radiation treatment day on how the patient is doing. Patient is currently afebrile and denies chest pain or palpitations. Patient with poor oral intake and needs encouragement and eating. Recommend supplements in between meals and encouraged activity as tolerated. Overall prognosis remains extremely guarded. Patient is also continued on DuoNeb treatments along with IV steroids and antibiotics along with oral nystatin swish and swallow. Chest x-ray done yesterday shows similar to almost complete opacification patient of the left hemithorax related to known left pulmonary mass and effusion and development of subtle patchy right midlung patchy airspace disease concerning for pneumonia. Patient is maintained on antibiotics and will continue. Infectious disease is following. 06/19/2022 Patient is seen in follow up today post radiation and has completed 5 cycles with radiation, oncology, and infectious disease following. Patient is continued on duonebs, IV steroids, IV lasix, and IV abx of Unasyn and no real clinical improvement. Patient not behaving as a pneumonia and will consult pulmonary and appreciate input and recommendations. Patient continues with significant weakness as well and working with PT/OT therapy. Planning possible ecf. Intake is fair to poor and lethargic at times. Chest ultrasound ordered. 06/20/2022 Patient seen again today and continues to be extremely short of breath main tained on 4L via NC. Chest ultrasound was done for thoracentesis today with pulmonary following. ID following and continued on IV abx along with duonebs, IV steroids, IV lasix with no improvement in respiratory status. Patient also reporting some abdominal bloating and distention with tenderness and has not had a bowel movement. Patient reports senna not helping. Will add suppository. Encouraged increased activity as tolerated and continues with significant weakness. Approx 1L of fluid removed from the left lung and sent for analysis. Overall prognosis is extremely poor and guarded and need to discuss with oncology about treatment plan moving forward and possible hospice. Patient is afebrile and denies chest pain. Oral intake is fair to poor. Encouraged oral intake. 06/21/2022 Patient is resting in bed today, appears short of breath at rest, continues with tachycardia, heart rate in the 120s today. She is status post left sided thoracentesis with [address] Grajeda yesterday. Postthoracentesis xray showing moderate to large left pleural effusion, loculated residual effusion s hould be considered, no pneumothorax post thoracentesis. There is developing right midlung patchy infiltrate. KUB was negative for acute, did show some mild constipation, patient was given suppository and states she did have a BM and reports improvement in abdominal distention and tenderness. Labs are pending from today. She has been afebrile overnight, blood pressure today 131/72. She is on 5L nasal cannula with oxygen saturation 90%. She continues on IV solumedrol 60 mg Q6h, IV lasix 20 mg daily, IV unasyn. Infectious disease, pulmonary, oncology following the patient closely. 06/22/2022 Patient is evaluated today resting in bed, daughter at bedside. Today is patients birthday. She continues with significant dyspnea with minimal exertion including carrying out conversation, and eating. She is able to turn herself slightly in bed but noting more. She is on 5L nasal cannula with oxygen saturation of 91%. There is post obstructive pneumonia left lung, despite antibiotic therapy her white count remains elevated, she continues with significant tachycardia, dyspnea. This was discussed with patient and daughter at bedside. She is a no code. She continues on IV ampicillin, IV solumedrol, bronchodilators. She is also on IV lasix daily. She does reports having some hallucinations last night. None today. She has completed 5 rounds of radiation and clinically not a candidate to undergo chemotherapy. Oncology is following. Blood presure 105/66. Review of systems: Constitutional: reports of fatigue and continued weakness, no reports of fever, or chills Cardiovascular: No reports of chest pain or palpitations Respiratory: reports of shortness of breath and weak cough GI: No reports of nausea, no reports of of vomiting, no reports of diarrhea, abdominal bloating improved, patient had a BM : No reports of dysuria or retention Neurovascular: reports of generalized weakness All medications have been reviewed Assessment: Left-sided lung cancer, extensive on radiation treatment large pleural effusion of the left status post thoracentesis of approx 1L removed Evidence for post obstructive pneumonia to the left lung on IV unasyn currently Leukocytosis secondary to above, currently 52.49 Tachycardia Anemia, possibly secondary to malignancy, multifactorial, status post transfusion Elevated d-dimer Gait dysfunction, generalized weakness History of chronic nicotine use GI prophylaxis DVT prophylaxis No code, no CPR, no vent Plan: Recommend to continue with current medications and management along with symptomatic treatment and continued antibiotics. Patient has completed a cycle of radiation this last week. Pulmonary following and underwent thoracentesis of the left with 1L removed and sent for analysis. Social work also following as patient is agreeable to ECF and will discuss further with consultations and social work along with patient and family about discharge planning. Patient is not stable for discharge as of yet. Need to discuss possible hospice as well. Need to speak with oncology Patient continues to require oxygen via nasal cannula at 5 L and continues to report shortness of breath and dyspnea with minimal exertion. Recommend PT/OT therapy daily and encouraged oral intake. ID following and patient has been maintained on IV abx with no real clinical improvement and not behaving as pneumonia, recommend awaiting fluid analysis from thoracentesis. Procalcitonin level has been repeated. Patient with poor oral intake continue with ensure and magic cup. Had BM, continue with scheduled bowel regimen. Pain management, patient reports improvement in pain today. Recommend to continue with IV Lasix 20 mg daily, follow up labs. Due to multiple complex medical issues, overall prognosis is extremely poor and guarded. The impression and plan of care has been dictated by Danita Alvarez Nurse Practitioner as directed. Dr. Kostas MD I have performed a history and physical examination and medical decision making of this patient, discussed the same with the dictator, and agree with the dictators assessment and plan as written, documented as a scribe. Based on total visit time, I have performed more than 50% of this visit. Objective - Vital Signs Vital signs: Vital Signs Temp 98.5 F 06/22/22 04:37 Pulse 128 H 06/22/22 08:14 Resp 24 06/22/22 04:37 BP 111/67 06/22/22 04:37 Pulse Ox 91 L 06/22/22 04:37 FiO2 40 06/20/22 20:09 Intake & Output 06/21/22 06/22/22 06/22/22 18:59 06:59 18:59 Intake Total 200 500 Output Total 600 Balance 200 -100 Intake: IV 200 Ampicillin-Sulbactam 3 gm 200 In Sodium Chloride 0.9% 100 ml @ 200 mls/hr IVPB Q6HR [facility] Rx#:[id number] Oral 500 Output: Urine 600 Other: Voiding Method Diaper Diaper External Catheter External Catheter # Voids 2 - Labs CBC & Chem 7: 06/21/22 06:55 06/20/22 20:14 Labs: Abnormal Lab Results - Last 24 Hours (Table) 06/21/22 Range/Units 06:55 WBC 52.49 H* (4.50-10.00) X 10*3/uL RBC 2.99 L (4.10-5.20) X 10*6/uL Hgb 8.5 L (12.0-15.0) g/dL Hct 28.2 L (37.2-46.3) % MCHC 30.1 L (32.0-37.0) g/dL RDW 17.3 H (11.5-14.5) % Plt Count 118 L (140-440) X 10*3/uL Plt Count Comment DECREASED A Neutrophils # (Manual) 51.97 H (2.00-8.90) X 10*3/uL Lymphocytes # (Manual) 0 L (0.90-5.00) X 10*3/uL Eosinophils # (Manual) 0 L (0.04-0.35) X 10*3/uL Microbiology - Last 24 Hours (Table) 06/20/22 20:00 Gram Stain - Preliminary Pleural Fluid Body Fluid Culture - Preliminary Assessment and Plan Time with Patient: Less than 30
[2022-06-22] MEDS: methylPREDNISolone SOD SUCCI 40 MG/ML 1 ML VIAL IV SCH (23:44)
[2022-06-23] MEDS: AMPICILLIN-SULBACTAM 3 GM in SODIUM CHLORIDE 0.9% 100 ML IVPB SCH ×3 (05:37→17:23)
[2022-06-23] MEDS: IPRATROPIUM-ALBUTEROL 3 ML NEB INHALATION SCH ×3 (07:59→19:42)
[2022-06-23] MEDS: DOCUSATE 100 MG CAP PO SCH (08:19)
[2022-06-23] MEDS: PANTOPRAZOLE 40 MG TABLET PO SCH (08:19)
[2022-06-23] MEDS: FUROSEMIDE 10 MG/ML 2 ML VIAL IV SCH (08:19)
[2022-06-23] MEDS: methylPREDNISolone SOD SUCCI 40 MG/ML 1 ML VIAL IV SCH ×2 (08:19→17:23)
[2022-06-23] MEDS: SENNOSIDES 8.6 MG TAB PO SCH (08:19)
[2022-06-23] MEDS: FERROUS SULFATE 325 MG TAB PO SCH (08:19)
[2022-06-23] MEDS: NYSTATIN 100,000 UNIT/ML SUSP 500,000 UNIT/5 ML CUP PO SCH ×4 (08:19→21:26)
[2022-06-23] MEDS: METOPROLOL TARTRATE 25 MG TAB PO SCH ×2 (08:19→20:26)
[2022-06-23] MEDS: HYDROcodone/APAP 5-325MG 1 EACH TAB PO PRN (08:23)
[2022-06-23 10:20] LABS: Anion Gap 10.1 mmol/L (10.00-18.00); BUN/Creat Ratio 75.85 Ratio (12.00-20.00); Blood Urea Nitrogen 20.1 mg/dL (9.0-27.0); Calcium 7.6 mg/dL (8.7-10.3); Carbon Dioxide 30.4 mmol/L (20.0-27.5); Non-African American GFR(CKD) 122.6 (60.0-200.0); Potassium 2.6 mmol/L (3.5-5.5)
[2022-06-23 10:35] LABS: NRBC Per 100 WBC 0 /100 WBCS (0.0-0.0)
[2022-06-23 10:36] LABS: HCT 25.6 % (37.2-46.3); MCH 29.1 pg (27.0-32.0); MCHC 31.3 g/dL (32.0-37.0); MCV 93.1 fL (80.0-97.0); Mean Platelet Volume 10.8 fL (9.5-12.2); Platelet Count 105 X 10*3/uL (140-440); RBC 2.75 X 10*6/uL (4.10-5.20); RDW 17.4 % (11.5-14.5); WBC 53.31 X 10*3/uL (4.50-10.00)
[2022-06-23 10:37] LABS: Basophils # (M) 0 X 10*3/uL (0.00-0.10); Eosinophils # (M) 0 X 10*3/uL (0.04-0.35); Lymphocytes # (M) 0.53 X 10*3/uL (0.90-5.00); Monocytes # (M) 0 X 10*3/uL (0.20-1.00); Neutrophils # (M) 52.78 X 10*3/uL (2.00-8.90); Neutrophils % (M) 99 %; Rouleaux PRESENT
[2022-06-23] MEDS: POTASSIUM CHLORIDE ER 20 MEQ TAB.ER PO SCH ×4 (11:15→21:26)
--- NOTE | 2022-06-23 12:12 | P.PN ---
Subjective Progress Note Date: 06/23/22 Patient continues to remain very weak. There hasn't been significant improvement in her respiratory status. She is on 5 L of oxygen. Appetite is very poor. She does have a bedside commode but has been too weak mostly to use it Objective - Vital Signs Vital signs: Vital Signs Temp 99.1 F 06/23/22 11:15 Pulse 104 H 06/23/22 12:04 Resp 18 06/23/22 11:15 BP 96/60 06/23/22 11:15 Pulse Ox 92 L 06/23/22 11:15 FiO2 40 06/20/22 20:09 Intake & Output 06/22/22 06/23/22 06/23/22 18:59 06:59 18:59 Output Total 600 300 Balance -600 -300 Output: Urine 600 300 Other: Voiding Method Diaper Diaper External Catheter External Catheter # Bowel Movements 1 - Constitutional Constitutional Comment(s): Marked generalized weakness. On O2 5 L nasal General appearance: Present: no acute distress - EENT Eyes: Present: EOMI ENT: Present: hearing grossly normal, normal oropharynx - Respiratory Respiratory: left: diminished, rales - Cardiovascular Rhythm: regular Heart sounds: normal: S1, S2 - Gastrointestinal General gastrointestinal: Present: normal bowel sounds, soft - Integumentary Integumentary: Present: normal - Neurologic Neurologic: Present: CNII-XII intact - Musculoskeletal Musculoskeletal: Present: generalized weakness, strength equal bilaterally - Psychiatric Psychiatric: Present: A&O x's 3, appropriate affect - Labs CBC & Chem 7: 06/23/22 05:11 06/23/22 05:11 Labs: Abnormal Lab Results - Last 24 Hours (Table) 06/23/22 06/23/22 Range/Units 05:11 05:11 WBC 53.31 H* (4.50-10.00) X 10*3/uL RBC 2.75 L (4.10-5.20) X 10*6/uL Hgb 8.0 L (12.0-15.0) g/dL Hct 25.6 L (37.2-46.3) % MCHC 31.3 L (32.0-37.0) g/dL RDW 17.4 H (11.5-14.5) % Plt Count 105 L (140-440) X 10*3/uL Plt Count Comment DECREASED A Neutrophils # (Manual) 52.78 H (2.00-8.90) X 10*3/uL Lymphocytes # (Manual) 0.53 L (0.90-5.00) X 10*3/uL Monocytes # (Manual) 0 L (0.20-1.00) X 10*3/uL Eosinophils # (Manual) 0 L (0.04-0.35) X 10*3/uL Potassium 2.6 L* (3.5-5.5) mmol/L Carbon Dioxide 30.4 H (20.0-27.5) mmol/L Creatinine 0.3 L (0.6-1.5) mg/dL BUN/Creatinine Ratio 75.85 H (12.00-20.00) Ratio Glucose 160 H (70-110) mg/dL Calcium 7.6 L (8.7-10.3) mg/dL Microbiology - Last 24 Hours (Table) 06/20/22 20:00 Gram Stain - Preliminary Pleural Fluid Body Fluid Culture - Preliminary Assessment and Plan (1) Physical debility Narrative/Plan: Multifactorial, due to difficult to clear pneumonia, COPD and underlying malignancy, and prolonged acute illness. There has not been any significant improvement. Case discussed in detail with the admitting service. At this time the patient is felt to have too high an oxygen requirement, as well as weakness that is too severe to permit any effective rehab. Current Visit: Yes Status: Acute Code(s): R53.81 - OTHER MALAISE SNOMED Code(s): 60565648 (2) Adenocarcinoma, lung Narrative/Plan: The current situation, and prognosis were discussed in detail with the patient and her son was at the bedside. They were advised that so far that has not been any significant improvement in her oxygen requirement, or performance status despite aggressive antibiotic therapy as well as radiation to the primary site which forms the bulk of her tumor burden, and is also responsible for her acute issues with persistent post obstructive pneumonia. Her x-rays have not shown any clearing of the pneumonia. - They were advised that in this case with the patient's performance status does not improve, she would be a very poor candidate for any additional treatment such as chemotherapy. This would have significant risk of actually causing severe side effects including sepsis, with underlying persistent pneumonia, and actually compromising her life expectancy. In addition since most of her acute problems appeared to be related to the primary site, the chances of chemotherapy making a substantial difference fasten off would be very low, as typically radiation would actually work faster than chemotherapy or local palliation - He will continue current aggressive care and monitoring. The patient does not have any significant improvement over the next 1-2 days, it would be very reasonable to consider comfort care. Current Visit: Yes Status: Acute Priority: High Code(s): C34.90 - MALIGNANT NEOPLASM OF UNSP PART OF UNSP BRONCHUS OR LUNG SNOMED Code(s): 496537902 (3) Anemia Current Visit: Yes Status: Acute Priority: High Code(s): D64.9 - ANEMIA, UNSPECIFIED SNOMED Code(s): 167416258
--- NOTE | 2022-06-23 14:07 | P.PN ---
Subjective Progress Note Date: 06/23/22 This is a 66-year-old female who was recently admitted with recently diagnosed lung cancer on the left and also recently undergoing radiation therapy with radiation oncology along with oncology following closely. Plan is for 2 more sessions this week. Patient continues to require oxygen via nasal cannula at 2- 3 L and continues to report shortness of breath. Patient with generalized edema and was given a dose of IV Lasix yesterday and will add low-dose 20 mg IV push Lasix daily and will follow-up with repeat labs. Recommend physical therapy evaluation daily and patient continues to be extremely weak. Social work is following for possible ECF and will be discussed after radiation treatment day on how the patient is doing. Patient is currently afebrile and denies chest pain or palpitations. Patient with poor oral intake and needs encouragement and eating. Recommend supplements in between meals and encouraged activity as tolerated. Overall prognosis remains extremely guarded. Patient is also continued on DuoNeb treatments along with IV steroids and antibiotics along with oral nystatin swish and swallow. Chest x-ray done yesterday shows similar to almost complete opacification patient of the left hemithorax related to known left pulmonary mass and effusion and development of subtle patchy right midlung patchy airspace disease concerning for pneumonia. Patient is maintained on antibiotics and will continue. Infectious disease is following. 06/19/2022 Patient is seen in follow up today post radiation and has completed 5 cycles with radiation, oncology, and infectious disease following. Patient is continued on duonebs, IV steroids, IV lasix, and IV abx of Unasyn and no real clinical improvement. Patient not behaving as a pneumonia and will consult pulmonary and appreciate input and recommendations. Patient continues with significant weakness as well and working with PT/OT therapy. Planning possible ecf. Intake is fair to poor and lethargic at times. Chest ultrasound ordered. 06/20/2022 Patient seen again today and continues to be extremely short of breath main tained on 4L via NC. Chest ultrasound was done for thoracentesis today with pulmonary following. ID following and continued on IV abx along with duonebs, IV steroids, IV lasix with no improvement in respiratory status. Patient also reporting some abdominal bloating and distention with tenderness and has not had a bowel movement. Patient reports senna not helping. Will add suppository. Encouraged increased activity as tolerated and continues with significant weakness. Approx 1L of fluid removed from the left lung and sent for analysis. Overall prognosis is extremely poor and guarded and need to discuss with oncology about treatment plan moving forward and possible hospice. Patient is afebrile and denies chest pain. Oral intake is fair to poor. Encouraged oral intake. 06/21/2022 Patient is resting in bed today, appears short of breath at rest, continues with tachycardia, heart rate in the 120s today. She is status post left sided thoracentesis with [address] Grajeda yesterday. Postthoracentesis xray showing moderate to large left pleural effusion, loculated residual effusion s hould be considered, no pneumothorax post thoracentesis. There is developing right midlung patchy infiltrate. KUB was negative for acute, did show some mild constipation, patient was given suppository and states she did have a BM and reports improvement in abdominal distention and tenderness. Labs are pending from today. She has been afebrile overnight, blood pressure today 131/72. She is on 5L nasal cannula with oxygen saturation 90%. She continues on IV solumedrol 60 mg Q6h, IV lasix 20 mg daily, IV unasyn. Infectious disease, pulmonary, oncology following the patient closely. 06/22/2022 Patient is evaluated today resting in bed, daughter at bedside. Today is patients birthday. She continues with significant dyspnea with minimal exertion including carrying out conversation, and eating. She is able to turn herself slightly in bed but noting more. She is on 5L nasal cannula with oxygen saturation of 91%. There is post obstructive pneumonia left lung, despite antibiotic therapy her white count remains elevated, she continues with significant tachycardia, dyspnea. This was discussed with patient and daughter at bedside. She is a no code. She continues on IV ampicillin, IV solumedrol, bronchodilators. She is also on IV lasix daily. She does reports having some hallucinations last night. None today. She has completed 5 rounds of radiation and clinically not a candidate to undergo chemotherapy. Oncology is following. Blood presure 105/66. 06/23/2022 Patient evaluated resting in bed with daughter at bedside. Plan is to continue current treatments and see how she does in 1 to 2 days. They would like to speak with social work and also palliative care. She continues on 5L nasal cannula oxygen saturation 91 to 92%. Continues with significant weakness. Having trouble with diet and swallowing due to dry mouth. Will change diet to full liquids and also continue with protein supplements with meals. White count today 53.31, hgb 8.0, platelet count 105. Potassium today 2.6 she is receiving 80 meq of replacement and will repeat level this afternoon. Solumedrol decreased to 40 mg q8 and patient states she did not experience hallucinations last night. She slept on and off and states this morning she felt really weak. Temp today 99.1, heart rate 104, blood pressure 96/60, 92% 5L nasal cannula. Being followed closely by pulmonary and oncology services. On Iv lasix daily, Iv unasyn, bronchodilators, IV steroids. Review of systems: Constitutional: reports of fatigue and continued weakness, no reports of fever, or chills Cardiovascular: No reports of chest pain or palpitations Respiratory: reports of shortness of breath and weak cough GI: No reports of nausea, no reports of of vomiting, no reports of diarrhea, abdominal bloating improved, patient had a BM : No reports of dysuria or retention Neurovascular: reports of generalized weakness All medications have been reviewed Assessment: Left-sided lung cancer, extensive on radiation treatment large pleural effusion of the left status post thoracentesis of approx 1L removed Evidence for post obstructive pneumonia to the left lung on IV unasyn currently Leukocytosis secondary to above Hypokalemia from poor oral intake, diuresis Tachycardia Anemia, possibly secondary to malignancy, multifactorial, status post transfusion Elevated d-dimer Gait dysfunction, generalized weakness History of chronic nicotine use GI prophylaxis DVT prophylaxis No code, no CPR, no vent Plan: Recommend to continue with current medications and management along with symptomatic treatment and continued antibiotics. Patient has completed a cycle of radiation this last week. Pulmonary following and underwent thoracentesis of the left with 1L removed and sent for analysis. Social work is following and discharge planning will be subacute rehab pending clinical course. Hospice has been discussed with patient and also case was discussed with oncology. The plan is to continue current treatments for 1 to 2 more days and also follow up with social work and palliative per patient and daughter request. Patient continues to require oxygen via nasal cannula at 5 L and continues to report shortness of breath and dyspnea with minimal exertion. Recommend PT/OT therapy daily and encouraged oral intake. Diet now full liquid she reports difficulty swallowing meals. States mouth is dry. ID following and patient has been maintained on IV abx with no real clinical improvement and not behaving as pneumonia, recommend awaiting fluid analysis from thoracentesis. Most recent procalcitonin level 14. Patient with poor oral intake continue with ensure and magic cup. Had BM, continue with scheduled bowel regimen. Pain management, patient reports improvement in pain management. Recommend to continue with IV Lasix 20 mg daily. Replace potassium and follow up with repeat this afternoon and in AM. Due to multiple complex medical issues, overall prognosis is extremely poor and guarded. Agree with hospice recommendations made by pulmonary and oncology team. The impression and plan of care has been dictated by Danita Alvarez Nurse Practitioner as directed. Dr. Kostsa MD I have performed a history and physical examination and medical decision making of this patient, discussed the same with the dictator, and agree with the dictators assessment and plan as written, documented as a scribe. Based on total visit time, I have performed more than 50% of this visit. Objective - Vital Signs Vital signs: Vital Signs Temp 97.9 F 06/23/22 12:10 Pulse 104 H 06/23/22 12:04 Resp 18 06/23/22 11:15 BP 96/60 06/23/22 11:15 Pulse Ox 92 L 06/23/22 11:15 FiO2 40 06/20/22 20:09 Intake & Output 06/22/22 06/23/22 06/23/22 18:59 06:59 18:59 Output Total 600 300 Balance -600 -300 Output: Urine 600 300 Other: Voiding Method Diaper Diaper External Catheter External Catheter # Bowel Movements 1 - Labs CBC & Chem 7: 06/23/22 05:11 06/23/22 05:11 Labs: Abnormal Lab Results - Last 24 Hours (Table) 06/23/22 06/23/22 Range/Units 05:11 05:11 WBC 53.31 H* (4.50-10.00) X 10*3/uL RBC 2.75 L (4.10-5.20) X 10*6/uL Hgb 8.0 L (12.0-15.0) g/dL Hct 25.6 L (37.2-46.3) % MCHC 31.3 L (32.0-37.0) g/dL RDW 17.4 H (11.5-14.5) % Plt Count 105 L (140-440) X 10*3/uL Plt Count Comment DECREASED A Neutrophils # (Manual) 52.78 H (2.00-8.90) X 10*3/uL Lymphocytes # (Manual) 0.53 L (0.90-5.00) X 10*3/uL Monocytes # (Manual) 0 L (0.20-1.00) X 10*3/uL Eosinophils # (Manual) 0 L (0.04-0.35) X 10*3/uL Potassium 2.6 L* (3.5-5.5) mmol/L Carbon Dioxide 30.4 H (20.0-27.5) mmol/L Creatinine 0.3 L (0.6-1.5) mg/dL BUN/Creatinine Ratio 75.85 H (12.00-20.00) Ratio Glucose 160 H (70-110) mg/dL Calcium 7.6 L (8.7-10.3) mg/dL Microbiology - Last 24 Hours (Table) 06/20/22 20:00 Gram Stain - Preliminary Pleural Fluid Body Fluid Culture - Preliminary Assessment and Plan Time with Patient: Less than 30
[2022-06-24] MEDS: methylPREDNISolone SOD SUCCI 40 MG/ML 1 ML VIAL IV SCH ×4 (00:05→23:56)
[2022-06-24] MEDS: AMPICILLIN-SULBACTAM 3 GM in SODIUM CHLORIDE 0.9% 100 ML IVPB SCH ×5 (00:05→23:55)
[2022-06-24] MEDS: PANTOPRAZOLE 40 MG TABLET PO SCH (07:43)
[2022-06-24] MEDS: SENNOSIDES 8.6 MG TAB PO SCH (07:43)
[2022-06-24] MEDS: FUROSEMIDE 10 MG/ML 2 ML VIAL IV SCH (07:43)
[2022-06-24] MEDS: ALPRAZolam 0.25 MG TAB PO PRN (07:43)
[2022-06-24] MEDS: FERROUS SULFATE 325 MG TAB PO SCH ×2 (07:43→07:53)
[2022-06-24] MEDS: DOCUSATE 100 MG CAP PO SCH ×2 (07:44→07:53)
[2022-06-24] MEDS: NYSTATIN 100,000 UNIT/ML SUSP 500,000 UNIT/5 ML CUP PO SCH ×5 (07:44→22:15)
[2022-06-24] MEDS: METOPROLOL TARTRATE 25 MG TAB PO SCH ×2 (07:44→19:54)
[2022-06-24] MEDS: IPRATROPIUM-ALBUTEROL 3 ML NEB INHALATION SCH ×4 (09:00→20:22)
--- NOTE | 2022-06-24 11:17 | P.PN ---
Subjective Progress Note Date: 06/24/22 the patient clinically appears to be actually somewhat more short of breath. She seems weaker and less responsive compared to yesterday. It was somewhat difficult to get her to respond and verbalize. Objective - Vital Signs Vital signs: Vital Signs Temp 98.3 F 06/24/22 05:00 Pulse 133 H 06/24/22 05:00 Resp 22 06/24/22 05:00 BP 112/69 06/24/22 05:00 Pulse Ox 92 L 06/24/22 09:00 FiO2 40 06/20/22 20:09 Intake & Output 06/23/22 06/24/22 06/24/22 18:59 06:59 18:59 Intake Total 100 300 Output Total 500 500 Balance -400 -200 Intake: IV 100 Ampicillin-Sulbactam 3 gm 100 In Sodium Chloride 0.9% 100 ml @ 200 mls/hr IVPB Q6HR [facility] Rx#:[id number] Intake, IV Titration 100 Amount Ampicillin-Sulbactam 3 gm 100 In Sodium Chloride 0.9% 100 ml @ 200 mls/hr IVPB Q6HR [facility] Rx#:[id number] Oral 200 Output: Urine 500 500 Other: Voiding Method Diaper Diaper Diaper External Catheter External Catheter Incontinent External Catheter - Constitutional General appearance: Present: mild distress - EENT Eyes: Present: EOMI ENT: Present: hearing grossly normal - Respiratory Respiratory: left: diminished, rales - Cardiovascular Rhythm: regular Heart sounds: normal: S1, S2 - Gastrointestinal General gastrointestinal: Present: normal bowel sounds, soft - Integumentary Integumentary: Present: normal - Neurologic Neurologic Comment(s): lethargic, somewhat difficult to arouse. Decreased responsiveness. Neurologic: Present: CNII-XII intact - Musculoskeletal Musculoskeletal: Present: generalized weakness - Labs CBC & Chem 7: 06/23/22 05:11 06/23/22 14:18 Labs: Abnormal Lab Results - Last 24 Hours (Table) 06/23/22 06/23/22 06/23/22 Range/Units 05:11 05:11 14:18 WBC 53.31 H* (4.50-10.00) X 10*3/uL RBC 2.75 L (4.10-5.20) X 10*6/uL Hgb 8.0 L (12.0-15.0) g/dL Hct 25.6 L (37.2-46.3) % MCHC 31.3 L (32.0-37.0) g/dL RDW 17.4 H (11.5-14.5) % Plt Count 105 L (140-440) X 10*3/uL Plt Count Comment DECREASED A Neutrophils # (Manual) 52.78 H (2.00-8.90) X 10*3/uL Lymphocytes # (Manual) 0.53 L (0.90-5.00) X 10*3/uL Monocytes # (Manual) 0 L (0.20-1.00) X 10*3/uL Eosinophils # (Manual) 0 L (0.04-0.35) X 10*3/uL Potassium 2.6 L* 3.1 L (3.5-5.5) mmol/L Carbon Dioxide 30.4 H (20.0-27.5) mmol/L Creatinine 0.3 L (0.6-1.5) mg/dL BUN/Creatinine Ratio 75.85 H (12.00-20.00) Ratio Glucose 160 H (70-110) mg/dL Calcium 7.6 L (8.7-10.3) mg/dL Microbiology - Last 24 Hours (Table) 06/20/22 20:00 Gram Stain - Preliminary Pleural Fluid Body Fluid Culture - Preliminary Assessment and Plan (1) Physical debility Narrative/Plan: there is no improvement noted. Clinically actually the patient appears to be weaker compared to yesterday. This was confirmed at nursing was stated that she now appears to be having some difficulty in swallowing because of weakness Current Visit: Yes Status: Acute Code(s): R53.81 - OTHER MALAISE SNOMED Code(s): 61877985 (2) Adenocarcinoma, lung Narrative/Plan: as noted above, there has not been any improvement in the patient's clinical status. In fact she appears to have deteriorated somewhat. It was discussed in detail with her, and her family yesterday that without significant improvement she would not really be a candidate for any additional treatment, which typically would be aggressive systemic therapy. She has been treated quite aggressively so far to try to improve her performance status, with oxygen, steroids, antibiotics as well as radiation to the primary site which constitutes the main burden of her symptomatic disease. Given her current situation, it appears to be highly unlikely to the patient will improved where she would be able to have any active cancer treatment. I therefore discussed consulting palliative care for her. She was in agreement and consult for the same into place. Family will be informed. Current Visit: Yes Status: Acute Priority: High Code(s): C34.90 - MALIGNANT NEOPLASM OF UNSP PART OF UNSP BRONCHUS OR LUNG SNOMED Code(s): 067684728 (3) Anemia Current Visit: Yes Status: Acute Priority: High Code(s): D64.9 - ANEMIA, UNSPECIFIED SNOMED Code(s): 281108063
--- NOTE | 2022-06-24 11:43 | P.PN ---
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 She was discharged home on 06/03/2022. The patient had been seen by medical and radiation oncology. She presented back here to the hospital on 06/09/2022 with complaints of generalized weakness, fatigue. The patient had been receiving radiation therapy. Her chest x-ray had revealed near complete opacification of the left lung. CT angiogram ruled out pulmonary embolism. There is enlarging l eft pulmonary mass due to increasing mass effect of the left hilar mass resulting in atelectasis. Enlarging left pleural effusion. Right posterior lung patchy opacity suspicious for pneumonia. She was continued on radiation therapy which she completed today. We're consulted for possible thoracentesis which may be both therapeutic and diagnostic. There is some concern with possible empyema. White count 50. Hemoglobin 8.6. Platelets 161,000. Neutrophils 49.3. Sodium 139. Potassium 4.2. BUN 20. Creatinine 0.38. Glucose 149. AST 19. ALT 16. Pro-calcitonin was 14.0. She's been followed by infectious disease. She is currently on Unasyn. She is seen today in consultation on the oncology unit. She is quite weak and frail. She is alert. She is oriented. She is maintaining O2 saturations in the low 90s on 4 L/m per nasal cannula. Current temperature 99.8. She is tachycardic at 120. Respirations 19. She is dyspneic with conversation and exertion. She was however comfortable at rest. Her main complaint is that of continued fatigue. 06/20/2022, condition is essentially unchanged. Quite debilitated and very weak. Breathing is labored even at rest. Right-sided thoracentesis was done and total of 1000 mL of pleural fluid was removed from the left lung. The fluid was nonbloody. The fluid was none purulent in nature.. The patient is doing well following the procedure. Remains on IV Unasyn. There is a post obstructive pneumonia and the patient's white cell count remains quite elevated and on today's evaluation the white cell count of 54 with a hemoglobin of 8.4 and a platelet count of 125. BUN is at 80 with a creatinine of 0.3. Bicarbonate is 28 and a sodium level is at 142. The patient is currently on oxygen for histamine nasal cannula with a pulse ox of 97%. Slightly tachycardic. Oral intake is diminished and she is very much debilitated. 06/21/22, the patient is slightly improved postthoracentesis and the fluid do not to be an exudate and the fluid cytology still pending for now. Meanwhile, the patient wasn't on still elevated and there is no evidence of empyema and the culture from the pleural fluid is negative for bacterial growth for now. His most likely postobstructive pneumonia in the right upper lobe with significantly leukocytosis remains extremely debilitated and weak 06/22/2022, patient is clinically unchanged, white cell count remains elevated and the patient remains on IV Unasyn and the pleural fluid cytology still pending for now. She is afebrile. Tachycardic. She is on 5 L of O2 nasal cannula with a pulse ox of 93%. The patient is seen today 06/24/2022 in follow-up on the oncology unit. She is quite weak and debilitated. Maintaining O2 saturations in the low 90s on 5 L/m per nasal cannula. She's afebrile. Tachycardic. She has received 2 units of packed red blood cells this admission. Current hemoglobin 8.0. Blood cultures revealed no growth. Pleural fluid pathology pending. Serum potassium 3.9. Objective - Vital Signs Vital signs: Vital Signs Temp 98.3 F 06/24/22 05:00 Pulse 133 H 06/24/22 05:00 Resp 22 06/24/22 05:00 BP 112/69 06/24/22 05:00 Pulse Ox 92 L 06/24/22 09:00 FiO2 40 06/20/22 20:09 Intake & Output 06/23/22 06/24/22 06/24/22 18:59 06:59 18:59 Intake Total 100 300 Output Total 500 500 Balance -400 -200 Intake: IV 100 Ampicillin-Sulbactam 3 gm 100 In Sodium Chloride 0.9% 100 ml @ 200 mls/hr IVPB Q6HR [facility] Rx#:[id number] Intake, IV Titration 100 Amount Ampicillin-Sulbactam 3 gm 100 In Sodium Chloride 0.9% 100 ml @ 200 mls/hr IVPB Q6HR [facility] Rx#:[id number] Oral 200 Output: Urine 500 500 Other: Voiding Method Diaper Diaper Diaper External Catheter External Catheter Incontinent External Catheter - Exam GENERAL EXAM: Arousable, frail, cachectic, 66-year-old female, appears older than stated age, on 5 L nasal cannula, fairly comfortable in no apparent distress. HEAD: Normocephalic. EYES: Normal reaction of pupils, equal size. NOSE: Clear with pink turbinates. THROAT: No erythema or exudates. NECK: No masses, no JVD. CHEST: No chest wall deformity. LUNGS: Equal air entry with dullness and crackles in the left lung throughout. CVS: S1 and S2 normal with no audible murmur, regular rhythm. ABDOMEN: No hepatosplenomegaly, normal bowel sounds, no guarding or rigidity. SPINE: No scoliosis or deformity SKIN: No rashes CENTRAL NERVOUS SYSTEM: No focal deficits, tone is normal in all 4 extremities. EXTREMITIES: There is no peripheral edema. No clubbing, no cyanosis. Peripheral pulses are intact. - Labs CBC & Chem 7: 06/23/22 05:11 06/24/22 07:04 Labs: Abnormal Lab Results - Last 24 Hours (Table) 06/23/22 06/23/22 06/23/22 Range/Units 05:11 05:11 14:18 WBC 53.31 H* (4.50-10.00) X 10*3/uL RBC 2.75 L (4.10-5.20) X 10*6/uL Hgb 8.0 L (12.0-15.0) g/dL Hct 25.6 L (37.2-46.3) % MCHC 31.3 L (32.0-37.0) g/dL RDW 17.4 H (11.5-14.5) % Plt Count 105 L (140-440) X 10*3/uL Plt Count Comment DECREASED A Neutrophils # (Manual) 52.78 H (2.00-8.90) X 10*3/uL Lymphocytes # (Manual) 0.53 L (0.90-5.00) X 10*3/uL Monocytes # (Manual) 0 L (0.20-1.00) X 10*3/uL Eosinophils # (Manual) 0 L (0.04-0.35) X 10*3/uL Potassium 2.6 L* 3.1 L (3.5-5.5) mmol/L Carbon Dioxide 30.4 H (20.0-27.5) mmol/L Creatinine 0.3 L (0.6-1.5) mg/dL BUN/Creatinine Ratio 75.85 H (12.00-20.00) Ratio Glucose 160 H (70-110) mg/dL Calcium 7.6 L (8.7-10.3) mg/dL Microbiology - Last 24 Hours (Table) 06/20/22 20:00 Gram Stain - Preliminary Pleural Fluid Body Fluid Culture - Preliminary Assessment and Plan Assessment: Acute hypoxemic respiratory failure secondary to postobstructive pneumonia secondary to large left upper lobe mass. This was diagnosed as stage IV pulmonary adenocarcinoma on 05/26/[address]-guided fine-needle aspirate. She had been seen by medical and radiation oncology. She completed 5 cycles of radiation. Chest x-ray shows near complete opacification of the left chest. Pro-calcitonin 14.0. A bedside thoracentesis was done and total of 1 L of fluid was evacuated and the fluid was nonpurulent. Rule out malignant pleural effusion. Nevertheless, left lung continues to be specified due to a post obstructive pneumonia and large left upper lobe mass and the white cell count remains elevated and the patient remains on IV Unasyn. She is very much debilitated and deconditioned at this point in time. No evidence of empyema. The pleural fluid was exudate. Awaiting fluid cytology. Limited clinical improvement post thoracentesis. Clinically patient remains the same and unchanged and she remains tachycardic in the white cell count remains elevated. Significant leukocytosis suspect secondary to above Anemia with a drop of hemoglobin is 6.8, status post 2 units packed red blood cells this admission, currently on 8.0 Poor overall functional performance Former smoker, currently in remission, carries [id number] smoking history Plan: The patient was seen and evaluated Her overall prognosis remains quite poor Pleural fluid cytology pending DO NOT RESUSCITATE/DO NOT INTUBATE CODE STATUS Would recommend palliative care/hospice/comfort care We will see as needed I have personally seen and examined the patient, performed the documentation and the assessment and plan as written. Number of minutes spent on the visit: 10.
[2022-06-24] MEDS: HYDROcodone/APAP 5-325MG 1 EACH TAB PO PRN (12:30)
[2022-06-24 12:31] VITALS: BP 96/61; PULSE 131; RESP 18; TEMP 98.5
[2022-06-24] MEDS ORDERED: SCOPOLAMINE 1 MG/72 HR PATCH TRANSDERM SCH (17:30)
[2022-06-24] MEDS ORDERED: ACETAMINOPHEN SUPPOSITORY 650 MG SUPP RECTAL PRN (19:27)
[2022-06-24] MEDS ORDERED: LORazepam 1 MG/0.5 ML VIAL IV PRN (19:27)
[2022-06-24] MEDS ORDERED: ONDANSETRON 4 MG/2 ML VIAL IVP PRN (19:28)
[2022-06-24] MEDS ORDERED: MORPHINE SULFATE (100 MG/2 ML) 100 MG in SODIUM CHLORIDE 0.9% 100 ML IV SCH (19:30)
[2022-06-24] MEDS: MORPHINE SULFATE 2 MG/ML SYRINGE IV PRN (20:49)
[2022-06-25] MEDS: MORPHINE SULFATE 2 MG/ML SYRINGE IV PRN ×3 (02:27→07:45)
[2022-06-25] MEDS: AMPICILLIN-SULBACTAM 3 GM in SODIUM CHLORIDE 0.9% 100 ML IVPB SCH (03:58)
--- NOTE | 2022-06-25 06:30 | P.PN ---
Subjective Progress Note Date: 06/24/22 This is a 66-year-old female who was recently admitted with recently diagnosed lung cancer on the left and also recently undergoing radiation therapy with radiation oncology along with oncology following closely. Plan is for 2 more sessions this week. Patient continues to require oxygen via nasal cannula at 2- 3 L and continues to report shortness of breath. Patient with generalized edema and was given a dose of IV Lasix yesterday and will add low-dose 20 mg IV push Lasix daily and will follow-up with repeat labs. Recommend physical therapy evaluation daily and patient continues to be extremely weak. Social work is following for possible ECF and will be discussed after radiation treatment on how the patient is doing. Patient is currently afebrile and denies chest pain or palpitations. Patient with poor oral intake and needs encouragement and eating. Recommend supplements in between meals and encouraged activity as tolerated. Overall prognosis remains extremely guarded. Patient is also continued on DuoNeb treatments along with IV steroids and antibiotics along with oral nystatin swish and swallow. Chest x-ray done yesterday shows similar to almost complete opacification patient of the left hemithorax related to known left pulmonary mass and effusion and development of subtle patchy right midlung patchy airspace disease concerning for pneumonia. Patient is maintained on antibiotics and will continue. Infectious disease is following. 06/19/2022 Patient is seen in follow up today post radiation and has completed 5 cycles with radiation, oncology, and infectious disease following. Patient is continued on duonebs, IV steroids, IV lasix, and IV abx of Unasyn and no real clinical improvement. Patient not behaving as a pneumonia and will consult pulmonary and appreciate input and recommendations. Patient continues with significant weakness as well and working with PT/OT therapy. Planning possible ecf. Intake is fair to poor and lethargic at times. Chest ultrasound ordered. 06/20/2022 Patient seen again today and continues to be extremely short of breath m aintained on 4L via NC. Chest ultrasound was done for thoracentesis today with pulmonary following. ID following and continued on IV abx along with duonebs, IV steroids, IV lasix with no improvement in respiratory status. Patient also reporting some abdominal bloating and distention with tenderness and has not had a bowel movement. Patient reports senna not helping. Will add suppository. Encouraged increased activity as tolerated and continues with significant weakness. Approx 1L of fluid removed from the left lung and sent for analysis. Overall prognosis is extremely poor and guarded and need to discuss with oncology about treatment plan moving forward and possible hospice. Patient is afebrile and denies chest pain. Oral intake is fair to poor. Encouraged oral intake. 06/21/2022 Patient is resting in bed today, appears short of breath at rest, continues with tachycardia, heart rate in the 120s today. She is status post left sided thoracentesis with [address] Grajeda yesterday. Postthoracentesis xray showing moderate to large left pleural effusion, loculated residual effusion should be considered, no pneumothorax post thoracentesis. There is developing right midlung patchy infiltrate. KUB was negative for acute, did show some mild constipation, patient was given suppository and states she did have a BM and reports improvement in abdominal distention and tenderness. Labs are pending from today. She has been afebrile overnight, blood pressure today 131/72. She is on 5L nasal cannula with oxygen saturation 90%. She continues on IV solumedrol 60 mg Q6h, IV lasix 20 mg daily, IV unasyn. Infectious disease, pulmonary, oncology following the patient closely. 06/22/2022 Patient is evaluated today resting in bed, daughter at bedside. Today is patients birthday. She continues with significant dyspnea with minimal exertion including carrying out conversation, and eating. She is able to turn herself slightly in bed but noting more. She is on 5L nasal cannula with oxygen saturation of 91%. There is post obstructive pneumonia left lung, despite antibiotic therapy her white count remains elevated, she continues with significant tachycardia, dyspnea. This was discussed with patient and daughter at bedside. She is a no code. She continues on IV ampicillin, IV solumedrol, bronchodilators. She is also on IV lasix daily. She does reports having some hallucinations last night. None today. She has completed 5 rounds of radiation and clinically not a candidate to undergo chemotherapy. Oncology is following. Blood presure 105/66. 06/23/2022 Patient evaluated resting in bed with daughter at bedside. Plan is to continue current treatments and see how she does in 1 to 2 days. They would like to speak with social work and also palliative care. She continues on 5L nasal cannula oxygen saturation 91 to 92%. Continues with significant weakness. Having trouble with diet and swallowing due to dry mouth. Will change diet to full liquids and also continue with protein supplements with meals. White count today 53.31, hgb 8.0, platelet count 105. Potassium today 2.6 she is receiving 80 meq of replacement and will repeat level this afternoon. Solumedrol decreased to 40 mg q8 and patient states she did not experience hallucinations last night. She slept on and off and states this morning she felt really weak. Temp today 99.1, heart rate 104, blood pressure 96/60, 92% 5L nasal cannula. Being followed closely by pulmonary and oncology services. On Iv lasix daily, Iv unasyn, bronchodilators, IV steroids. 06/24/2022 Patient is seen and evaluated and follow-up and continues to deteriorate clinically. Patient is extremely lethargic and weak and continues to be extremely dyspneic. Patient is barely eating and extremely weak. Will mumble one to two words and fatigue. Pulmonary evaluated and recommending hospice/comfort care. Oncology following and recommending 1-2 more days and palliative care nurse consulted. Overall prognosis is poor and extremely guarded. Family to be present with palliative care consult. Review of systems: Constitutional: reports of fatigue and continued weakness, no reports of fever, or chills Cardiovascular: No reports of chest pain or palpitations Respiratory: reports of shortness of breath and weak cough GI: No reports of nausea, no reports of of vomiting, no reports of diarrhea, reports no BM in days and abdominal bloating. : No reports of dysuria or retention Neurovascular: reports of generalized weakness All medications have been reviewed PHYSICAL EXAMINATION: GENERAL: The patient is alert and oriented 2-3, slightly delayed at times, ill- appearing, thin built . extremely dyspneic and lethargic during conversation, mumbles 1-2 words at a time HEENT: Pupils are round and equally reacting to light. EOMI. no scleral icterus. No conjunctival pallor. Normocephalic, atraumatic. No pharyngeal erythema. No thyromegaly. CARDIOVASCULAR: S1 and S2 muffled PULMONARY: diminished breath sounds bilaterally worse on the left with some scattered rhonchi and crackles noted. ABDOMEN: soft. tender on exam. Mildly distended, normoactive bowel sounds. No palpable organomegaly. MUSCULOSKELETAL: No joint swelling or deformity. EXTREMITIES: No cyanosis, clubbing, or pedal edema. Generalized edema noted to the upper and lower extremities NEUROLOGICAL: Gross neurological examination did not reveal any focal deficits. Diffuse weakness SKIN: No rashes. Assessment: Left-sided lung cancer, extensive on radiation treatment large pleural effusion of the left status post thoracentesis of approx 1L remov ed Evidence for post obstructive pneumonia to the left lung on IV unasyn currently Leukocytosis secondary to above Hypokalemia from poor oral intake, diuresis Tachycardia Anemia, possibly secondary to malignancy, multifactorial, status post transfusion Elevated d-dimer Gait dysfunction, generalized weakness History of chronic nicotine use GI prophylaxis DVT prophylaxis No code, no CPR, no vent Plan: Recommend to continue with current medications and management along with symptomatic treatment and continued antibiotics. Patient has completed a cycle of radiation this last week. Pulmonary following and underwent thoracentesis of the left with 1L removed and sent for analysis. recommending hospice/comfort care Social work is following and discharge planning will be subacute rehab pending clinical course. Hospice has been discussed with patient and also case was discussed with oncology. The plan is to continue current treatments for 1 to 2 more days and also follow up with social work and palliative care nurse consult per patient and daughter request. Patient continues to require oxygen via nasal cannula at 5 L and continues to report shortness of breath and dyspnea with minimal exertion. Recommend PT/OT therapy daily and encouraged oral intake. Diet now full liquid she reports difficulty swallowing meals. States mouth is dry. ID following and patient has been maintained on IV abx with no real clinical improvement and not behaving as pneumonia, recommend awaiting fluid analysis from thoracentesis. Most recent procalcitonin level 14. Patient with poor oral intake continue with ensure and magic cup. continue with scheduled bowel regimen. Pain management, patient reports improvement in pain management. Recommend to continue with IV Lasix 20 mg daily. Due to multiple complex medical issues, overall prognosis is extremely poor and guarded. Agree with hospice recommendations made by pulmonary and oncology team. Palliative consult pending at this time The impression and plan of care has been dictated by Liliana Mendez, nurse practitioner as directed. Dr. Karlene MD I have performed a history and examination and MDM of this patient, discussed the same with the dictator, and agree with the dictator's assessment and plan as written ,documented as a scribe. Based on total visit time, I have performed more than 50% of the visit. Any additional findings or plans will be noted. Objective - Vital Signs Vital signs: Vital Signs Temp 98.3 F 06/24/22 05:00 Pulse 133 H 06/24/22 05:00 Resp 22 06/24/22 05:00 BP 112/69 06/24/22 05:00 Pulse Ox 92 L 06/24/22 09:00 FiO2 40 06/20/22 20:09 Intake & Output 06/23/22 06/24/22 06/24/22 18:59 06:59 18:59 Intake Total 100 300 Output Total 500 500 Balance -400 -200 Intake: IV 100 Ampicillin-Sulbactam 3 gm 100 In Sodium Chloride 0.9% 100 ml @ 200 mls/hr IVPB Q6HR [facility] Rx#:[id number] Intake, IV Titration 100 Amount Ampicillin-Sulbactam 3 gm 100 In Sodium Chloride 0.9% 100 ml @ 200 mls/hr IVPB Q6HR [facility] Rx#:[id number] Oral 200 Output: Urine 500 500 Other: Voiding Method Diaper Diaper External Catheter External Catheter - Labs CBC & Chem 7: 06/23/22 05:11 06/24/22 07:04 Labs: Abnormal Lab Results - Last 24 Hours (Table) 06/23/22 06/23/22 06/23/22 Range/Units 05:11 05:11 14:18 WBC 53.31 H* (4.50-10.00) X 10*3/uL RBC 2.75 L (4.10-5.20) X 10*6/uL Hgb 8.0 L (12.0-15.0) g/dL Hct 25.6 L (37.2-46.3) % MCHC 31.3 L (32.0-37.0) g/dL RDW 17.4 H (11.5-14.5) % Plt Count 105 L (140-440) X 10*3/uL Plt Count Comment DECREASED A Neutrophils # (Manual) 52.78 H (2.00-8.90) X 10*3/uL Lymphocytes # (Manual) 0.53 L (0.90-5.00) X 10*3/uL Monocytes # (Manual) 0 L (0.20-1.00) X 10*3/uL Eosinophils # (Manual) 0 L (0.04-0.35) X 10*3/uL Potassium 2.6 L* 3.1 L (3.5-5.5) mmol/L Carbon Dioxide 30.4 H (20.0-27.5) mmol/L Creatinine 0.3 L (0.6-1.5) mg/dL BUN/Creatinine Ratio 75.85 H (12.00-20.00) Ratio Glucose 160 H (70-110) mg/dL Calcium 7.6 L (8.7-10.3) mg/dL Microbiology - Last 24 Hours (Table) 06/20/22 20:00 Gram Stain - Preliminary Pleural Fluid Body Fluid Culture - Preliminary
[2022-06-25] MEDS: DOCUSATE 100 MG CAP PO SCH (07:24)
[2022-06-25] MEDS: FERROUS SULFATE 325 MG TAB PO SCH (07:24)
[2022-06-25] MEDS: METOPROLOL TARTRATE 25 MG TAB PO SCH (07:24)
[2022-06-25] MEDS: PANTOPRAZOLE 40 MG TABLET PO SCH (07:24)
[2022-06-25] MEDS: NYSTATIN 100,000 UNIT/ML SUSP 500,000 UNIT/5 ML CUP PO SCH (07:25)
[2022-06-25] MEDS: SENNOSIDES 8.6 MG TAB PO SCH (07:25)
--- NOTE | 2022-06-25 09:03 | P.CONS ---
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 She presented to the ER on 06/09/22 with complaints of increased fatigue, she felt exhausted and sleepy all the time. She denied any chest pain or palpitations, and any syncopal episodes. She has been on antibiotics at home for pneumonia with augmentin. She denied any fever, chills, headache, abd pain, nausea vomiting, or changes in bowel or urinary habits. She denied any GI bleeding. The ER workup showed acute on chronic anemia with a Hgb of 6.3 and has received 2 units PRBC's during this admission. The patient had been seen by medical and radiation oncology. The patient had been receiving radiation therapy. Her chest x-ray had revealed near complete opacification of the left lung. CT angiogram ruled out pulmonary embolism. There is enlarging left pulmonary mass due to increasing mass effect of the left hilar mass resulting in atelectasis. Enlarging left pleural effusion. Right posterior lung patchy opacity suspicious for pneumonia. A bedside thoracentesis was done and total of 1 L of fluid was evacuated and the fluid was nonpurulent. Rule out malignant pleural effusion. Nevertheless, left lung continues to be specified due to a post obstructive pneumonia and large left upper lobe mass and the white cell count remains elevated and the patient remains on IV Unasyn. She is very much debilitated and deconditioned at this point in time. No evidence of empyema. The pleural fluid was exudate. Awaiting fluid cytology. Limited clinical improvement post thoracentesis. Clinically patient remains the same and un changed and she remains tachycardic in the white cell count remains elevated. Per oncology, there has not been any improvement in the patient's clinical status. In fact she appears to have deteriorated somewhat. It was discussed in detail with her, and her family yesterday that without significant improvement she would not really be a candidate for any additional treatment, which typically would be aggressive systemic therapy. She has been treated quite aggressively so far to try to improve her performance status, with oxygen, steroids, antibiotics as well as radiation to the primary site which constitutes the main burden of her symptomatic disease. Given her current situation, it appears to be highly unlikely to the patient will improved where she would be able to have any active cancer treatment. Review of Systems Constitutional: Reports as per HPI Past Medical History Past Medical History: Cancer, Osteoarthritis (OA), Pneumonia Additional Past Medical History / Comment(s): Pt recently admitted to [facility] on 05/24/22 with L large lung mass with cavitation/adenocarcinoma/postobstructive pneumonia and tachycardia thought likely d/t sepsis. Other hx: Pt states since last admission she has had bilateral lower leg/pedal edema, chronic anemia, bronchitis years ago, skin cancer removed from leg, chronic low back pain. History of Any Multi-Drug Resistant Organisms: None Reported Past Surgical History: No Surgical Hx Reported Additional Past Surgical History / Comment(s): L lung biopsy, colonoscopy/benign polypectomy Past Anesthesia/Blood Transfusion Reactions: No Reported Reaction Past Psychological History: No Psychological Hx Reported Smoking Status: Former smoker Past Alcohol Use History: None Reported Past Drug Use History: None Reported - Past Family History Mother Family Medical History: Cancer Additional Family Medical History / Comment(s): Pt does not know type of cancer Father Family Medical History: Coronary Artery Disease (CAD) Additional Family Medical History / Comment(s): Father was a smoker. Medications and Allergies Home Medications Medication Instructions Recorded Confirmed Type Albuterol Inhaler [Ventolin Hfa 2 puff INHALATION RT-Q4H PRN 05/24/22 06/09/22 History Inhaler] Docusate [Colace] 100 mg PO DAILY 05/24/22 06/09/22 History Ferrous Sulfate [Iron (65 MG 325 mg PO DAILY 05/24/22 06/09/22 History Elemental)] ALPRAZolam [Xanax] 0.25 mg PO BID PRN 3 Days #6 tab 06/03/22 06/09/22 Rx Acetaminophen Tab [Tylenol] 650 mg PO Q6HR PRN tab 06/03/22 06/09/22 Rx Amoxic-Pot Clav 875-125Mg 1 tab PO BID 10 Days #20 tab 06/03/22 06/09/22 Rx [Augmentin 875-125] Famotidine [Pepcid] 20 mg PO Q12HR #60 tab 06/03/22 06/09/22 Rx Melatonin 6 mg PO HS PRN 10 Days #10 tab 06/03/22 06/09/22 Rx Metoprolol Tartrate [Lopressor] 25 mg PO BID #60 tab 06/03/22 06/09/22 Rx Nystatin 100,000 Unit/ml Susp 500,000 unit PO QID 3 Days #60 ml 06/03/22 06/09/22 Rx [Mycostatin Oral Susp] predniSONE See Taper PO DIRECTED 06/09/22 06/09/22 History Allergies Allergy/AdvReac Type Severity Reaction Status Date / Time No Known Allergies Allergy Verified 06/09/22 21:11 Physical Exam Vitals: Vital Signs Temp Pulse Resp BP Pulse Ox 06/24/22 20:22 91 L 06/24/22 12:30 98.5 F 131 H 18 96/61 92 L 06/24/22 09:00 92 L GENERAL: The patient is lethargic and difficult to arouse, chronically ill- appearing and frail . HEENT: Pupils are round and equally reacting to light. EOMI. no scleral icterus. No conjunctival pallor. Normocephalic, atraumatic. No pharyngeal erythema. No thyromegaly. CARDIOVASCULAR: S1 and S2 muffled PULMONARY: diminished breath sounds bilaterally worse on the left with some scattered rhonchi and crackles noted. Dyspneic ABDOMEN: soft. tender on exam. Mildly distended, normoactive bowel sounds. No palpable organomegaly. MUSCULOSKELETAL: No joint swelling or deformity. + generalized weakness. EXTREMITIES: No cyanosis, clubbing, or pedal edema. Generalized edema noted to the upper and lower extremities NEUROLOGICAL: Lethargic during conversation, mumbles 1-2 words at a time SKIN: No rashes. Results CBC & Chem 7: 06/23/22 05:11 06/24/22 07:04 Labs: Abnormal Lab Results - Last 24 Hours (Table) 06/23/22 06/23/22 Range/Units 05:11 05:11 WBC 53.31 H* (4.50-10.00) X 10*3/uL RBC 2.75 L (4.10-5.20) X 10*6/uL Hgb 8.0 L (12.0-15.0) g/dL Hct 25.6 L (37.2-46.3) % MCHC 31.3 L (32.0-37.0) g/dL RDW 17.4 H (11.5-14.5) % Plt Count 105 L (140-440) X 10*3/uL Plt Count Comment DECREASED A Neutrophils # (Manual) 52.78 H (2.00-8.90) X 10*3/uL Lymphocytes # (Manual) 0.53 L (0.90-5.00) X 10*3/uL Monocytes # (Manual) 0 L (0.20-1.00) X 10*3/uL Eosinophils # (Manual) 0 L (0.04-0.35) X 10*3/uL Potassium 2.6 L* (3.5-5.5) mmol/L Carbon Dioxide 30.4 H (20.0-27.5) mmol/L Creatinine 0.3 L (0.6-1.5) mg/dL BUN/Creatinine Ratio 75.85 H (12.00-20.00) Ratio Glucose 160 H (70-110) mg/dL Calcium 7.6 L (8.7-10.3) mg/dL Microbiology - Last 24 Hours (Table) 06/20/22 20:00 Gram Stain - Preliminary Pleural Fluid Body Fluid Culture - Preliminary Chest x-ray: report reviewed CT scan - chest: report reviewed Assessment and Plan Assessment: Symptoms * Pain - CPOT 0 * Fatigue - + generalized weakness, fatigue, frail and debilitated * SOB - + tachypneic with labored breaths * Insomnia - lethargic and difficult to arouse * N/V - No * Anxiety - Unable to assess * Depression - Unable to assess * Confusion - Unable to assess * Agitation - Appears calm * Hallucinations - Unable to assess * Appetite/weight loss - + recent weight loss over last few months with decreased appetite * Dysphagia - + difficulty swallowing, maintain NPO * Constipation - LBM 06/22 * Incontinence - Yes, external catheter/brief in place * Itch - None observed Plan: Summary/Goals - Contacted by patient's nurse yesterday stating that she is not doing well and not expected to make it through the night. She stated the patient's daughter is at the bedside and has asked for hospice. A hospice consult was placed. The patient was signed on to inpatient hospice. Comfort meds were initiated. Recommendations - GIP Advanced Directives - No Code Status - DNR Thank you for this consult Amanda Lieberman [facility]- Palliative Care [facility] [id number] Email: [email or web address] Time with Patient: Greater than 30
--- NOTE | 2022-06-25 15:55 | P.DS ---
Providers Date of admission: 06/09/22 20:40 Expected date of discharge: 06/25/22 Attending physician: Cynthia Santo Consults: 06/10/22 13:47 Consult Physician Routine Consulting Provider: Baljinder Rosenbaum Consult Reason/Comments: adenocarcinoma lung Do you want consulting provider notified?: Yes Consult Physician Urgent Consulting Provider: Kai Mcintosh Consult Reason/Comments: lung adenocarcinoma Do you want consulting provider notified?: Yes 06/12/22 17:39 Consult Physician Routine Consulting Provider: Ingrid Kennedy Consult Reason/Comments: fever on antibiotics Do you want consulting provider notified?: Yes, Notify in am 06/19/22 13:36 Consult Physician Urgent Consulting Provider: Corin Grajeda Consult Reason/Comments: lung CA, pleural effusion Do you want consulting provider notified?: Yes 06/24/22 10:13 Consult to Palliative Care Urgent Consulting Provider: Amanda Lieberman Consult Reason/Comments: palliative care-lung cancer Do you want consulting provider notified?: Yes Primary care physician: Physician Nonstaff Hospital Course: Final diagnosis Left-sided lung cancer, extensive on radiation treatment large pleural effusion of the left status post thoracentesis of approx 1L removed Evidence for post obstructive pneumonia to the left lung on IV unasyn currently Leukocytosis secondary to above Hypokalemia from poor oral intake, diuresis Tachycardia Anemia, possibly secondary to malignancy, multifactorial, status post transfusion Elevated d-dimer Gait dysfunction, generalized weakness History of chronic nicotine use GI prophylaxis DVT prophylaxis No code, no CPR, no vent Discharge disposition Patient has flipped to inpatient [facility] status with [facility] hospice comfort measures only. Please refer to previous documentations and further consultation notes for further HPI. Plan - Discharge Summary Discharge Rx Participant: No New Discharge Prescriptions: No Action Ferrous Sulfate [Iron (65 MG Elemental)] 325 mg PO DAILY Docusate [Colace] 100 mg PO DAILY Amoxic-Pot Clav 875-125Mg [Augmentin 875-125] 1 tab PO BID 10 Days #20 tab Metoprolol Tartrate [Lopressor] 25 mg PO BID #60 tab Melatonin 6 mg PO HS PRN 10 Days #10 tab PRN Reason: Insomnia Famotidine [Pepcid] 20 mg PO Q12HR #60 tab Acetaminophen Tab [Tylenol] 650 mg PO Q6HR PRN tab PRN Reason: Fever And/ Or Pain predniSONE See Taper PO DIRECTED Albuterol Inhaler [Ventolin Hfa Inhaler] 2 puff INHALATION RT-Q4H PRN PRN Reason: Shortness Of Breath Nystatin 100,000 Unit/ml Susp [Mycostatin Oral Susp] 500,000 unit PO QID 3 Days #60 ml ALPRAZolam [Xanax] 0.25 mg PO BID PRN 3 Days #6 tab PRN Reason: Anxiety Discharge Medication List Albuterol Inhaler [Ventolin Hfa Inhaler] 2 puff INHALATION RT-Q4H PRN 05/24/22 [History] Docusate [Colace] 100 mg PO DAILY 05/24/22 [History] Ferrous Sulfate [Iron (65 MG Elemental)] 325 mg PO DAILY 05/24/22 [History] ALPRAZolam [Xanax] 0.25 mg PO BID PRN 3 Days #6 tab 06/03/22 [Rx] Acetaminophen Tab [Tylenol] 650 mg PO Q6HR PRN tab 06/03/22 [Rx] Amoxic-Pot Clav 875-125Mg [Augmentin 875-125] 1 tab PO BID 10 Days #20 tab 06/03/22 [Rx] Famotidine [Pepcid] 20 mg PO Q12HR #60 tab 06/03/22 [Rx] Melatonin 6 mg PO HS PRN 10 Days #10 tab 06/03/22 [Rx] Metoprolol Tartrate [Lopressor] 25 mg PO BID #60 tab 06/03/22 [Rx] Nystatin 100,000 Unit/ml Susp [Mycostatin Oral Susp] 500,000 unit PO QID 3 Days #60 ml 06/03/22 [Rx] predniSONE See Taper PO DIRECTED 06/09/22 [History] Follow up Appointment(s)/Referral(s): Nursing,[place] [NON-STAFF] - 1 Week MID,Infusion [NON-STAFF] - 1 Week Baljinder Rosenbaum MD [STAFF PHYSICIAN] - 07/18/22 1:30 pm (Appt at [facility] 1st Floor. Radiation Oncology) Nonstaff,Physician [Primary Care Provider] - 1-2 days (GABRIELA SALEH NP - [facility] - [address] [place] [address] - P:[phone]) [facility], [REFERRING] - As Needed (80% coverage on supples until $5,300 out of pocket is met. Approximately $120 a week for supplies and medications will have copays) Discharge Disposition: DISCH TO HOSPICE MED FACILTY
== END 2022-06-25 08:02 | disposition hospice, inpatient (51) | DRG 180 ==
LOC: EC 19:20 → 5NMEDONC 20:40
PROVIDERS: ADMIT Hospitalist; ATTEND Hospitalist
PROC: 30233N1 Transfusion of Nonautologous Red Blood Cells into Peripheral Vein, Percutaneous Approach (ICD-10-PCS; 2022-06-09)
PROC: DB021ZZ Beam Radiation of Lung using Photons 1 - 10 MeV (ICD-10-PCS; 2022-06-13)
PROC: 0W9B3ZX Drainage of Left Pleural Cavity, Percutaneous Approach, Diagnostic (ICD-10-PCS; principal; 2022-06-20)
DX: C34.12 Malignant neoplasm of upper lobe, left bronchus or lung (principal); J18.9 Pneumonia, unspecified organism; J96.01 Acute respiratory failure with hypoxia; J44.0 Chronic obstructive pulmonary disease with (acute) lower respiratory infection; Z68.1 Body mass index [BMI] 19.9 or less, adult; R44.3 Hallucinations, unspecified; J91.8 Pleural effusion in other conditions classified elsewhere; D63.0 Anemia in neoplastic disease; D72.823 Leukemoid reaction; E87.6 Hypokalemia; G47.00 Insomnia, unspecified; K59.00 Constipation, unspecified; Z66 Do not resuscitate; Z20.822 Contact with and (suspected) exposure to COVID-19; E27.8 Other specified disorders of adrenal gland; R63.4 Abnormal weight loss; M19.90 Unspecified osteoarthritis, unspecified site; R13.10 Dysphagia, unspecified; G89.29 Other chronic pain; M54.50 Low back pain, unspecified; R60.0 Localized edema; R53.81 Other malaise; R26.9 Unspecified abnormalities of gait and mobility; R68.2 Dry mouth, unspecified; R79.1 Abnormal coagulation profile; T38.0X5A Adverse effect of glucocorticoids and synthetic analogues, initial encounter; Z71.3 Dietary counseling and surveillance; Z87.891 Personal history of nicotine dependence; Z87.01 Personal history of pneumonia (recurrent); Z85.828 Personal history of other malignant neoplasm of skin; Z79.899 Other long term (current) drug therapy; Z82.49 Family history of ischemic heart disease and other diseases of the circulatory system
CPT/HCPCS: 36415; 71045; 71046; 71275; 74018; 76604; 77280; 77290; 77295; 77300; 77332; 77334; 77387; 77412; 80048; 80053; 81001; 81003; 83605; 83615; 83735; 84132; 84145; 84157; 85025; 85379; 85610; 85652; 85730; 86140; 86850; 86900; 86901; 86920; 87040; 87070; 87205; 87635; 88108; 88305; 89050; 93005; 93970; 94640; 94760; 96374; 99291

== ENCOUNTER 2022-06-25 08:03 | Inpatient (IN) | payer MEDICAID ==
[2022-06-25] MEDS ORDERED: ACETAMINOPHEN SUPPOSITORY 650 MG SUPP RECTAL PRN (08:20)
[2022-06-25] MEDS ORDERED: MORPHINE SULFATE 2 MG/ML SYRINGE IV PRN (08:20)
[2022-06-25] MEDS ORDERED: ONDANSETRON 4 MG/2 ML VIAL IVP PRN (08:20)
[2022-06-25] MEDS ORDERED: ATROPINE OPHTH SOLN 1% 5ML BTL SUBLINGUAL PRN (08:20)
[2022-06-25] MEDS ORDERED: LORazepam 1 MG/0.5 ML VIAL IV PRN (08:20)
[2022-06-25] MEDS ORDERED: SCOPOLAMINE 1 MG/72 HR PATCH TRANSDERM SCH (08:30)
[2022-06-25] MEDS: MORPHINE SULFATE (100 MG/2 ML) 100 MG in SODIUM CHLORIDE 0.9% 100 ML IV SCH ×2 (09:13→11:56)
[2022-06-25] MEDS ORDERED: GLYCOPYRROLATE 0.2 MG/ML 2 ML VIAL IVP PRN (11:46)
--- NOTE | 2022-06-25 15:54 | P.PN ---
Subjective Progress Note Date: 06/25/22 This is a 67-year-old female who was recently admitted with recent diagnosis of left carcinoma of the lung with significant weakness shortness of breath and anemia. Patient has had prolonged hospitalization and large pleural effusion postthoracentesis and questionable pneumonia although not behaving as such with multiple medical consultations following. Patient also received inpatient radiation palliative treatment with oncology following and family has opted for hospice. [facility] met with the family and has met GIP criteria and is being continued on comfort measures. Patient was maintained on as needed morphine and continues to be dyspneic and periods of increased anxiety and restlessness. [facility] recommending morphine drip and family is agreeable. Patient is being placed on morphine drip along with other comfort measures only. Overall prognosis is poor and will continue to follow during hospitalization. Review of systems: Unable to obtain as patient is lethargic and extremely dyspneic Active Medications Acetaminophen (Acetaminophen Suppository 650 Mg Supp) 650 mg RECTAL Q4HR PRN PRN Reason: Fever and/or Mild Pain Atropine Sulfate (Atropine Ophth Soln 1% 5ml Btl) 2 drops SUBLINGUAL Q4HR PRN PRN Reason: Excess Secretions Glycopyrrolate (Glycopyrrolate 0.2 Mg/Ml 2 Ml Vial) 0.1 mg IVP Q6HR PRN PRN Reason: Secretions Morphine Sulfate 100 mg/ (Sodium Chloride) 102 mls @ 1.02 mls/hr IV .Q24H [facility]; Protocol Last Admin: 06/25/22 11:56 Dose: 1 mg/hr, 1.02 mls/hr Lorazepam (Lorazepam 1 Mg/0.5 Ml Vial) 1 mg IV Q2HR PRN PRN Reason: Anxiety Morphine Sulfate (Morphine Sulfate 2 Mg/Ml Syringe) 2 mg IV Q15M PRN PRN Reason: Breakthrough Pain Last Admin: 06/25/22 09:59 Dose: 2 mg Ondansetron HCl (Ondansetron 4 Mg/2 Ml Vial) 4 mg IVP Q8HR PRN PRN Reason: Nausea/emesis Scopolamine (Scopolamine 1 Mg/72 Hr Patch) 1 patch TRANSDERM Q72H [facility] Last Admin: 06/25/22 09:13 Dose: Not Given PHYSICAL EXAMINATION: GENERAL: The patient is alert and oriented x1 extremely lethargic, ill-appearing HEENT: Pupils are round and equally reacting to light. EOMI. no scleral icterus. No conjunctival pallor. Normocephalic, atraumatic. No pharyngeal erythema. No thyromegaly. CARDIOVASCULAR: S1 and S2 muffled PULMONARY: diminished breath sounds bilaterally with scattered rhonchi and crackles noted. ABDOMEN: soft. Nontender on exam. obese. non-distended, normoactive bowel sounds. No palpable organomegaly. MUSCULOSKELETAL: No joint swelling or deformity. EXTREMITIES: No cyanosis, clubbing, or pedal edema. NEUROLOGICAL: Gross neurological examination did not reveal any focal deficits. Diffuse weakness SKIN: No rashes. Assessment: Left-sided lung cancer, extensive recent inpatient radiation treatment large pleural effusion of the left status post thoracentesis of approx 1L removed Evidence for post obstructive pneumonia to the left lung Leukocytosis secondary to above Hypokalemia from poor oral intake, diuresis Tachycardia Anemia, possibly secondary to malignancy, multifactorial, status post transfusion Elevated d-dimer Gait dysfunction, generalized weakness History of chronic nicotine use GI prophylaxis DVT prophylaxis No code, no CPR, no vent Plan: Recommend to continue with [facility] hospice and comfort measures only. Patient was maintained on IV push morphine as needed along with Ativan and having breakthrough moments of restlessness and discomfort in [facility] hospice evaluated today recommending morphine drip and patient's family is agreeable. We'll continue to monitor and follow along with [facility] during hospitalization. Overall prognosis remains extremely poor. Emotional support provided. The impression and plan of care has been dictated by Liliana Mendez, nurse practitioner as directed. Dr. Karlene COKER I have performed a history and examination and MDM of this patient, discussed the same with the dictator, and agree with the dictator's assessment and plan as written ,documented as a scribe. Based on total visit time, I have performed more than 50% of the visit. Any additional findings or plans will be noted. Objective - Vital Signs Vital signs: Intake & Output 06/24/22 06/25/22 06/25/22 18:59 06:59 18:59 Weight 49.89 kg
--- NOTE | 2022-06-26 12:09 | P.DS ---
Providers Date of admission: 06/25/22 08:03 Expected date of discharge: 06/26/22 Attending physician: Cynthia Santo Primary care physician: Physician Nonstaff Hospital Course: Preliminary cause of Adenocarcinoma of the lung Final diagnosis Left-sided lung cancer, extensive recent inpatient radiation treatment large pleural effusion of the left status post thoracentesis of approx 1L removed Evidence for post obstructive pneumonia to the left lung Leukocytosis secondary to above Hypokalemia from poor oral intake, diuresis Tachycardia Anemia, possibly secondary to malignancy, multifactorial, status post transfusion Elevated d-dimer Gait dysfunction, generalized weakness History of chronic nicotine use GI prophylaxis DVT prophylaxis No code, no CPR, no vent Discharge disposition Patient has . According to nursing documentation time of was 1924 on 06/25/2022 family were present. Patient was on [facility] hospice comfort measures only and placed on a morphine drip earlier in the day and has . Please refer to previous documentations for further HPI. Hospital course This is a 67-year-old female who was recently admitted with recent diagnosis of left carcinoma of the lung with significant weakness shortness of breath and anemia. Patient has had prolonged hospitalization and large pleural effusion postthoracentesis and questionable pneumonia although not behaving as such with multiple medical consultations following. Patient also received inpatient radiation palliative treatment with oncology following and family has opted for hospice. [facility] hospice met with the family and has met GIP criteria and is being continued on comfort measures. Patient was maintained on as needed morphine and continues to be dyspneic and periods of increased anxiety and restlessness. [facility] recommending morphine drip and family is agreeable. Patient is being placed on morphine drip along with other comfort measures only. Time of was 1924 on 06/25/2022 The impression and plan of care has been dictated by Liliana Mendez Nurse Practitioner as directed. Dr. Karlene MD I have performed a history and examination and MDM of this patient, discussed the same with the dictator, and agree with the dictator's assessment and plan as written ,documented as a scribe. Based on total visit time, I have performed more than 50% of the visit. Patient Condition at Discharge: Poor Plan - Discharge Summary Discharge Rx Participant: No New Discharge Prescriptions: No Action Ferrous Sulfate [Iron (65 MG Elemental)] 325 mg PO DAILY Docusate [Colace] 100 mg PO DAILY Amoxic-Pot Clav 875-125Mg [Augmentin 875-125] 1 tab PO BID 10 Days #20 tab Metoprolol Tartrate [Lopressor] 25 mg PO BID #60 tab Melatonin 6 mg PO HS PRN 10 Days #10 tab PRN Reason: Insomnia Famotidine [Pepcid] 20 mg PO Q12HR #60 tab Acetaminophen Tab [Tylenol] 650 mg PO Q6HR PRN tab PRN Reason: Fever And/ Or Pain predniSONE See Taper PO DIRECTED Albuterol Inhaler [Ventolin Hfa Inhaler] 2 puff INHALATION RT-Q4H PRN PRN Reason: Shortness Of Breath Nystatin 100,000 Unit/ml Susp [Mycostatin Oral Susp] 500,000 unit PO QID 3 Days #60 ml ALPRAZolam [Xanax] 0.25 mg PO BID PRN 3 Days #6 tab PRN Reason: Anxiety Discharge Medication List Albuterol Inhaler [Ventolin Hfa Inhaler] 2 puff INHALATION RT-Q4H PRN 05/24/22 [History] Docusate [Colace] 100 mg PO DAILY 05/24/22 [History] Ferrous Sulfate [Iron (65 MG Elemental)] 325 mg PO DAILY 05/24/22 [History] ALPRAZolam [Xanax] 0.25 mg PO BID PRN 3 Days #6 tab 06/03/22 [Rx] Acetaminophen Tab [Tylenol] 650 mg PO Q6HR PRN tab 06/03/22 [Rx] Amoxic-Pot Clav 875-125Mg [Augmentin 875-125] 1 tab PO BID 10 Days #20 tab 06/03/22 [Rx] Famotidine [Pepcid] 20 mg PO Q12HR #60 tab 06/03/22 [Rx] Melatonin 6 mg PO HS PRN 10 Days #10 tab 06/03/22 [Rx] Metoprolol Tartrate [Lopressor] 25 mg PO BID #60 tab 06/03/22 [Rx] Nystatin 100,000 Unit/ml Susp [Mycostatin Oral Susp] 500,000 unit PO QID 3 Days #60 ml 06/03/22 [Rx] predniSONE See Taper PO DIRECTED 06/09/22 [History] Discharge Disposition: - Preliminary Cause of Preliminary Cause of : Adenocarcinoma of the lung
== END 2022-06-25 21:59 | disposition expired | DRG 951 ==
LOC: 5NMEDONC 08:03
PROVIDERS: ADMIT Hospitalist; ATTEND Hospitalist
DX: Z51.5 Encounter for palliative care (principal); J18.9 Pneumonia, unspecified organism; C34.92 Malignant neoplasm of unspecified part of left bronchus or lung; D63.0 Anemia in neoplastic disease; F41.9 Anxiety disorder, unspecified; E87.6 Hypokalemia; R00.0 Tachycardia, unspecified; R79.89 Other specified abnormal findings of blood chemistry; R26.9 Unspecified abnormalities of gait and mobility; R45.1 Restlessness and agitation; Z98.890 Other specified postprocedural states; Z92.3 Personal history of irradiation; Z87.891 Personal history of nicotine dependence